=== PATIENT | male | born 1965 | race Two or more races ===

== ENCOUNTER 2017-06-27 09:57 | Inpatient (IN) | payer BC, OTHER ==
[2017-06-27 10:02] VITALS: BMI 34.6
[2017-06-27 11:40] LABS: BASOPHIL 0.6 % (0-2.0); EOSINOPHIL 0.9 % (0-4.5); MCH 32.3 pg (25.7-33.7); MCHC 32.9 g/dl (32.0-35.9); MEAN CELL VOLUME 98.2 fl (80-96); MEAN PLT VOLUME 11.8 fl (7.5-11.1); NEUTROPHILS 58.6 % (42.8-82.8); PLATELET COUNT 61 K/MM3 (134-434); WHITE BLOOD COUNT 4.2 K/mm3 (4.0-10.0)
[2017-06-27 12:03] LABS: INR 1.63 (0.82-1.09); PROTHROMBIN TIME (PATIENT) 18.1 SEC (9.98-11.88)
--- NOTE | 2017-06-27 12:03 | PDOC ---
History of Present Illness - General Chief Complaint: Pain Stated Complaint: ABD PAIN Time Seen by Provider: 06/27/17 11:06 History Source: Patient - History of Present Illness Initial Comments: 06/27/17 11:54 51 M with h/o hepatitis B and C, alcoholic cirrhosis, portal vein thrombosis presenting to ER with abdominal distention. Pt states that it has been worsening over the past 2 weeks. Denies F/C. Denies N/V/D. He states that he has lost his appetite due to the distention and has not been eating. He denies diarrhea or constipation. Reports mild epigastric pain. He states that he was seen at [facility] last week but reports that nothing was done for him. He denies ever getting a paracentesis. Pt also reports that he has not been compliant with his lactulose, which he is supposed to take twice daily, because he has had no appetite. Per discussion w PMD, pt has had this problem previously and has been treated with diuretics. Past History - Past Medical History Allergies/Adverse Reactions: Allergies Allergy/AdvReac Type Severity Reaction Status Date / Time No Known Allergies Allergy Verified 06/27/17 10:02 Home Medications: Ambulatory Orders Furosemide [Lasix -] 20 mg PO DAILY 06/27/17 Gabapentin 300 mg PO BID 06/27/17 Nadolol 40 mg PO DAILY 06/27/17 Omeprazole/Sodium Bicarbonate [Omeprazole-Bicarb 40-1,100 Cap] 1 each PO DAILY 06/27/17 Rifaximin [Xifaxan] 550 mg PO BID 06/27/17 Spironolactone 25 mg PO DAILY 06/27/17 Tamsulosin HCl 0.4 mg PO DAILY 06/27/17 Ursodiol 500 mg PO BID 06/27/17 Other medical history: CIRRHOSIS - Surgical History Appendectomy: Yes - Psycho/Social/Smoking Cessation Hx Suicidal Ideation: No Smoking History: Never smoked Information on smoking cessation initiated: No Review of Systems - Review of Systems Comments:: 06/27/17 12:03 "GENERAL/CONSTITUTIONAL: No fever or chills. No weakness. HEAD, EYES, EARS, NOSE AND THROAT: No change in vision. No ear pain or discharge. No sore throat. CARDIOVASCULAR: No chest pain or shortness of breath. RESPIRATORY: No cough, wheezing, or hemoptysis. GASTROINTESTINAL: + abdominal distention, epigastric pain. No nausea, vomiting, diarrhea or constipation. GENITOURINARY: No dysuria, frequency, or change in urination. MUSCULOSKELETAL: No joint or muscle swelling or pain. No neck or back pain. SKIN: No rash NEUROLOGIC: No headache, vertigo, loss of consciousness, or change in strength/ sensation. ENDOCRINE: No increased thirst. No abnormal weight change. HEMATOLOGIC/LYMPHATIC: No anemia, easy bleeding, or history of blood clots. ALLERGIC/IMMUNOLOGIC: No hives or skin allergy. " *Physical Exam - Vital Signs Last Vital Signs Temp Pulse Resp BP Pulse Ox 68 18 154/79 99 06/27/17 09:59 06/27/17 09:59 06/27/17 09:59 06/27/17 09:59 - Physical Exam Comments: 06/27/17 12:04 "GENERAL: Awake, alert, and fully oriented, in no acute distress HEAD: No signs of trauma EYES: PERRLA, EOMI, sclera anicteric, conjunctiva clear ENT: Auricles normal inspection, hearing grossly normal, nares patent, oropharynx clear without exudates. Moist mucosa NECK: Normal ROM, supple, no lymphadenopathy, JVD, or masses LUNGS: Breath sounds equal, clear to auscultation bilaterally. No wheezes, and no crackles HEART: Regular rate and rhythm, normal S1 and S2, no murmurs, rubs or gallops ABDOMEN: +epigastric TTP, +fluid wave, Soft, normoactive bowel sounds. No guarding, no rebound. No masses EXTREMITIES: Normal range of motion, no edema. No clubbing or cyanosis. No cords, erythema, or tenderness NEUROLOGICAL: Cranial nerves II through XII grossly intact. Normal speech, normal gait SKIN: Warm, Dry, normal turgor, no rashes or lesions noted. " Procedures - Consent Consent obtained: Verbal, From Patient - Additional Procedures Additional Procedures: other Progress: 06/27/17 16:13 Diagnostic paracentesis was performed, withdrawing 50cc of clear yellow ascitic fluid. Fluid sent to lab for study. ED Treatment Course - LABORATORY CBC & Chemistry Diagram: 06/27/17 11:30 06/27/17 11:30 - ADDITIONAL ORDERS Additional order review: 06/27/17 11:30 RBC 3.87 L MCV 98.2 H MCHC 32.9 RDW 18.0 H MPV 11.8 H Neutrophils % 58.6 Lymphocytes % 29.9 Monocytes % 10.0 Eosinophils % 0.9 Basophils % 0.6 - RADIOLOGY Radiology Studies Ordered: Category Date Time Status CHEST PA & LAT [RAD] Stat Radiology 06/27/17 11:14 Taken Medical Decision Making - Medical Decision Making 06/27/17 12:20 51 M with hepatitis, alcoholic cirrhosis, presenting with abdominal distention. No infectious signs/symptoms. No significant abdominal pain or tenderness. Likely worsening cirrhosis, but will r/o SBP. - Labs - Diagnostic paracentesis 06/27/17 16:14 Diagnostic para performed under sterile technique, 50 cc of clear yellow ascitic fluid sent to lab for studies. *DC/Admit/Observation/Transfer Diagnosis at time of Disposition: Hepatic cirrhosis - Discharge Dispostion Admit: Yes
[2017-06-27 12:05] LABS: ANION GAP 5 (8-16); BILIRUBIN,TOTAL 3.9 mg/dL (0.2-1.0); CALCIUM 8.1 mg/dL (8.5-10.1); CO2 31 mmol/L (21-32); CREATININE 0.9 mg/dL (0.7-1.3); GLUCOSE,RANDOM 85 mg/dL (74-106); SGOT/AST 62 U/L (15-37); SGPT/ALT 48 U/L (12-78); TOT PROT 6.8 g/dl (6.4-8.2)
[2017-06-27 12:06] LABS: URINE APPEARANCE CLEAR; URINE BILIRUBIN NEGATIVE (NEGATIVE); URINE BLOOD NEGATIVE (NEGATIVE); URINE COLOR DKYELLOW; URINE GLUCOSE (UA) NEGATIVE (NEGATIVE); URINE KETONE TRACE (NEGATIVE); URINE LEUK ESTERASE NEGATIVE (NEGATIVE); URINE NITRITE NEGATIVE (NEGATIVE); URINE PROTEIN NEGATIVE (NEGATIVE); URINE UROBILINOGEN NEGATIVE mg/dL (0.2-1.0)
[2017-06-27 12:13] LABS: ALK PHOS 158 U/L (45-117); THYROID STIMULATING HORMONE 2.46 uIU/ml (0.358-3.74)
[2017-06-27] MEDS ORDERED: LIDOCAINE HCL 1%, 10 MG/ML (20ML VIAL) ONE (14:54)
[2017-06-27] MEDS ORDERED: CEFTRIAXONE 1 GM in DEXTROSE 5%-WATER - 50 ML IVPB ONE (16:14)
[2017-06-27] MEDS ORDERED: CEFTRIAXONE 50 ML ONE (16:40)
[2017-06-27] MEDS ORDERED: morphine CARPU-JECT 4 MG/1 ML DISP.SYRIN IVPUSH ONE (16:58)
[2017-06-27] MEDS ORDERED: morphine CARPU-JECT 10 MG/1 ML DISP.SYRIN ONE (17:33)
--- NOTE | 2017-06-27 20:25 | HP ---
Admitting History and Physical - Primary Care Physician PCP: Emil Leach - Admission History of Present Illness: 51 M with h/o hepatitis B and C, alcoholic cirrhosis, portal vein thrombosis presenting to ER with abdominal distention. Pt states that it has been worsening over the past 2 weeks. Denies F/C. Denies N/V/D. He states that he has lost his appetite due to the distention and has not been eating, c/o abdominal pain. he was seen at [facility] last week but reports that nothing was done for him. He denies ever getting a paracentesis. Pt also reports that he has not been compliant with his lactulose, which he is supposed to take twice daily, because he has had no appetite. - Past Medical History Hepatobiliary: Yes: Cirrhosis (alcoholic), Hepatitis B, Hepatitis C - Smoking History Smoking history: Never smoked Home Medications - Allergies Allergies/Adverse Reactions: Allergies Allergy/AdvReac Type Severity Reaction Status Date / Time No Known Allergies Allergy Verified 06/27/17 10:02 - Home Medications Home Medications: Ambulatory Orders Furosemide [Lasix -] 20 mg PO DAILY 06/27/17 Gabapentin 300 mg PO BID 06/27/17 Nadolol 40 mg PO DAILY 06/27/17 Omeprazole/Sodium Bicarbonate [Omeprazole-Bicarb 40-1,100 Cap] 1 each PO DAILY 06/27/17 Rifaximin [Xifaxan] 550 mg PO BID 06/27/17 Spironolactone 25 mg PO DAILY 06/27/17 Tamsulosin HCl 0.4 mg PO DAILY 06/27/17 Ursodiol 500 mg PO BID 06/27/17 Physical Examination Vital Signs: Vital Signs Temperature 98.1 F 06/27/17 19:39 Pulse Rate 68 06/27/17 19:39 Respiratory Rate 19 06/27/17 19:39 Blood Pressure 144/83 06/27/17 19:39 O2 Sat by Pulse Oximetry (%) 98 06/27/17 19:39 Constitutional: Yes: Calm HENT: Yes: Atraumatic Neck: Yes: Supple Cardiovascular: Yes: Regular Rate and Rhythm Respiratory: Yes: CTA Bilaterally Gastrointestinal: Yes: Ascites Extremities: Yes: WNL Neurological: Yes: Alert, Oriented Problem List - Problems (1) Cirrhosis Assessment/Plan: pt alert and oriented no need for lactulose will get gi involved Code(s): K74.60 - UNSPECIFIED CIRRHOSIS OF LIVER (2) Ascites Assessment/Plan: diagnostic tap done will get IR involved for paracentesis Code(s): R18.8 - OTHER ASCITES Assessment/Plan Laboratory Tests 06/27/17 06/27/17 06/27/17 11:30 11:30 11:30 WBC 4.2 RBC 3.87 L Hgb 12.5 Hct 38.0 MCV 98.2 H MCH 32.3 MCHC 32.9 RDW 18.0 H Plt Count 61 L MPV 11.8 H Neutrophils % 58.6 Lymphocytes % 29.9 Monocytes % 10.0 Eosinophils % 0.9 Basophils % 0.6 INR PTT (Actin FS) 31.1 Sodium Potassium Chloride Carbon Dioxide Anion Gap BUN Creatinine Creat Clearance w eGFR Random Glucose Lactic Acid Calcium Total Bilirubin AST ALT Alkaline Phosphatase Ammonia 33.11 H Total Protein Albumin Lipase TSH Urine Color Urine Appearance Urine pH Ur Specific [place] Urine Protein Urine Glucose (UA) Urine Ketones Urine Blood Urine Nitrite Urine Bilirubin Urine Urobilinogen Ur Leukocyte Esterase Peritoneal Tot Protein Peritoneal Albumin Peritoneal LDH Peritoneal Glucose Peritoneal Amylase 06/27/17 06/27/17 06/27/17 11:30 11:30 11:30 WBC RBC Hgb Hct MCV MCH MCHC RDW Plt Count MPV Neutrophils % Lymphocytes % Monocytes % Eosinophils % Basophils % INR 1.63 H PTT (Actin FS) Sodium 140 Potassium 4.1 Chloride 104 Carbon Dioxide 31 Anion Gap 5 L BUN 9 Creatinine 0.9 Creat Clearance w eGFR > 60 Random Glucose 85 Lactic Acid 2.3 H* Calcium 8.1 L Total Bilirubin 3.9 H AST 62 H ALT 48 Alkaline Phosphatase 158 H Ammonia Total Protein 6.8 Albumin 2.0 L Lipase 239 TSH 2.46 Urine Color Urine Appearance Urine pH Ur Specific Friendship Urine Protein Urine Glucose (UA) Urine Ketones Urine Blood Urine Nitrite Urine Bilirubin Urine Urobilinogen Ur Leukocyte Esterase Peritoneal Tot Protein Peritoneal Albumin Peritoneal LDH Peritoneal Glucose Peritoneal Amylase 06/27/17 06/27/17 11:40 15:30 WBC RBC Hgb Hct MCV MCH MCHC RDW Plt Count MPV Neutrophils % Lymphocytes % Monocytes % Eosinophils % Basophils % INR PTT (Actin FS) Sodium Potassium Chloride Carbon Dioxide Anion Gap BUN Creatinine Creat Clearance w eGFR Random Glucose Lactic Acid Calcium Total Bilirubin AST ALT Alkaline Phosphatase Ammonia Total Protein Albumin Lipase TSH Urine Color Dkyellow Urine Appearance Clear Urine pH 7.0 Ur Specific Friend[place] 1.015 Urine Protein Negative Urine Glucose (UA) Negative Urine Ketones Trace H Urine Blood Negative Urine Nitrite Negative Urine Bilirubin Negative Urine Urobilinogen Negative Ur Leukocyte Esterase Negative Peritoneal Tot Protein 0 Peritoneal Albumin 0 Peritoneal LDH 33 Peritoneal Glucose 110 Peritoneal Amylase 27 Active Medications Generic Name Dose Route Start Last Admin Trade Name Freq PRN Reason Stop Dose Admin Furosemide 20 mg 06/28/17 10:00 06/28/17 09:21 Lasix - PO 20 mg DAILY SANCHO Administration Hydromorphone HCl 1 mg 06/28/17 10:08 06/28/17 09:45 Dilaudid Injection - IVPB 1 mg Q3H PRN Administration PAIN Nadolol 40 mg 06/28/17 10:00 06/28/17 09:21 Corgard - PO 40 mg DAILY SANCHO Administration Rifaximin 550 mg 06/27/17 22:00 06/28/17 09:21 Xifaxan - PO 550 mg BID SANCHO Administration Spironolactone 25 mg 06/28/17 10:00 06/28/17 09:21 Aldactone - PO 25 mg DAILY SANCHO Administration Tamsulosin HCl 0.4 mg 06/28/17 10:00 06/28/17 09:21 Flomax - PO 0.4 mg DAILY SANCHO Administration
[2017-06-27] MEDS: RIFAXIMIN 550 MG TABLET (UD) PO SCH (22:21)
[2017-06-28] MEDS: NADOLOL 40 MG TABLET (FP) PO SCH (09:21)
[2017-06-28] MEDS: RIFAXIMIN 550 MG TABLET (UD) PO SCH ×2 (09:21→22:02)
[2017-06-28] MEDS: TAMSULOSIN HCL 0.4 MG CAP.ER.24H (FP) PO SCH (09:21)
[2017-06-28] MEDS: FUROSEMIDE 20 MG TABLET (FP) PO SCH (09:21)
[2017-06-28] MEDS: SPIRONOLACTONE 25 MG TABLET (FP) PO SCH (09:21)
[2017-06-28] MEDS ORDERED: HYDROmorphone HCL CARPU-JECT 1 MG/1 ML DISP.SYRIN ONE (09:40)
[2017-06-28 09:46] LABS: BASOPHIL 0.3 % (0-2.0); EOSINOPHIL 0.8 % (0-4.5); MCH 32.8 pg (25.7-33.7); MCHC 33.3 g/dl (32.0-35.9); MEAN CELL VOLUME 98.6 fl (80-96); MEAN PLT VOLUME 10.4 fl (7.5-11.1); NEUTROPHILS 60.9 % (42.8-82.8); PLATELET COUNT 56 K/MM3 (134-434); RDW 17.3 % (11.9-15.9); WHITE BLOOD COUNT 3.4 K/mm3 (4.0-10.0)
--- NOTE | 2017-06-28 09:53 | PN ---
Progress Note, Physician History of Present Illness: Consulting service: Gastroenterology 51yo [place] Islander-speaking M w/ significant past history of Hep B and C, alcoholic cirrhosis, and portal vein thrombosis who initially presented to the ED for worsening abdominal distention and pain for the past 2 weeks. Pt states he has had this previously, however he started to feel unwell and lost his appetite noting increasing abdominal girth. Pt states he has not been taking his lactulose due to his loss of appetite however has been compliant with his Rifaximin 550 PO BID. Currently patient still feels uncomfortable due to the distention, however he is able to tolerate a full diet. His last BM was yesterday morning which was per his usual quality without any blood or mucous noted. - Current Medication List Current Medications: Active Medications Furosemide (Lasix -) 20 mg PO DAILY [facility] Last Admin: 06/28/17 09:21 Dose: 20 mg Ceftriaxone Sodium (Rocephin 1gm Ivpb (Pre-Docked)) 50 mls @ 100 mls/hr IVPB DAILY [facility] Nadolol (Corgard -) 40 mg PO DAILY [facility] Last Admin: 06/28/17 09:21 Dose: 40 mg Rifaximin (Xifaxan -) 550 mg PO BID [facility] Last Admin: 06/28/17 09:21 Dose: 550 mg Spironolactone (Aldactone -) 25 mg PO DAILY [facility] Last Admin: 06/28/17 09:21 Dose: 25 mg Tamsulosin HCl (Flomax -) 0.4 mg PO DAILY [facility] Last Admin: 06/28/17 09:21 Dose: 0.4 mg - Objective Vital Signs: Vital Signs Temperature 97.9 F 06/28/17 06:03 Pulse Rate 66 06/28/17 06:03 Respiratory Rate 20 06/28/17 06:03 Blood Pressure 131/76 06/28/17 06:03 O2 Sat by Pulse Oximetry (%) 97 06/27/17 21:00 Constitutional: Yes: No Distress, Calm Eyes: Yes: Conjunctiva Clear, EOM Intact, PERRL, Sclera Icterus (slight scleral icterus noted) Cardiovascular: Yes: Regular Rate and Rhythm. No: Murmur Respiratory: Yes: Regular, CTA Bilaterally. No: Rales, Rhonchi, SOB, Wheezes Gastrointestinal: Yes: Other (Distant bowel sounds, distended non-tender abdomen with fluid wave noted on auscultation. Old scar noted from previous appendectomy. No rebound or guarding noted.) Edema: No Peripheral Pulses WNL: Yes Neurological: Yes: Alert, Oriented Psychiatric: Yes: Alert, Oriented Labs: CBC, BMP 06/28/17 09:00 INR, PTT INR 1.63 (0.82-1.09) H 06/27/17 11:30 Impression/Plan Impression/Plan: 51yo M with sig history of Hepatitis B, C, portal vein thrombosis, and alcoholic cirrhosis noted to have worsening distention and abdominal discomfort. No N/V/D/C noted. Scleral icterus noted, ammonia lvl increased, T. Bili 3.9, alb 2.0, increased LFTs 1) Ascites --SBP r/o with diagnostic paracentesis; doubt infectious etiology due to results (LDH 33, Gluc 110, Amylase 21, 0 albumin, 0 protein) --Most likely result from worsening alcoholic cirrhosis --Pt able to tolerate diet currently --Possibility of therapeutic paracentesis to alleviate fluid? --Continue with diuretic usage --Pain control as needed 2) Increased Ammonia --Ammonia noted to be 33 on initial labs; will trend --Scleral icterus noted; not altered --Lactulose to be given now that patient is tolerating diet FEN: Fluids: Not indicated; tolerating full diet Electrolyte abnormalities: None Nutrition: fat/sodium/cholesterol controlled diet Dispo: Continue M/S management Visit type - Emergency Visit Emergency Visit: No - Critical Care Critical Care patient: No
[2017-06-28] MEDS ORDERED: CEFTRIAXONE 50 ML IVPB SCH (10:00)
[2017-06-28] MEDS ORDERED: HYDROmorphone HCL CARPU-JECT 1 MG/1 ML DISP.SYRIN IVPB PRN (10:08)
[2017-06-28 11:15] LABS: ALBUMIN 1.7 g/dl (3.4-5.0); ALK PHOS 141 U/L (45-117); ANION GAP 5 (8-16); BILIRUBIN,TOTAL 3.1 mg/dL (0.2-1.0); CALCIUM 7.6 mg/dL (8.5-10.1); CO2 31 mmol/L (21-32); CREATININE 0.8 mg/dL (0.7-1.3); GLUCOSE,RANDOM 184 mg/dL (74-106); SGOT/AST 48 U/L (15-37); SGPT/ALT 41 U/L (12-78)
[2017-06-28 12:33] LABS: PERITONEAL FLUID LYMPHOCYTE 6 %; PERITONEAL FLUID MESOTHELIAL 57 %
[2017-06-28 12:34] LABS: PERITONEAL FLUID MACROPHAGE 37 %
--- NOTE | 2017-06-28 13:31 | CON.GI ---
Consult Consult Specialty:: Gastroenterology Reason for Consultation:: Abdominal distention/ascites - History of Present Illness Chief Complaint: Abdominal discomfort and abdominal distention History of Present Illness: 51yo Arabic-speaking M who initially presented to the ED for worsening abdominal distention and pain for the past 2 weeks. Pt states he has had this previously, however he started to feel unwell and lost his appetite noting increasing abdominal girth. Describes the discomfort as a diffuse pressure which isn't exacerbated or alleviated with positioning. Pt denies any radiation of the discomfort and rates it as mild. He states he sees Dr. Kingston in [place] for routine follow-up of his liver cirrhosis (diagnosed 6-7 years ago) and that he is on a transplant list. Pt reports he has not been taking his lactulose due to his loss of appetite however has been compliant with his Rifaximin 550 PO BID. His previous colonoscopy was done 3 months ago. Currently patient still feels uncomfortable due to the distention, however he is able to tolerate a full diet. His last BM was yesterday morning which was per his usual quality without any blood or mucous noted. Denies n/v/d/c, fever/ chills. Patient originally from the [place], however has not travelled outside of [place] for about 4 years. - History Source History Provided By: Patient Limitations to Obtaining History: Language Barrier - Past Medical History Hepatobiliary: Yes: Cirrhosis (alcoholic), Hepatitis B, Hepatitis C - Past Surgical History Past Surgical History: Yes: Appendectomy (2009 or earlier), Colonoscopy (Most recent: 02/2017) - Alcohol/Substance Use Hx Alcohol Use: No - Smoking History Smoking history: Never smoked - Social History ADL: Independent Occupation: Retired History of Recent Travel: No Home Medications - Allergies Allergies/Adverse Reactions: Allergies Allergy/AdvReac Type Severity Reaction Status Date / Time No Known Allergies Allergy Verified 06/27/17 10:02 - Home Medications Home Medications: Ambulatory Orders Furosemide [Lasix -] 20 mg PO DAILY 06/27/17 Gabapentin 300 mg PO BID 06/27/17 Nadolol 40 mg PO DAILY 06/27/17 Omeprazole/Sodium Bicarbonate [Omeprazole-Bicarb 40-1,100 Cap] 1 each PO DAILY 06/27/17 Rifaximin [Xifaxan] 550 mg PO BID 06/27/17 Spironolactone 25 mg PO DAILY 06/27/17 Tamsulosin HCl 0.4 mg PO DAILY 06/27/17 Ursodiol 500 mg PO BID 06/27/17 Physical Exam-GI Vital Signs: Vital Signs Temperature 98.5 F 06/28/17 09:00 Pulse Rate 62 06/28/17 09:00 Respiratory Rate 20 06/28/17 09:00 Blood Pressure 133/76 06/28/17 09:00 O2 Sat by Pulse Oximetry (%) 95 06/28/17 09:00 Constitutional: Yes: No Distress, Calm Eyes: Yes: Conjunctiva Clear, EOM Intact, PERRL, Sclera Icterus (Mild scleral icterus noted) HENT: Yes: Other (Moist mucosa; slightly icteric under tongue) Cardiovascular: Yes: Bradycardia (regular rhythm). No: JVD, Murmur Respiratory: Yes: Regular, CTA Bilaterally. No: Rales, Rhonchi, Wheezes Gastrointestinal Inspection: Yes: Distention (Mildy distended), Scars (RLQ scar) ...Auscultate: Yes: Normoactive Bowel Sounds ...Palpate: Yes: Soft, Tenderness (discomfort on palpation). No: Hepatomegaly, Splenomegaly ...Percussion: Yes: Fluid Wave Edema: Yes Edema: LLE: 1+, RLE: 1+ Peripheral Pulses WNL: Yes Neurological: Yes: Alert, Oriented. No: Asterixis Psychiatric: Yes: Alert, Oriented Labs: INR, PTT INR 1.63 (0.82-1.09) H 06/27/17 11:30 Problem List - Problems (1) Cirrhosis Assessment/Plan: See Assessment and plan Code(s): K74.60 - UNSPECIFIED CIRRHOSIS OF LIVER Qualifiers: Hepatic cirrhosis type: alcoholic cirrhosis Assessment/Plan 51yo M with pmhx of Hep B, C, alcoholic liver cirrhosis presenting with increasing abdominal distention and diffuse discomfort. Diagnostic paracentesis done in ED; results noted MELD score 17 1) Ascites --Diagnostic paracentesis noted --SAG >1.1; most likely portal hypertension in nature due to previous history --Peritoneal fluid WBC, LDH, Glucose not indicative of SBP --Absolute PMN pending --Culture/Gram stain pending --Discussed patient with Dr. Kingston --Pt has natural portal-systemic shunt (spleno-renal) --Decreased size of portal vein and small esophageal varices --Recommend Triphasic CT --Will help visualize extent of diminished portal vein and shunting --Aid in evaluation of any underlying hepatocellular carcinoma --Discontinue any further lactulose usage --No evidence of encephalopathy currently --Currently being controlled with Rifaximin --Would not recommend therapeutic paracentesis at this point --Can D/C antibiotics at this time --Continual F/U with Dr. Kingston for continued evaluation of liver cirrhosis/ transplant --Colonoscopy up to date --Increase Aldactone to 50mg; increase Lasix to 40mg qDaily in setting of ascites and trace edema peripherally. FEN: Fluids: Not indicated currently; tolerating PO Electrolyte abnormalities: None currently Nutrition: Fat/Cholesterol/Sodium controlled diet PPX DVT - SCDs applied to both legs GI - Not truly indicated currently ATTENDING PHYSICIAN STATEMENT I saw and evaluated the patient. I reviewed the resident's note and discussed the case with the resident. I agree with the resident's findings and plan as documented. SUBJECTIVE: [employer] [id number] utilized [id number] admitted for evaluation of upper abdominal pain He underwent diagnostic paracentesis in ER Currently asymptomatic OBJECTIVE: Afebrile Anicteric Hrt: Bradycardic rate, reg rhythm Lungs: CTA B/L Abd: Mildly protuberant,+ normoactive BS, sft, nt, no HSM Ext: 1+ pitting edema to knees b/l w/ chronic stasis changes Neuro: AAO x 3, no Asterexis MELD: 17 ASSESSMENT Chronic Alcoholic cirrhosis Abdominal pain: Discussed case with Dr. Eliana Francis, Mr. Fletcher's Liver transplant attending. Apparently Mr. Fletcher has a history of chronic unexplained upper abdominal pain and has a history of gastroparesis confirmed by SGES. she explained that she has even attempted botox injections to the pylorus to see if this alleviated his pain complaints. Also, She confirmed that on recent imaging (12/17) he did not have a portal vein thrombus. He has a small caliber portal vein as well as a natural splenorenal shunt likely accounting for the small portal vein diameter and decompressed / small varices noted on his most recent EGD at [facility]. She was not certain why he is on ursodiol and his current liver chemistries seem to correlate with his previous labwork PLAN: Ordered triple phase CT scan of the abdomen and pelvis for HCC screening purposes and to evaluate abdominal pain / extent of ascites With mild peripheral edema and ascites, would titrate diuretics to Aldactone 50mg BID and Lasix 40mg daily Low sodium Low fiber diet Would stop lactulose given abdominal discomfort and continue rifaximin Unclear why Mr. Fletcher is on ursodiol. Clarification with his liver transplant attending upon follow-up D/C PPI Outpatient follow-up with Dr. Eliana Francis
--- NOTE | 2017-06-28 14:16 | PN ---
Progress Note, Physician - Current Medication List Current Medications: Active Medications Furosemide (Lasix -) 20 mg PO DAILY [facility] Last Admin: 06/28/17 09:21 Dose: 20 mg Hydromorphone HCl (Dilaudid Injection -) 1 mg IVPB Q3H PRN PRN Reason: PAIN Last Admin: 06/28/17 09:45 Dose: 1 mg Nadolol (Corgard -) 40 mg PO DAILY [facility] Last Admin: 06/28/17 09:21 Dose: 40 mg Rifaximin (Xifaxan -) 550 mg PO BID [facility] Last Admin: 06/28/17 09:21 Dose: 550 mg Spironolactone (Aldactone -) 25 mg PO DAILY [facility] Last Admin: 06/28/17 09:21 Dose: 25 mg Tamsulosin HCl (Flomax -) 0.4 mg PO DAILY [facility] Last Admin: 06/28/17 09:21 Dose: 0.4 mg - Objective Vital Signs: Vital Signs Temperature 98.5 F 06/28/17 09:00 Pulse Rate 62 06/28/17 09:00 Respiratory Rate 20 06/28/17 09:00 Blood Pressure 133/76 06/28/17 09:00 O2 Sat by Pulse Oximetry (%) 95 06/28/17 09:00 Constitutional: Yes: Calm HENT: Yes: Atraumatic Neck: Yes: Supple Cardiovascular: Yes: Regular Rate and Rhythm Respiratory: Yes: CTA Bilaterally Gastrointestinal: Yes: Normal Bowel Sounds, Ascites Extremities: Yes: WNL Edema: LLE: Trace, RLE: Trace Neurological: Yes: Alert, Oriented Labs: INR, PTT INR 1.63 (0.82-1.09) H 06/27/17 11:30 Problem List - Problems (1) Cirrhosis Assessment/Plan: pt alert and oriented no need for lactulose gi note rerviewed Code(s): K74.60 - UNSPECIFIED CIRRHOSIS OF LIVER (2) Ascites Assessment/Plan: gi not recommending tap at this point Code(s): R18.8 - OTHER ASCITES
--- NOTE | 2017-06-28 15:40 | CONSULT ---
Consult Consult Specialty:: infectious diseases Reason for Consultation:: r/o sbp - History of Present Illness Chief Complaint: abd distension History of Present Illness: 51 M with h/o hepatitis B and C, alcoholic cirrhosis, portal vein thrombosis presenting to ER with abdominal distention. Pt states that it has been worsening over the past 2 weeks. Denies F/C. Denies N/V/D. He states that he has lost his appetite due to the distention and has not been eating, c/o abdominal pain. he was seen at [facility] last week but reports that nothing was done for him. He denies ever getting a paracentesis. Pt also reports that he has not been compliant with his lactulose, which he is supposed to take twice daily, because he has had no appetite. patient now says they are going to do paracentesis on him - History Source History Provided By: Patient, Family Member Limitations to Obtaining History: Language Barrier - Past Medical History Hepatobiliary: Yes: Cirrhosis (alcoholic), Hepatitis B, Hepatitis C - Past Surgical History Past Surgical History: Yes: Appendectomy (2009 or earlier), Colonoscopy (Most recent: 02/2017) - Alcohol/Substance Use Hx Alcohol Use: No - Smoking History Smoking history: Never smoked - Social History ADL: Independent Occupation: Retired History of Recent Travel: No Home Medications - Allergies Allergies/Adverse Reactions: Allergies Allergy/AdvReac Type Severity Reaction Status Date / Time No Known Allergies Allergy Verified 06/27/17 10:02 - Home Medications Home Medications: Ambulatory Orders Furosemide [Lasix -] 20 mg PO DAILY 06/27/17 Gabapentin 300 mg PO BID 06/27/17 Nadolol 40 mg PO DAILY 06/27/17 Omeprazole/Sodium Bicarbonate [Omeprazole-Bicarb 40-1,100 Cap] 1 each PO DAILY 06/27/17 Rifaximin [Xifaxan -] 550 mg PO BID 06/27/17 Spironolactone 25 mg PO DAILY 06/27/17 Tamsulosin HCl 0.4 mg PO DAILY 06/27/17 Ursodiol 500 mg PO BID 06/27/17 Review of Systems - Review of Systems Constitutional: reports: No Symptoms Eyes: reports: No Symptoms HENT: reports: No Symptoms Neck: reports: No Symptoms Cardiovascular: reports: No Symptoms Respiratory: reports: No Symptoms Gastrointestinal: reports: Bloating, Other (distension) Genitourinary: reports: No Symptoms Musculoskeletal: reports: No Symptoms Neurological: reports: No Symptoms Endocrine: reports: No Symptoms Hematology/Lymphatic: reports: No Symptoms Psychiatric: reports: No Symptoms Physical Exam Vital Signs: Vital Signs Temperature 98.5 F 06/28/17 09:00 Pulse Rate 62 06/28/17 09:00 Respiratory Rate 20 06/28/17 09:00 Blood Pressure 133/76 06/28/17 09:00 O2 Sat by Pulse Oximetry (%) 95 06/28/17 09:00 Constitutional: Yes: No Distress, Calm Eyes: Yes: Conjunctiva Clear Neck: Yes: Supple Cardiovascular: Yes: Regular Rate and Rhythm Respiratory: Yes: Regular, Poor Air Entry Gastrointestinal: Yes: Normal Bowel Sounds, Soft, Ascites Musculoskeletal: Yes: WNL Extremities: Yes: WNL Neurological: Yes: Alert, Oriented Psychiatric: Yes: Alert, Oriented Imaging - Results Chest X-ray: Report Reviewed, Image Reviewed Cat Scan: Report Reviewed, Image Reviewed Ultrasound: Report Reviewed, Image Reviewed Assessment/Plan Problem List - Problems (1) Cirrhosis Assessment/Plan: pt alert and oriented no need for lactulose will get gi involved Code(s): K74.60 - UNSPECIFIED CIRRHOSIS OF LIVER (2) Ascites Assessment/Plan: diagnostic tap done will get IR involved for paracentesis Code(s): R18.8 - OTHER ASCITES at this time i do not se any signs of sbp patient was on ceftriaxone will stop it patient for paracentesis will see what shows up
[2017-06-28] MEDS ORDERED: CEFTRIAXONE 1 GM in DEXTROSE 5%-WATER - 50 ML IVPB SCH (15:45)
--- NOTE | 2017-06-28 18:48 | EKG ---
Test Reason : Blood Pressure : / mmHG Vent. Rate : 065 BPM Atrial Rate : 065 BPM P-R Int : 142 ms QRS Dur : 090 ms QT Int : 414 ms P-R-T Axes : 029 -07 019 degrees QTc Int : 430 ms NORMAL SINUS RHYTHM NORMAL ECG NO PREVIOUS ECGS AVAILABLE CLINICAL CORRELATION IS RECOMMENDED Confirmed by JOHN GOMEZ MD ([id number]) on 06/28/2017 6:47:37 PM Referred By: Confirmed By:JOHN GOMEZ MD
[2017-06-29] MEDS: RIFAXIMIN 550 MG TABLET (UD) PO SCH (09:46)
[2017-06-29] MEDS: TAMSULOSIN HCL 0.4 MG CAP.ER.24H (FP) PO SCH (09:47)
[2017-06-29] MEDS: FUROSEMIDE 20 MG TABLET (FP) PO SCH (09:47)
[2017-06-29] MEDS: SPIRONOLACTONE 25 MG TABLET (FP) PO SCH (09:47)
[2017-06-29] MEDS: NADOLOL 40 MG TABLET (FP) PO SCH (09:48)
--- NOTE | 2017-06-29 11:09 | PN ---
Progress Note, Physician History of Present Illness: 51yo M w/ significant history of alcoholic cirrhosis who originally presented with abdominal discomfort and distention related to increase of abdominal ascites. Currently patient feels much better and has complete resolution of his abdominal discomfort. Pt states he continues to tolerate his regular diet and has been moving his bowels per baseline. Pt denies any abdominal pain, nausea, vomiting, dizziness, urinary complaints. - Current Medication List Current Medications: Active Medications Furosemide (Lasix -) 20 mg PO DAILY [facility] Last Admin: 06/29/17 09:47 Dose: 20 mg Hydromorphone HCl (Dilaudid Injection -) 1 mg IVPB Q3H PRN PRN Reason: PAIN Last Admin: 06/28/17 09:45 Dose: 1 mg Nadolol (Corgard -) 40 mg PO DAILY [facility] Last Admin: 06/29/17 09:48 Dose: 40 mg Rifaximin (Xifaxan -) 550 mg PO BID [facility] Last Admin: 06/29/17 09:46 Dose: 550 mg Spironolactone (Aldactone -) 25 mg PO DAILY [facility] Last Admin: 06/29/17 09:47 Dose: 25 mg Tamsulosin HCl (Flomax -) 0.4 mg PO DAILY [facility] Last Admin: 06/29/17 09:47 Dose: 0.4 mg - Objective Vital Signs: Vital Signs Temperature 98.1 F 06/29/17 06:00 Pulse Rate 68 06/29/17 06:00 Respiratory Rate 20 06/29/17 06:00 Blood Pressure 132/70 06/29/17 06:00 O2 Sat by Pulse Oximetry (%) 99 06/28/17 21:00 Constitutional: Yes: Well Nourished, No Distress, Calm, Other (Seen OOB to chair using home cane) Eyes: Yes: Conjunctiva Clear, EOM Intact, PERRL, Sclera Icterus Cardiovascular: Yes: Regular Rate and Rhythm. No: Murmur Respiratory: Yes: Regular, CTA Bilaterally. No: Rales, Rhonchi, SOB, Wheezes Gastrointestinal: Yes: Normal Bowel Sounds, Soft, Ascites (Fluid wave present), Distention (mildly). No: Hepatomegaly, Tenderness Edema: Yes Edema: LLE: 1+, RLE: 1+ Peripheral Pulses WNL: Yes Neurological: Yes: Alert, Oriented Psychiatric: Yes: Alert, Oriented Labs: INR, PTT INR 1.63 (0.82-1.09) H 06/27/17 11:30 - ....Imaging Cat Scan: Image Reviewed Problem List - Problems (1) Cirrhosis Assessment/Plan: --Triple phase CT image reviewed; official report pending --Per my read no note of arterial enhancement followed by venous phase washout that may be indicative of HCC --Fatty infiltration of liver noted with perihepatic ascites prominent --Collection of stool noted in transverse colon w/o distention or bowel wall thickening --Would recommend optimization of diuretics per primary team --Continued follow-up with primary GI and Liver transplant specialist Code(s): K74.60 - UNSPECIFIED CIRRHOSIS OF LIVER Qualifiers: Hepatic cirrhosis type: alcoholic cirrhosis Visit type - Emergency Visit Emergency Visit: No - New Patient This patient is new to me today: No - Critical Care Critical Care patient: No
--- NOTE | 2017-06-29 16:06 | PN ---
Teaching Attending Note Name of Resident: Kun Hannon ATTENDING PHYSICIAN STATEMENT I saw and evaluated the patient. I reviewed the resident's note and discussed the case with the resident. I agree with the resident's findings and plan as documented. SUBJECTIVE: Patient initially found in solarium sitting in chair in no distress Denies abdominal pain OBJECTIVE: Examined in his bed Anicteric Hrt bradycardic rate reg rhythm Lungs CTA b/l Abdomen: protuberant, sfot +BS Ext: 1+ LE edema CT scan: no PVT, no massive ascites, no HCC, mild splenomegaly, thickened GB wall Ascites culture negative ASSESSMENT Resolved upper abdominal pain that appears to be chroinic in nature PLAN: Titrate diuretics to Lasix 40mg daily, Aldactone 50mg daily Low sodium diet Follow-up with Dr. Eliana Francis, brief writer as scheduled Follow-up with PMD to recheck labs as diuretics to be titrated Recall as needed. Will sign off
[2017-06-29 18:25] VITALS: BP 113/52; PULSE 60; TEMP 97.9
--- NOTE | 2017-06-29 18:56 | DS ---
Physical Examination Vital Signs: Vital Signs Temperature 97.9 F 06/29/17 17:00 Pulse Rate 60 06/29/17 17:00 Respiratory Rate 20 06/29/17 17:00 Blood Pressure 113/52 06/29/17 17:00 O2 Sat by Pulse Oximetry (%) 98 06/29/17 09:00 Constitutional: Yes: No Distress HENT: Yes: Atraumatic Neck: Yes: Supple Cardiovascular: Yes: Regular Rate and Rhythm Respiratory: Yes: CTA Bilaterally Gastrointestinal: Yes: Normal Bowel Sounds, Ascites Extremities: Yes: WNL Neurological: Yes: Alert, Oriented Discharge Summary Reason For Visit: CIRRHOSIS Current Active Problems Ascites (Acute) Cirrhosis (Acute) pancytopenia - Instructions Diet, Activity, Other Instructions: low salt diet sse your gi doctor to increase lasix and aldactone Referrals: Marcel Weinberg DO [Staff Physician] - Disposition: HOME - Home Medications Comprehensive Discharge Medication List: Ambulatory Orders Furosemide [Lasix -] 20 mg PO DAILY 06/27/17 Gabapentin 300 mg PO BID 06/27/17 Nadolol 40 mg PO DAILY 06/27/17 Omeprazole/Sodium Bicarbonate [Omeprazole-Bicarb 40-1,100 Cap] 1 each PO DAILY 06/27/17 Rifaximin [Xifaxan -] 550 mg PO BID 06/27/17 Spironolactone 25 mg PO DAILY 06/27/17 Tamsulosin HCl 0.4 mg PO DAILY 06/27/17 Ursodiol 500 mg PO BID 06/27/17 dc home pt need to see his gi doctor
== END 2017-06-29 20:30 | disposition home or self-care (01) | DRG 433 ==
LOC: JER 09:57 → JERBED 16:16 → J4W 21:29 → OBSVTOIN 06-28 10:00 → JICU 06-28 10:28 → J4W 06-28 15:35
PROVIDERS: ADMIT Internal Medicine; ATTEND Internal Medicine
PROC: 0W9G3ZX Drainage of Peritoneal Cavity, Percutaneous Approach, Diagnostic (ICD-10-PCS; principal; 2017-06-27)
DX: K70.31 Alcoholic cirrhosis of liver with ascites (principal); K76.6 Portal hypertension; D61.818 Other pancytopenia; R14.0 Abdominal distension (gaseous); Z86.19 Personal history of other infectious and parasitic diseases
CPT/HCPCS: 36415; 71020-TC; 74178-TC; 76705-TC; 80053; 81003; 82042; 82140; 82150; 82945; 83605; 83615; 83690; 84157; 84443; 85025; 85610; 85730; 87070; 87075; 87205; 89051; 93005; 93010; 99282-25; G0378; Q9967

== ENCOUNTER 2017-08-16 11:53 | Inpatient (IN) | payer BC, OTHER ==
--- NOTE | 2017-08-16 12:19 | PDOC ---
Attending Attestation - Resident Resident Name: Vipin Christian - ED Attending Attestation I have performed the following: I have examined & evaluated the patient, The case was reviewed & discussed with the resident, I agree w/resident's findings & plan, Exceptions are as noted - HPI HPI: 08/16/17 15:45 52M with a PMH of hep B and C, alcoholic cirrhosis, portal vein thrombosis, and HTN who presents to the ED with intermittent symptoms of b/l vision loss. Per EMS, pt was in the bathroom for a long time, when his mother's ASSOCIATE DIRECTOR checked on him, he c/o b/l vision loss. EMS reported these sxs were present when she picked up the patient but resolved en route. Here in the ED the patient c/o b/l vision loss again a/w generalized weakness. Pt's history seems to vary per provider, as he provides differing answers for where he feels week, initially reporting L arm and RLE, now reporting generalized weakness. Also, he reports vision loss began this morning initially in the bathroom, but later on, tells Dr. Christian that it began last night. Denies fevers, chills, cp, sob, abd pain, n/v/d, LE edema. Reports compliance with medications, states that he is not sure if he is on lactulose or not. - Physicial Exam PE: 08/16/17 15:49 GENERAL: Awake, alert, AO x1 (name), no distress HEAD: No signs of trauma EYES: PERRLA, EOMI, sclera anicteric, conjunctiva clear ENT: Auricles normal inspection, hearing grossly normal, nares patent, oropharynx clear without exudates. Moist mucosa NECK: Normal ROM, supple, no lymphadenopathy, JVD, or masses LUNGS: Breath sounds equal, clear to auscultation bilaterally. No wheezes, and no crackles HEART: Regular rate and rhythm, normal S1 and S2, no murmurs, rubs or gallops ABDOMEN: Soft, nontender, normoactive bowel sounds. No guarding, no rebound. No masses EXTREMITIES: Normal range of motion, no edema. No clubbing or cyanosis. No cords, erythema, or tenderness NEUROLOGICAL: +asterixes, b/l tremors. normal speech, cranial nerves intact, negative pronator drift, 4/5 strength in all 4 extremities, normal sensation to light touch in all 4 extremities, normal cerebellar exam, normal reflexes and tone, gait deferred SKIN: Warm, Dry, normal turgor, no rashes or lesions noted. - Medical Decision Making 08/16/17 15:51 52-year-old male with a history of hepatitis B and hepatitis C presents with fluctuating deficits including vision loss and upper and lower extremity weakness. Vitals on presentation are unremarkable. Exam with a confused patient with generalized weakness in all 4 extremities as well as asterixis concerning for likely hepatic encephalopathy. Will obtain a CT scan of his head to evaluate for vision loss and possible neurologic etiology to the symptoms. Will also do an infectious workup as well. Plan: -labs -monitor -cth -neuro c/s -blood cx -admit Heart Score/ECG Review #1 08/16/17 15:59 Twelve-lead EKG was performed and reviewed by me. Normal sinus rhythm, rate of 61, normal axis, normal intervals, no TIFFANI
[2017-08-16] MEDS ORDERED: SODIUM CHLORIDE 0.9% 1000 ML INFUS.BAG IV ONE (12:33)
--- NOTE | 2017-08-16 12:41 | PDOC ---
History of Present Illness - General Chief Complaint: Weakness Stated Complaint: WEAKNESS Time Seen by Provider: 08/16/17 12:08 History Source: Patient, EMS Exam Limitations: No Limitations, Language Barrier ([employer] [id number] used) - History of Present Illness Initial Comments: 08/16/17 12:35 The patient is a 52M with a PMH of hep B and C, alcoholic cirrhosis, portal vein thrombosis, and HTN who presents to the ED for a questionable stroke. EMS provided the history. They state that the patient went to the bathroom at 10: 20am and was in the bathroom for an hour when his mother's aid went to check on him and found him unable to see out of either of his eyes with weakness. He was then brought in by EMS. EMS vital significant for hypertension 142/96 and his vision had returned. Upon arrival to the ED, patient was complaining of b/l vision loss. 08/16/17 15:34 Using a mobile application development lead phone, I was able to get a different history: patient states that yesterday night he went completely blind, could not see any light. He does not remember what he was doing. It affected both of his eyes. This has happened before but he does not remember when and what happened. He does not know why he is shaking. PCP Dr. Acosta at [place]. Past History - Past Medical History Allergies/Adverse Reactions: Allergies Allergy/AdvReac Type Severity Reaction Status Date / Time No Known Allergies Allergy Verified 08/16/17 12:38 Home Medications: Ambulatory Orders Furosemide [Lasix -] 20 mg PO DAILY 06/27/17 Gabapentin 300 mg PO BID 06/27/17 Nadolol 40 mg PO DAILY 06/27/17 Omeprazole/Sodium Bicarbonate [Omeprazole-Bicarb 40-1,100 Cap] 1 each PO DAILY 06/27/17 Rifaximin [Xifaxan -] 550 mg PO BID 06/27/17 Spironolactone 25 mg PO DAILY 06/27/17 Tamsulosin HCl 0.4 mg PO DAILY 06/27/17 Ursodiol 500 mg PO BID 06/27/17 Liver Disease: (Chirosis,Hep C, portal vein Thombosis) - Surgical History Appendectomy: Yes - Suicide/Smoking/Psychosocial Hx Smoking History: Never smoked Hx Alcohol Use: No Review of Systems - Review of Systems Able to Perform ROS?: No (Patient not responding) *Physical Exam - Physical Exam General Appearance: Yes: Nourished, Appropriately Dressed HEENT: positive: Normal Voice, Hearing Grossly Normal Respiratory/Chest: positive: Lungs Clear, Normal Breath Sounds. negative: Chest Tender Cardiovascular: positive: Regular Rhythm, Regular Rate, S1, S2. negative: Diastolic Murmur, Systolic Murmur Gastrointestinal/Abdominal: positive: Flat, Soft. negative: Tender Musculoskeletal: negative: CVA Tenderness, CVA Tenderness (R), CVA Tenderness (L ) Extremity: positive: Normal Inspection, Normal Range of Motion. negative: Coldness, Cyanosis, Calf Tenderness, Erythema Integumentary: positive: Dry, Warm. negative: Clammy, Diaphoresis Neurologic: positive: salvage clerk II-XII NML intact, Alert, Normal Response, Finger to Nose (unable to do 2/2 vision loss), Depressed Affect. negative: Normal Mood/ Affect, Motor Strength 5/5 (R UE weaker than LUE. LLE weaker than RLE.), Abnormal Cranial NS, EOM Palsy, Facial Droop, Numbness, Sensory Deficit ED Treatment Course - LABORATORY CBC & Chemistry Diagram: 08/16/17 12:39 08/16/17 13:30 - RADIOLOGY Radiology Studies Ordered: Category Date Time Status HEAD CT (STROKE) [CT] Stat CT Scan 08/16/17 12:01 Taken CHEST X-RAY PORTABLE* [RAD] Stat Radiology 08/16/17 12:33 Ordered Medical Decision Making - Medical Decision Making 08/16/17 12:45 Patient is a 52M with alcoholic cirrhosis, hep B and C, and HTN who presents to the ED with b/l vision loss. A code higgins was called. B/l vision loss was appreciated on exam. CT head called in by radiologist as negative for hemorrhage. Neurologist states that we should draw PT/PTT/INR. Labs pending. MRI ordered along with septic protocol. 08/16/17 14:00 INR 1.5. Pending call back from neurology. 08/16/17 15:33 Neurology does not recommend TPA secondary to changing timeline and inappropriate sx. Dr. Meyers accepts admission for Dr. Guillermo. *DC/Admit/Observation/Transfer Diagnosis at time of Disposition: Hyperammonemia Cirrhosis Qualifiers: Hepatic cirrhosis type: alcoholic cirrhosis Ascites presence: without ascites Qualified Code(s): K70.30 - Alcoholic cirrhosis of liver without ascites - Discharge Dispostion Condition at time of disposition: Stable Admit: Yes
[2017-08-16 12:52] LABS: BASOPHIL 0.3 % (0-2.0); EOSINOPHIL 1.5 % (0-4.5); MCH 32.7 pg (25.7-33.7); MCHC 32.8 g/dl (32.0-35.9); MEAN CELL VOLUME 99.6 fl (80-96); MEAN PLT VOLUME 11.3 fl (7.5-11.1); NEUTROPHILS 51.7 % (42.8-82.8); PLATELET COUNT 47 K/MM3 (134-434); RDW 15.6 % (11.9-15.9); WHITE BLOOD COUNT 4.3 K/mm3 (4.0-10.0)
[2017-08-16 13:17] LABS: INR 1.49 (0.82-1.09); PROTHROMBIN TIME (PATIENT) 16.8 SEC (9.98-11.88)
[2017-08-16 13:56] LABS: URINE APPEARANCE CLEAR; URINE BILIRUBIN NEGATIVE (NEGATIVE); URINE BLOOD NEGATIVE (NEGATIVE); URINE COLOR YELLOW; URINE GLUCOSE (UA) NEGATIVE (NEGATIVE); URINE KETONE NEGATIVE (NEGATIVE); URINE NITRITE NEGATIVE (NEGATIVE); URINE PROTEIN NEGATIVE (NEGATIVE); URINE UROBILINOGEN NEGATIVE mg/dL (0.2-1.0)
[2017-08-16 14:18] LABS: ALBUMIN 2.1 g/dl (3.4-5.0); ANION GAP 8 (8-16); CALCIUM 7.8 mg/dL (8.5-10.1); CHOLESTEROL 148 mg/dL (50-200); CO2 23 mmol/L (21-32); CREATININE 0.6 mg/dL (0.7-1.3); GLUCOSE,RANDOM 92 mg/dL (74-106); SGPT/ALT 32 U/L (12-78); TOT PROT 7.3 g/dl (6.4-8.2)
[2017-08-16 14:22] LABS: ALK PHOS 237 U/L (45-117); CPK 104 IU/L (39-308); TROPONIN I < 0.02 ng/ml (0.00-0.05)
[2017-08-16 14:37] LABS: VENOUS PH 7.42 (7.32-7.42)
[2017-08-16 15:04] LABS: SGOT/AST 50 U/L (15-37)
[2017-08-16] MEDS ORDERED: LACTULOSE 20 GM/30 ML UDC (FOR ORAL USE ONLY) PO ONE (15:28)
[2017-08-16] MEDS ORDERED: LACTULOSE 20 GM/30 ML UDC (FOR ORAL USE ONLY) ONE (15:31)
--- NOTE | 2017-08-16 15:57 | HP ---
Admitting History and Physical - Admission History of Present Illness: 52M with a PMH of hep B and C, alcoholic cirrhosis, portal vein thrombosis, and HTN who presents to the ED with intermittent symptoms of b/l vision loss. Per EMS, pt was in the bathroom for a long time, when his mother's SPECIAL EVENT ASSISTANT checked on him, he c/o b/l vision loss. EMS reported these sxs were present when she picked up the patient but resolved en route. Here in the ED the patient c/o b/l vision loss again a/w generalized weakness. Pt's history seems to vary per provider, as he provides differing answers for where he feels week, initially reporting L arm and RLE, now reporting generalized weakness. Also, he reports vision loss began this morning initially in the bathroom, but later on, tells Dr. Christian that it began last night. Denies fevers, chills, cp, sob, abd pain, n/v/d, LE edema. Reports compliance with medications, states that he is not sure if he is on lactulose or not. per patient this has happened to him before and he does not remember when and what had happened at that time - Past Medical History Hepatobiliary: Yes: Cirrhosis (alcoholic), Hepatitis B, Hepatitis C - Past Surgical History Past Surgical History: Yes: Appendectomy (2009 or earlier), Colonoscopy (Most recent: 02/2017) - Smoking History Smoking history: Never smoked - Alcohol/Substance Use Hx Alcohol Use: No - Social History ADL: Independent Occupation: Retired History of Recent Travel: No Home Medications - Allergies Allergies/Adverse Reactions: Allergies Allergy/AdvReac Type Severity Reaction Status Date / Time No Known Allergies Allergy Verified 08/16/17 12:38 - Home Medications Home Medications: Ambulatory Orders Furosemide [Lasix -] 20 mg PO DAILY 06/27/17 Gabapentin 300 mg PO BID 06/27/17 Nadolol 40 mg PO DAILY 06/27/17 Omeprazole/Sodium Bicarbonate [Omeprazole-Bicarb 40-1,100 Cap] 1 each PO DAILY 06/27/17 Rifaximin [Xifaxan -] 550 mg PO BID 06/27/17 Spironolactone 25 mg PO DAILY 06/27/17 Tamsulosin HCl 0.4 mg PO DAILY 06/27/17 Ursodiol 500 mg PO BID 06/27/17 Review of Systems - Review of Systems Neurological: reports: Other (vision loss) Physical Examination Vital Signs: Vital Signs Temperature 98.8 F 08/16/17 12:36 Pulse Rate 59 L 08/16/17 14:07 Respiratory Rate 16 08/16/17 14:07 Blood Pressure 134/77 08/16/17 14:07 O2 Sat by Pulse Oximetry (%) 100 08/16/17 14:07 Constitutional: Yes: Calm Cardiovascular: Yes: Regular Rate and Rhythm, S1, S2 Respiratory: Yes: CTA Bilaterally Gastrointestinal: Yes: Normal Bowel Sounds, Soft, Distention Edema: No Neurological: Yes: Alert, Oriented, Other (blind) Labs: CBC, BMP 08/16/17 12:39 08/16/17 13:30 Imaging - Results Cat Scan: Report Reviewed Problem List - Problems (1) Blindness Assessment/Plan: MRI neuro check carotid doppler Code(s): H54.7 - UNSPECIFIED VISUAL LOSS (2) Cirrhosis Assessment/Plan: ultrasound of liver ggtp Code(s): K74.60 - UNSPECIFIED CIRRHOSIS OF LIVER Qualifiers: Hepatic cirrhosis type: alcoholic cirrhosis Ascites presence: without ascites Qualified Code(s): K70.30 - Alcoholic cirrhosis of liver without ascites; K70.30 - Alcoholic cirrhosis of liver without ascites; K70.30 - Alcoholic cirrhosis of liver without ascites (3) Hyperammonemia Assessment/Plan: lactulose fu level Code(s): E72.20 - DISORDER OF UREA CYCLE METABOLISM, UNSPECIFIED
[2017-08-16] MEDS ORDERED: LACTULOSE 20 GM/30 ML UDC (FOR ORAL USE ONLY) PO PRN (16:03)
--- NOTE | 2017-08-16 16:57 | PN ---
Progress Note (short form) - Note Progress Note: cc 52 year old male complain of bilateral vision loss HPI 52 year old male hisotry of alcohol cirrhosis , portal vein thrombosis, hypertension, hep b and Hep C. He initially presented with bilateral vision loss. Initially stroke code ( code higgins) was called. Patient had ct head. Later symptoms resolved. later he complain of right arm and leg weakness and it resolved. Patient is not able to provide information and he is confused. Initially ct scan was normal, he was suspected to be hepatic encephalopathy. \ - Past Medical History Hepatobiliary: Yes: Cirrhosis (alcoholic), Hepatitis B, Hepatitis C - Past Surgical History Past Surgical History: Yes: Appendectomy (2009 or earlier), Colonoscopy (Most recent: 02/2017) - Smoking History Smoking history: Never smoked - Alcohol/Substance Use Hx Alcohol Use: No - Social History ADL: Independent Occupation: Retired History of Recent Travel: No Home Medications - Allergies Allergies/Adverse Reactions: Allergies Allergy/AdvReac Type Severity Reaction Status Date / Time No Known Allergies Allergy Verified 08/16/17 12:38 - Home Medications Home Medications: Ambulatory Orders Furosemide [Lasix -] 20 mg PO DAILY 06/27/17 Gabapentin 300 mg PO BID 06/27/17 Nadolol 40 mg PO DAILY 06/27/17 Omeprazole/Sodium Bicarbonate [Omeprazole-Bicarb 40-1,100 Cap] 1 each PO DAILY 06/27/17 Rifaximin [Xifaxan -] 550 mg PO BID 06/27/17 Spironolactone 25 mg PO DAILY 06/27/17 Tamsulosin HCl 0.4 mg PO DAILY 06/27/17 Ursodiol 500 mg PO BID 06/27/17 Review of Systems - Review of Systems Neurological: reports: Other (vision loss) Physical Examination Vital Signs: Vital Signs Temperature 98.8 F 08/16/17 12:36 Pulse Rate 59 L 08/16/17 14:07 Respiratory Rate 16 08/16/17 14:07 Blood Pressure 134/77 08/16/17 14:07 O2 Sat by Pulse Oximetry (%) 100 08/16/17 14:07 Neurological Examination vital stable Alert is able to follow command, orietned x 0, neck is supple eomi, and face is symmetrical, pupils is reactive vision is difficult to assess as reliability is in question, he blink to visual threat and pupils is reactive moving all extremity there is flapping tremor noticed sensation is normal ct head is unremarkable Assessment-- Agree with ED assessment of hepatic encephalopathy, less likely to be stroke. Given he has risk factor and initial presentation was suggestive of stroke, suggest to do mri of brain, Plan-- supportive treatment - Hepatic encephalopathy treatment as per primary team or GI - mri of brain , if stroke confirmed than further work up - supportive care - feel free to call me if any question Janak Hart MD
[2017-08-16 18:32] LABS: URINE LEUK ESTERASE Negative (NEGATIVE)
[2017-08-16 19:14] VITALS: BMI 33.3
--- NOTE | 2017-08-16 21:57 | EKG ---
Test Reason : Blood Pressure : / mmHG Vent. Rate : 061 BPM Atrial Rate : 061 BPM P-R Int : 140 ms QRS Dur : 076 ms QT Int : 444 ms P-R-T Axes : 025 -22 013 degrees QTc Int : 446 ms NORMAL SINUS RHYTHM BASELINE ARTIFACT V2 CANNOT BE INTERPRETED WHEN COMPARED WITH ECG OF 27-JUN-2017 20:05, SUGGEST REPEAT EKG Confirmed by JOHN GOMEZ MD ([id number]) on 08/16/2017 9:57:07 PM Referred By: Confirmed By:JOHN GOMEZ MD
[2017-08-16] MEDS: URSODIOL 300 MG CAPSULE PO SCH (22:54)
[2017-08-16] MEDS: RIFAXIMIN 550 MG TABLET (UD) PO SCH (22:55)
--- NOTE | 2017-08-17 08:20 | PN ---
Progress Note (short form) - Note Progress Note: 52 year old male complain of bilateral vision loss. He hisotry of alcohol cirrhosis , portal vein thrombosis, hypertension, hep b and Hep C. He initially presented with bilateral vision loss. Initially stroke code ( code higgins) was called. Patient had ct head. Later symptoms resolved. later he complain of right arm and leg weakness and it resolved. Patient is not able to provide information and he is confused. Initially ct scan was normal, he was suspected to be hepatic encephalopathy. Neurological vital stable Alert is able to follow command, orietned x 1, neck is supple eomi, and face is symmetrical, pupils is reactive vision is difficult to assess as reliability is in question, he blink to visual threat and pupils is reactive moving all extremity there is flapping tremor noticed sensation is normal ct head is unremarkable mra is unremarkable carotid ultrasound was unremarkable Assessment-- most likely hepatic encephalopahty, serum nh3 level were high Plan-- supportive treatment - mri of brain to rule out stroke - - supportive care - feel free to call me if any question Janak Hart MD
[2017-08-17 08:35] LABS: BASOPHIL 0.5 % (0-2.0); MCH 32.5 pg (25.7-33.7); MCHC 32.9 g/dl (32.0-35.9); MEAN CELL VOLUME 98.8 fl (80-96); MEAN PLT VOLUME 11.6 fl (7.5-11.1); NEUTROPHILS 45.1 % (42.8-82.8); PLATELET COUNT 46 K/MM3 (134-434); RDW 15.8 % (11.9-15.9); WHITE BLOOD COUNT 3.7 K/mm3 (4.0-10.0)
[2017-08-17 09:16] LABS: ALBUMIN 1.9 g/dl (3.4-5.0); AMYLASE 155 U/L (25-115); ANION GAP 6 (8-16); CALCIUM 8.1 mg/dL (8.5-10.1); CO2 27 mmol/L (21-32); GLUCOSE,RANDOM 81 mg/dL (74-106); MAGNESIUM 1.5 mg/dL (1.8-2.4); SGPT/ALT 27 U/L (12-78)
[2017-08-17 09:21] LABS: ALK PHOS 210 U/L (45-117); CREATININE 0.7 mg/dL (0.7-1.3); PHOSPHOROUS 3.4 mg/dL (2.5-4.9); SGOT/AST 40 U/L (15-37); TOT PROT 6.3 g/dl (6.4-8.2)
[2017-08-17] MEDS: TAMSULOSIN HCL 0.4 MG CAP.ER.24H (FP) PO SCH (09:46)
[2017-08-17] MEDS ORDERED: NADOLOL 20 MG TABLET (FP) ONE (10:45)
[2017-08-17] MEDS: SPIRONOLACTONE 25 MG TABLET (FP) PO SCH (10:59)
[2017-08-17] MEDS: FUROSEMIDE 20 MG TABLET (FP) PO SCH (10:59)
[2017-08-17] MEDS: RIFAXIMIN 550 MG TABLET (UD) PO SCH ×2 (10:59→21:53)
[2017-08-17] MEDS: URSODIOL 300 MG CAPSULE PO SCH ×2 (10:59→21:53)
[2017-08-17] MEDS: NADOLOL 40 MG TABLET (FP) PO SCH (11:00)
--- NOTE | 2017-08-17 13:58 | PN ---
Progress Note, Physician Chief Complaint: hepatic encephalopathy History of Present Illness: NAD, in bed seen by Neurology awaiting GI consult - Current Medication List Current Medications: Active Medications Furosemide (Lasix -) 20 mg PO DAILY [facility] Last Admin: 08/17/17 10:59 Dose: 20 mg Lactulose (Cephulac (Oral Use)) 20 gm PO TID PRN PRN Reason: CONSTIPATION Last Admin: 08/16/17 22:54 Dose: 20 gm Nadolol (Corgard -) 40 mg PO DAILY [facility] Last Admin: 08/17/17 11:00 Dose: 40 mg Rifaximin (Xifaxan -) 550 mg PO BID [facility] Last Admin: 08/17/17 10:59 Dose: 550 mg Spironolactone (Aldactone -) 25 mg PO DAILY [facility] Last Admin: 08/17/17 10:59 Dose: 25 mg Tamsulosin HCl (Flomax -) 0.4 mg PO DAILY@0830 [facility] Last Admin: 08/17/17 09:46 Dose: 0.4 mg Ursodiol (Actigal -) 300 mg PO BID [facility] Last Admin: 08/17/17 10:59 Dose: 300 mg - Objective Vital Signs: Vital Signs Temperature 98.4 F 08/17/17 10:00 Pulse Rate 70 08/17/17 10:00 Respiratory Rate 18 08/17/17 10:00 Blood Pressure 136/85 08/17/17 10:00 O2 Sat by Pulse Oximetry (%) 100 08/16/17 19:57 Constitutional: Yes: Well Nourished, No Distress, Calm Cardiovascular: Yes: Regular Rate and Rhythm Respiratory: Yes: Regular Gastrointestinal: Yes: Normal Bowel Sounds Edema: No Peripheral Pulses WNL: Yes Neurological: Yes: Alert Psychiatric: Yes: Alert Labs: CBC, BMP 08/17/17 08:00 08/17/17 08:00 INR, PTT INR 1.49 (0.82-1.09) H 08/16/17 12:39 Problem List - Problems (1) Ascites Assessment/Plan: -secondary to hepatic cirrhosis -evaluation pending by GI Code(s): R18.8 - OTHER ASCITES (2) Blindness Assessment/Plan: -seen by neurologist Code(s): H54.7 - UNSPECIFIED VISUAL LOSS (3) Cirrhosis Assessment/Plan: -chronic -GI consult pending -U/S liver confirms hepatic cirrhosis -on lactulose Code(s): K74.60 - UNSPECIFIED CIRRHOSIS OF LIVER Qualifiers: Hepatic cirrhosis type: alcoholic cirrhosis Ascites presence: without ascites Qualified Code(s): K70.30 - Alcoholic cirrhosis of liver without ascites; K70.30 - Alcoholic cirrhosis of liver without ascites; K70.30 - Alcoholic cirrhosis of liver without ascites (4) Hepatic encephalopathy Assessment/Plan: -chronic -GI consult pending -U/S liver confirms hepatic cirrhosis -on lactulose -monitor INR -check labs in AM Code(s): K72.90 - HEPATIC FAILURE, UNSPECIFIED WITHOUT COMA Assessment/Plan see problem list
--- NOTE | 2017-08-17 15:46 | CONSULT ---
Consult Consult Specialty:: Hematology Reason for Consultation:: Thrombocytopenia - History of Present Illness History of Present Illness: Pt poor historian: 52 yo with cirrhosis, is here for ?blindness, In the ED the patient c/o b/l vision loss again a/w generalized weakness. Denies fevers, chills, cp, sob, abd pain, n/v/d, LE edema. Reports compliance with medications. - Past Medical History Hepatobiliary: Yes: Cirrhosis (alcoholic), Hepatitis B, Hepatitis C - Past Surgical History Past Surgical History: Yes: Appendectomy (2009 or earlier), Colonoscopy (Most recent: 02/2017) - Alcohol/Substance Use Hx Alcohol Use: No - Smoking History Smoking history: Never smoked - Social History ADL: Independent Occupation: Retired History of Recent Travel: No Home Medications - Allergies Allergies/Adverse Reactions: Allergies Allergy/AdvReac Type Severity Reaction Status Date / Time No Known Allergies Allergy Verified 08/16/17 12:38 - Home Medications Home Medications: Ambulatory Orders Furosemide [Lasix -] 20 mg PO DAILY 06/27/17 Gabapentin 300 mg PO BID 06/27/17 Nadolol 40 mg PO DAILY 06/27/17 Omeprazole/Sodium Bicarbonate [Omeprazole-Bicarb 40-1,100 Cap] 1 each PO DAILY 06/27/17 Rifaximin [Xifaxan -] 550 mg PO BID 06/27/17 Spironolactone 25 mg PO DAILY 06/27/17 Tamsulosin HCl 0.4 mg PO DAILY 06/27/17 Ursodiol 500 mg PO BID 06/27/17 Review of Systems - Review of Systems Constitutional: denies: Chills, Fever, Lethargy, Loss of Appetite, Unintentional Wgt. Loss, Weakness Eyes: denies: Blind Spots HENT: denies: Difficult Swallowing Cardiovascular: denies: Chest Pain, Edema, Palpitations Respiratory: denies: Cough, Exercise Intolerance Gastrointestinal: reports: Bloating. denies: Abdominal Pain Physical Exam Vital Signs: Vital Signs Temperature 98.4 F 08/17/17 10:00 Pulse Rate 70 08/17/17 10:00 Respiratory Rate 18 08/17/17 10:00 Blood Pressure 136/85 08/17/17 10:00 O2 Sat by Pulse Oximetry (%) 100 08/16/17 19:57 Constitutional: Yes: No Distress Eyes: Yes: Conjunctiva Clear HENT: Yes: Atraumatic, Normocephalic Neck: Yes: Supple Cardiovascular: Yes: Regular Rate and Rhythm Respiratory: Yes: Regular, CTA Bilaterally Gastrointestinal: Yes: Abdomen, Obese, Distention Edema: No Neurological: Yes: Alert, Oriented Labs: CBC, BMP 08/17/17 08:00 08/17/17 08:00 Problem List - Problems (1) Cirrhosis Code(s): K74.60 - UNSPECIFIED CIRRHOSIS OF LIVER Qualifiers: Hepatic cirrhosis type: alcoholic cirrhosis Ascites presence: without ascites Qualified Code(s): K70.30 - Alcoholic cirrhosis of liver without ascites; K70.30 - Alcoholic cirrhosis of liver without ascites; K70.30 - Alcoholic cirrhosis of liver without ascites (2) Thrombocytopenia Code(s): D69.6 - THROMBOCYTOPENIA, UNSPECIFIED (3) Hyperammonemia Code(s): E72.20 - DISORDER OF UREA CYCLE METABOLISM, UNSPECIFIED Assessment/Plan Thrombocytopenia elevated INR cirrhosis Thrombocytopenia in the setting of cirrhosis if any procedures planned needs FFP and platelets for AFP,labs US reviewed, no ascites noted. follows at [facility] GI f/u will follow
[2017-08-17] MEDS: MAGNESIUM OXIDE 400 MG TABLET (FP) PO SCH ×2 (17:28→21:53)
--- NOTE | 2017-08-17 19:54 | CON.GI ---
Consult Consult Specialty:: Gastroenterology Referred by:: Dr Ferrell/ Miss Mannie Lew NP Reason for Consultation:: cirrhosis , elevated LFTS - History of Present Illness History of Present Illness: 52 y/o male with PMH of Alochol cirrhosis, Hep B and C was admitted for further evaluation and management of acute blindness and wakness. This has resolved after receiving lactu;los and Rifaximin. He was treated for Hepatitis C 1 year ago at [facility]. He is more coherent this evening. - Past Medical History Hepatobiliary: Yes: Cirrhosis (alcoholic), Hepatitis B, Hepatitis C - Past Surgical History Past Surgical History: Yes: Appendectomy (2009 or earlier), Colonoscopy (Most recent: 02/2017) - Alcohol/Substance Use Hx Alcohol Use: No - Smoking History Smoking history: Never smoked - Social History ADL: Independent Occupation: Retired History of Recent Travel: No Home Medications - Allergies Allergies/Adverse Reactions: Allergies Allergy/AdvReac Type Severity Reaction Status Date / Time No Known Allergies Allergy Verified 08/16/17 12:38 - Home Medications Home Medications: Ambulatory Orders Furosemide [Lasix -] 20 mg PO DAILY 06/27/17 Gabapentin 300 mg PO BID 06/27/17 Nadolol 40 mg PO DAILY 06/27/17 Omeprazole/Sodium Bicarbonate [Omeprazole-Bicarb 40-1,100 Cap] 1 each PO DAILY 06/27/17 Rifaximin [Xifaxan -] 550 mg PO BID 06/27/17 Spironolactone 25 mg PO DAILY 06/27/17 Tamsulosin HCl 0.4 mg PO DAILY 06/27/17 Ursodiol 500 mg PO BID 06/27/17 Review of Systems Unable to obtain ROS, reason: medical condition Physical Exam-GI Vital Signs: Vital Signs Temperature 98.0 F 08/17/17 15:46 Pulse Rate 63 08/17/17 15:46 Respiratory Rate 18 08/17/17 15:46 Blood Pressure 135/78 08/17/17 15:46 O2 Sat by Pulse Oximetry (%) 100 08/16/17 19:57 Constitutional: Yes: No Distress. No: Anxious Eyes: Yes: Conjunctiva Clear HENT: Yes: Atraumatic Neck: Yes: Trachea Midline Cardiovascular: Yes: Regular Rate and Rhythm Respiratory: Yes: CTA Bilaterally Gastrointestinal Inspection: No: Distention ...Palpate: Yes: Soft. No: Firm/Rigid, Guarding, Hepatomegaly, Mass, Pulsatile Mass, Splenomegaly, Tenderness Labs: CBC, BMP 08/17/17 08:00 08/17/17 08:00 INR, PTT INR 1.49 (0.82-1.09) H 08/16/17 12:39 Hepatic Panel Total Bilirubin 3.0 mg/dL (0.2-1.0) H 08/17/17 08:00 AST 40 U/L (15-37) H 08/17/17 08:00 ALT 27 U/L (12-78) 08/17/17 08:00 Alkaline Phosphatase 210 U/L (45-117) H 08/17/17 08:00 Albumin 1.9 g/dl (3.4-5.0) L 08/17/17 08:00 Problem List - Problems (1) Hepatic encephalopathy Assessment/Plan: R> continue Rifaxmin 550mg bid as an outpatient' instructed to see his privated panel builder at [facility] check AFP level Code(s): K72.90 - HEPATIC FAILURE, UNSPECIFIED WITHOUT COMA (2) Thrombocytopenia Assessment/Plan: secondary to portal hypetension Code(s): D69.6 - THROMBOCYTOPENIA, UNSPECIFIED
[2017-08-17] MEDS: LACTULOSE 20 GM/30 ML UDC (FOR ORAL USE ONLY) PO SCH (21:53)
[2017-08-18] MEDS ORDERED: IBUPROFEN 600 MG TABLET (FP) PO ONE (00:29)
[2017-08-18] MEDS: LACTULOSE 20 GM/30 ML UDC (FOR ORAL USE ONLY) PO SCH ×3 (05:51→21:36)
[2017-08-18] MEDS: TAMSULOSIN HCL 0.4 MG CAP.ER.24H (FP) PO SCH (08:46)
--- NOTE | 2017-08-18 08:48 | PN ---
Progress Note (short form) - Note Progress Note: 52 year old male initial complain was visual loss. He hisotry of alcohol cirrhosis , portal vein thrombosis, hypertension, hep b and Hep C. He initially presented with bilateral vision loss. Initially stroke code ( code higgins) was called. Patient had ct head. Later symptoms resolved. later he complain of right arm and leg weakness and it resolved. Patient is not able to provide information and he is confused. Initially ct scan was normal, he was suspected to be hepatic encephalopathy. his mri of brain unremarkable. no evience of stroke Neurological vital stable Alert is able to follow command, orietned x 2 neck is supple eomi, and face is symmetrical, pupils is reactive vision is difficult to assess as reliability is in question, he blink to visual threat and pupils is reactive moving all extremity there is flapping tremor noticed sensation is normal ct head is unremarkable mra is unremarkable carotid ultrasound was unremarkable Assessment-- most likely hepatic encephalopahty, serum nh3 level were high , no evidence acute stroke on mri of brain Plan-- supportive treatment - no evidence of stroke, would sign off now and pelase call us if any question Janak Hart MD
[2017-08-18 09:17] LABS: ANION GAP 6 (8-16); BILIRUBIN,TOTAL 1.6 mg/dL (0.2-1.0); CO2 25 mmol/L (21-32); CREATININE 0.7 mg/dL (0.7-1.3); GLUCOSE,RANDOM 99 mg/dL (74-106); SGPT/ALT 26 U/L (12-78); TOT PROT 6.6 g/dl (6.4-8.2)
[2017-08-18 09:18] LABS: ALK PHOS 264 U/L (45-117)
[2017-08-18 09:20] LABS: SGOT/AST 48 U/L (15-37)
--- NOTE | 2017-08-18 09:32 | PN ---
Progress Note, Physician Chief Complaint: hepatic encephalopathy History of Present Illness: NAD, in bed seen by Neurology awaiting GI consult - Current Medication List Current Medications: Active Medications Furosemide (Lasix -) 20 mg PO DAILY [facility] Last Admin: 08/17/17 10:59 Dose: 20 mg Lactulose (Cephulac (Oral Use)) 20 gm PO TID [facility] Last Admin: 08/18/17 05:51 Dose: 20 gm Magnesium Oxide (Mag-Ox -) 400 mg PO BID [facility] Last Admin: 08/17/17 21:53 Dose: 400 mg Nadolol (Corgard -) 40 mg PO DAILY [facility] Last Admin: 08/17/17 11:00 Dose: 40 mg Rifaximin (Xifaxan -) 550 mg PO BID [facility] Last Admin: 08/17/17 21:53 Dose: 550 mg Spironolactone (Aldactone -) 25 mg PO DAILY [facility] Last Admin: 08/17/17 10:59 Dose: 25 mg Tamsulosin HCl (Flomax -) 0.4 mg PO DAILY@0830 [facility] Last Admin: 08/18/17 08:46 Dose: 0.4 mg Ursodiol (Actigal -) 300 mg PO BID [facility] Last Admin: 08/17/17 21:53 Dose: 300 mg - Objective Vital Signs: Vital Signs Temperature 97.9 F 08/18/17 07:06 Pulse Rate 62 08/18/17 07:06 Respiratory Rate 20 08/18/17 07:06 Blood Pressure 108/62 08/18/17 07:06 O2 Sat by Pulse Oximetry (%) 100 08/17/17 21:00 Constitutional: Yes: Well Nourished, No Distress, Calm Cardiovascular: Yes: Regular Rate and Rhythm Respiratory: Yes: Regular Gastrointestinal: Yes: Normal Bowel Sounds Extremities: Yes: WNL Edema: No Peripheral Pulses WNL: Yes Neurological: Yes: Alert, Oriented Psychiatric: Yes: Alert, Oriented Labs: CBC, BMP 08/17/17 08:00 08/18/17 06:00 INR, PTT INR 1.49 (0.82-1.09) H 08/16/17 12:39 Problem List - Problems (1) Ascites Assessment/Plan: -secondary to hepatic cirrhosis -evaluation by GI- to f/u with GI outpatient Code(s): R18.8 - OTHER ASCITES (2) Blindness Assessment/Plan: -seen by neurologist -MRI brain unremarkable Code(s): H54.7 - UNSPECIFIED VISUAL LOSS (3) Cirrhosis Assessment/Plan: -chronic -seen by GI -U/S liver confirms hepatic cirrhosis -on lactulose Code(s): K74.60 - UNSPECIFIED CIRRHOSIS OF LIVER Qualifiers: Hepatic cirrhosis type: alcoholic cirrhosis Ascites presence: without ascites Qualified Code(s): K70.30 - Alcoholic cirrhosis of liver without ascites; K70.30 - Alcoholic cirrhosis of liver without ascites; K70.30 - Alcoholic cirrhosis of liver without ascites (4) Hepatic encephalopathy Assessment/Plan: -chronic -GI consult pending -U/S liver confirms hepatic cirrhosis -on lactulose -monitor INR -if all labs oka this AM, would d/c him to f/u with GI outpatient Code(s): K72.90 - HEPATIC FAILURE, UNSPECIFIED WITHOUT COMA Assessment/Plan see problem list
[2017-08-18 10:16] LABS: BASOPHIL 0.9 % (0-2.0); EOSINOPHIL 1.9 % (0-4.5); MCH 32.3 pg (25.7-33.7); MCHC 32.8 g/dl (32.0-35.9); MEAN CELL VOLUME 98.8 fl (80-96); MEAN PLT VOLUME 11.7 fl (7.5-11.1); NEUTROPHILS 53.8 % (42.8-82.8); PLATELET COUNT 58 K/MM3 (134-434); RDW 15.4 % (11.9-15.9); WHITE BLOOD COUNT 4.6 K/mm3 (4.0-10.0)
[2017-08-18 10:30] LABS: INR 1.5 (0.82-1.09)
[2017-08-18] MEDS ORDERED: NADOLOL 20 MG TABLET (FP) ONE (10:46)
[2017-08-18] MEDS: MAGNESIUM OXIDE 400 MG TABLET (FP) PO SCH ×2 (10:47→21:35)
[2017-08-18] MEDS: SPIRONOLACTONE 25 MG TABLET (FP) PO SCH (10:47)
[2017-08-18] MEDS: RIFAXIMIN 550 MG TABLET (UD) PO SCH ×2 (10:47→21:35)
[2017-08-18] MEDS: FUROSEMIDE 20 MG TABLET (FP) PO SCH (10:47)
[2017-08-18] MEDS: URSODIOL 300 MG CAPSULE PO SCH ×2 (10:47→21:35)
[2017-08-18] MEDS: NADOLOL 40 MG TABLET (FP) PO SCH (10:48)
[2017-08-18 11:02] LABS: AMYLASE 189 U/L (25-115); LDH 258 U/L (87-241)
--- NOTE | 2017-08-18 18:08 | PN ---
Progress Note (short form) - Note Progress Note: Ophthalmology consult 52 yo male admitted for lethargy. He has a history of alcoholic cirrhosis. He states that his vision was blurry when he was admitted but has since cleared. He denies prior ocular history. Va at near 20/20 OU pupils ERRLA no APD EOM Full OU T 15mmHg OU Anterior exam unremarkable. Optic disc pink and sharp OU A/P: Asymptomatic patient with unremarkable eye exam. Routine follow up with clinical trials systems administrator recommended.
[2017-08-19] MEDS: LACTULOSE 20 GM/30 ML UDC (FOR ORAL USE ONLY) PO SCH (05:27)
[2017-08-19 06:10] LABS: HEP B SURFACE AB Reactive (.)
--- NOTE | 2017-08-19 09:57 | PN ---
Progress Note, Physician Chief Complaint: hepatic encephalopathy History of Present Illness: NAD, in bed seen by Neurology seen by GI and hematology AFP negative ammonia level increased seen by ophthalmology, vision unremarkable, episode was likely secondary to hepatic encephalopathy. - Current Medication List Current Medications: Active Medications Furosemide (Lasix -) 20 mg PO DAILY [facility] Last Admin: 08/18/17 10:47 Dose: 20 mg Influenza Virus Vaccine Quadrival (Flulaval Quad [id number]) 60 mcg IM .ONCE ONE Stop: 08/19/17 12:01 Lactulose (Cephulac (Oral Use)) 20 gm PO TID [facility] Last Admin: 08/19/17 05:27 Dose: 20 gm Magnesium Oxide (Mag-Ox -) 400 mg PO BID [facility] Last Admin: 08/18/17 21:35 Dose: 400 mg Nadolol (Corgard -) 40 mg PO DAILY [facility] Last Admin: 08/18/17 10:48 Dose: 40 mg Rifaximin (Xifaxan -) 550 mg PO BID [facility] Last Admin: 08/18/17 21:35 Dose: 550 mg Spironolactone (Aldactone -) 25 mg PO DAILY [facility] Last Admin: 08/18/17 10:47 Dose: 25 mg Tamsulosin HCl (Flomax -) 0.4 mg PO DAILY@0830 [facility] Last Admin: 08/18/17 08:46 Dose: 0.4 mg Ursodiol (Actigal -) 300 mg PO BID [facility] Last Admin: 08/18/17 21:35 Dose: 300 mg - Objective Vital Signs: Vital Signs Temperature 98.0 F 08/19/17 06:00 Pulse Rate 60 08/19/17 06:00 Respiratory Rate 18 08/19/17 06:00 Blood Pressure 130/70 08/19/17 06:00 O2 Sat by Pulse Oximetry (%) 100 08/18/17 21:00 Constitutional: Yes: Well Nourished, No Distress, Calm Cardiovascular: Yes: Regular Rate and Rhythm Respiratory: Yes: Regular Integumentary: Yes: Jaundice Neurological: Yes: Alert, Oriented Psychiatric: Yes: Alert, Oriented Labs: CBC, BMP 08/18/17 09:55 08/18/17 06:00 INR, PTT INR 1.50 (0.82-1.09) H 08/18/17 09:55 Problem List - Problems (1) Ascites Assessment/Plan: -secondary to hepatic cirrhosis -evaluation by GI- to f/u with GI outpatient -Dr Francis-hepatology at [facility] aware Code(s): R18.8 - OTHER ASCITES (2) Blindness Assessment/Plan: -seen by neurologist -MRI brain unremarkable -seen by Ophthalmology- vision unremarkable at this time. Code(s): H54.7 - UNSPECIFIED VISUAL LOSS (3) Cirrhosis Assessment/Plan: -chronic -seen by GI -U/S liver confirms hepatic cirrhosis -on lactulose Code(s): K74.60 - UNSPECIFIED CIRRHOSIS OF LIVER Qualifiers: Hepatic cirrhosis type: alcoholic cirrhosis Ascites presence: without ascites Qualified Code(s): K70.30 - Alcoholic cirrhosis of liver without ascites; K70.30 - Alcoholic cirrhosis of liver without ascites; K70.30 - Alcoholic cirrhosis of liver without ascites (4) Hepatic encephalopathy Assessment/Plan: -chronic -GI consult pending -U/S liver confirms hepatic cirrhosis -on lactulose -monitor INR -would d/c him to f/u with GI outpatient Code(s): K72.90 - HEPATIC FAILURE, UNSPECIFIED WITHOUT COMA Assessment/Plan see problem list
--- NOTE | 2017-08-19 10:06 | DS ---
Physical Examination Vital Signs: Vital Signs Temperature 98.0 F 08/19/17 06:00 Pulse Rate 60 08/19/17 06:00 Respiratory Rate 18 08/19/17 06:00 Blood Pressure 130/70 08/19/17 06:00 O2 Sat by Pulse Oximetry (%) 100 08/18/17 21:00 Constitutional: Yes: Well Nourished, No Distress, Calm Cardiovascular: Yes: Regular Rate and Rhythm Respiratory: Yes: Regular Gastrointestinal: Yes: Normal Bowel Sounds, Soft, Ascites Edema: Yes Edema: LLE: Trace, RLE: Trace Peripheral Pulses WNL: Yes Neurological: Yes: Alert, Oriented Psychiatric: Yes: Alert, Oriented Labs: CBC, BMP 08/18/17 09:55 08/18/17 06:00 Discharge Summary Reason For Visit: HYPERAMMONEMIA Current Active Problems Ascites (Acute) Blindness (Acute) Cirrhosis (Acute) Hepatic encephalopathy (Acute) Hyperammonemia (Acute) Thrombocytopenia (Acute) Hospital Course: 52M with a PMH of hep B and C, alcoholic cirrhosis, portal vein thrombosis, and HTN who presents to the ED with intermittent symptoms of b/l vision loss. Per EMS, pt was in the bathroom for a long time, when his mother's CARDROOM MANAGER checked on him, he c/o b/l vision loss. EMS reported these sxs were present when she picked up the patient but resolved en route. Here in the ED the patient c/o b/l vision loss again a/w generalized weakness. Pt's history seems to vary per provider, as he provides differing answers for where he feels week, initially reporting L arm and RLE, now reporting generalized weakness. Also, he reports vision loss began this morning initially in the bathroom, but later on, tells Dr. Christian that it began last night. Denies fevers, chills, cp, sob, abd pain, n/v/d, LE edema. Reports compliance with medications, states that he is not sure if he is on lactulose or not. Upon evaluation, he was seen by Neurology, GI and Ophthalmology. MRI brain was negative ophthalmology: vision exam unremarkable GI: to f/u with hepatology at [facility] Condition: Stable - Instructions Diet, Activity, Other Instructions: low sodium diet lactulose 3 x day f/u with Dr Francis within 1 week. Referrals: Eliana Francis [Non Staff, Medical] - Disposition: HOME - Home Medications Comprehensive Discharge Medication List: Ambulatory Orders Furosemide [Lasix -] 20 mg PO DAILY 06/27/17 Gabapentin 300 mg PO BID 06/27/17 Nadolol 40 mg PO DAILY 06/27/17 Omeprazole/Sodium Bicarbonate [Omeprazole-Bicarb 40-1,100 Cap] 1 each PO DAILY 06/27/17 Rifaximin [Xifaxan -] 550 mg PO BID 06/27/17 Spironolactone 25 mg PO DAILY 06/27/17 Tamsulosin HCl 0.4 mg PO DAILY 06/27/17 Ursodiol 500 mg PO BID 06/27/17 Furosemide [Lasix -] 20 mg PO DAILY #30 tablet 08/19/17 Lactulose (Oral Use) [Cephulac -] 20 gm PO TID #2700 ml 08/19/17 Magnesium Oxide [Mag-Ox -] 400 mg PO BID #60 tablet 08/19/17 Nadolol [Corgard -] 40 mg PO DAILY #30 tablet 08/19/17 Rifaximin [Xifaxan -] 550 mg PO BID #60 tablet 08/19/17 Spironolactone [Aldactone -] 25 mg PO DAILY #30 tablet 08/19/17 Tamsulosin HCl [Flomax -] 0.4 mg PO DAILY@0830 #30 cap 08/19/17 Ursodiol [Actigal -] 300 mg PO BID #60 cap 08/19/17
[2017-08-19] MEDS ORDERED: PT OWN MED DRAWER 7, Y5N ONE (10:14)
[2017-08-19] MEDS ORDERED: NADOLOL 20 MG TABLET (FP) ONE (10:14)
[2017-08-19] MEDS: SPIRONOLACTONE 25 MG TABLET (FP) PO SCH (10:17)
[2017-08-19] MEDS: MAGNESIUM OXIDE 400 MG TABLET (FP) PO SCH (10:17)
[2017-08-19] MEDS: FUROSEMIDE 20 MG TABLET (FP) PO SCH (10:17)
[2017-08-19] MEDS: URSODIOL 300 MG CAPSULE PO SCH (10:17)
[2017-08-19] MEDS: TAMSULOSIN HCL 0.4 MG CAP.ER.24H (FP) PO SCH (10:17)
[2017-08-19] MEDS: NADOLOL 40 MG TABLET (FP) PO SCH (10:18)
[2017-08-19] MEDS: RIFAXIMIN 550 MG TABLET (UD) PO SCH (10:18)
--- NOTE | 2017-08-19 10:42 | PN ---
Progress Note (short form) - Note Progress Note: seen and examined feels better ready to be discharged Constitutional: Yes: No Distress Eyes: Yes: Conjunctiva Clear HENT: Yes: Atraumatic, Normocephalic Neck: Yes: Supple Cardiovascular: Yes: Regular Rate and Rhythm Respiratory: Yes: Regular, CTA Bilaterally Gastrointestinal: Yes: Abdomen, Obese, Distention Edema: No Neurological: Yes: Alert, Oriented Temp Pulse Resp BP Pulse Ox 98.0 F 60 18 130/70 100 08/19/17 06:00 08/19/17 06:00 08/19/17 06:00 08/19/17 06:00 08/18/17 21:00 CBC, BMP 08/18/17 09:55 08/18/17 06:00 Current Medications Generic Name Dose Route Start Last Admin Trade Name Freq PRN Reason Stop Dose Admin Furosemide 20 mg 08/17/17 10:00 08/19/17 10:17 Lasix - PO 20 mg DAILY [facility] Administration Influenza Virus Vaccine Quadrival 60 mcg 08/19/17 12:00 Flulaval Quad [id number] IM 08/19/17 12:01 .ONCE ONE Lactulose 20 gm 08/17/17 22:00 08/19/17 05:27 Cephulac (Oral Use) PO 20 gm TID [facility] Administration Magnesium Oxide 400 mg 08/17/17 14:00 08/19/17 10:17 Mag-Ox - PO 400 mg BID [facility] Administration Nadolol 40 mg 08/17/17 10:00 08/19/17 10:18 Corgard - PO 40 mg DAILY [facility] Administration Rifaximin 550 mg 08/16/17 22:00 08/19/17 10:18 Xifaxan - PO 550 mg BID [facility] Administration Spironolactone 25 mg 08/17/17 10:00 08/19/17 10:17 Aldactone - PO 25 mg DAILY [facility] Administration Tamsulosin HCl 0.4 mg 08/17/17 08:30 08/19/17 10:17 Flomax - PO 0.4 mg DAILY@0830 [facility] Administration Ursodiol 300 mg 08/16/17 22:00 08/19/17 10:17 Actigal - PO 300 mg BID [facility] Administration Assessment/Plan: Thrombocytopenia elevated INR cirrhosis Thrombocytopenia in the setting of cirrhosis if any procedures planned needs FFP and platelets for AFP,labs US reviewed, no ascites noted. follows at [facility] f/u with OP Problem List - Problems (1) Cirrhosis Code(s): K74.60 - UNSPECIFIED CIRRHOSIS OF LIVER Qualifiers: Hepatic cirrhosis type: alcoholic cirrhosis Ascites presence: without ascites Qualified Code(s): K70.30 - Alcoholic cirrhosis of liver without ascites; K70.30 - Alcoholic cirrhosis of liver without ascites; K70.30 - Alcoholic cirrhosis of liver without ascites (2) Thrombocytopenia Code(s): D69.6 - THROMBOCYTOPENIA, UNSPECIFIED (3) Hyperammonemia Code(s): E72.20 - DISORDER OF UREA CYCLE METABOLISM, UNSPECIFIED
[2017-08-19 11:11] VITALS: BP 125/75; PULSE 62; TEMP 97.6
[2017-08-19] MEDS ORDERED: FLU VACCINE QUAD 60 MCG/0.5 ML (MDV 17-18) IM ONE (12:00)
== END 2017-08-19 11:45 | disposition home or self-care (01) | DRG 442 ==
LOC: JER 11:53 → JERBED 15:38 → J8W 19:57
PROVIDERS: ADMIT Family Medicine; ATTEND Family Medicine
DX: K72.90 Hepatic failure, unspecified without coma (principal); E72.20 Disorder of urea cycle metabolism, unspecified; D69.6 Thrombocytopenia, unspecified; I10 Essential (primary) hypertension; H54.7 Unspecified visual loss; K70.31 Alcoholic cirrhosis of liver with ascites
CPT/HCPCS: 36415; 70450-TC; 70544-TC; 70551-TC; 71010-TC; 76705-TC; 80053; 80061; 81003; 82105; 82140; 82150; 82550; 82607; 82746; 82803; 82977; 83605; 83615; 83690; 83721; 83735; 84100; 84484; 85025; 85610; 85730; 86704; 86706; 86803; 86850; 86900; 86901; 87040; 87086; 87522; 90688; 93005; 93010; 93880-TC; 97116-GP; 97161-GP; 99285-25; G0008

== ENCOUNTER 2017-09-27 10:07 | Inpatient (IN) | payer BC, OTHER ==
[2017-09-27 10:30] VITALS: BMI 33.3
--- NOTE | 2017-09-27 10:56 | PDOC ---
History of Present Illness - General Chief Complaint: Pain, Acute Stated Complaint: ABD PAIN Time Seen by Provider: 09/27/17 10:55 - History of Present Illness Initial Comments: 52M with a PMH of hep B and C, alcoholic cirrhosis, portal vein thrombosis, and HTN who presents to the ED with complaints of generalized abdominal pain. Per patient and critical care registered nurse at bedside he has had increased abdominal swelling over the past few weeks and has been complaining of worsening abdominal pain as well. Denies fevers, or chills but does complain of nausea and occasional diarrhea which are apparently not new symptoms for him. He is generally a poor historian and has a home health aid 10 hours a day at home who administers his medications. He was recently admitted last month for generalized edema, weakness , and bilateral vision loss without any acute pathology found. Denies fevers, chills, cp, sob, vomiting, LE edema. Reports compliance with medications. 09/27/17 11:32 Past History - Past Medical History Allergies/Adverse Reactions: Allergies Allergy/AdvReac Type Severity Reaction Status Date / Time No Known Allergies Allergy Verified 09/27/17 10:27 Home Medications: Ambulatory Orders Furosemide [Lasix -] 20 mg PO DAILY 06/27/17 Gabapentin 300 mg PO BID 06/27/17 Omeprazole/Sodium Bicarbonate [Omeprazole-Bicarb 40-1,100 Cap] 1 each PO DAILY 06/27/17 Rifaximin [Xifaxan -] 550 mg PO BID 06/27/17 Tamsulosin HCl 0.4 mg PO DAILY 06/27/17 Magnesium Oxide [Mag-Ox -] 400 mg PO BID #60 tablet 08/19/17 Nadolol [Corgard -] 40 mg PO DAILY #30 tablet 08/19/17 Spironolactone [Aldactone -] 25 mg PO DAILY #30 tablet 08/19/17 Erythromycin Base [Erythromycin] 250 mg PO DAILY 09/27/17 Triamcinolone Acetonide [Nasacort] 10.8 ml NS DAILY 09/27/17 COPD: No Liver Disease: (Cirrhosis,Hep C, portal vein Thombosis) Other medical history: HEP C - Surgical History Appendectomy: Yes - Suicide/Smoking/Psychosocial Hx Smoking History: Never smoked Hx Alcohol Use: Yes Drug/Substance Use Hx: No Review of Systems - Review of Systems Constitutional: No: Chills, Fever HEENTM: No: Recent change in vision Respiratory: No: Cough, Shortness of Breath Cardiac (ROS): No: Chest Pain, Edema ABD/GI: Yes: Abdominal Distended, Diarrhea, Nausea. No: Constipated, Rectal Bleeding, Vomiting, Abdominal cramping, Tarry Stools : No: Burning, Dysuria, Incontinence Musculoskeletal: No: Back Pain Integumentary: No: Bruising, Change in Color Neurological: No: Headache, Numbness, Tremors, Weakness *Physical Exam - Vital Signs Last Vital Signs Temp Pulse Resp BP Pulse Ox 99.0 F 73 22 126/62 99 09/27/17 10:28 09/27/17 10:28 09/27/17 10:28 09/27/17 10:28 09/27/17 10:28 - Physical Exam General Appearance: Yes: Nourished, Appropriately Dressed, Obese, Other (Obese but weak appearing and ). No: Apparent Distress HEENT: positive: EOMI, LAURA, Other (Conjunctiva not quite clear but not jaundiced). negative: Normal ENT Inspection Neck: positive: Trachea midline, Normal Thyroid, Supple. negative: Tender, Rigid Respiratory/Chest: positive: Lungs Clear, Normal Breath Sounds. negative: Chest Tender, Respiratory Distress Cardiovascular: positive: Regular Rhythm, Regular Rate. negative: Murmur Gastrointestinal/Abdominal: positive: Flat, Soft, Increased Bowel Sounds. negative: Normal Bowel Sounds, Tender Musculoskeletal: positive: Normal Inspection. negative: Decreased Range of Motion Integumentary: positive: Normal Color, Dry, Warm ED Treatment Course - LABORATORY CBC & Chemistry Diagram: 09/27/17 11:50 09/27/17 11:50 Medical Decision Making - Medical Decision Making 52 year old male with cirrhosis presenting with abdominal pain and distension with fever to 100.5 on rectal temp, slightly hypotensive, and tachypnic. Patient may have an underlying infection as his cirrhosis provides a baseline immunocompromised state with these systemic signs. Urine was clean, CXR clean, and abdominal US significant for previously known gallbladder wall thickening. Patient's abdominal pain is more epigastric than RUQ but close enough for further evaluation. Other lab value abnormalities include hyperbilirubinemia and MARYURI. Dr. Hayden from surgery evaluated the patient and was unimpressed by the abdominal pain, believing that this abdominal pain was not due to a cholecystitis. Patient admitted to [facility], [place] for further workup with GI and ID consult. 1 dose ceftriaxone given but fluids held in the setting of volume overload and pressures uptrending to 110s systolic and overall stable appearance. 09/27/17 19:18 *DC/Admit/Observation/Transfer Diagnosis at time of Disposition: SIRS (systemic inflammatory response syndrome), Hyperbilirubinemia, MARYURI (acute kidney injury) Cirrhosis Qualifiers: Hepatic cirrhosis type: other cirrhosis Qualified Code(s): K74.69 - Other cirrhosis of liver - Referrals - Patient Instructions - Post Discharge Activity
[2017-09-27 12:14] LABS: MCH 32.7 pg (25.7-33.7); MEAN CELL VOLUME 99.2 fl (80-96); MEAN PLT VOLUME 12.5 fl (7.5-11.1); PLATELET COUNT 32 K/MM3 (134-434); WHITE BLOOD COUNT 6.2 K/mm3 (4.0-10.0)
--- NOTE | 2017-09-27 12:15 | EKG ---
Test Reason : Blood Pressure : / mmHG Vent. Rate : 068 BPM Atrial Rate : 068 BPM P-R Int : 158 ms QRS Dur : 080 ms QT Int : 400 ms P-R-T Axes : 048 -12 020 degrees QTc Int : 425 ms SINUS RHYTHM WITH PREMATURE ATRIAL COMPLEXES WITH ABERRANT CONDUCTION OTHERWISE NORMAL ECG WHEN COMPARED WITH ECG OF 16-AUG-2017 12:43, ABERRANT CONDUCTION IS NOW PRESENT Confirmed by DANIEL WILSON, JASON ([id number]) on 09/27/2017 12:14:52 PM Referred By: Confirmed By:JASON SANCHEZ MD
[2017-09-27 12:43] LABS: ALK PHOS 254 U/L (45-117); ANION GAP 3 (8-16); CALCIUM 7.6 mg/dL (8.5-10.1); CO2 29 mmol/L (21-32); CREATININE 1.3 mg/dL (0.7-1.3); GLUCOSE,RANDOM 132 mg/dL (74-106); MAGNESIUM 2.1 mg/dL (1.8-2.4); SGOT/AST 45 U/L (15-37); SGPT/ALT 33 U/L (12-78); TOT PROT 6.5 g/dl (6.4-8.2)
--- NOTE | 2017-09-27 12:56 | PDOC ---
Attending Attestation - Resident Resident Name: Samy Omer - ED Attending Attestation I have performed the following: I have examined & evaluated the patient, The case was reviewed & discussed with the resident, I agree w/resident's findings & plan, Exceptions are as noted - HPI HPI: 09/27/17 12:54 52y M hx of HBV, HCV, etoh cirrhosis, portal vein thrombsis, htn, presents with abdominal pain and abd distended/swelling over the past few days. no associated fever/chills. +nausea, +diarrhea (yellowish no melena/blood), no vomiting. on exam pt in n oacute distress cardiac: rrr no m/r/g pulm: cta abd soft, mildly diffusely tender w/o rebound/guarding vitals noted for fever to 100.5 +SIRS elevated tbili cheyanne on lab work +surgical consult by dr krueger pt wlil be admitted for further evaluation - Physicial Exam PE: 10/01/17 16:19 see above - Medical Decision Making 10/01/17 16:19 see above Heart Score/ECG Review - ECG Impressions Comment:: 09/27/17 13:42 Twelve-lead EKG was performed and reviewed by me. There is normal sinus rhythm with a normal rate. rate of 68 pvcs present There are no ST or T wave abnormalities.
[2017-09-27] MEDS ORDERED: morphine SULFATE 4 MG/ML VIAL ONE (13:22)
[2017-09-27] MEDS ORDERED: morphine CARPU-JECT 2 MG/1 ML DISP.SYRIN IVPUSH ONE (13:24)
[2017-09-27 14:22] LABS: BILIRUBIN,DIRECT 1.6 mg/dL (0.0-0.2)
[2017-09-27 14:30] LABS: PLATELET ESTIMATE DECREASED; TOTAL CELLS COUNTED 100
[2017-09-27] MEDS ORDERED: IBUPROFEN 200 MG TABLET PO ONE (15:33)
[2017-09-27] MEDS ORDERED: CEFTRIAXONE 1 GM in DEXTROSE 5%-WATER - 100 ML IVPB ONE (15:33)
[2017-09-27] MEDS ORDERED: morphine SULFATE 4 MG/ML VIAL IVPUSH PRN (17:35)
[2017-09-27] MEDS ORDERED: IBUPROFEN 400 MG TABLET (FP) PO ONE (18:15)
[2017-09-27 18:20] LABS: INR 1.84 (0.82-1.09); PROTHROMBIN TIME (PATIENT) 20.8 SEC (9.98-11.88)
[2017-09-27 18:59] LABS: PH,URINE 5.5 (5.0-8.0); URINE APPEARANCE CLEAR; URINE BILIRUBIN 2+ (NEGATIVE); URINE BLOOD TRACE-INTA (NEGATIVE); URINE COLOR DK. ORANGE; URINE GLUCOSE (UA) TRACE (NEGATIVE); URINE KETONE NEGATIVE (NEGATIVE); URINE PROTEIN TRACE (NEGATIVE); URINE UROBILINOGEN 0.2 mg/dL (0.2-1.0)
[2017-09-27 19:06] LABS: URINE NITRITE POSITIVE (NEGATIVE)
--- NOTE | 2017-09-27 20:44 | CONSULT ---
- Consultation REQUESTING PROVIDER: Steph WILSON CONSULT REQUEST: We have been asked to surgically evaluate this patient for abdominal pain. PCP:Monisha Guillermo HISTORY OF PRESENT ILLNESS:KELI who is a 52 y/o male w/h/o HBV/HBC/and ESLD for recent onset ? RUQ ? pain w/ nausea and no vomiting; NOC; he is a poor historian; he has been here before w/ a h/o extensive imaging for his various complaints in the past; he cannot articulate any other information. PMHx: ESLD;HBV; HCV PSHx: None Home Medications Medication Instructions Recorded Furosemide [Lasix -] 20 mg PO DAILY 06/27/17 Gabapentin 300 mg PO BID 06/27/17 Omeprazole/Sodium Bicarbonate 1 each PO DAILY 06/27/17 [Omeprazole-Bicarb 40-1,100 Cap] Rifaximin [Xifaxan -] 550 mg PO BID 06/27/17 Tamsulosin HCl 0.4 mg PO DAILY 06/27/17 Magnesium Oxide [Mag-Ox -] 400 mg PO BID #60 tablet 08/19/17 Nadolol [Corgard -] 40 mg PO DAILY #30 tablet 08/19/17 Spironolactone [Aldactone -] 25 mg PO DAILY #30 tablet 08/19/17 Erythromycin Base [Erythromycin] 250 mg PO DAILY 09/27/17 Triamcinolone Acetonide [Nasacort] 10.8 ml NS DAILY 09/27/17 Allergies Allergy/AdvReac Type Severity Reaction Status Date / Time No Known Allergies Allergy Verified 09/27/17 10:27 REVIEW OF SYSTEMS: he could not respond to any questions w/ any degreee of certainty PHYSICAL EXAM: GENERAL: Awake, alert, and not fully oriented, in no acute distress. HEAD: Normal with no signs of trauma. EYES: PERRL, sclera icteric, conjunctiva clear. NECK: Normal ROM, supple without lymphadenopathy, JVD, or masses. ABDOMEN: Soft, minimally diffusely tender, not distended,positive fluid wave normoactive bowel sounds, no guarding, no rebound, no masses. No organomegaly. No hernias MUSCULOSKELETAL: Normal ROM at all joints. No bony deformities or tenderness. No CVA tenderness. UPPER EXTREMITIES: 2+ pulses, warm, well-perfused. No cyanosis. Cap refill <2 seconds. No peripheral edema. LOWER EXTREMITIES: 2+ pulses, warm, well-perfused. No calf tenderness. No peripheral edema. NEUROLOGICAL: Slurred speech, gait not observed. PSYCH: Cooperative. Good eye contact. Appropriate mood and affect. SKIN: Warm, dry, normal turgor, no rashes or lesions noted. Vital Signs Temperature 98.7 F 09/27/17 18:45 Pulse Rate 77 09/27/17 18:45 Respiratory Rate 22 09/27/17 18:45 Blood Pressure 95/52 09/27/17 18:45 O2 Sat by Pulse Oximetry (%) 97 09/27/17 18:45 Lab Results WBC 6.2 K/mm3 (4.0-10.0) D 09/27/17 11:50 RBC 3.59 M/mm3 (4.00-5.60) L 09/27/17 11:50 Hgb 11.7 GM/dL (11.7-16.9) D 09/27/17 11:50 Hct 35.6 % (35.4-49) 09/27/17 11:50 MCV 99.2 fl (80-96) H 09/27/17 11:50 MCHC 33.0 g/dl (32.0-35.9) 09/27/17 11:50 RDW 16.0 % (11.9-15.9) H 09/27/17 11:50 Plt Count 32 K/MM3 (134-434) L* D 09/27/17 11:50 Sodium 140 mmol/L (136-145) 09/27/17 11:50 Potassium 4.6 mmol/L (3.5-5.1) 09/27/17 11:50 Chloride 108 mmol/L (98-107) H 09/27/17 11:50 Carbon Dioxide 29 mmol/L (21-32) 09/27/17 11:50 Anion Gap 3 (8-16) L 09/27/17 11:50 BUN 17 mg/dL (7-18) D 09/27/17 11:50 Creatinine 1.3 mg/dL (0.7-1.3) D 09/27/17 11:50 Random Glucose 132 mg/dL (74-106) H D 09/27/17 11:50 Calcium 7.6 mg/dL (8.5-10.1) L 09/27/17 11:50 Blood Type O POSITIVE 09/27/17 17:20 Antibody Screen Negative 09/27/17 17:20 INR 1.84 (0.82-1.09) H 09/27/17 17:20 CT/US and w/u to date reviewed; lactate 2.7 ammonia elevated IMP: abdominal pain; no evidence of an acute surgical abdomen PLAN: Medical management of underlying ESLD; there is no evidence of gallbladder disease here or any other intraabdominal pathology at this time. Jorge Danielle MD FACS Visit type - Case Type Case Type: ED Admission - Emergency Emergency Visit: Yes ED Registration Date: 09/27/17 Care time: The patient presented to the Emergency Department on the above date and was hospitalized for further evaluation of their emergent condition. - New patient This patient is new to me today: Yes Date on this admission: 09/27/17 - Critical Care Critical Care patient: No
[2017-09-27] MEDS: SODIUM CHLORIDE 1,000 ML IV SCH (20:53)
[2017-09-27 21:21] LABS: URINE LEUK ESTERASE Negative (NEGATIVE)
[2017-09-27 21:45] LABS: CALCIUM OXALATE CRYSTALS RARE /hpf (NONE SEEN); URINE BACTERIA FEW /hpf (NONE SEEN); URINE HYALINE CAST 1 /lpf; URINE MUCUS RARE; URINE RBC 1 /hpf (0-3); URINE WBC 7 /hpf (3-5)
[2017-09-27] MEDS: GABAPENTIN 300 MG CAPSULE (FP) PO SCH (23:00)
[2017-09-27] MEDS: RIFAXIMIN 550 MG TABLET (UD) PO SCH (23:00)
[2017-09-27] MEDS: MAGNESIUM OXIDE 400 MG TABLET (FP) PO SCH (23:00)
[2017-09-28] MEDS: SODIUM CHLORIDE 1,000 ML IV SCH ×2 (06:24→17:59)
[2017-09-28 07:53] LABS: ALBUMIN 1.9 g/dl (3.4-5.0); ANION GAP 4 (8-16); CALCIUM 7.7 mg/dL (8.5-10.1); CO2 28 mmol/L (21-32); GLUCOSE,RANDOM 98 mg/dL (74-106); SGOT/AST 44 U/L (15-37); SGPT/ALT 29 U/L (12-78); TOT PROT 6.1 g/dl (6.4-8.2)
[2017-09-28 07:54] LABS: ALK PHOS 210 U/L (45-117)
[2017-09-28 08:33] LABS: MCH 33.1 pg (25.7-33.7); MCHC 33.5 g/dl (32.0-35.9); MEAN CELL VOLUME 98.7 fl (80-96); MEAN PLT VOLUME 11.6 fl (7.5-11.1); RDW 16.2 % (11.9-15.9); WHITE BLOOD COUNT 5.2 K/mm3 (4.0-10.0)
[2017-09-28 08:46] LABS: PLATELET COUNT 29 K/MM3 (134-434)
[2017-09-28] MEDS ORDERED: NADOLOL 40 MG TABLET (FP) PO SCH (10:00)
[2017-09-28] MEDS ORDERED: FUROSEMIDE 20 MG TABLET (FP) PO SCH (10:00)
[2017-09-28] MEDS ORDERED: SPIRONOLACTONE 25 MG TABLET (FP) PO SCH (10:00)
[2017-09-28] MEDS: OMEPRAZOLE PO SCH (10:05)
[2017-09-28] MEDS: GABAPENTIN 300 MG CAPSULE (FP) PO SCH ×2 (10:05→22:16)
[2017-09-28] MEDS: TAMSULOSIN HCL 0.4 MG CAP.ER.24H (FP) PO SCH (10:05)
[2017-09-28] MEDS: MAGNESIUM OXIDE 400 MG TABLET (FP) PO SCH ×2 (10:05→22:16)
[2017-09-28] MEDS: RIFAXIMIN 550 MG TABLET (UD) PO SCH ×2 (10:05→22:16)
[2017-09-28] MEDS: SODIUM BICARBONATE PO SCH (10:05)
[2017-09-28] MEDS: FLUTICASONE PROP 0.05% 16 GM NASAL SPRAY NS SCH (10:15)
[2017-09-28 12:04] LABS: TOTAL CELLS COUNTED 100
[2017-09-28] MEDS ORDERED: PHYTONADIONE 10 MG/1 ML AMP IVPB ONE (17:06)
--- NOTE | 2017-09-28 17:16 | PN ---
Progress Note (short form) - Note Progress Note: 52 y/o male with PMH of Alochol cirrhosis, Hep B and C was admitted for further evaluation and management of acute blindness and wakness. This has resolved after receiving lactu;los and Rifaximin. He was treated for Hepatitis C 1 year ago at [facility]. Was admitted last month for the same reason. Interviewed with a plant pathology teacher He feels better than yesterday. Abdominal pain improving. O/E: General: NAD HEENT: eomi perrla cardiac: rrr abdomen: mild tenderness. extremeties: NO CCE Neuro: Alert and oriented. Last Vital Signs Temp Pulse Resp BP Pulse Ox 98.0 F 64 18 96/63 97 09/28/17 14:08 09/28/17 14:08 09/28/17 14:08 09/28/17 14:08 09/28/17 09:00 CBC, BMP 09/28/17 08:28 09/28/17 06:30 Current Medications Generic Name Dose Route Start Last Admin Trade Name Freq PRN Reason Stop Dose Admin Erythromycin 250 mg 09/28/17 10:00 Carmelo-Tab - PO DAILY SANCHO Fluticasone Propionate 1 spray 09/28/17 10:00 09/28/17 10:15 Flonase - NS 1 sprays DAILY SANCHO Administration Furosemide 20 mg 09/28/17 10:00 09/28/17 10:05 Lasix - PO 20 mg DAILY SANCHO Administration Gabapentin 300 mg 09/27/17 22:00 09/28/17 10:05 Neurontin - PO 300 mg BID SANCHO Administration Sodium Chloride 1,000 mls @ 100 mls/hr 09/27/17 17:45 09/28/17 06:24 Normal Saline - IV 100 mls/hr ASDIR SANCHO Administration Lactulose 20 gm 09/27/17 17:38 Cephulac (Oral Use) PO TID PRN CONSTIPATION Magnesium Oxide 400 mg 09/27/17 22:00 09/28/17 10:05 Mag-Ox - PO 400 mg BID SANCHO Administration Morphine Sulfate 4 mg 09/27/17 17:35 Morphine Sulfate IVPUSH Q6H PRN PAIN Nadolol 40 mg 09/28/17 10:00 Corgard - PO DAILY SANCHO Omeprazole/Sodium 1 each 09/28/17 10:00 09/28/17 10:05 Bicarbonate (20mg/ PO 1 each 1100mg) DAILY SANCHO Administration Phytonadione 5 mg 09/28/17 17:06 Aqua Mephyton Injection - IVPB 09/28/17 17:07 ONCE ONE Rifaximin 550 mg 09/27/17 22:00 09/28/17 10:05 Xifaxan - PO 550 mg BID SANCHO Administration Spironolactone 25 mg 09/28/17 10:00 09/28/17 10:05 Aldactone - PO 25 mg DAILY SANCHO Administration Tamsulosin HCl 0.4 mg 09/28/17 08:30 09/28/17 10:05 Flomax - PO 0.4 mg DAILY@0830 SANCHO Administration A/P: ESLD causing portal gastropathy/portal HTN/coagulopathy /thrombocytopenia. Vit K repeat labs in the am if paracentesis planned, will need to give platelets if continues to be low ( just prior to the procedure). on Nadalol/Rifaxamin. supportive care.
[2017-09-28] MEDS: ERYTHROMYCIN BASE 250 MG TAB PO SCH (18:01)
--- NOTE | 2017-09-28 19:48 | HP ---
Admitting History and Physical - Primary Care Physician PCP: Monisha Guillermo - Admission Chief Complaint: Abdominal pain History of Present Illness: 52M with a PMH of hep B and C, alcoholic cirrhosis, portal vein thrombosis, and HTN who presents to the ED with complaints of generalized abdominal pain. Per patient and wound care specialist at bedside he has had increased abdominal swelling over the past few weeks and has been complaining of worsening abdominal pain as well. Denies fevers, or chills but does complain of nausea and occasional diarrhea which are apparently not new symptoms for him. He is generally a poor historian and has a home health aid 10 hours a day at home who administers his medications. He was recently admitted last month for generalized edema, weakness , and bilateral vision loss without any acute pathology found. Denies fevers, chills, cp, sob, vomiting, LE edema. Reports compliance with medications. History Source: Medical Record Limitations to Obtaining History: Clinical Condition, Dementia - Past Medical History Hepatobiliary: Yes: Cirrhosis (alcoholic), Hepatitis B, Hepatitis C - Past Surgical History Past Surgical History: Yes: Appendectomy (2009 or earlier), Colonoscopy (Most recent: 02/2017) - Smoking History Smoking history: Never smoked - Alcohol/Substance Use Hx Alcohol Use: Yes - Social History ADL: Independent Occupation: Retired History of Recent Travel: No Home Medications - Allergies Allergies/Adverse Reactions: Allergies Allergy/AdvReac Type Severity Reaction Status Date / Time No Known Allergies Allergy Verified 09/27/17 10:27 - Home Medications Home Medications: Ambulatory Orders Furosemide [Lasix -] 20 mg PO DAILY 06/27/17 Gabapentin 300 mg PO BID 06/27/17 Omeprazole/Sodium Bicarbonate [Omeprazole-Bicarb 40-1,100 Cap] 1 each PO DAILY 06/27/17 Rifaximin [Xifaxan -] 550 mg PO BID 06/27/17 Tamsulosin HCl 0.4 mg PO DAILY 06/27/17 Magnesium Oxide [Mag-Ox -] 400 mg PO BID #60 tablet 08/19/17 Nadolol [Corgard -] 40 mg PO DAILY #30 tablet 08/19/17 Spironolactone [Aldactone -] 25 mg PO DAILY #30 tablet 08/19/17 Erythromycin Base [Erythromycin] 250 mg PO DAILY 09/27/17 Triamcinolone Acetonide [Nasacort] 10.8 ml NS DAILY 09/27/17 Review of Systems - Review of Systems Constitutional: reports: No Symptoms Eyes: reports: No Symptoms HENT: reports: No Symptoms Neck: reports: No Symptoms Cardiovascular: reports: No Symptoms Respiratory: reports: No Symptoms Gastrointestinal: reports: Abdominal Pain Genitourinary: reports: No Symptoms Breasts: reports: No Symptoms Reported Musculoskeletal: reports: No Symptoms Integumentary: reports: No Symptoms Neurological: reports: No Symptoms Endocrine: reports: No Symptoms Hematology/Lymphatic: reports: No Symptoms Psychiatric: reports: No Symptoms Physical Examination Vital Signs: Vital Signs Temperature 97.9 F 09/28/17 18:26 Pulse Rate 61 09/28/17 18:26 Respiratory Rate 18 09/28/17 18:26 Blood Pressure 102/56 09/28/17 18:26 O2 Sat by Pulse Oximetry (%) 97 09/28/17 09:00 Findings/Remarks: He is hungry, wants to eat, did not eat past 3 days. Last BM on Tuesday abdominal pain resolved CT reviewed spoke to family at bedside Constitutional: Yes: Well Nourished, No Distress, Calm Cardiovascular: Yes: Regular Rate and Rhythm Respiratory: Yes: Regular Gastrointestinal: Yes: Normal Bowel Sounds, Ascites Musculoskeletal: Yes: WNL Extremities: Yes: WNL Edema: No Peripheral Pulses WNL: Yes Neurological: Yes: Alert, Pre-Existing Deficit Psychiatric: Yes: Alert Labs: CBC, BMP 09/28/17 08:28 09/28/17 06:30 Problem List - Problems (1) Cirrhosis Assessment/Plan: -Chronic -See Dr. Francis, last saw her in July Code(s): K74.60 - UNSPECIFIED CIRRHOSIS OF LIVER Qualifiers: Hepatic cirrhosis type: other cirrhosis Qualified Code(s): K74.69 - Other cirrhosis of liver (2) Hyperbilirubinemia Code(s): E80.6 - OTHER DISORDERS OF BILIRUBIN METABOLISM (3) Ascites Assessment/Plan: -Moderate -paracentesis? Code(s): R18.8 - OTHER ASCITES (4) Hepatic encephalopathy Assessment/Plan: lactulose 20 gm TID Code(s): K72.90 - HEPATIC FAILURE, UNSPECIFIED WITHOUT COMA (5) Hyperammonemia Code(s): E72.20 - DISORDER OF UREA CYCLE METABOLISM, UNSPECIFIED (6) Thrombocytopenia Assessment/Plan: -hematology consult -repeat labs in AM Code(s): D69.6 - THROMBOCYTOPENIA, UNSPECIFIED (7) Lactic acidosis Assessment/Plan: -on IVF -may not be true value Code(s): E87.2 - ACIDOSIS Assessment/Plan see problem list
--- NOTE | 2017-09-28 20:52 | CON.GI ---
Consult Consult Specialty:: GI Referred by:: Dr Guillermo Reason for Consultation:: ESLD - History of Present Illness Chief Complaint: Patient admitted for abdominal pain and altered sensorium History of Present Illness: 52M with a h/o alcoholic cirrhosis, portal vein thrombosis, and HTN, Hep C treated and currently virus negative who was admitted for abdominal pain and increasing abdominal girth over the past few weeks. He was in [facility] for related problems last month. He had a CT done this admission that shows extensive varces and a cirrhotic liver. 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) Hepatobiliary: Yes: Cirrhosis (alcoholic), Hepatitis B, Hepatitis C - Past Surgical History Past Surgical History: Yes: Appendectomy (2009 or earlier), Colonoscopy (Most recent: 02/2017) - Alcohol/Substance Use Hx Alcohol Use: Yes - Smoking History Smoking history: Never smoked - Social History ADL: Independent Occupation: Retired History of Recent Travel: No Home Medications - Allergies Allergies/Adverse Reactions: Allergies Allergy/AdvReac Type Severity Reaction Status Date / Time No Known Allergies Allergy Verified 09/27/17 10:27 - Home Medications Home Medications: Ambulatory Orders Furosemide [Lasix -] 20 mg PO DAILY 06/27/17 Gabapentin 300 mg PO BID 06/27/17 Omeprazole/Sodium Bicarbonate [Omeprazole-Bicarb 40-1,100 Cap] 1 each PO DAILY 06/27/17 Rifaximin [Xifaxan -] 550 mg PO BID 06/27/17 Tamsulosin HCl 0.4 mg PO DAILY 06/27/17 Magnesium Oxide [Mag-Ox -] 400 mg PO BID #60 tablet 08/19/17 Nadolol [Corgard -] 40 mg PO DAILY #30 tablet 08/19/17 Spironolactone [Aldactone -] 25 mg PO DAILY #30 tablet 08/19/17 Erythromycin Base [Erythromycin] 250 mg PO DAILY 09/27/17 Triamcinolone Acetonide [Nasacort] 10.8 ml NS DAILY 09/27/17 Physical Exam-GI Vital Signs: Vital Signs Temperature 97.9 F 09/28/17 18:26 Pulse Rate 61 09/28/17 18:26 Respiratory Rate 18 09/28/17 18:26 Blood Pressure 102/56 09/28/17 18:26 O2 Sat by Pulse Oximetry (%) 97 09/28/17 09:00 Constitutional: Yes: Mild Distress Eyes: Yes: Sclera Icterus HENT: Yes: Atraumatic Cardiovascular: Yes: Regular Rate and Rhythm Respiratory: Yes: CTA Bilaterally Gastrointestinal Inspection: Yes: Ascites (mild) ...Auscultate: Yes: Normoactive Bowel Sounds ...Palpate: Yes: Soft. No: Tenderness Labs: CBC, BMP 09/28/17 08:28 09/28/17 06:30 INR, PTT INR 1.84 (0.82-1.09) H 09/27/17 17:20 Hepatic Panel Total Bilirubin 4.0 mg/dL (0.2-1.0) H 09/28/17 06:30 Direct Bilirubin 1.6 mg/dL (0.0-0.2) H 09/27/17 11:50 AST 44 U/L (15-37) H 09/28/17 06:30 ALT 29 U/L (12-78) 09/28/17 06:30 Alkaline Phosphatase 210 U/L (45-117) H 09/28/17 06:30 Albumin 1.9 g/dl (3.4-5.0) L 09/28/17 06:30 Imaging - Results Cat Scan: Report Reviewed (cirrhosis and moderate ascites with extensive varices ) Assessment/Plan 52 M with above history admitted for abdominal pain which has resolved He has a soft, non-tender abdomen at this time and does not need paracentesis. He has no respiratory embarrassment. He has severe thrombocytopenia and an INR of 1.8. He would benefit from carvedilol to prevent variceal bleeding- a better drug than nadolol. Will start low dose and d/c nadolol. Continue lactulose and refaximin and lactulose. On very low dose aldactone. Will increase to 50 BID and start lasix 40 daily Needs to be on Na restricted diet D/C narcotic pain meds as soon as is practical Hep C negative-virus undetectable Hep B likely negative with Surface AB (+) and core AB (+) suggesting immunity.
[2017-09-28] MEDS ORDERED: CARVEDILOL 6.25 MG TABLET (FP) PO ONE (21:05)
[2017-09-28] MEDS: SPIRONOLACTONE 25 MG TABLET (FP) PO SCH (22:15)
[2017-09-29 08:53] LABS: BASOPHIL 0.2 % (0-2.0); EOSINOPHIL 2.6 % (0-4.5); MCH 33.1 pg (25.7-33.7); MCHC 33.3 g/dl (32.0-35.9); MEAN CELL VOLUME 99.5 fl (80-96); MEAN PLT VOLUME 11.4 fl (7.5-11.1); NEUTROPHILS 49.3 % (42.8-82.8); WHITE BLOOD COUNT 3.1 K/mm3 (4.0-10.0)
[2017-09-29 09:04] LABS: INR 1.62 (0.82-1.09); PROTHROMBIN TIME (PATIENT) 18.3 SEC (9.98-11.88)
[2017-09-29 09:05] LABS: PLATELET COUNT 28 K/MM3 (134-434)
[2017-09-29 09:07] LABS: ACTIVATED PTT 35.9 SECONDS (26.9-34.4)
[2017-09-29] MEDS: TAMSULOSIN HCL 0.4 MG CAP.ER.24H (FP) PO SCH (09:29)
[2017-09-29] MEDS: SODIUM BICARBONATE PO SCH (10:12)
[2017-09-29] MEDS: OMEPRAZOLE PO SCH (10:12)
[2017-09-29] MEDS: ERYTHROMYCIN BASE 250 MG TAB PO SCH (10:13)
[2017-09-29] MEDS: RIFAXIMIN 550 MG TABLET (UD) PO SCH ×2 (10:14→21:38)
[2017-09-29] MEDS: FLUTICASONE PROP 0.05% 16 GM NASAL SPRAY NS SCH (10:35)
[2017-09-29] MEDS: FUROSEMIDE 40 MG TABLET (FP) PO SCH (10:39)
[2017-09-29] MEDS: GABAPENTIN 300 MG CAPSULE (FP) PO SCH ×2 (10:39→21:38)
[2017-09-29] MEDS: SPIRONOLACTONE 25 MG TABLET (FP) PO SCH ×2 (10:39→21:38)
[2017-09-29] MEDS: MAGNESIUM OXIDE 400 MG TABLET (FP) PO SCH ×2 (10:39→21:38)
[2017-09-29] MEDS: LACTULOSE 20 GM/30 ML UDC (FOR ORAL USE ONLY) PO PRN ×2 (13:00→21:36)
--- NOTE | 2017-09-29 15:52 | PN ---
Progress Note (short form) - Note Progress Note: ID Consult dictated 52 year old cirrhotic male admitted with recurrent abdominal pain. One low grade temp elevation. Abdominal pain resolved. No recurrent fever. Observe off antibiotics
--- NOTE | 2017-09-29 16:53 | PN ---
Progress Note (short form) - Note Progress Note: pt seen chart reviewed and consults noted O/E: General: NAD HEENT: eomi perrla cardiac: rrr abdomen: mild tenderness. extremeties: NO CCE Neuro: Alert and oriented. Last Vital Signs Temp Pulse Resp BP Pulse Ox 98.0 F 64 18 96/63 97 09/28/17 14:08 09/28/17 14:08 09/28/17 14:08 09/28/17 14:08 09/28/17 09:00 CBC, BMP 09/28/17 08:28 09/28/17 06:30 Current Medications Generic Name Dose Route Start Last Admin Trade Name Freq PRN Reason Stop Dose Admin Erythromycin 250 mg 09/28/17 10:00 Carmelo-Tab - PO DAILY SANCHO Fluticasone Propionate 1 spray 09/28/17 10:00 09/28/17 10:15 Flonase - NS 1 sprays DAILY SANCHO Administration Furosemide 20 mg 09/28/17 10:00 09/28/17 10:05 Lasix - PO 20 mg DAILY SANCHO Administration Gabapentin 300 mg 09/27/17 22:00 09/28/17 10:05 Neurontin - PO 300 mg BID SANCHO Administration Sodium Chloride 1,000 mls @ 100 mls/hr 09/27/17 17:45 09/28/17 06:24 Normal Saline - IV 100 mls/hr ASDIR SANCHO Administration Lactulose 20 gm 09/27/17 17:38 Cephulac (Oral Use) PO TID PRN CONSTIPATION Magnesium Oxide 400 mg 09/27/17 22:00 09/28/17 10:05 Mag-Ox - PO 400 mg BID SANCHO Administration Morphine Sulfate 4 mg 09/27/17 17:35 Morphine Sulfate IVPUSH Q6H PRN PAIN Nadolol 40 mg 09/28/17 10:00 Corgard - PO DAILY SANCHO Omeprazole/Sodium 1 each 09/28/17 10:00 09/28/17 10:05 Bicarbonate (20mg/ PO 1 each 1100mg) DAILY SANCHO Administration Phytonadione 5 mg 09/28/17 17:06 Aqua Mephyton Injection - IVPB 09/28/17 17:07 ONCE ONE Rifaximin 550 mg 09/27/17 22:00 09/28/17 10:05 Xifaxan - PO 550 mg BID SANCHO Administration Spironolactone 25 mg 09/28/17 10:00 09/28/17 10:05 Aldactone - PO 25 mg DAILY SANCHO Administration Tamsulosin HCl 0.4 mg 09/28/17 08:30 09/28/17 10:05 Flomax - PO 0.4 mg DAILY@0830 SANCHO Administration INR, PTT INR 1.62 (0.82-1.09) H 09/29/17 08:00 A/P: ESLD causing portal gastropathy/portal HTN/coagulopathy /thrombocytopenia. No signs of bleeding noted/resting comfortable and lying flat. regular transfusion threshold for Hgb and Platelets. s/p Vit K.
[2017-09-29] MEDS ORDERED: traMADol HCL 50 MG TABLET PO PRN (20:38)
[2017-09-29] MEDS ORDERED: SODIUM CHLORIDE 1,000 ML IV SCH (20:41)
--- NOTE | 2017-09-29 20:47 | PN ---
Progress Note, Physician Chief Complaint: abdominal pain History of Present Illness: NAD, resting comfortably, lying flat seen by GI and hematology increased spironolactone, furosemide added nadolol dc'd, started on carvedilol pain management- d/c morphine, replace with tramadol- monitor pain assessment - Current Medication List Current Medications: Active Medications Carvedilol (Coreg -) 6.25 mg PO BID [facility] Erythromycin (Carmelo-Tab -) 250 mg PO DAILY [facility] Last Admin: 09/29/17 10:13 Dose: 250 mg Fluticasone Propionate (Flonase -) 1 spray NS DAILY [facility] Last Admin: 09/29/17 10:35 Dose: 4 sprays Furosemide (Lasix -) 40 mg PO DAILY [facility] Last Admin: 09/29/17 10:39 Dose: 40 mg Gabapentin (Neurontin -) 300 mg PO BID [facility] Last Admin: 09/29/17 10:39 Dose: 300 mg Sodium Chloride (Normal Saline -) 1,000 mls @ 50 mls/hr IV ASDIR [facility] Lactulose (Cephulac (Oral Use)) 20 gm PO TID PRN PRN Reason: CONSTIPATION Last Admin: 09/29/17 13:00 Dose: 20 gm Magnesium Oxide (Mag-Ox -) 400 mg PO BID [facility] Last Admin: 09/29/17 10:39 Dose: 400 mg Omeprazole/Sodium Bicarbonate (20mg/1100mg) 1 each PO DAILY [facility] Last Admin: 09/29/17 10:12 Dose: 1 each Rifaximin (Xifaxan -) 550 mg PO BID [facility] Last Admin: 09/29/17 10:14 Dose: 550 mg Spironolactone (Aldactone -) 50 mg PO BID [facility] Last Admin: 09/29/17 10:39 Dose: 50 mg Tamsulosin HCl (Flomax -) 0.4 mg PO DAILY@0830 [facility] Last Admin: 09/29/17 09:29 Dose: 0.4 mg Tramadol HCl (Ultram -) 50 mg PO Q6H PRN PRN Reason: PAIN - Objective Vital Signs: Vital Signs Temperature 98.3 F 09/29/17 19:00 Pulse Rate 73 09/29/17 19:00 Respiratory Rate 18 09/29/17 19:00 Blood Pressure 121/73 09/29/17 19:00 O2 Sat by Pulse Oximetry (%) 97 09/29/17 09:00 Constitutional: Yes: Well Nourished, No Distress, Calm Cardiovascular: Yes: Regular Rate and Rhythm Respiratory: Yes: Regular Gastrointestinal: Yes: Ascites Musculoskeletal: Yes: WNL Extremities: Yes: WNL Edema: No Peripheral Pulses WNL: Yes Neurological: Yes: Alert, Oriented Psychiatric: Yes: Alert, Oriented Labs: CBC, BMP 09/29/17 08:00 09/28/17 06:30 INR, PTT INR 1.62 (0.82-1.09) H 09/29/17 08:00 Problem List - Problems (1) Cirrhosis Assessment/Plan: -Chronic -See Dr. Francis, last saw her in July -seen by GI Code(s): K74.60 - UNSPECIFIED CIRRHOSIS OF LIVER Qualifiers: Hepatic cirrhosis type: other cirrhosis Qualified Code(s): K74.69 - Other cirrhosis of liver (2) Hyperbilirubinemia Code(s): E80.6 - OTHER DISORDERS OF BILIRUBIN METABOLISM (3) Ascites Assessment/Plan: -Moderate -paracentesis not recommended by GI Code(s): R18.8 - OTHER ASCITES (4) Hepatic encephalopathy Assessment/Plan: lactulose 20 gm TID Code(s): K72.90 - HEPATIC FAILURE, UNSPECIFIED WITHOUT COMA (5) Hyperammonemia Code(s): E72.20 - DISORDER OF UREA CYCLE METABOLISM, UNSPECIFIED (6) Thrombocytopenia Assessment/Plan: -stable -hematology consult -repeat labs in AM Code(s): D69.6 - THROMBOCYTOPENIA, UNSPECIFIED (7) Lactic acidosis Assessment/Plan: -on IVF -repeat in AM Code(s): E87.2 - ACIDOSIS Assessment/Plan see problem list
[2017-09-29] MEDS ORDERED: PT OWN MED DRAWER 7, Y5N ONE (21:07)
[2017-09-29] MEDS: CARVEDILOL 6.25 MG TABLET (FP) PO SCH ×2 (21:37→21:47)
--- NOTE | 2017-09-29 23:50 | CONS ---
DATE OF CONSULTATION: DATE OF DICTATION: 09/29/2017 INFECTIOUS DISEASE CONSULTATION HISTORY OF PRESENT ILLNESS: The patient is a 52-year-old male with a history of cirrhosis, evaluated for low-grade fever. The patient was admitted to the hospital on September 27, 2017, with complaints of generalized abdominal pain and fever. He was noted to have a distended abdomen. According to the notes, he had had increasing abdominal girth over the past several days to weeks. He was noted to be tachycardic and hypotensive. Cultures were obtained. He was empirically given a dose of ceftriaxone. A sonogram of the abdomen showed cirrhosis with ascites and gallbladder thickening. He was seen in consultation by surgery who felt he had no evidence of acute cholecystitis. He was also seen by GI who felt that his abdominal pain was chronic in nature. The patient is unable to give any reliable history. At the present time he denies any abdominal pain. He has had no recurrent low-grade fever, denies any chills. No reports of vomiting. History is limited, as patient is a poor informant. He had a previous admission to [facility] for a similar complaint. At that time, a paracentesis is performed and was not consistent with spontaneous bacterial peritonitis. No documented history of prior spontaneous bacterial peritonitis or GI bleeding. PAST MEDICAL HISTORY: Positive for chronic liver disease with cirrhosis and ascites. History of Hepatitis B and C. Portal vein thrombosis. Hypertension. PAST SURGICAL HISTORY: Status post appendectomy. ALLERGIES: No known allergies. MEDICATION: Lasix. Neurontin. Omeprazole. Xifaxan. Flomax. Corgard. Aldactone. SOCIAL HISTORY: He resides in the community. No documented active alcohol, tobacco or drug use. SYSTEMS REVIEW: Neurologic: Positive for history of hepatic encephalopathy, no loss of consciousness, seizure activity, or focal weakness. Cardiac: Negative chest pain or palpitations. Respiratory: Negative cough or sputum production. Gastrointestinal: As per HPI. Genitourinary: Negative for urinary tract infection. LABORATORY DATA: White count 3.1, hematocrit 31.5, platelet count 28. BUN 23, creatinine 1.0, lactic acid 2.7. Urinalysis 7 white cells. Total bilirubin 4.0, alkaline phosphatase 210, AST 44. Chest x-ray negative for acute infiltrate. PHYSICAL EXAMINATION: General: He is chronically ill appearing, lying in bed. He is in no acute distress. Vital signs: Temperature 97.9, blood pressure 126/59, pulse 63 regular, respirations 18 per minute. HEENT: Sclerae mildly icteric. Oropharynx negative thrush. Neck: Supple. Cardiovascular: Heart sounds S1, S2. Respiratory: Lungs diminished breath sounds at the bases. Abdomen: Distended with ascites. No tenderness elicited. No epigastric or right upper quadrant tenderness elicited. Extremities: Positive for edema. IMPRESSION: A 52-year-old sclerotic male admitted with recurrent abdominal pain syndrome. One documented low grade temperature elevation. Abdominal pain now resolved, no recurrent fever. Low clinical suspicion for spontaneous bacterial peritonitis at the present time. He is pain free and afebrile. off antibiotic therapy. Would defer SBP prophylaxis with either ciprofloxacin or Bactrim to his pack operator. It is unclear whether or not he meets criteria (history of GI bleeding in the setting of cirrhosis, previous history of SBP). The acidic fluid protein on a recent analysis was zero, which would fulfil one criteria for SBP prophylaxis. The decision to institute prophylaxis must be weighed against risk for poor adherence and subsequent possibility of development of resistant pathogens. Outpatient GI followup. Thank you for the kind referral. TAMMY OVALLES M.D. [id number]
[2017-09-30] MEDS: LACTULOSE 20 GM/30 ML UDC (FOR ORAL USE ONLY) PO PRN (06:37)
[2017-09-30 06:58] LABS: BASOPHIL 0.6 % (0-2.0); EOSINOPHIL 3.1 % (0-4.5); MCHC 33.1 g/dl (32.0-35.9); MEAN CELL VOLUME 99.6 fl (80-96); MEAN PLT VOLUME 11.7 fl (7.5-11.1); NEUTROPHILS 41.5 % (42.8-82.8); RDW 16.2 % (11.9-15.9)
[2017-09-30 07:10] LABS: ALBUMIN 1.7 g/dl (3.4-5.0); ANION GAP 5 (8-16); CO2 28 mmol/L (21-32); GLUCOSE,RANDOM 137 mg/dL (74-106); INR 1.58 (0.82-1.09); PROTHROMBIN TIME (PATIENT) 17.9 SEC (9.98-11.88)
[2017-09-30 07:15] LABS: ALK PHOS 238 U/L (45-117); BILIRUBIN,TOTAL 1.7 mg/dL (0.2-1.0); CREATININE 0.7 mg/dL (0.7-1.3); SGOT/AST 40 U/L (15-37); SGPT/ALT 26 U/L (12-78); TOT PROT 5.9 g/dl (6.4-8.2)
[2017-09-30 07:21] LABS: PLATELET COUNT 28 K/MM3 (134-434); WHITE BLOOD COUNT 2.5 K/mm3 (4.0-10.0)
[2017-09-30] MEDS: GABAPENTIN 300 MG CAPSULE (FP) PO SCH (10:01)
[2017-09-30] MEDS: MAGNESIUM OXIDE 400 MG TABLET (FP) PO SCH (10:01)
[2017-09-30] MEDS: TAMSULOSIN HCL 0.4 MG CAP.ER.24H (FP) PO SCH (10:01)
[2017-09-30] MEDS: FUROSEMIDE 40 MG TABLET (FP) PO SCH (10:01)
[2017-09-30] MEDS: CARVEDILOL 6.25 MG TABLET (FP) PO SCH (10:01)
[2017-09-30] MEDS: SPIRONOLACTONE 25 MG TABLET (FP) PO SCH (10:01)
[2017-09-30] MEDS: FLUTICASONE PROP 0.05% 16 GM NASAL SPRAY NS SCH (10:01)
[2017-09-30] MEDS: RIFAXIMIN 550 MG TABLET (UD) PO SCH (10:02)
[2017-09-30] MEDS: OMEPRAZOLE PO SCH (10:02)
[2017-09-30] MEDS: SODIUM BICARBONATE PO SCH (10:02)
[2017-09-30] MEDS: ERYTHROMYCIN BASE 250 MG TAB PO SCH (10:02)
--- NOTE | 2017-09-30 11:06 | PN ---
Progress Note, Physician Chief Complaint: abdominal pain History of Present Illness: NAD, resting comfortably, lying flat seen by GI and hematology increased spironolactone, furosemide added nadolol dc'd, started on carvedilol pain management- d/c morphine, replace with tramadol- monitor pain assessment - Current Medication List Current Medications: Active Medications Carvedilol (Coreg -) 6.25 mg PO BID [facility] Last Admin: 09/30/17 10:01 Dose: 6.25 mg Erythromycin (Carmelo-Tab -) 250 mg PO DAILY [facility] Last Admin: 09/30/17 10:02 Dose: 250 mg Fluticasone Propionate (Flonase -) 1 spray NS DAILY [facility] Last Admin: 09/30/17 10:01 Dose: 1 sprays Furosemide (Lasix -) 40 mg PO DAILY [facility] Last Admin: 09/30/17 10:01 Dose: 40 mg Gabapentin (Neurontin -) 300 mg PO BID [facility] Last Admin: 09/30/17 10:01 Dose: 300 mg Sodium Chloride (Normal Saline -) 1,000 mls @ 50 mls/hr IV ASDIR [facility] Last Admin: 09/29/17 21:20 Dose: 50 mls/hr Lactulose (Cephulac (Oral Use)) 20 gm PO TID PRN PRN Reason: CONSTIPATION Last Admin: 09/30/17 06:37 Dose: 20 gm Magnesium Oxide (Mag-Ox -) 400 mg PO BID [facility] Last Admin: 09/30/17 10:01 Dose: 400 mg Omeprazole/Sodium Bicarbonate (20mg/1100mg) 1 each PO DAILY [facility] Last Admin: 09/30/17 10:02 Dose: 1 each Rifaximin (Xifaxan -) 550 mg PO BID [facility] Last Admin: 09/30/17 10:02 Dose: 550 mg Spironolactone (Aldactone -) 50 mg PO BID [facility] Last Admin: 09/30/17 10:01 Dose: 50 mg Tamsulosin HCl (Flomax -) 0.4 mg PO DAILY@0830 [facility] Last Admin: 09/30/17 10:01 Dose: 0.4 mg Tramadol HCl (Ultram -) 50 mg PO Q6H PRN PRN Reason: PAIN Last Admin: 09/30/17 06:37 Dose: 50 mg - Objective Vital Signs: Vital Signs Temperature 98.1 F 09/30/17 06:00 Pulse Rate 67 09/30/17 06:00 Respiratory Rate 18 09/30/17 06:00 Blood Pressure 122/73 09/30/17 06:00 O2 Sat by Pulse Oximetry (%) 97 09/29/17 21:00 Constitutional: Yes: Well Nourished, No Distress, Calm Cardiovascular: Yes: Regular Rate and Rhythm Respiratory: Yes: Regular Gastrointestinal: Yes: Normal Bowel Sounds, Ascites Edema: No Peripheral Pulses WNL: Yes Neurological: Yes: Alert, Oriented Psychiatric: Yes: Alert, Oriented Labs: CBC, BMP 09/30/17 06:25 09/30/17 06:25 INR, PTT INR 1.58 (0.82-1.09) H 09/30/17 06:25 Problem List - Problems (1) Cirrhosis Assessment/Plan: -Chronic -See Dr. Francis, last saw her in July -seen by GI Code(s): K74.60 - UNSPECIFIED CIRRHOSIS OF LIVER Qualifiers: Hepatic cirrhosis type: other cirrhosis Qualified Code(s): K74.69 - Other cirrhosis of liver (2) Hyperbilirubinemia Code(s): E80.6 - OTHER DISORDERS OF BILIRUBIN METABOLISM (3) Ascites Assessment/Plan: -Moderate -paracentesis not recommended by GI Code(s): R18.8 - OTHER ASCITES (4) Hepatic encephalopathy Assessment/Plan: lactulose 20 gm TID Code(s): K72.90 - HEPATIC FAILURE, UNSPECIFIED WITHOUT COMA (5) Hyperammonemia Code(s): E72.20 - DISORDER OF UREA CYCLE METABOLISM, UNSPECIFIED (6) Thrombocytopenia Assessment/Plan: -stable -hematology consult -repeat labs in AM Code(s): D69.6 - THROMBOCYTOPENIA, UNSPECIFIED (7) Lactic acidosis Assessment/Plan: -on IVF -repeat in AM Code(s): E87.2 - ACIDOSIS Assessment/Plan see problem list
--- NOTE | 2017-09-30 11:36 | PN ---
Progress Note, Physician History of Present Illness: Awake, alert C/O constipation No c/o abdominal pain, N/V No recurrent fever - Current Medication List Current Medications: Active Medications Carvedilol (Coreg -) 6.25 mg PO BID [facility] Last Admin: 09/30/17 10:01 Dose: 6.25 mg Erythromycin (Carmelo-Tab -) 250 mg PO DAILY [facility] Last Admin: 09/30/17 10:02 Dose: 250 mg Fluticasone Propionate (Flonase -) 1 spray NS DAILY [facility] Last Admin: 09/30/17 10:01 Dose: 1 sprays Furosemide (Lasix -) 40 mg PO DAILY [facility] Last Admin: 09/30/17 10:01 Dose: 40 mg Gabapentin (Neurontin -) 300 mg PO BID [facility] Last Admin: 09/30/17 10:01 Dose: 300 mg Sodium Chloride (Normal Saline -) 1,000 mls @ 50 mls/hr IV ASDIR [facility] Last Admin: 09/29/17 21:20 Dose: 50 mls/hr Lactulose (Cephulac (Oral Use)) 20 gm PO TID PRN PRN Reason: CONSTIPATION Last Admin: 09/30/17 06:37 Dose: 20 gm Magnesium Oxide (Mag-Ox -) 400 mg PO BID [facility] Last Admin: 09/30/17 10:01 Dose: 400 mg Omeprazole/Sodium Bicarbonate (20mg/1100mg) 1 each PO DAILY [facility] Last Admin: 09/30/17 10:02 Dose: 1 each Rifaximin (Xifaxan -) 550 mg PO BID [facility] Last Admin: 09/30/17 10:02 Dose: 550 mg Spironolactone (Aldactone -) 50 mg PO BID [facility] Last Admin: 09/30/17 10:01 Dose: 50 mg Tamsulosin HCl (Flomax -) 0.4 mg PO DAILY@0830 [facility] Last Admin: 09/30/17 10:01 Dose: 0.4 mg Tramadol HCl (Ultram -) 50 mg PO Q6H PRN PRN Reason: PAIN Last Admin: 09/30/17 06:37 Dose: 50 mg - Objective Vital Signs: Vital Signs Temperature 98.1 F 09/30/17 06:00 Pulse Rate 67 09/30/17 06:00 Respiratory Rate 18 09/30/17 06:00 Blood Pressure 122/73 09/30/17 06:00 O2 Sat by Pulse Oximetry (%) 97 09/29/17 21:00 Constitutional: Yes: No Distress Eyes: Yes: Conjunctiva Clear Cardiovascular: Yes: Regular Rate and Rhythm, S1, S2 Respiratory: Yes: CTA Bilaterally Gastrointestinal: Yes: Normal Bowel Sounds, Soft, Abdomen, Obese. No: Tenderness Edema: Yes Labs: CBC, BMP 09/30/17 06:25 09/30/17 06:25 INR, PTT INR 1.58 (0.82-1.09) H 09/30/17 06:25 Assessment/Plan Transient low grade temp Abdominal pain syndrome- resolved ESLD with ascites Pancytopenia Observe off antibiotics Outpatient follow up with media specialist
[2017-09-30 14:48] VITALS: BP 112/65; PULSE 71; TEMP 98.5
--- NOTE | 2017-09-30 15:13 | PN ---
Progress Note (short form) - Note Progress Note: pt seen chart reviewed and consults noted feels better O/E: General: NAD HEENT: eomi perrla cardiac: rrr abdomen: mild tenderness. extremeties: NO CCE Neuro: Alert and oriented. Last Vital Signs Temp Pulse Resp BP Pulse Ox 98.5 F 71 18 112/65 97 09/30/17 14:46 09/30/17 14:46 09/30/17 06:00 09/30/17 14:46 09/29/17 21:00 CBC, BMP 09/30/17 06:25 09/30/17 06:25 Current Medications Generic Name Dose Route Start Last Admin Trade Name Freq PRN Reason Stop Dose Admin Carvedilol 6.25 mg 09/29/17 20:45 09/30/17 10:01 Coreg - PO 6.25 mg BID [facility] Administration Erythromycin 250 mg 09/28/17 10:00 09/30/17 10:02 Carmelo-Tab - PO 250 mg DAILY [facility] Administration Fluticasone Propionate 1 spray 09/28/17 10:00 09/30/17 10:01 Flonase - NS 1 sprays DAILY [facility] Administration Furosemide 40 mg 09/29/17 10:00 09/30/17 10:01 Lasix - PO 40 mg DAILY [facility] Administration Gabapentin 300 mg 09/27/17 22:00 09/30/17 10:01 Neurontin - PO 300 mg BID [facility] Administration Sodium Chloride 1,000 mls @ 50 mls/hr 09/29/17 20:41 09/29/17 21:20 Normal Saline - IV 50 mls/hr ASDIR [facility] Administration Lactulose 20 gm 09/27/17 17:38 09/30/17 06:37 Cephulac (Oral Use) PO 20 gm TID PRN Administration CONSTIPATION Magnesium Oxide 400 mg 09/27/17 22:00 09/30/17 10:01 Mag-Ox - PO 400 mg BID [facility] Administration Omeprazole/Sodium 1 each 09/28/17 10:00 09/30/17 10:02 Bicarbonate (20mg/ PO 1 each 1100mg) DAILY [facility] Administration Rifaximin 550 mg 09/27/17 22:00 09/30/17 10:02 Xifaxan - PO 550 mg BID [facility] Administration Spironolactone 50 mg 09/28/17 22:00 09/30/17 10:01 Aldactone - PO 50 mg BID [facility] Administration Tamsulosin HCl 0.4 mg 09/28/17 08:30 09/30/17 10:01 Flomax - PO 0.4 mg DAILY@0830 [facility] Administration Tramadol HCl 50 mg 09/29/17 20:38 09/30/17 06:37 Ultram - PO 50 mg Q6H PRN Administration PAIN INR 1.62 (0.82-1.09) H 09/29/17 08:00 A/P: ESLD causing portal gastropathy/portal HTN/coagulopathy /thrombocytopenia. No signs of bleeding noted/resting comfortable and lying flat. for platelets today prior to d/c s/p Vit K. f/u with his OP case briefer
--- NOTE | 2017-09-30 16:37 | DS ---
Physical Examination Vital Signs: Vital Signs Temperature 98.5 F 09/30/17 14:46 Pulse Rate 71 09/30/17 14:46 Respiratory Rate 18 09/30/17 09:00 Blood Pressure 112/65 09/30/17 14:46 O2 Sat by Pulse Oximetry (%) 97 09/30/17 09:00 Constitutional: Yes: Well Nourished, No Distress, Calm Cardiovascular: Yes: Regular Rate and Rhythm Respiratory: Yes: Regular Gastrointestinal: Yes: Ascites Musculoskeletal: Yes: WNL Extremities: Yes: WNL Edema: No Peripheral Pulses WNL: Yes Neurological: Yes: Alert, Oriented Psychiatric: Yes: Alert, Oriented Labs: CBC, BMP 09/30/17 06:25 09/30/17 06:25 Discharge Summary Reason For Visit: ACUTE RENAL FAILURE; HYPERBILIRUBINEMIA; CIRRHOSIS Current Active Problems MARYURI (acute kidney injury) (Acute) Cirrhosis (Acute) Hyperbilirubinemia (Acute) Lactic acidosis (Acute) SIRS (systemic inflammatory response syndrome) (Acute) Hospital Course: 52M with a PMH of hep B and C, alcoholic cirrhosis, portal vein thrombosis, and HTN who presents to the ED with complaints of generalized abdominal pain. Per patient and childcare aide at bedside he has had increased abdominal swelling over the past few weeks and has been complaining of worsening abdominal pain as well. Denies fevers, or chills but does complain of nausea and occasional diarrhea which are apparently not new symptoms for him. He is generally a poor historian and has a home health aid 10 hours a day at home who administers his medications. He was recently admitted last month for generalized edema, weakness , and bilateral vision loss without any acute pathology found. Denies fevers, chills, cp, sob, vomiting, LE edema. Reports compliance with medications. Condition: Fair - Instructions Diet, Activity, Other Instructions: -Low sodium diet -Follow up with Dr Eliana Francis -Follow up with Dr Gabby Chen by scheduling an appointment by calling -Start Furosemide 40 mg 1 tab daily -Increase spironalactone to 50 mg 1 tab daily -Discontinue Nadolol -Start Carvedilol 6.25 mg 1 tab 2 x day -May take Tramadol 50 mg every 6 hours as needed for pain. -Continue Lactulose 20 gm (30 ml) 3 x day Referrals: Cesar Flynn [Primary Care Provider] - Disposition: VNS/HOME HEALTH CARE - Home Medications Comprehensive Discharge Medication List: Ambulatory Orders Gabapentin 300 mg PO BID 06/27/17 Omeprazole/Sodium Bicarbonate [Omeprazole-Bicarb 40-1,100 Cap] 1 each PO DAILY 06/27/17 Rifaximin [Xifaxan -] 550 mg PO BID 06/27/17 Tamsulosin HCl 0.4 mg PO DAILY 06/27/17 Magnesium Oxide [Mag-Ox -] 400 mg PO BID #60 tablet 08/19/17 Erythromycin Base [Erythromycin] 250 mg PO DAILY 09/27/17 Triamcinolone Acetonide [Nasacort] 10.8 ml NS DAILY 09/27/17 Carvedilol [Coreg -] 6.25 mg PO BID #30 tablet 09/30/17 Furosemide [Lasix -] 40 mg PO DAILY #30 tablet 09/30/17 Lactulose (Oral Use) [Cephulac -] 20 gm PO TID PRN #2700 ml 09/30/17 Spironolactone [Aldactone -] 50 mg PO BID #30 tablet 09/30/17 Tramadol HCl [Ultram -] 50 mg PO Q6H PRN #20 tablet MDD 4 09/30/17
== END 2017-09-30 18:31 | disposition home health service (06) | DRG 442 ==
LOC: JER 10:07 → JERBED 16:14 → J5S 19:15
PROVIDERS: ADMIT Family Medicine; ATTEND Family Medicine
PROC: 30233N1 Transfusion of Nonautologous Red Blood Cells into Peripheral Vein, Percutaneous Approach (ICD-10-PCS; principal; 2017-09-30)
DX: K72.90 Hepatic failure, unspecified without coma (principal); N17.9 Acute kidney failure, unspecified; E87.2 Acidosis; K76.6 Portal hypertension; D68.9 Coagulation defect, unspecified; D61.818 Other pancytopenia; E72.20 Disorder of urea cycle metabolism, unspecified; E80.6 Other disorders of bilirubin metabolism; K31.89 Other diseases of stomach and duodenum; D69.6 Thrombocytopenia, unspecified; R10.9 Unspecified abdominal pain; K70.31 Alcoholic cirrhosis of liver with ascites
CPT/HCPCS: 36415; 36430; 71020-TC; 74176-TC; 76705-TC; 80053; 81003; 81015; 82140; 82172; 82248; 82977; 83010; 83605; 83690; 83735; 83883; 84460; 85025; 85610; 85730; 86850; 86900; 86901; 87040; 87086; 93005; 93010; 99285-25; P9034; P9038

== ENCOUNTER 2017-10-11 22:06 | Inpatient (IN) | payer BC, OTHER ==
--- NOTE | 2017-10-11 23:48 | PDOC ---
History of Present Illness - General History Source: Patient, Family - History of Present Illness Initial Comments: 10/11/17 23:54 The patient is a 52 year old male, with a significant past medical history of hypertension, hepatic encephalopathy, hep B and C, alcoholic cirrhosis, portal vein thrombosis, and recent admission for acute renal failure from 09/29-09/30, who presents to the emergency department with progressive AMS for a few days and generalized weakness today. The patient's family denies head trauma, recent falls. The patients family deny any complaints of pain from the patient. The patients family reports he is confused. The patient is responding, however, very slowly and not appropriately. Allergies: NKDA Past surgical history: appendectomy Social history: former ETOH abuse PCP: Dr. Flynn <Fanny Newton - Last Filed: 10/12/17 02:18> - General History Source: Family <Benigno Morrison - Last Filed: 10/12/17 19:34> - General Chief Complaint: Weakness Stated Complaint: WEAKNESS Time Seen by Provider: 10/11/17 23:08 Past History <Fanny Newton - Last Filed: 10/12/17 02:18> - Past Medical History Anemia: No CVA: No COPD: No Dementia: No Liver Disease: (Cirrhosis,Hep C, portal vein Thombosis) - Surgical History Appendectomy: Yes - Suicide/Smoking/Psychosocial Hx Smoking History: Never smoked Have you smoked in the past 12 months: No Information on smoking cessation initiated: No Hx Alcohol Use: No Drug/Substance Use Hx: No <Benigno Morrison - Last Filed: 10/12/17 19:34> - Past Medical History Allergies/Adverse Reactions: Allergies Allergy/AdvReac Type Severity Reaction Status Date / Time No Known Allergies Allergy Verified 10/12/17 16:46 Home Medications: Ambulatory Orders Gabapentin 300 mg PO BID 06/27/17 Omeprazole/Sodium Bicarbonate [Omeprazole-Bicarb 40-1,100 Cap] 1 each PO DAILY 06/27/17 Tamsulosin HCl 0.4 mg PO DAILY 06/27/17 Furosemide [Lasix -] 40 mg PO DAILY #30 tablet 09/30/17 Spironolactone [Aldactone -] 50 mg PO BID #30 tablet 09/30/17 Nadolol 40 mg PO DAILY 12/12/17 Ursodiol [Actigal] 300 mg PO DAILY 10/11/17 Lactulose [Cephulac -] 10 gm PO TID 10/12/17 Review of Systems - Review of Systems Able to Perform ROS?: No (AMS) <Fanny Newton - Last Filed: 10/12/17 02:18> *Physical Exam - Vital Signs Last Vital Signs Temp Pulse Resp BP Pulse Ox 99.1 F 65 14 131/79 100 10/11/17 22:44 10/11/17 22:44 10/11/17 22:44 10/11/17 22:44 10/11/17 22:44 - Physical Exam Comments: 10/11/17 23:55 GENERAL: (+) Awake and alert x 1. Well developed, well nourished. No apparent distress. HEENT: (+) scleral icterus. Normocephalic, atraumatic. PERRLA, EOMI. No conjunctival pallor. Moist mucous membranes. Oropharynx is clear. NECK: Supple. Full ROM. No JVD. Carotid pulses 2+ and symmetric, without bruits. No thyromegaly. No lymphadenopathy. CARDIOVASCULAR: Regular rate and rhythm. No murmurs, rubs, or gallops. Distal pulses are 2+ and symmetric. PULMONARY: No evidence of respiratory distress. Lungs clear to auscultation bilaterally. No wheezing, rales or rhonchi. ABDOMINAL: Soft. Non-tender. Non-distended. No rebound or guarding. No organomegaly. Normoactive bowel sounds. MUSCULOSKELETAL Normal range of motion at all joints. No bony deformities or tenderness. No CVA tenderness. EXTREMITIES: No cyanosis. No clubbing. No edema. No calf tenderness. SKIN: Warm and dry. Normal capillary refill. No rashes. No jaundice. NEUROLOGICAL: (+) Awake and Alert to person, but not place or time. Slow to respond and without appropriate responses. Cranial nerves 2-12 intact. Normoreflexic in the upper and lower extremities. Normal speech. Toes are down-going bilaterally. PSYCHIATRIC: Cooperative. Good eye contact. Appropriate mood and affect. <Fanny Newton - Last Filed: 10/12/17 02:18> - Vital Signs Last Vital Signs Temp Pulse Resp BP Pulse Ox 99.1 F 65 14 131/79 100 10/11/17 22:44 10/11/17 22:44 10/11/17 22:44 10/11/17 22:44 10/11/17 22:44 <Benigno Morrison - Last Filed: 10/12/17 19:34> Heart Score/ECG Review - ECG Intrepretation Comment:: 10/12/17 01:26 EKG was read by Dr. Colon Impression: Normal sinus rhythm Vent.Rate: 67 bpm NV Interval 146 ms QTc: 460 ms <Fanny Newton - Last Filed: 10/12/17 02:18> ED Treatment Course - LABORATORY CBC & Chemistry Diagram: 10/12/17 00:15 10/12/17 00:15 - RADIOLOGY Radiograph Interpretation: EXAM: CT HEAD WITHOUT CONTRAST No acute brain parenchymal abnormality. No hemorrhage, mass or acute territorial infarct. Clear visualized paranasal sinuses. Visualized mastoid air cells clear. Lin Galvez M.D. 10/12/2017 01:35 EST <Fanny Newton - Last Filed: 10/12/17 02:18> - LABORATORY CBC & Chemistry Diagram: 10/12/17 08:10 10/12/17 08:10 <Benigno Morrison - Last Filed: 10/12/17 19:34> Medical Decision Making - Medical Decision Making 10/12/17 02:18 Dr. Guillermo was paged via phone answering service at this time requesting a call back to discuss patient admission. <Fanny Newton - Last Filed: 10/12/17 02:18> - Medical Decision Making 10/12/17 19:33 Dr. Morrison: The scribe's documentation has been prepared under my direction and personally reviewed by me in its entirery. I confirm that the note above accurately reflects all work, treatment, procedures, and medical decision making performed by me. is FI, <Benigno Morrison - Last Filed: 10/12/17 19:34> *DC/Admit/Observation/Transfer - Attestations Scribe Attestion: 10/11/17 23:58 Documentation prepared by Fanny Newton, acting as medical policy specialist for Benigno Morrison DO <Fanny Newton - Last Filed: 10/12/17 02:18> - Discharge Dispostion Admit: Yes <Benigno Morrison - Last Filed: 10/12/17 19:34> Diagnosis at time of Disposition: Hyperammonemia, Hepatic encephalopathy - Discharge Dispostion Disposition: AGAINST MEDICAL ADVICE Condition at time of disposition: Stable
[2017-10-12 00:49] LABS: BASOPHIL 0.7 % (0-2.0); EOSINOPHIL 2.2 % (0-4.5); MCH 33.1 pg (25.7-33.7); MCHC 34.1 g/dl (32.0-35.9); MEAN CELL VOLUME 97.1 fl (80-96); NEUTROPHILS 56.5 % (42.8-82.8); RDW 15.7 % (11.9-15.9); WHITE BLOOD COUNT 4.4 K/mm3 (4.0-10.0)
[2017-10-12 01:08] LABS: INR 1.63 (0.82-1.09); PROTHROMBIN TIME (PATIENT) 18.4 SEC (9.98-11.88)
[2017-10-12 01:17] LABS: ALBUMIN 2.3 g/dl (3.4-5.0); ANION GAP 6 (8-16); BILIRUBIN,TOTAL 2.8 mg/dL (0.2-1.0); CALCIUM 8.1 mg/dL (8.5-10.1); CO2 28 mmol/L (21-32); CREATININE 0.7 mg/dL (0.7-1.3); GLUCOSE,RANDOM 96 mg/dL (74-106); SGPT/ALT 35 U/L (12-78); TOT PROT 7.8 g/dl (6.4-8.2)
[2017-10-12 01:20] LABS: ALK PHOS 273 U/L (45-117); TROPONIN I < 0.02 ng/ml (0.00-0.05)
[2017-10-12 01:25] LABS: CPK 104 IU/L (39-308); MAGNESIUM 1.5 mg/dL (1.8-2.4); SGOT/AST 61 U/L (15-37)
[2017-10-12 01:59] LABS: PLATELET COMMENTS PRESENT
[2017-10-12 02:02] LABS: MEAN PLT VOLUME 11.7 fl (7.5-11.1); PLATELET COUNT 61 K/MM3 (134-434)
[2017-10-12] MEDS ORDERED: LACTULOSE 20 GM/30 ML UDC (FOR ORAL USE ONLY) PO ONE (02:11)
[2017-10-12] MEDS ORDERED: MAGNESIUM SULF 50% (8.12 MEQ/2 ML-1 GM VIAL) IVPB ONE ×2 (02:12→04:34)
[2017-10-12] MEDS ORDERED: MAGNESIUM SULF 50% (8.12 MEQ/2 ML-1 GM VIAL) ONE (02:14)
[2017-10-12] MEDS ORDERED: LACTULOSE 20 GM/30 ML UDC (FOR ORAL USE ONLY) ONE (02:14)
--- NOTE | 2017-10-12 03:07 | PN ---
Teaching Attending Note Name of Resident: Nikolay Hernandez ATTENDING PHYSICIAN STATEMENT I saw and evaluated the patient. I reviewed the resident's note and discussed the case with the resident. I agree with the resident's findings and plan as documented. SUBJECTIVE: 52 year old male, with pmhx of htn, hepatic encephalopathy, hep B/C, Etoh cirrhosis, portal vein thrombosis, and recent admission for arf who presents with altered mental status. Pt. is a poor historian and is only aware to self. OBJECTIVE: Physical: VS: Vital Signs Period Temp Pulse Resp BP Sys/Mckeon Pulse Ox Last 24 Hr 99.1 F 65 14 131/79 100 GEN: AA0X1 (person), NAD, resting in bed HEENT: NCAT, PERRL, Throat without erythema or exudates CARD: RRR S1, S2 RESP: CTAB ABD: BSx4, NTD to palpation, no significant distension EXT: - C/C/E CBCD WBC 4.4 K/mm3 (4.0-10.0) D 10/12/17 00:15 RBC 3.97 M/mm3 (4.00-5.60) L D 10/12/17 00:15 Hgb 13.2 GM/dL (11.7-16.9) D 10/12/17 00:15 Hct 38.6 % (35.4-49) D 10/12/17 00:15 MCV 97.1 fl (80-96) H 10/12/17 00:15 MCHC 34.1 g/dl (32.0-35.9) 10/12/17 00:15 RDW 15.7 % (11.9-15.9) 10/12/17 00:15 Plt Count 61 K/MM3 (134-434) L D 10/12/17 00:15 MPV 11.7 fl (7.5-11.1) H 10/12/17 00:15 CMP Sodium 141 mmol/L (136-145) 10/12/17 00:15 Potassium 4.6 mmol/L (3.5-5.1) D 10/12/17 00:15 Chloride 107 mmol/L (98-107) 10/12/17 00:15 Carbon Dioxide 28 mmol/L (21-32) 10/12/17 00:15 Anion Gap 6 (8-16) L 10/12/17 00:15 BUN 7 mg/dL (7-18) 10/12/17 00:15 Creatinine 0.7 mg/dL (0.7-1.3) 10/12/17 00:15 Creat Clearance w eGFR > 60 (>60) 10/12/17 00:15 Random Glucose 96 mg/dL (74-106) D 10/12/17 00:15 Calcium 8.1 mg/dL (8.5-10.1) L 10/12/17 00:15 Total Bilirubin 2.8 mg/dL (0.2-1.0) H D 10/12/17 00:15 AST 61 U/L (15-37) H D 10/12/17 00:15 ALT 35 U/L (12-78) D 10/12/17 00:15 Alkaline Phosphatase 273 U/L (45-117) H 10/12/17 00:15 Total Protein 7.8 g/dl (6.4-8.2) D 10/12/17 00:15 Albumin 2.3 g/dl (3.4-5.0) L D 10/12/17 00:15 CARDIAC ENZYMES Creatine Kinase 104 IU/L (39-308) 10/12/17 00:15 Troponin I < 0.02 ng/ml (0.00-0.05) 10/12/17 00:15 Home Medications Medication Instructions Recorded Gabapentin 300 mg PO BID 06/27/17 Omeprazole/Sodium Bicarbonate 1 each PO DAILY 06/27/17 [Omeprazole-Bicarb 40-1,100 Cap] Tamsulosin HCl 0.4 mg PO DAILY 06/27/17 Furosemide [Lasix -] 40 mg PO DAILY #30 tablet 09/30/17 Spironolactone [Aldactone -] 50 mg PO BID #30 tablet 09/30/17 Nadolol 40 mg PO DAILY 10/11/17 Ursodiol [Actigal] 300 mg PO DAILY 10/11/17 CT HEAD WITHOUT CONTRAST No acute brain parenchymal abnormality. No hemorrhage, mass or acute territorial infarct. Clear visualized paranasal sinuses. Visualized mastoid air cells clear. ASSESSMENT AND PLAN: 52 year old male, with pmhx of htn, hepatic encephalopathy, hep B/C, Etoh cirrhosis, portal vein thrombosis, and recent admission for arf who presents with altered mental status, being admitted for hepatic encephalopathy 1.) AMS - Improved, check UDS, UA, Ucx - secondary to Hepatic Encephalopathy - Lactulose- titrate to 3 soft stools - Repeat Ammonia level 2.) Cirrhosis, portal gastropathy - C/W home meds- Rifaxamin, Aldactone, lasix, coreg - Low Na diet - INR 3.) Thrombocytopenia - Due to portal htn - Monitor 4.) Dvt Ppx - SCDS- thrombocytpenic Place in Med-sx
--- NOTE | 2017-10-12 03:08 | HP ---
CHIEF COMPLAINT: Altered mental status PCP: HISTORY OF PRESENT ILLNESS: 51yo [place]udian-speaking M with medical history of alcoholic cirrhosis ( diagnosed 6-7 years ago), hepatitis B and C and HTN who presented to the ED alongside family for altered mental status. Pt responds, albeit slow compared to normal, and is pleasantly confused. Pt reports being "in the bathroom, named Severo, and being 19years old." Pt also states his eyes hurt him a little. Per medical chart: he was recently admitted for acute renal failure from 09/29- 09/30 and was seen previously in July for increasing abdominal distention in lieu of end-stage liver disease. Afterwards he had progressive AMS over the course of a few days and generalized weakness today as reported by pt's family. Family denied any recent falls or head trauma otherwise. He lives at home and has a health aid 10 hours per day who arranges his medications, however compliance is unknown. Pt has not had bowel movement since administration of the lactulose in the ED. NOTE: Pt does not have portal vein thrombosis. Spoke to Dr. Kingston in May on previous admission and she reported on recent imaging (12/17) pt did not have a portal vein thrombus. He has a small caliber portal vein as well as a natural splenorenal shunt likely accounting for the small portal vein diameter and decompressed / small varices noted on his most recent EGD at [facility]. ER course was notable for: (1) Lactulose 40gm PO ONCE (2) Head CT - negative for acute pathology (3) CXR - Increased pulmonary marking and increased heart size; no interval change from previous CXR PAST MEDICAL HISTORY: Alcoholic cirrhosis Portal vein thrombosis Hepatitis B and C HTN PAST SURGICAL HISTORY: Appendectomy (2009 or earlier) Colonoscopy (Most recent: 02/2017) Social History: Per chart: Smoking: Never Alcohol: Previously; cannot ascertain how much Drugs: Never Family History: Unable to obtain Allergies No Known Allergies Allergy (Verified 10/11/17 22:43) HOME MEDICATIONS: Home Medications Medication Instructions Recorded Gabapentin 300 mg PO BID 06/27/17 Omeprazole/Sodium Bicarbonate 1 each PO DAILY 06/27/17 [Omeprazole-Bicarb 40-1,100 Cap] Tamsulosin HCl 0.4 mg PO DAILY 06/27/17 Furosemide [Lasix -] 40 mg PO DAILY #30 tablet 09/30/17 Spironolactone [Aldactone -] 50 mg PO BID #30 tablet 09/30/17 Nadolol 40 mg PO DAILY 10/11/17 Ursodiol [Actigal] 300 mg PO DAILY 10/11/17 REVIEW OF SYSTEMS CONSTITUTIONAL: Present: generalized weakness Absent: fever, chills, diaphoresis, malaise, loss of appetite, weight change HEENT: Absent: rhinorrhea, throat pain, difficulty swallowing, mouth swelling, visual changes CARDIOVASCULAR: Absent: chest pain, syncope, palpitations, irregular heart rate, lightheadedness , peripheral edema RESPIRATORY: Absent: cough, shortness of breath, dyspnea with exertion, orthopnea, wheezing, stridor, hemoptysis GASTROINTESTINAL: Absent: abdominal pain, abdominal distension, nausea, vomiting, diarrhea, constipation, melena, hematochezia GENITOURINARY: Absent: dysuria, frequency, urgency, hesitancy, hematuria, flank pain, genital pain MUSCULOSKELETAL: Absent: myalgia, arthralgia, joint swelling, back pain, neck pain SKIN: Absent: rash, itching, pallor HEMATOLOGIC/IMMUNOLOGIC: Absent: easy bleeding, easy bruising, lymphadenopathy, frequent infections ENDOCRINE: Absent: unexplained weight gain, unexplained weight loss, heat intolerance, cold intolerance NEUROLOGIC: Present: Mental status changes Absent: headache, paresthesias, dizziness, unsteady gait, seizure, bladder or bowel incontinence PSYCHIATRIC: Absent: anxiety, depression, suicidal or homicidal ideation, hallucinations. PHYSICAL EXAMINATION Vital Signs - 24 hr 10/11/17 22:44 Temperature 99.1 F Pulse Rate 65 Respiratory 14 Rate Blood Pressure 131/79 O2 Sat by Pulse 100 Oximetry (%) GENERAL: NAD, awake, alert sitting up in bed HEENT: NC/AT, EOMI, THEODORE, scleral icterus, No JVD LUNGS: CTA bilaterally. No wheezes, rhonchi, rales. No accessory muscle use. HEART: RRR, normal S1 and S2 without murmur ABDOMEN: Soft, non-tender, distended, distant and normoactive bowel sounds, no guarding, no rebound, shifting dullness appreciated. Hepatomegaly appreciated with palpation and percussion 3 finger-widths from costal angle. No splenomegaly. RLQ scar noted. No caput medusa appreciated MUSCULOSKELETAL: No CVA tenderness. Asterixis noted. Baseline tremor also noted. EXTREMITIES: 2+ DP pulses, no peripheral edema. NEUROLOGICAL: Nonfocal. Strength 5/5 throughout all extremities. No dysarthria. Gait not observed. PSYCHIATRIC: Cooperative. Good eye contact. Appropriate mood and affect. SKIN: Warm, dry, jaundiced, abdominal scar RLQ, cap refill <2sec Laboratory Results - last 24 hr 10/12/17 10/12/17 10/12/17 00:15 00:15 00:15 WBC 4.4 D RBC 3.97 L D Hgb 13.2 D Hct 38.6 D MCV 97.1 H MCH 33.1 MCHC 34.1 RDW 15.7 Plt Count 61 L D MPV 11.7 H Neutrophils % 56.5 D Lymphocytes % 30.3 D Monocytes % 10.3 H Eosinophils % 2.2 Basophils % 0.7 Platelet Comment Present PT with INR 18.40 H INR 1.63 H Sodium 141 Potassium 4.6 D Chloride 107 Carbon Dioxide 28 Anion Gap 6 L BUN 7 Creatinine 0.7 Creat Clearance w eGFR > 60 Random Glucose 96 D Calcium 8.1 L Magnesium 1.5 L D Total Bilirubin 2.8 H D AST 61 H D ALT 35 D Alkaline Phosphatase 273 H Ammonia Creatine Kinase 104 Troponin I < 0.02 B-Natriuretic Peptide 33.78 Total Protein 7.8 D Albumin 2.3 L D Lipase 249 Anti-A Titer Blood Type Antibody Screen Spec Expiration Date 10/12/17 10/12/17 10/12/17 00:15 00:25 01:31 WBC RBC Hgb Hct MCV MCH MCHC RDW Plt Count MPV Neutrophils % Lymphocytes % Monocytes % Eosinophils % Basophils % Platelet Comment PT with INR INR Sodium Potassium Chloride Carbon Dioxide Anion Gap BUN Creatinine Creat Clearance w eGFR Random Glucose Calcium Magnesium Total Bilirubin AST ALT Alkaline Phosphatase Ammonia 174.26 H Creatine Kinase Troponin I B-Natriuretic Peptide Total Protein Albumin Lipase Anti-A Titer Cancelled Blood Type Cancelled O POSITIVE Antibody Screen Cancelled Negative Spec Expiration Date Cancelled ASSESSMENT/PLAN: 51yo [place]ian-speaking M with medical history of alcoholic cirrhosis, hepatitis B and C and HTN being seen in the ED for altered mental status found to have hepatic encephalopathy with ammonia 174. 1) Hepatic encephalopathy --MELD score 16 --Lactulose 20gm PO TID --Ideally 3-4 BM per day --Trend Ammonia --Rifaximin 550mg PO BID --GI consulted 2) Cirrhosis complicated with varices --Continue Aldactone 50mg PO TID --Continue Lasix 40mg PO qDaily --Continue Nadolol 40mg PO qDaily --Sodium controlled diet --Trend INR 3) Thrombocytopenia --2/2 cirrhosis --Trend CBC FEN: Fluids: None indicated currently Electrolyte abnormalities: cCa WNL at 9.46, HypoMg (repleted in ED; will likely need more, but trend AM labs) Nutrition: Sodium controlled diet PPX DVT - SCDs applied to both legs Dispo: Admit to M/S Case discussed with Dr. Maggy Hannon, DO - IM PGY-1 Visit type - Emergency Visit Emergency Visit: Yes ED Registration Date: 10/12/17 Care time: The patient presented to the Emergency Department on the above date and was hospitalized for further evaluation of their emergent condition. - New Patient This patient is new to me today: Yes Date on this admission: 10/12/17 - Critical Care Critical Care patient: No
--- NOTE | 2017-10-12 03:38 | MSN ---
Admitting History and Physical - Admission Chief Complaint: Altered Mental Status History of Present Illness: Benigno Fletcher is a 52 year old male with past medical history of HTN, hepatic encephalopathy, Hep B, Hep C, alcoholic cirrhosis, portal vein thrombosis, and recent admission for acute renal failure, who presents with AMS. When patient was asked for his name, he responded "Severo" and states that he is "19 years old". Patient states he is currently in the "bathroom". Unable to obtain further history due to patient's mental status. ED course was notable for: 1. AST 61, ALT 35, ALP 273, Ammonia 174 2. 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 (hepatic encephalopathy) Cardiovascular: Yes: HTN Hepatobiliary: Yes: Cirrhosis (alcoholic), Hepatitis B, Hepatitis C - Past Surgical History Past Surgical History: Yes: Appendectomy (2009 or earlier), Colonoscopy (Most recent: 02/2017) - Smoking History Smoking history: Never smoked Have you smoked in the past 12 months: No - Alcohol/Substance Use Hx Alcohol Use: No - Social History ADL: Independent Occupation: Retired History of Recent Travel: No Home Medications - Allergies Allergies/Adverse Reactions: Allergies Allergy/AdvReac Type Severity Reaction Status Date / Time No Known Allergies Allergy Verified 10/11/17 22:43 - Home Medications Home Medications: Ambulatory Orders Gabapentin 300 mg PO BID 06/27/17 Omeprazole/Sodium Bicarbonate [Omeprazole-Bicarb 40-1,100 Cap] 1 each PO DAILY 06/27/17 Tamsulosin HCl 0.4 mg PO DAILY 06/27/17 Furosemide [Lasix -] 40 mg PO DAILY #30 tablet 09/30/17 Spironolactone [Aldactone -] 50 mg PO BID #30 tablet 09/30/17 Nadolol 40 mg PO DAILY 10/11/17 Ursodiol [Actigal] 300 mg PO DAILY 10/11/17 Review of Systems Unable to obtain ROS, reason: Altered mental status Physical Examination Vital Signs: Vital Signs Temperature 99.1 F 10/11/17 22:44 Pulse Rate 65 10/11/17 22:44 Respiratory Rate 14 10/11/17 22:44 Blood Pressure 131/79 10/11/17 22:44 O2 Sat by Pulse Oximetry (%) 100 10/11/17 22:44 Constitutional: Yes: No Distress, Calm Eyes: Yes: EOM Intact, PERRL, Sclera Icterus HENT: Yes: Atraumatic, Normocephalic Neck: Yes: Supple, Trachea Midline Cardiovascular: Yes: Regular Rate and Rhythm Respiratory: Yes: Regular, CTA Bilaterally Gastrointestinal: Yes: Normal Bowel Sounds, Soft, Ascites (with shifting dullness), Distention, Hepatomegaly (3 finger breadths below the costal margin) , Other (Scar noted in right lower quadrant) Extremities: Yes: WNL Peripheral Pulses WNL: Yes Neurological: Yes: Confusion, Tremors (Tremors present in hands bilaterally) Labs: CBC, BMP 10/12/17 00:15 10/12/17 00:15 Assessment/Plan Benigno Fletcher is a 52 yo M w/ PMHx of HTN, hepatic encephalopathy, Hep B, Hep C, alcoholic cirrhosis, portal vein thrombosis, and recent admission for acute renal failure, who presents with AMS. Patient was admitted for hepatic encephalopathy. 1. Hepatic encephalopathy secondary to end stage liver disease with history of alcoholic cirrhosis - MELD score 16 - Lactulose 20 gm PO TID - Rifaximine - Beta Ania- Nadolol 40 mg PO daily - Continue Spirinolactone 50 mg PO TID - Lasix 40 mg daily 2. HTN - Continue HTN meds 3. DVT Proph - SCDs bilaterally Dispo: Will admit to Med-Surg.
[2017-10-12 05:10] VITALS: BMI 32.5
[2017-10-12] MEDS ORDERED: LACTULOSE 20 GM/30 ML UDC (FOR ORAL USE ONLY) PO SCH (06:00)
[2017-10-12] MEDS ORDERED: TAMSULOSIN HCL 0.4 MG CAP.ER.24H (FP) PO SCH (08:30)
[2017-10-12] MEDS ORDERED: PT OWN MED DRAWER 7, Y5N ONE (08:32)
[2017-10-12 08:39] VITALS: BP 134/89; PULSE 83; TEMP 98.3
[2017-10-12 08:43] LABS: MCH 32.5 pg (25.7-33.7); MCHC 33.5 g/dl (32.0-35.9); MEAN CELL VOLUME 97.1 fl (80-96); MEAN PLT VOLUME 11.9 fl (7.5-11.1); PLATELET COUNT 54 K/MM3 (134-434); RDW 15.7 % (11.9-15.9); WHITE BLOOD COUNT 5.1 K/mm3 (4.0-10.0)
[2017-10-12 08:59] LABS: INR 1.66 (0.82-1.09); PROTHROMBIN TIME (PATIENT) 18.8 SEC (9.98-11.88)
[2017-10-12 09:09] LABS: ALBUMIN 2.4 g/dl (3.4-5.0); ANION GAP 8 (8-16); CALCIUM 8.1 mg/dL (8.5-10.1); CO2 21 mmol/L (21-32); GLUCOSE,RANDOM 109 mg/dL (74-106); MAGNESIUM 1.7 mg/dL (1.8-2.4)
[2017-10-12 09:12] LABS: ALK PHOS 256 U/L (45-117); BILIRUBIN,TOTAL 4.1 mg/dL (0.2-1.0); CREATININE 0.7 mg/dL (0.7-1.3); SGOT/AST 50 U/L (15-37); SGPT/ALT 35 U/L (12-78); TOT PROT 7.7 g/dl (6.4-8.2)
[2017-10-12] MEDS ORDERED: GABAPENTIN 300 MG CAPSULE (FP) PO SCH (10:00)
[2017-10-12] MEDS ORDERED: PATIENT'S OWN MEDICATION (NON-FORMULARY) (Omeprazole/Sodium Bicarbonate [Omeprazole-Bicarb PO SCH (10:00)
[2017-10-12] MEDS ORDERED: URSODIOL 300 MG CAPSULE PO SCH (10:00)
[2017-10-12] MEDS ORDERED: NADOLOL 40 MG TABLET (FP) PO SCH (10:00)
[2017-10-12] MEDS ORDERED: FUROSEMIDE 40 MG TABLET (FP) PO SCH (10:00)
[2017-10-12] MEDS ORDERED: RIFAXIMIN 550 MG TABLET (UD) PO SCH (10:00)
[2017-10-12] MEDS ORDERED: SPIRONOLACTONE 25 MG TABLET (FP) PO SCH (10:00)
[2017-10-12] MEDS ORDERED: PNEUMOC 13-VAL CONJ-DIP CRM/PF 0.5 ML DISP.SYRIN IM ONE (10:00)
--- NOTE | 2017-10-12 11:37 | EKG ---
Test Reason : Blood Pressure : / mmHG Vent. Rate : 067 BPM Atrial Rate : 067 BPM P-R Int : 146 ms QRS Dur : 082 ms QT Int : 436 ms P-R-T Axes : 034 -17 030 degrees QTc Int : 460 ms NORMAL SINUS RHYTHM NORMAL ECG WHEN COMPARED WITH ECG OF 27-SEP-2017 11:42, ABERRANT CONDUCTION IS NO LONGER PRESENT Confirmed by JASON SANCHEZ MD ([id number]) on 10/12/2017 11:37:17 AM Referred By: Confirmed By:JASON SANCHEZ MD
--- NOTE | 2017-10-12 19:54 | HOSP ---
Subjective - Review of Symptoms Events since last encounter: learned form resident that pt left AMA earlier this am , risks of leaving were d /w him by Dr. Saldana Physical Examination Vital Signs: Vital Signs Temperature 98.3 F 10/12/17 08:39 Pulse Rate 83 10/12/17 08:39 Respiratory Rate 20 10/12/17 08:39 Blood Pressure 134/89 10/12/17 08:39 O2 Sat by Pulse Oximetry (%) 100 10/12/17 05:21 Labs: CBC, BMP 10/12/17 08:10 10/12/17 08:10
--- NOTE | 2017-10-12 21:34 | DS ---
Physical Exam: SUBJECTIVE: Patient seen and examined. Pt AAOx3 on exam. Pt reports having an immigration appointment this morning and must leave the hospital so as not to miss this appt. Pt's daughter arrived a half hour later with the same story. Pt reports having had a bowel movement this am, s/p Lactulose. Pt understands that he will have to sign-out AMA, as he is not medically cleared for discharge. I explained to the pt that leaving AMA can lead to worsening of his condition, permanent disability, and even . I used lay terminology. I answered all his questions. It is clear to me that he understands the risks and benefits of continuous hospital stay and leaving AMA. He has the capacity to make his own decision. He agrees to come back to the hospital after his appointment. OBJECTIVE: Vital Signs Period Temp Pulse Resp BP Sys/Mckeon Pulse Ox Last 24 Hr 98 F-99.1 F 65-83 14-20 130-134/76-89 100-100 PHYSICAL EXAM GENERAL: AAOx3, NAD. LUNGS: CTAB. No accessory muscle use. HEART: RRR, normal S1 and S2 without murmur ABDOMEN: Soft, non-tender, distended, no guarding. EXTREMITIES: Warm, well-perfused, no edema. NEUROLOGICAL: Cranial nerves 2-12 grossly intact. No facial droop. Steady gait. PSYCHIATRIC: Cooperative. Good eye contact. Appropriate mood and affect. LABS Laboratory Results - last 24 hr 10/12/17 10/12/17 10/12/17 00:15 00:15 00:15 WBC 4.4 D RBC 3.97 L D Hgb 13.2 D Hct 38.6 D MCV 97.1 H MCH 33.1 MCHC 34.1 RDW 15.7 Plt Count 61 L D MPV 11.7 H Neutrophils % 56.5 D Lymphocytes % 30.3 D Monocytes % 10.3 H Eosinophils % 2.2 Basophils % 0.7 Platelet Comment Present PT with INR 18.40 H INR 1.63 H Sodium 141 Potassium 4.6 D Chloride 107 Carbon Dioxide 28 Anion Gap 6 L BUN 7 Creatinine 0.7 Creat Clearance w eGFR > 60 Random Glucose 96 D Calcium 8.1 L Phosphorus Magnesium 1.5 L D Total Bilirubin 2.8 H D AST 61 H D ALT 35 D Alkaline Phosphatase 273 H Ammonia Creatine Kinase 104 Troponin I < 0.02 B-Natriuretic Peptide 33.78 Total Protein 7.8 D Albumin 2.3 L D Lipase 249 Anti-A Titer Blood Type Antibody Screen Spec Expiration Date 10/12/17 10/12/17 10/12/17 00:15 00:25 01:31 WBC RBC Hgb Hct MCV MCH MCHC RDW Plt Count MPV Neutrophils % Lymphocytes % Monocytes % Eosinophils % Basophils % Platelet Comment PT with INR INR Sodium Potassium Chloride Carbon Dioxide Anion Gap BUN Creatinine Creat Clearance w eGFR Random Glucose Calcium Phosphorus Magnesium Total Bilirubin AST ALT Alkaline Phosphatase Ammonia 174.26 H Creatine Kinase Troponin I B-Natriuretic Peptide Total Protein Albumin Lipase Anti-A Titer Cancelled Blood Type Cancelled O POSITIVE Antibody Screen Cancelled Negative Spec Expiration Date Cancelled 10/12/17 10/12/17 10/12/17 08:10 08:10 08:10 WBC 5.1 RBC 3.97 L Hgb 12.9 Hct 38.6 MCV 97.1 H MCH 32.5 MCHC 33.5 RDW 15.7 Plt Count 54 L MPV 11.9 H Neutrophils % Lymphocytes % Monocytes % Eosinophils % Basophils % Platelet Comment PT with INR 18.80 H INR 1.66 H Sodium 139 Potassium 3.9 Chloride 110 H Carbon Dioxide 21 D Anion Gap 8 BUN 7 Creatinine 0.7 Creat Clearance w eGFR > 60 Random Glucose 109 H Calcium 8.1 L Phosphorus 3.0 Magnesium 1.7 L Total Bilirubin 4.1 H D AST 50 H ALT 35 Alkaline Phosphatase 256 H Ammonia Creatine Kinase Troponin I B-Natriuretic Peptide Total Protein 7.7 Albumin 2.4 L Lipase Anti-A Titer Blood Type Antibody Screen Spec Expiration Date 10/12/17 08:10 WBC RBC Hgb Hct MCV MCH MCHC RDW Plt Count MPV Neutrophils % Lymphocytes % Monocytes % Eosinophils % Basophils % Platelet Comment PT with INR INR Sodium Potassium Chloride Carbon Dioxide Anion Gap BUN Creatinine Creat Clearance w eGFR Random Glucose Calcium Phosphorus Magnesium Total Bilirubin AST ALT Alkaline Phosphatase Ammonia 118.2 H Creatine Kinase Troponin I B-Natriuretic Peptide Total Protein Albumin Lipase Anti-A Titer Blood Type Antibody Screen Spec Expiration Date HOSPITAL COURSE: Date of Admission:10/12/17 Date of Discharge: 10/12/17 52yo M with PMH of etoh cirrhosis (diagnosed 6-7 yrs ago), hep B and C, htn, presented with AMS, found to have hepatic encephalopathy. Lactulose given elevated ammonia. 10/12/17 CXR -> no acute chest pathology 10/12/[address] -> no focal intracranial lesion or hemorrhage. Pt left AMA with daughter. Both signed the AMA form and verbalized understanding the risks of leaving AMA. Minutes to complete discharge: 35 Discharge Summary Reason For Visit: HYPERAMMONEMIA, HEPATIC ENCEPHALOPATHY Condition: Stable - Instructions Referrals: Cesar Flynn [Primary Care Provider] - Disposition: AGAINST MEDICAL ADVICE - Home Medications Comprehensive Discharge Medication List: Ambulatory Orders Gabapentin 300 mg PO BID 06/27/17 Omeprazole/Sodium Bicarbonate [Omeprazole-Bicarb 40-1,100 Cap] 1 each PO DAILY 06/27/17 Tamsulosin HCl 0.4 mg PO DAILY 06/27/17 Furosemide [Lasix -] 40 mg PO DAILY #30 tablet 09/30/17 Spironolactone [Aldactone -] 50 mg PO BID #30 tablet 09/30/17 Nadolol 40 mg PO DAILY 10/11/17 Ursodiol [Actigal] 300 mg PO DAILY 10/11/17 Lactulose [Cephulac -] 10 gm PO TID 10/12/17 This patient is new to me today: Yes Date on this admission: 10/12/17 Emergency Visit: Yes ED Registration Date: 10/12/17 Care time: The patient presented to the Emergency Department on the above date and was hospitalized for further evaluation of their emergent condition. Critical Care patient: No - Discharge Referral Referred to [facility] No
== END 2017-10-12 08:30 | disposition left against medical advice (07) | DRG 432 ==
LOC: JER 22:06 → JERBED 10-12 02:13 → J5S 10-12 04:35
PROVIDERS: ADMIT Internal Medicine; ATTEND Internal Medicine
DX: K70.30 Alcoholic cirrhosis of liver without ascites (principal); I81 Portal vein thrombosis; E72.20 Disorder of urea cycle metabolism, unspecified; I85.00 Esophageal varices without bleeding; K76.6 Portal hypertension; B19.10 Unspecified viral hepatitis B without hepatic coma; K72.90 Hepatic failure, unspecified without coma; K31.89 Other diseases of stomach and duodenum; I10 Essential (primary) hypertension; D69.6 Thrombocytopenia, unspecified; E83.42 Hypomagnesemia; B19.20 Unspecified viral hepatitis C without hepatic coma
CPT/HCPCS: 36415; 70450-TC; 71010-TC; 80053; 82140; 82550; 83690; 83735; 83880; 84100; 84484; 85025; 85027; 85610; 86850; 86900; 86901; 93005; 93010; 99282-25

== ENCOUNTER 2017-10-12 16:39 | Observation (INO) | payer BC, OTHER ==
[2017-10-12 16:48] VITALS: BMI 34.9
--- NOTE | 2017-10-12 16:50 | PDOC ---
History of Present Illness - General Stated Complaint: ABD PAIN Time Seen by Provider: 10/12/17 16:49 - History of Present Illness Initial Comments: 10/12/17 17:04 Mr. Fletcher is a 52 yo male w/ pmh of HTN, sepatic encephalopathy, Hep B, Hep C, alcoholic cirrhosis, portal vein thrombosis, admission 09/29-09/30 for acute renal failure and admission yesterday for Hyperammonemia and Hepatic encephalopathy who represents after leaving AMA this morning to attend a court date. He returns complaining of continued confusion and abdominal pain. He reports the pain is generalized and he has not had a bowel movement in 3-4 days. Ammonia at presentation yesterday was 174 and alk phos was 273. The patient denies chest pain, shortness of breath, headache and dizziness. Denies fever, chills, nausea, vomit, or diarrhea. Denies dysuria, frequency, urgency and hematuria. Past History - Past Medical History Allergies/Adverse Reactions: Allergies Allergy/AdvReac Type Severity Reaction Status Date / Time No Known Allergies Allergy Verified 10/12/17 16:46 Home Medications: Ambulatory Orders Gabapentin 300 mg PO BID 06/27/17 Omeprazole/Sodium Bicarbonate [Omeprazole-Bicarb 40-1,100 Cap] 1 each PO DAILY 06/27/17 Tamsulosin HCl 0.4 mg PO DAILY 06/27/17 Furosemide [Lasix -] 40 mg PO DAILY #30 tablet 09/30/17 Spironolactone [Aldactone -] 50 mg PO BID #30 tablet 09/30/17 Nadolol 40 mg PO DAILY 10/11/17 Ursodiol [Actigal] 300 mg PO DAILY 10/11/17 Lactulose [Cephulac -] 10 gm PO TID 10/12/17 Anemia: No CVA: No COPD: No Dementia: No GI Disorders: Yes (gerd) Disorders: Yes (BPH) Hypercholesterolemia: Yes Liver Disease: (Cirrhosis,Hep C, hep B, portal vein Thombosis) - Surgical History Appendectomy: Yes - Suicide/Smoking/Psychosocial Hx Smoking History: Unknown if ever smoked Have you smoked in the past 12 months: No Information on smoking cessation initiated: No Hx Alcohol Use: No Drug/Substance Use Hx: No Substance Use Type: None Review of Systems - Review of Systems Comments:: 10/12/17 19:05 GENERAL/CONSTITUTIONAL: +Some confusion. No fever or chills. No weakness. HEAD, EYES, EARS, NOSE AND THROAT: No change in vision. No ear pain or discharge. No sore throat. CARDIOVASCULAR: No chest pain or shortness of breath RESPIRATORY: No cough, wheezing, or hemoptysis. GASTROINTESTINAL: +4-5 days of constipation with coinciding diffuse abdominal pain. No nausea, vomiting, or diarrhea. GENITOURINARY: No dysuria, frequency, or change in urination. MUSCULOSKELETAL: No joint or muscle swelling or pain. No neck or back pain. SKIN: No rash NEUROLOGIC: No headache, vertigo, loss of consciousness, or change in strength/ sensation. ENDOCRINE: No increased thirst. No abnormal weight change HEMATOLOGIC/LYMPHATIC: No anemia, easy bleeding, or history of blood clots. ALLERGIC/IMMUNOLOGIC: No hives or skin allergy. *Physical Exam - Vital Signs Last Vital Signs Temp Pulse Resp BP Pulse Ox 98 F 77 16 152/79 100 10/12/17 16:46 10/12/17 16:46 10/12/17 16:46 10/12/17 16:46 10/12/17 16:46 - Physical Exam Comments: 10/12/17 19:15 GENERAL: Awake, alert, and oriented to person and place. HEAD: No signs of trauma, normocephalic, atraumatic EYES: +sclera icteric. PERRLA, EOMI, conjunctiva clear ENT: Auricles normal inspection, hearing grossly normal, nares patent, oropharynx clear without exudates. Moist mucosa NECK: Normal ROM, supple, no lymphadenopathy, JVD, or masses LUNGS: No distress, speaks full sentences, clear to auscultation bilaterally HEART: Regular rate and rhythm, normal S1 and S2, no murmurs, rubs or gallops, peripheral pulses normal and equal bilaterally. ABDOMEN: +Diffusely tender to palpation. Soft, normoactive bowel sounds. No guarding, no rebound. No masses EXTREMITIES: +Upper extremity Asterixis noted bilaterally NEUROLOGICAL: Cranial nerves II through XII grossly intact. Normal speech, normal gait, no focal sensorimotor deficits SKIN: Warm, Dry, normal turgor, no rashes or lesions noted. ED Treatment Course - LABORATORY CBC & Chemistry Diagram: 10/12/17 20:45 10/12/17 18:10 Medical Decision Making - Medical Decision Making 10/12/17 19:07 Patient signed out to Dr. Holliday for further care. *DC/Admit/Observation/Transfer Diagnosis at time of Disposition: Hyperammonemia - Discharge Dispostion Condition at time of disposition: Fair Admit: Yes - Referrals - Patient Instructions - Post Discharge Activity
--- NOTE | 2017-10-12 17:14 | PDOC ---
Attending Attestation - HPI HPI: 10/12/17 17:36 52 y.o male with who was admitted yesterday for hepatic encephalophy but left AMA with daughter because he had a court date. The patient returns today with persistent abdominal pain and feels more constipated, although he had a small bowel movement this morning. The patient is willing to stay today. - Physicial Exam PE: 10/12/17 17:36 Constitutional: Awake, alert, oriented to person, place, but confused about the date. He follows all commands.No acute distress. Head: Normocephalic. Atraumatic Eyes: PERRL. EOMI. Sclera are mildly icteric and minimally injected Conjunctivae are not pale. ENT: Mucous membranes are moist and intact. Posterior pharynx without exudates or erythema. Uvula midline. Neck: Supple. Full ROM. No lymphadenopathy. Cardiovascular: Regular rate. Regular rhythm. S1, S2 regular. Distal pulses are 2+ and symmetric. Pulmonary/Chest: No evidence of respiratory distress. Clear to auscultation bilaterally No wheezing, rales or rhonchi. Abdominal: Mild ascites, but no paratenic signs. Soft There is no tenderness. No rebound, guarding or rigidity. No organomegaly. No palpable masses. Good bowel sounds. Back: No CVA tenderness. Musculoskeletal: Trace edema to the bilateral lower extremities. No cyanosis. No clubbing. Full range of motion in all extremities. Nocalf tenderness. Radial/pedal pulses are intact and 2+ bilaterally Skin: Skin is warm and dry. No petechiae. No purpura. Neurological: Alert and oriented to person, place, and time. Cranial nerves II -XII are grossly intact. Normal speech. Strength is grossly symmetric. No sensory deficits. Psychiatric: Good eye contact. Normal interaction, affect and behavior. <Jenifer Adams - Last Filed: 10/12/17 17:36> - Resident Resident Name: Michi Chamorro - ED Attending Attestation I have performed the following: I have examined & evaluated the patient, The case was reviewed & discussed with the resident, I agree w/resident's findings & plan, Exceptions are as noted - Medical Decision Making 10/12/17 17:14 I, Dr. Jie Saul, DO, attest that this document has been prepared under my direction and personally reviewed by me in its entirety. I further attest, that it accurately reflects all work, treatment, procedures and medical decision -making performed by me. 10/12/17 17:33 a/p: 52yo male with hx of hepatic encephalopathy yesterday who signed out AMA yesterday and is now back for further eval of complaints -cxr -ekg -labs -ammonia -stool for blood -will most likely need admission -will monitor and reassess -MS improved slightly from yesterday, but still confused 10/12/17 20:43 pt with elevated ammonia - concerning for hepatic encephalopathy will admit for lactulose therapy and further eval of ams <Jie Saul - Last Filed: 10/12/17 20:44> Heart Score/ECG Review - History History: Highly suspicious - ECG Intrepretation Comment:: 10/12/17 19:15 sinus at 68, nl axis, nl interval, no acute st/t wave findings <Jie Saul - Last Filed: 10/12/17 20:44>
[2017-10-12 18:47] LABS: INR 1.75 (0.82-1.09); PROTHROMBIN TIME (PATIENT) 19.8 SEC (9.98-11.88)
--- NOTE | 2017-10-12 19:07 | PDOC ---
*Physical Exam - Vital Signs Last Vital Signs Temp Pulse Resp BP Pulse Ox 98 F 77 16 152/79 100 10/12/17 16:46 10/12/17 16:46 10/12/17 16:46 10/12/17 16:46 10/12/17 16:46 - Physical Exam General Appearance: Yes: Nourished, Appropriately Dressed Neck: positive: Supple Respiratory/Chest: positive: Lungs Clear, Normal Breath Sounds. negative: Labored Respiration, Rapid RR, Crackles, Rales, Stridor, Wheezing Cardiovascular: positive: S1, S2. negative: Edema Gastrointestinal/Abdominal: positive: Other (Mild B/L Asterexsis on PE). negative: Guarding, Rebound, Tenderness, Hernia, Mass Extremity: positive: Normal Capillary Refill, Normal Inspection. negative: Coldness Integumentary: positive: Normal Color, Dry, Warm Neurologic: positive: Alert, Other (A&O x1). negative: Fully Oriented ED Treatment Course - LABORATORY CBC & Chemistry Diagram: 10/12/17 20:45 10/12/17 18:10 - ADDITIONAL ORDERS Additional order review: Laboratory Results 10/12/17 10/12/17 18:10 18:10 PT with INR 19.80 H INR 1.75 H PTT (Actin FS) 38.1 H Medical Decision Making - Medical Decision Making 10/12/17 20:32 Patient signed out by Dr. Chamorro (Resident) under the care of Dr. Saul (Attending) Patient is a 52 y.o. female with a PMH of HTN, Hep B and C, as well as previous admissions for hepatic encephalopathy (most recently yesterday 10/11 - patient signed out AMA this morning 10/12 to attend an immigration hearing) who presents with same complaint as yesterday of AMS. Ammonia @ 94 --> Lactulose 20 mg case d/w Dr. Garg, patient to be re-admitted to hospitalist/observation. Will continue to monitor while in ED. 10/12/17 20:58 Lactic Acid 2.5 - expected 2/2 limited hepatic function 2/2 alcohol cirrhosis, patient remains hemodynamically stable, now A&O x3. Overnight Resident Dr. Celeste Aly made aware of patient, patient remains under care of Dr. Saul ( Attending) while in ED. *DC/Admit/Observation/Transfer Diagnosis at time of Disposition: Hyperammonemia - Discharge Dispostion Condition at time of disposition: Fair Admit: Yes - Referrals Referrals: Aura Quigley [Primary Care Provider] - - Patient Instructions - Post Discharge Activity
[2017-10-12] MEDS ORDERED: LACTULOSE 20 GM/30 ML UDC (FOR ORAL USE ONLY) PO ONE (20:20)
[2017-10-12] MEDS ORDERED: LACTULOSE 20 GM/30 ML UDC (FOR ORAL USE ONLY) ONE (20:28)
[2017-10-12 20:32] LABS: ALBUMIN 2.2 g/dl (3.4-5.0); ANION GAP 12 (8-16); CALCIUM 7.6 mg/dL (8.5-10.1); CO2 20 mmol/L (21-32); GLUCOSE,RANDOM 155 mg/dL (74-106); MAGNESIUM 1.6 mg/dL (1.8-2.4)
[2017-10-12 20:38] LABS: ALK PHOS 257 U/L (45-117); BILIRUBIN,TOTAL 3.2 mg/dL (0.2-1.0); CPK 91 IU/L (39-308); CREATININE 0.7 mg/dL (0.7-1.3); SGOT/AST 50 U/L (15-37); SGPT/ALT 34 U/L (12-78); TOT PROT 7.4 g/dl (6.4-8.2); TROPONIN I < 0.02 ng/ml (0.00-0.05)
[2017-10-12 20:40] LABS: URINE APPEARANCE CLEAR; URINE BILIRUBIN NEGATIVE (NEGATIVE); URINE BLOOD NEGATIVE (NEGATIVE); URINE COLOR AMBER; URINE GLUCOSE (UA) 1+ (NEGATIVE); URINE KETONE NEGATIVE (NEGATIVE); URINE LEUK ESTERASE NEGATIVE (NEGATIVE); URINE NITRITE NEGATIVE (NEGATIVE); URINE PROTEIN NEGATIVE (NEGATIVE)
--- NOTE | 2017-10-12 21:10 | HP ---
<Kun Hannon - Last Filed: 10/12/17 21:49> CHIEF COMPLAINT: Weakness HISTORY OF PRESENT ILLNESS: 51yo Somali-speaking M with history of alcoholic cirrhosis (dx'd 6-7 years ago), hepatitis B and C, and HTN who is again presenting to the ER with his daughter for generalized weakness. Pt was admitted last night, however daughter signed him out AMA today for an immigration court hearing. She then returned with him today due to continued care for his hepatic encephalopathy. Pt currently is AOx3, however responds to questionly slightly slowly. His only complaint currently is that he has diffuse abdominal pain that's been going on roughly the past couple days. Pt states he does not remember the events of yesterday. Pt also reports being on a transplant list with [facility] and he continues to stay sober for a total count of 10 years. NOTE: Pt does not have portal vein thrombosis. Spoke to Dr. Kingston in May 2017 on prior admission and she reported on recent imaging (12/17) pt did not have a portal vein thrombus. He has a small caliber portal vein as well as a natural splenorenal shunt likely accounting for the small portal vein diameter and decompressed / small varices noted on his most recent EGD at [facility]. ER course was notable for: (1) Lactulose 20gm PO ONCE PAST MEDICAL HISTORY: Alcoholic cirrhosis Portal vein thrombosis Hepatitis B and C HTN PAST SURGICAL HISTORY: Appendectomy (2009 or earlier) Colonoscopy (Most recent: 02/2017) Social History: Per chart: Smoking: Never Alcohol: Previously; has not had a drink in 10 years Drugs: Never Family History: Allergies No Known Allergies Allergy (Verified 10/12/17 16:46) HOME MEDICATIONS: Home Medications Medication Instructions Recorded Gabapentin 300 mg PO BID 06/27/17 Omeprazole/Sodium Bicarbonate 1 each PO DAILY 06/27/17 [Omeprazole-Bicarb 40-1,100 Cap] Tamsulosin HCl 0.4 mg PO DAILY 06/27/17 Furosemide [Lasix -] 40 mg PO DAILY #30 tablet 09/30/17 Spironolactone [Aldactone -] 50 mg PO BID #30 tablet 09/30/17 Nadolol 40 mg PO DAILY 10/11/17 Ursodiol [Actigal] 300 mg PO DAILY 10/11/17 Lactulose [Cephulac -] 10 gm PO TID 10/12/17 REVIEW OF SYSTEMS CONSTITUTIONAL: Absent: fever, chills, diaphoresis, malaise, loss of appetite, weight change HEENT: Absent: rhinorrhea, nasal congestion, throat pain, throat swelling, difficulty swallowing, mouth swelling, ear pain, eye pain, visual changes CARDIOVASCULAR: Absent: chest pain, syncope, palpitations, irregular heart rate, lightheadedness , peripheral edema RESPIRATORY: Absent: cough, shortness of breath, dyspnea with exertion, orthopnea, wheezing, stridor, hemoptysis GASTROINTESTINAL: Present: Abdominal pain Absent: nausea, vomiting, diarrhea, constipation, melena, hematochezia GENITOURINARY: Absent: dysuria, frequency, urgency, hesitancy, hematuria, flank pain, genital pain MUSCULOSKELETAL: Absent: myalgia, arthralgia, joint swelling, back pain, neck pain SKIN: Absent: rash, itching, pallor HEMATOLOGIC/IMMUNOLOGIC: Absent: easy bleeding, easy bruising, lymphadenopathy, frequent infections ENDOCRINE: Absent: unexplained weight gain, unexplained weight loss, heat intolerance, cold intolerance NEUROLOGIC: Absent: headache, focal weakness or paresthesias, dizziness, unsteady gait, seizure, mental status changes, bladder or bowel incontinence PSYCHIATRIC: Absent: anxiety, depression, suicidal or homicidal ideation, hallucinations. PHYSICAL EXAMINATION Vital Signs - 24 hr 10/12/17 10/12/17 16:46 20:09 Temperature 98 F Pulse Rate 77 Pulse Rate [ 73 Apical] Respiratory 16 16 Rate Blood Pressure 152/79 Blood Pressure 130/68 [Left Arm] O2 Sat by Pulse 100 100 Oximetry (%) GENERAL: NAD, awake, alert, laying in bed HEENT: NC/AT, EOMI, THEODORE, scleral icterus, No JVD LUNGS: CTA bilaterally. No wheezes, rhonchi, rales. No accessory muscle use. HEART: RRR, normal S1 and S2 without murmur ABDOMEN: Soft, mild tenderness to palpation in all 4 quadrants, distended, distant and normoactive bowel sounds, no guarding, no rebound, shifting dullness appreciated. Hepatomegaly appreciated with palpation and percussion 3 finger-widths from costal angle. No splenomegaly. RLQ scar noted. No caput medusa appreciated MUSCULOSKELETAL: No CVA tenderness. Asterixis noted. Baseline tremor also noted. EXTREMITIES: 2+ DP pulses, no peripheral edema. NEUROLOGICAL: Nonfocal. Strength 5/5 throughout all extremities. No dysarthria. Gait not observed. PSYCHIATRIC: Cooperative. Good eye contact. Appropriate mood and affect. SKIN: Warm, dry, jaundiced, abdominal scar RLQ, cap refill <2sec Laboratory Results - last 24 hr 10/12/17 10/12/17 10/12/17 18:10 18:10 18:10 PT with INR 19.80 H INR 1.75 H PTT (Actin FS) 38.1 H Sodium Potassium Chloride Carbon Dioxide Anion Gap BUN Creatinine Creat Clearance w eGFR Random Glucose Lactic Acid Calcium Magnesium Total Bilirubin AST ALT Alkaline Phosphatase Ammonia Creatine Kinase Troponin I Total Protein Albumin Lipase Urine Color Urine Appearance Urine pH Ur Specific [place] Urine Protein Urine Glucose (UA) Urine Ketones Urine Blood Urine Nitrite Urine Bilirubin Urine Urobilinogen Stool Occult Blood Blood Type O POSITIVE Antibody Screen Negative 10/12/17 10/12/17 10/12/17 18:10 18:10 18:10 PT with INR INR PTT (Actin FS) Sodium 137 Potassium 3.8 Chloride 105 Carbon Dioxide 20 L Anion Gap 12 BUN 7 Creatinine 0.7 Creat Clearance w eGFR > 60 Random Glucose 155 H D Lactic Acid 2.5 H* Calcium 7.6 L Magnesium 1.6 L Total Bilirubin 3.2 H D AST 50 H ALT 34 Alkaline Phosphatase 257 H Ammonia 94 H Creatine Kinase 91 Troponin I < 0.02 Total Protein 7.4 Albumin 2.2 L Lipase 242 Urine Color Urine Appearance Urine pH Ur Specific [place] Urine Protein Urine Glucose (UA) Urine Ketones Urine Blood Urine Nitrite Urine Bilirubin Urine Urobilinogen Stool Occult Blood Blood Type Antibody Screen 10/12/17 10/12/17 18:10 20:30 PT with INR INR PTT (Actin FS) Sodium Potassium Chloride Carbon Dioxide Anion Gap BUN Creatinine Creat Clearance w eGFR Random Glucose Lactic Acid Calcium Magnesium Total Bilirubin AST ALT Alkaline Phosphatase Ammonia Creatine Kinase Troponin I Total Protein Albumin Lipase Urine Color Sarina Urine Appearance Clear Urine pH 6.0 Ur Specific [place] 1.019 Urine Protein Negative Urine Glucose (UA) 1+ H Urine Ketones Negative Urine Blood Negative Urine Nitrite Negative Urine Bilirubin Negative Urine Urobilinogen 2.0 Stool Occult Blood Negative Blood Type Antibody Screen ASSESSMENT/PLAN: 51yo Somali-speaking M with medical history of alcoholic cirrhosis, hepatitis B and C and HTN being seen in the ED for altered mental status found to have hepatic encephalopathy with ammonia 174. 1) Hepatic encephalopathy --MELD score 16 --Lactulose 20gm PO TID --Ideally 3-4 BM per day --Ammonia decreased from yesterday (174 down to 94 now) --Rifaximin 550mg PO BID --GI consulted 2) Cirrhosis complicated with varices --Continue Aldactone 50mg PO TID --Continue Lasix 40mg PO qDaily --Continue Nadolol 40mg PO qDaily --Sodium controlled diet --Trend INR 3) Thrombocytopenia --2/2 cirrhosis --Trend CBC FEN: Fluids: None indicated currently Electrolyte abnormalities: cCa WNL at 9.04, HypoMg (replete) Nutrition: Sodium controlled diet PPX DVT - SCDs applied to both legs Dispo: Place in Obs Case discussed with Dr. Forest Hannon, DO - IM PGY-1 Visit type - Emergency Visit Emergency Visit: Yes ED Registration Date: 10/12/17 Care time: The patient presented to the Emergency Department on the above date and was hospitalized for further evaluation of their emergent condition. - New Patient This patient is new to me today: Yes Date on this admission: 10/12/17 - Critical Care Critical Care patient: No <Odalis Garg - Last Filed: 10/12/17 23:47> patient is seen and examined by the bedside discussed and agree with residents plan 52 yearold male that was hospitalized on 10/11 due to acute encephalopathy secondary to chronic liver cirrhosis. He signed out AMA this am due to his scheduled interview in immigration , and his daughter brought him back right after . His hepatic encephalopathy improved since he received lactulose on 09/11 Vital Signs Temperature 98.3 F 10/12/17 23:11 Pulse Rate 67 10/12/17 23:11 Respiratory Rate 20 10/12/17 23:11 Blood Pressure 141/62 10/12/17 23:11 O2 Sat by Pulse Oximetry (%) 99 10/12/17 22:00 ABDOMEN: distended, distant and normoactive bowel sounds, no guarding, no rebound, Sclera is icteric CMP Sodium 137 mmol/L (136-145) 10/12/17 18:10 Potassium 3.8 mmol/L (3.5-5.1) 10/12/17 18:10 Chloride 105 mmol/L (98-107) 10/12/17 18:10 Carbon Dioxide 20 mmol/L (21-32) L 10/12/17 18:10 Anion Gap 12 (8-16) 10/12/17 18:10 BUN 7 mg/dL (7-18) 10/12/17 18:10 Creatinine 0.7 mg/dL (0.7-1.3) 10/12/17 18:10 Creat Clearance w eGFR > 60 (>60) 10/12/17 18:10 Random Glucose 155 mg/dL (74-106) H D 10/12/17 18:10 Lactic Acid 2.5 mmol/L (0.4-2.0) H* 10/12/17 18:10 Calcium 7.6 mg/dL (8.5-10.1) L 10/12/17 18:10 Magnesium 1.6 mg/dL (1.8-2.4) L 10/12/17 18:10 Total Bilirubin 3.2 mg/dL (0.2-1.0) H D 10/12/17 18:10 AST 50 U/L (15-37) H 10/12/17 18:10 ALT 34 U/L (12-78) 10/12/17 18:10 Alkaline Phosphatase 257 U/L (45-117) H 10/12/17 18:10 Ammonia 94 umol/L (11-32) H 10/12/17 18:10 Creatine Kinase 91 IU/L (39-308) 10/12/17 18:10 Troponin I < 0.02 ng/ml (0.00-0.05) 10/12/17 18:10 Total Protein 7.4 g/dl (6.4-8.2) 10/12/17 18:10 Albumin 2.2 g/dl (3.4-5.0) L 10/12/17 18:10 Lipase 242 U/L (73-393) 10/12/17 18:10 CBC, BMP 10/12/17 20:45 10/12/17 18:10 INR, PTT INR 1.75 (0.82-1.09) H 10/12/17 18:10 Problem List Chronic Liver Cirrhosis secondary to Hepatitis and alcoholism . He is now on liver transplant list . He has NO history of portal thrombosis despite what is reported in prior records. He needs compliance with standing dose of lactulose His INR is elevated and his platelets are low but no acute bleeding and therefore need for vit K or transfusion Anticipated discharge for tomorrow after proper follow up is assured and family is able to assist
[2017-10-12 21:24] LABS: BASO % 0.3 % (0-2.0); EOS % 1.8 % (0-4.5); MCH 32.3 pg (25.7-33.7); MCHC 32.8 g/dl (32.0-35.9); MEAN CELL VOLUME 98.6 fl (80-96); MEAN PLT VOLUME 12.1 fl (7.5-11.1); NEUT % 48.5 % (42.8-82.8); PLATELET COUNT 53 K/MM3 (134-434); RDW 15.9 % (11.9-15.9); WHITE BLOOD COUNT 5.2 K/mm3 (4.0-10.0)
[2017-10-12] MEDS ORDERED: MAGNESIUM SULF 50% (8.12 MEQ/2 ML-1 GM VIAL) IVPB ONE (21:45)
[2017-10-12] MEDS ORDERED: MAGNESIUM SULF 50% (8.12 MEQ/2 ML-1 GM VIAL) ONE (21:48)
[2017-10-12 21:56] LABS: URINE LEUK ESTERASE Negative (NEGATIVE)
[2017-10-12] MEDS ORDERED: LACTULOSE 20 GM/30 ML UDC (FOR ORAL USE ONLY) PO PRN (22:00)
[2017-10-12] MEDS: RIFAXIMIN 550 MG TABLET (UD) PO SCH (23:20)
[2017-10-12] MEDS: SPIRONOLACTONE 25 MG TABLET (FP) PO SCH (23:20)
[2017-10-12] MEDS: GABAPENTIN 300 MG CAPSULE (FP) PO SCH (23:20)
[2017-10-13] MEDS ORDERED: TAMSULOSIN HCL 0.4 MG CAP.ER.24H (FP) PO SCH (08:30)
[2017-10-13 08:45] LABS: MCH 32.2 pg (25.7-33.7); MEAN CELL VOLUME 97.5 fl (80-96); MEAN PLT VOLUME 11.8 fl (7.5-11.1); PLATELET COUNT 47 K/MM3 (134-434); RDW 15.5 % (11.9-15.9); WHITE BLOOD COUNT 3.8 K/mm3 (4.0-10.0)
[2017-10-13 09:37] LABS: ANION GAP 10 (8-16); BILIRUBIN,TOTAL 4.1 mg/dL (0.2-1.0); CALCIUM 7.6 mg/dL (8.5-10.1); CO2 23 mmol/L (21-32); CREATININE 0.6 mg/dL (0.7-1.3); GLUCOSE,RANDOM 78 mg/dL (74-106); MAGNESIUM 1.7 mg/dL (1.8-2.4); PHOSPHOROUS 3.7 mg/dL (2.5-4.9); SGOT/AST 48 U/L (15-37); SGPT/ALT 29 U/L (12-78); TOT PROT 6.8 g/dl (6.4-8.2)
[2017-10-13 09:39] LABS: ALK PHOS 208 U/L (45-117)
[2017-10-13] MEDS ORDERED: FUROSEMIDE 40 MG TABLET (FP) PO SCH (10:00)
[2017-10-13] MEDS ORDERED: NADOLOL 40 MG TABLET (FP) PO SCH (10:00)
[2017-10-13] MEDS ORDERED: PATIENT'S OWN MEDICATION (NON-FORMULARY) (Omeprazole/Sodium Bicarbonate [Omeprazole-Bicarb PO SCH (10:00)
[2017-10-13] MEDS ORDERED: NADOLOL 20 MG TABLET (FP) ONE (10:19)
[2017-10-13] MEDS ORDERED: PT OWN MED DRAWER 7, Y5N ONE (10:19)
[2017-10-13] MEDS: SPIRONOLACTONE 25 MG TABLET (FP) PO SCH (10:22)
[2017-10-13] MEDS: GABAPENTIN 300 MG CAPSULE (FP) PO SCH (10:22)
[2017-10-13] MEDS: RIFAXIMIN 550 MG TABLET (UD) PO SCH (10:23)
--- NOTE | 2017-10-13 11:34 | EKG ---
Test Reason : Blood Pressure : / mmHG Vent. Rate : 068 BPM Atrial Rate : 068 BPM P-R Int : 160 ms QRS Dur : 080 ms QT Int : 430 ms P-R-T Axes : 038 -11 033 degrees QTc Int : 457 ms NORMAL SINUS RHYTHM NORMAL ECG WHEN COMPARED WITH ECG OF 12-OCT-2017 01:23, NO SIGNIFICANT CHANGE WAS FOUND Confirmed by IMANI HURTADO MD ([id number]) on 10/13/2017 11:34:07 AM Referred By: Confirmed By:IMANI HURTADO MD
--- NOTE | 2017-10-13 12:50 | PN ---
Physical Exam: SUBJECTIVE: Patient seen and examined OBJECTIVE: Vital Signs Period Temp Pulse Resp BP Sys/Mckeon Pulse Ox Last 24 Hr 98 F-99.2 F 67-77 16-20 121-152/58-79 99-100 GENERAL: The patient is awake, alert, and fully oriented, in no acute distress. HEAD: Normal with no signs of trauma. EYES: PERRL, extraocular movements intact, sclera anicteric, conjunctiva clear. No ptosis. ENT: Ears normal, nares patent, oropharynx clear without exudates, moist mucous membranes. NECK: Trachea midline, full range of motion, supple. LUNGS: Breath sounds equal, clear to auscultation bilaterally, no wheezes, no crackles, no accessory muscle use. HEART: Regular rate and rhythm, S1, S2 without murmur, rub or gallop. ABDOMEN: Soft, nontender, nondistended, normoactive bowel sounds, no guarding, no rebound, no hepatosplenomegaly, no masses. EXTREMITIES: 2+ pulses, warm, well-perfused, no edema. NEUROLOGICAL: Cranial nerves II through XII grossly intact. Normal speech, gait not observed. PSYCH: Normal mood, normal affect. SKIN: Warm, dry, normal turgor, no rashes or lesions noted Laboratory Results - last 24 hr 10/12/17 10/12/17 10/12/17 18:10 18:10 18:10 WBC RBC Hgb Hct MCV MCH MCHC RDW Plt Count MPV Neutrophils % Lymphocytes % Monocytes % Eosinophils % Basophils % PT with INR 19.80 H INR 1.75 H PTT (Actin FS) 38.1 H Sodium Potassium Chloride Carbon Dioxide Anion Gap BUN Creatinine Creat Clearance w eGFR Random Glucose Lactic Acid Calcium Phosphorus Magnesium Total Bilirubin AST ALT Alkaline Phosphatase Ammonia Creatine Kinase Troponin I Total Protein Albumin Lipase Urine Color Urine Appearance Urine pH Ur Specific [place] Urine Protein Urine Glucose (UA) Urine Ketones Urine Blood Urine Nitrite Urine Bilirubin Urine Urobilinogen Ur Leukocyte Esterase Stool Occult Blood Blood Type O POSITIVE Antibody Screen Negative 10/12/17 10/12/17 10/12/17 18:10 18:10 18:10 WBC RBC Hgb Hct MCV MCH MCHC RDW Plt Count MPV Neutrophils % Lymphocytes % Monocytes % Eosinophils % Basophils % PT with INR INR PTT (Actin FS) Sodium 137 Potassium 3.8 Chloride 105 Carbon Dioxide 20 L Anion Gap 12 BUN 7 Creatinine 0.7 Creat Clearance w eGFR > 60 Random Glucose 155 H D Lactic Acid 2.5 H* Calcium 7.6 L Phosphorus Magnesium 1.6 L Total Bilirubin 3.2 H D AST 50 H ALT 34 Alkaline Phosphatase 257 H Ammonia 94 H Creatine Kinase 91 Troponin I < 0.02 Total Protein 7.4 Albumin 2.2 L Lipase 242 Urine Color Urine Appearance Urine pH Ur Specific [place] Urine Protein Urine Glucose (UA) Urine Ketones Urine Blood Urine Nitrite Urine Bilirubin Urine Urobilinogen Ur Leukocyte Esterase Stool Occult Blood Blood Type Antibody Screen 10/12/17 10/12/17 10/12/17 18:10 20:30 20:45 WBC 5.2 RBC 4.01 Hgb 12.9 Hct 39.5 MCV 98.6 H MCH 32.3 MCHC 32.8 RDW 15.9 Plt Count 53 L MPV 12.1 H Neutrophils % 48.5 Lymphocytes % 35.9 Monocytes % 13.5 H Eosinophils % 1.8 Basophils % 0.3 PT with INR INR PTT (Actin FS) Sodium Potassium Chloride Carbon Dioxide Anion Gap BUN Creatinine Creat Clearance w eGFR Random Glucose Lactic Acid Calcium Phosphorus Magnesium Total Bilirubin AST ALT Alkaline Phosphatase Ammonia Creatine Kinase Troponin I Total Protein Albumin Lipase Urine Color Sarina Urine Appearance Clear Urine pH 6.0 Ur Specific [place] 1.019 Urine Protein Negative Urine Glucose (UA) 1+ H Urine Ketones Negative Urine Blood Negative Urine Nitrite Negative Urine Bilirubin Negative Urine Urobilinogen 2.0 Ur Leukocyte Esterase Negative Stool Occult Blood Negative Blood Type Antibody Screen 10/13/17 10/13/17 10/13/17 06:00 06:00 06:00 WBC 3.8 L RBC 3.61 L Hgb 11.6 L D Hct 35.2 L MCV 97.5 H MCH 32.2 MCHC 33.0 RDW 15.5 Plt Count 47 L MPV 11.8 H Neutrophils % Lymphocytes % Monocytes % Eosinophils % Basophils % PT with INR INR PTT (Actin FS) Sodium 137 Potassium 3.2 L Chloride 104 Carbon Dioxide 23 Anion Gap 10 BUN 6 L Creatinine 0.6 L Creat Clearance w eGFR > 60 Random Glucose 78 D Lactic Acid Calcium 7.6 L Phosphorus 3.7 D Magnesium 1.7 L Total Bilirubin 4.1 H D AST 48 H ALT 29 Alkaline Phosphatase 208 H Ammonia 105.35 H Creatine Kinase Troponin I Total Protein 6.8 Albumin 2.0 L Lipase Urine Color Urine Appearance Urine pH Ur Specific [place] Urine Protein Urine Glucose (UA) Urine Ketones Urine Blood Urine Nitrite Urine Bilirubin Urine Urobilinogen Ur Leukocyte Esterase Stool Occult Blood Blood Type Antibody Screen Active Medications Generic Name Dose Route Start Last Admin Trade Name Kendall PRN Reason Stop Dose Admin Furosemide 40 mg 10/13/17 10:00 10/13/17 10:22 Lasix - PO 40 mg DAILY SANCHO Administration Gabapentin 300 mg 10/12/17 22:00 10/13/17 10:22 Neurontin - PO 300 mg BID SANCHO Administration Lactulose 20 gm 10/12/17 22:00 Cephulac (Oral Use) PO TID PRN CONSTIPATION Nadolol 40 mg 10/13/17 10:00 10/13/17 10:22 Corgard - PO 40 mg DAILY SANCHO Administration Non-Formulary Medication 1 each 10/13/17 10:00 Omeprazole/Sodium Bicarbonate [Omeprazole-Bicarb 40-1,100 Cap] PO DAILY SANCHO Rifaximin 550 mg 10/12/17 22:00 10/13/17 10:23 Xifaxan - PO 550 mg BID SANCHO Administration Spironolactone 50 mg 10/12/17 22:00 10/13/17 10:22 Aldactone - PO 50 mg BID SANCHO Administration Tamsulosin HCl 0.4 mg 10/13/17 08:30 10/13/17 08:50 Flomax - PO 0.4 mg DAILY@0830 SANCHO Administration Assessment: 51 year old Turkish-speaking male with history of alcoholic cirrhosis (dx'd 6-7 years ago), hepatitis B and C, and HTN presenting again with his daughter for generalized weakness and abdominal pain. Plan: 1.
--- NOTE | 2017-10-13 14:40 | DS ---
Physical Exam: SUBJECTIVE: Patient seen and examined. He denies any further abdominal pain, he is tolerating regular diet, no nausea, vomiting. OBJECTIVE: Vital Signs Period Temp Pulse Resp BP Sys/Mckeon Pulse Ox Last 24 Hr 98 F-99.2 F 67-77 16-20 121-152/58-79 99-100 PE Neuro: alert, awake, cn 2-12intact, oriented to person, liver doctor, medical issues, is slow to respond but answers appropriately HEENT: icteric sclera Pulm: CTAB CV: s1 s2 rrr nom mrg Abd: s nt mild distention + bs Ext: warm, no le edema Laboratory Results - last 24 hr 10/13/17 10/13/17 10/13/17 06:00 06:00 06:00 WBC 3.8 L RBC 3.61 L Hgb 11.6 L D Hct 35.2 L MCV 97.5 H MCH 32.2 MCHC 33.0 RDW 15.5 Plt Count 47 L MPV 11.8 H Neutrophils % Lymphocytes % Monocytes % Eosinophils % Basophils % PT with INR INR PTT (Actin FS) Sodium 137 Potassium 3.2 L Chloride 104 Carbon Dioxide 23 Anion Gap 10 BUN 6 L Creatinine 0.6 L Creat Clearance w eGFR > 60 Random Glucose 78 D Lactic Acid Calcium 7.6 L Phosphorus 3.7 D Magnesium 1.7 L Total Bilirubin 4.1 H D AST 48 H ALT 29 Alkaline Phosphatase 208 H Ammonia 105.35 H Creatine Kinase Troponin I Total Protein 6.8 Albumin 2.0 L Lipase Urine Color Urine Appearance Urine pH Ur Specific [place] Urine Protein Urine Glucose (UA) Urine Ketones Urine Blood Urine Nitrite Urine Bilirubin Urine Urobilinogen Ur Leukocyte Esterase Stool Occult Blood Blood Type Antibody Screen HOSPITAL COURSE: Date of Admission:10/12/17 Date of Discharge: 10/13/17 Minutes to complete discharge: 38 Discharge Summary Reason For Visit: HYPERAMMONEMIA Current Active Problems Hyperammonemia (Acute) Hospital Course: Initial Hospital Course: Briefly, this 51 year old Austrian-speaking Male with history of alcoholic cirrhosis (dx'd 6-7 years ago), hepatitis B and C, and HTN who presented again w / daughter for generalized weakness. Previously daughter signed him out immigration court hearing and returned due to worsening hepatic encephalopathy. He complained of abdominal pain and has not taken his lactulose. Pt is reported to be on a transplant list with [facility] has been sober for 10 years. Of Note: Pt does not have portal vein thrombosis. Per Dr. Kingston in May 2017 on prior admission and she reported on recent imaging (12/2016) pt did not have a portal vein thrombus. He has a small caliber portal vein as well as a natural splenorenal shunt likely accounting for the small portal vein diameter and decompressed / small varices noted on his most recent EGD at [facility]. Subsequent Hospital Course/Progress Note/DC Summary by plan: Plan: 1. Hepatic encephalopathy - Mental status improved on discharge - Increase lactulose to 20mg PO TID, titrate for 4 BM's/day - MELD score 16 - Ammonia level elevated, however mentating appropriately at this time - Will need to follow up with Liver doctor Dr. Kingston in 1 week 2. Liver cirrhosis, with esophageal varices - Continue Aldactone 50mg PO TID - Continue Lasix 40mg PO daily - Continue Nadolol 40mg PO daily 3. Thrombocytopenia/elevated INR - 2/2 cirrhosis - No signs of bleeding, no vit k at this time 4. Hypomagnesemia - Replete 1gm mg x1 5. Hypokalemia - Replete 40meq x1 6. Abdominal pain - Resolved, + bowel movement Dispo: - Home with above meds and Liver followup with Dr. Kingston in 1 week - Increased dose of lactulose 20mg TID - Home service to be reinstated, d/w CM Condition: Stable - Instructions Diet, Activity, Other Instructions: Please return to the ED for any new, persistent, or worsening symptoms. Follow up with your PCP in 1 week Take medications as directed on home medication list You must continue taking lactulose three times per day. You need to have 4 bowel movements/day Follow up with your Liver doctor Dr. Davenport in 1 week. Referrals: Aura Quigley [Primary Care Provider] - Disposition: HOME - Home Medications Comprehensive Discharge Medication List: Ambulatory Orders Gabapentin 300 mg PO BID 06/27/17 Omeprazole/Sodium Bicarbonate [Omeprazole-Bicarb 40-1,100 Cap] 1 each PO DAILY 06/27/17 Tamsulosin HCl 0.4 mg PO DAILY 06/27/17 Furosemide [Lasix -] 40 mg PO DAILY #30 tablet 09/30/17 Spironolactone [Aldactone -] 50 mg PO BID #30 tablet 09/30/17 Nadolol 40 mg PO DAILY 10/11/17 Ursodiol [Actigal -] 300 mg PO DAILY 10/11/17 Lactulose (Oral Use) [Cephulac -] 20 gm PO TID #1 bottle 10/13/17 This patient is new to me today: Yes Date on this admission: 10/13/17 Emergency Visit: Yes ED Registration Date: 10/12/17 Care time: The patient presented to the Emergency Department on the above date and was hospitalized for further evaluation of their emergent condition. Critical Care patient: No - Discharge Referral Referred to [facility].: No
[2017-10-13] MEDS ORDERED: MAGNESIUM SULF 50% (8.12 MEQ/2 ML-1 GM VIAL) IVPB ONE (15:00)
[2017-10-13] MEDS ORDERED: POTASSIUM CHLORIDE ORAL LIQUID 20 MEQ/15 ML PO ONE (15:00)
[2017-10-13 15:17] VITALS: BP 112/56; PULSE 70; TEMP 98.2
== END 2017-10-13 16:56 | disposition home or self-care (01) ==
LOC: JER 16:39 → JERBED 20:29 → J8W 22:22
PROVIDERS: ADMIT Internal Medicine; ATTEND Nurse Practitioner Acute Care
PROC: 3E033GC Introduction of Other Therapeutic Substance into Peripheral Vein, Percutaneous Approach (ICD-10-PCS; principal; 2017-10-12)
DX: E72.20 Disorder of urea cycle metabolism, unspecified (principal); K72.90 Hepatic failure, unspecified without coma; K70.30 Alcoholic cirrhosis of liver without ascites; D69.6 Thrombocytopenia, unspecified; I10 Essential (primary) hypertension; B19.10 Unspecified viral hepatitis B without hepatic coma; B19.20 Unspecified viral hepatitis C without hepatic coma; E87.6 Hypokalemia; R10.9 Unspecified abdominal pain
CPT/HCPCS: 36415; 71010-TC; 80053; 81003; 82140; 82272; 82550; 83605; 83690; 83735; 84100; 84484; 85025; 85027; 85610; 85730; 86850; 86900; 86901; 93005; 93010; 96374; 96375; 99284-25; G0378

== ENCOUNTER 2018-01-24 11:10 | Inpatient (IN) | payer OTHER ==
[2018-01-25 00:12] VITALS: BMI 35.0
[2018-01-28 09:02] VITALS: TEMP 98
[2018-01-28 21:20] VITALS: BP 120/62; PULSE 80
== END 2018-01-29 14:08 | disposition home health service (06) | DRG 432 ==
LOC: JER 11:10 → JERBED 19:10 → J5S 21:35 → J6S 01-27 17:59
PROVIDERS: ADMIT Internal Medicine; ATTEND Hospitalist
PROC: 0W9G3ZX Drainage of Peritoneal Cavity, Percutaneous Approach, Diagnostic (ICD-10-PCS; principal; 2018-01-26)
DX: K70.31 Alcoholic cirrhosis of liver with ascites (principal); I81 Portal vein thrombosis; D68.9 Coagulation defect, unspecified; D61.818 Other pancytopenia; K76.6 Portal hypertension; I10 Essential (primary) hypertension; D69.6 Thrombocytopenia, unspecified; D70.9 Neutropenia, unspecified; N40.0 Benign prostatic hyperplasia without lower urinary tract symptoms; G62.9 Polyneuropathy, unspecified; K31.89 Other diseases of stomach and duodenum; I86.4 Gastric varices; K70.40 Alcoholic hepatic failure without coma
CPT/HCPCS: 36415; 36430; 36511; 70450-TC; 71045-TC-FY; 74176-TC; 76942-TC; 80053; 81003; 81015; 82042; 82105; 82140; 82150; 82550; 82945; 82962; 83615; 83690; 83735; 84100; 84157; 84478; 84484; 85025; 85027; 85044; 85362; 85379; 85384; 85610; 85730; 86850; 86900; 86901; 87040; 87070; 87075; 87086; 87102; 87116; 87186; 87205; 87206; 87210; 88108; 88305-TC; 89051; 93005; 93010; 99283-25; J7030; P9034; P9038

== ENCOUNTER 2018-12-11 10:57 | Inpatient (IN) | payer BC, OTHER ==
[2018-12-11] MEDS ORDERED: LACTULOSE 20 GM/30 ML UDC (FOR ORAL USE ONLY) PO ONE (12:13)
--- NOTE | 2018-12-11 12:21 | PDOC ---
History of Present Illness - General Chief Complaint: Respiratory Stated Complaint: Respiratory Time Seen by Provider: 12/11/18 11:47 History Source: Patient, Family - History of Present Illness Timing/Duration: other Past History - Past Medical History Allergies/Adverse Reactions: Allergies Allergy/AdvReac Type Severity Reaction Status Date / Time No Known Allergies Allergy Verified 12/11/18 12:27 Home Medications: Ambulatory Orders Tamsulosin HCl 0.4 mg PO DAILY 06/27/17 Nadolol 40 mg PO DAILY 10/11/17 Ursodiol [Actigal -] 300 mg PO DAILY 10/11/17 Rifaximin [Xifaxan -] 550 mg PO BID 01/24/18 Sertraline HCl [Zoloft] 25 mg PO DAILY 01/25/18 Lactulose (Oral Use) [Cephulac -] 20 gm PO QID 30 Days #1 udc 01/29/18 Spironolactone [Aldactone -] 75 mg PO BID #60 tablet 01/29/18 Furosemide [Lasix -] 40 mg PO DAILY 12/11/18 Anemia: No CVA: No COPD: No Dementia: No GI Disorders: Yes (gerd) Disorders: Yes (BPH) Hypercholesterolemia: Yes Liver Disease: (Cirrhosis,Hep C, hep B, portal vein Thombosis) - Surgical History Appendectomy: Yes - Suicide/Smoking/Psychosocial Hx Smoking History: Never smoked Have you smoked in the past 12 months: No Hx Alcohol Use: No Drug/Substance Use Hx: No Substance Use Type: None Review of Systems - Review of Systems Constitutional: No: Fever Respiratory: No: Cough, Shortness of Breath Cardiac (ROS): No: Chest Pain ABD/GI: No: Diarrhea, Nausea, Vomiting, Abdominal cramping Neurological: No: Headache *Physical Exam - Physical Exam Comments: 12/11/18 12:21 Appears lethargic General Appearance: Yes: Appropriately Dressed HEENT: positive: Normal Voice Neck: positive: Supple Respiratory/Chest: positive: Lungs Clear, Normal Breath Sounds. negative: Respiratory Distress Cardiovascular: positive: Regular Rate, S1, S2 Gastrointestinal/Abdominal: positive: Soft. negative: Tender, Distended Extremity: positive: Pedal Edema Integumentary: positive: Dry, Warm Neurologic: positive: Alert, Normal Mood/Affect ED Treatment Course - LABORATORY CBC & Chemistry Diagram: 12/11/18 12:35 12/11/18 12:35 - RADIOLOGY Radiology Studies Ordered: Category Date Time Status CHEST X-RAY PORTABLE* [RAD] Stat Radiology 12/11/18 12:12 Ordered Medical Decision Making - Medical Decision Making 12/11/18 12:16 53-year-old male, history of HTN, Heb B ad C (via transfusion), ETOH cirrhosis ( +varices, +ascites, neg SPB), encephalopathy on lactulose, currently on [facility] transplant list, known pancytopenia, BIB sister for increased confusion and lethargy x several days despite giving patient his lactulose as directed. States patient also appears "swollen" diffusely. Patient denying abdominal pain , nausea, vomiting, fever, acute change in bowel movements, BRBPR or dysuria. See exam Suspect encephalopathy -dose of lactulose -ekg/cxr/labs r/o other acute source -likely admit (pmd/liver MD at [facility]) 12/11/18 12:23 12/11/18 12:24 12/11/18 14:20 Labs reveals ammonia lvl of >200 w/ remonstration of pancytopenia. On chart review, pt was seen by hem/onc for same 01/15 who deemed pancytopenia to be m/l 2 /2 ESLD/splenic sequestration. Platelet transfusion discussed with ED attending , who states to hold off at this time as no active bleed or pending procedures. Case discussed with Dr. Leach and patient admitted. Pt mostly sleeping in ED *DC/Admit/Observation/Transfer Diagnosis at time of Disposition: Pancytopenia, Hepatic encephalopathy Altered mental status Qualifiers: Altered mental status type: unspecified Qualified Code(s): R41.82 - Altered mental status, unspecified - Discharge Dispostion Condition at time of disposition: Fair Decision to Admit order: Yes - Referrals - Patient Instructions - Post Discharge Activity
[2018-12-11] MEDS ORDERED: LACTULOSE 20 GM/30 ML UDC (FOR ORAL USE ONLY) ONE (12:44)
[2018-12-11 13:01] LABS: BASO % 0.3 % (0-2.0); EOS % 3.1 % (0-4.5); HEMOGLOBIN 11.5 GM/dL (11.7-16.9); LYMPH % 34.1 % (8-40); MCH 35.1 pg (25.7-33.7); MCHC 34.8 g/dl (32.0-35.9); MEAN PLT VOLUME 10.8 fl (7.5-11.1); MONO % 11.9 % (3.8-10.2); NEUT % 50.6 % (42.8-82.8); PLATELET COUNT 26 K/MM3 (134-434); RBC 3.27 M/mm3 (4.00-5.60); RDW 15.1 % (11.9-15.9)
[2018-12-11 13:28] LABS: INR 1.64 (0.83-1.09); PROTHROMBIN TIME (PATIENT) 19.5 SEC (9.7-13.0)
[2018-12-11 13:33] LABS: WHITE BLOOD COUNT 1.9 K/mm3 (4.0-10.0)
[2018-12-11 13:37] LABS: ALK PHOS 251 U/L (45-117); ANION GAP 2 MMOL/L (8-16); BILIRUBIN,TOTAL 2.2 mg/dL (0.2-1); BLOOD UREA NITROGEN 12 mg/dL (7-18); CALCIUM 7.8 mg/dL (8.5-10.1); CHLORIDE 110 mmol/L (98-107); CO2 29 mmol/L (21-32); CREATININE 1.1 mg/dL (0.55-1.3); GLUCOSE,RANDOM 153 mg/dL (74-106); LIPASE 238 U/L (73-393); N-TERMINAL BNP 213.4 pg/ml (5-125); POTASSIUM 4.4 mmol/L (3.5-5.1); SGOT/AST 41 U/L (15-37); SGPT/ALT 28 U/L (13-61); SODIUM 141 mmol/L (136-145); TOT PROT 6.4 g/dl (6.4-8.2)
--- NOTE | 2018-12-11 14:35 | EKG ---
Test Reason : Blood Pressure : / mmHG Vent. Rate : 055 BPM Atrial Rate : 055 BPM P-R Int : 172 ms QRS Dur : 080 ms QT Int : 458 ms P-R-T Axes : 031 -12 026 degrees QTc Int : 438 ms SINUS BRADYCARDIA WITH SINUS ARRHYTHMIA OTHERWISE NORMAL ECG WHEN COMPARED WITH ECG OF 24-JAN-2018 14:06, LIKELY NO SIGINFICANT CHANGES Confirmed by JESSE AC MD [id number]) on 12/11/2018 2:35:33 PM Referred By: Confirmed By:JESSE AC MD
[2018-12-11] MEDS ORDERED: AZITHROMYCIN IVPB 500 MG/250 ML BAG IVPB ONE (14:59)
[2018-12-11 15:28] LABS: ANISOCYTOSIS 1+; MACROCYTOSIS 1+; PLATELET ESTIMATE DECREASED; TARGET CELLS 1+
--- NOTE | 2018-12-11 16:51 | HP ---
Admitting History and Physical - Primary Care Physician PCP: Emil Leach - Admission History of Present Illness: 53-year-old male, history of HTN, Heb B ad C (via transfusion), ETOH cirrhosis ( +varices, +ascites, neg SPB), encephalopathy on lactulose, currently on [facility] transplant list, known pancytopenia, BIB sister for increased confusion and lethargy x several days despite giving patient his lactulose as directed. States patient also appears "swollen" diffusely. Patient denying abdominal pain , nausea, vomiting, fever, acute change in bowel movements, BRBPR or dysuria. 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) Cardiovascular: Yes: HTN Hepatobiliary: Yes: Cirrhosis (alcoholic), Hepatitis B, Hepatitis C (treated, virus negative) - Past Surgical History Past Surgical History: Yes: Appendectomy (2009 or earlier), Colonoscopy (Most recent: 02/2017) - Smoking History Smoking history: Never smoked Have you smoked in the past 12 months: No - Alcohol/Substance Use Hx Alcohol Use: No - Social History ADL: Independent Occupation: Retired History of Recent Travel: No Home Medications - Allergies Allergies/Adverse Reactions: Allergies Allergy/AdvReac Type Severity Reaction Status Date / Time No Known Allergies Allergy Verified 12/11/18 12:27 - Home Medications Home Medications: Ambulatory Orders Tamsulosin HCl 0.4 mg PO DAILY 06/27/17 Nadolol 40 mg PO DAILY 10/11/17 Ursodiol [Actigal -] 300 mg PO DAILY 10/11/17 Rifaximin [Xifaxan -] 550 mg PO BID 01/24/18 Sertraline HCl [Zoloft] 25 mg PO DAILY 01/25/18 Lactulose (Oral Use) [Cephulac -] 20 gm PO QID 30 Days #1 udc 01/29/18 Spironolactone [Aldactone -] 75 mg PO BID #60 tablet 01/29/18 Furosemide [Lasix -] 40 mg PO DAILY 12/11/18 Physical Examination Vital Signs: Vital Signs Temperature 97.8 F 12/11/18 10:57 Pulse Rate 56 L 12/11/18 10:57 Respiratory Rate 18 12/11/18 10:57 Blood Pressure 114/63 12/11/18 10:57 O2 Sat by Pulse Oximetry (%) 100 12/11/18 10:57 Constitutional: Yes: No Distress HENT: Yes: Atraumatic Neck: Yes: Supple Cardiovascular: Yes: Regular Rate and Rhythm Respiratory: Yes: CTA Bilaterally Gastrointestinal: Yes: Normal Bowel Sounds Extremities: Yes: WNL Edema: No Peripheral Pulses WNL: Yes Labs: CBC, BMP 12/11/18 12:35 12/11/18 12:35 Imaging - Results Chest X-ray: Report Reviewed Problem List - Problems (1) Altered mental status Code(s): R41.82 - ALTERED MENTAL STATUS, UNSPECIFIED Qualifiers: Altered mental status type: unspecified Qualified Code(s): R41.82 - Altered mental status, unspecified (2) Hepatic encephalopathy Code(s): K72.90 - HEPATIC FAILURE, UNSPECIFIED WITHOUT COMA (3) Pancytopenia Code(s): D61.818 - OTHER PANCYTOPENIA (4) Cirrhosis Code(s): K74.60 - UNSPECIFIED CIRRHOSIS OF LIVER Assessment/Plan Laboratory Tests 12/11/18 12/11/18 12/11/18 12:35 12:35 12:35 WBC 1.9 L* RBC 3.27 L Hgb 11.5 L Hct 33.0 L D MCV 101.0 H MCH 35.1 H MCHC 34.8 RDW 15.1 Plt Count 26 L* D MPV 10.8 Absolute Neuts (auto) 0.9 L Neutrophils % 50.6 D Neutrophils % (Manual) 56.7 Band Neutrophils % 0.0 Lymphocytes % 34.1 D Lymphocytes % (Manual) 27.9 D Monocytes % 11.9 H Monocytes % (Manual) 10 Eosinophils % 3.1 D Eosinophils % (Manual) 2.9 D Basophils % 0.3 Basophils % (Manual) 1.0 Myelocytes % (Man) 0 Promyelocytes % (Man) 0 Blast Cells % (Manual) 0 Nucleated RBC % 0 Metamyelocytes 2 D Platelet Estimate Decreased Polychromasia 1+ Poikilocytosis 1+ Anisocytosis 1+ Macrocytosis 1+ Target Cells 1+ PT with INR INR Sodium 141 Potassium 4.4 Chloride 110 H Carbon Dioxide 29 Anion Gap 2 L BUN 12 Creatinine 1.1 Creat Clearance w eGFR > 60 Random Glucose 153 H Calcium 7.8 L Total Bilirubin 2.2 H AST 41 H ALT 28 Alkaline Phosphatase 251 H Ammonia 204.70 H Creatine Kinase 111 Troponin I < 0.02 B-Natriuretic Peptide 213.4 H Total Protein 6.4 Albumin 2.0 L Lipase 238 Blood Type Antibody Screen 12/11/18 12/11/18 12:35 12:35 WBC RBC Hgb Hct MCV MCH MCHC RDW Plt Count MPV Absolute Neuts (auto) Neutrophils % Neutrophils % (Manual) Band Neutrophils % Lymphocytes % Lymphocytes % (Manual) Monocytes % Monocytes % (Manual) Eosinophils % Eosinophils % (Manual) Basophils % Basophils % (Manual) Myelocytes % (Man) Promyelocytes % (Man) Blast Cells % (Manual) Nucleated RBC % Metamyelocytes Platelet Estimate Polychromasia Poikilocytosis Anisocytosis Macrocytosis Target Cells PT with INR 19.50 H INR 1.64 H Sodium Potassium Chloride Carbon Dioxide Anion Gap BUN Creatinine Creat Clearance w eGFR Random Glucose Calcium Total Bilirubin AST ALT Alkaline Phosphatase Ammonia Creatine Kinase Troponin I B-Natriuretic Peptide Total Protein Albumin Lipase Blood Type O POSITIVE Antibody Screen Positive
[2018-12-11] MEDS ORDERED: LACTULOSE 20 GM/30 ML UDC (FOR ORAL USE ONLY) PO PRN (16:56)
--- NOTE | 2018-12-11 20:05 | CONSULT ---
Consult - text type - Consultation Consultation Note: 53-year-old male, history of HTN, Heb B ad C , ETOH cirrhosis (+varices, + ascites,), encephalopathy on lactulose, currently on [facility] transplant list, known pancytopenia, BIB sister for increased confusion and lethargy x several days despite giving patient his lactulose as directed. Also with anasarca. 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) Cardiovascular: Yes: HTN Hepatobiliary: Yes: Cirrhosis (alcoholic), Hepatitis B, Hepatitis C (treated, virus negative) - Past Surgical History Past Surgical History: Yes: Appendectomy (2009 or earlier), Colonoscopy (Most recent: 02/2017) - Smoking History Smoking history: Never smoked - Social History ADL: Independent Occupation: Retired - Allergies Allergies/Adverse Reactions: Allergies Allergy/AdvReac Type Severity Reaction Status Date / Time No Known Allergies Allergy Verified 12/11/18 12:27 - Home Medications Home Medications: Ambulatory Orders Tamsulosin HCl 0.4 mg PO DAILY 06/27/17 Nadolol 40 mg PO DAILY 10/11/17 Ursodiol [Actigal -] 300 mg PO DAILY 10/11/17 Rifaximin [Xifaxan -] 550 mg PO BID 01/24/18 Sertraline HCl [Zoloft] 25 mg PO DAILY 01/25/18 Lactulose (Oral Use) [Cephulac -] 20 gm PO QID 30 Days #1 udc 01/29/18 Spironolactone [Aldactone -] 75 mg PO BID #60 tablet 01/29/18 Furosemide [Lasix -] 40 mg PO DAILY 12/11/18 Physical Examination Vital Signs: Last Vital Signs Temp Pulse Resp BP Pulse Ox 98.2 F 58 L 16 124/77 99 12/11/18 18:45 12/11/18 18:45 12/11/18 18:45 12/11/18 18:45 12/11/18 17:48 Cor: RSR, No murmurs, No gallops Lungs: Clear to P&A Abd: Soft, Normal bowel sounds ext. --edematous Labs/Meds reviewed Imaging - Results Chest X-ray: Report Reviewed Assessment/Plan Laboratory Tests 12/11/18 12/11/18 12/11/18 12:35 12:35 12:35 WBC 1.9 L* RBC 3.27 L Hgb 11.5 L Hct 33.0 L D MCV 101.0 H MCH 35.1 H MCHC 34.8 RDW 15.1 Plt Count 26 L* D MPV 10.8 Absolute Neuts (auto) 0.9 L Neutrophils % 50.6 D Neutrophils % (Manual) 56.7 Band Neutrophils % 0.0 Lymphocytes % 34.1 D Lymphocytes % (Manual) 27.9 D Monocytes % 11.9 H Monocytes % (Manual) 10 Eosinophils % 3.1 D Eosinophils % (Manual) 2.9 D Basophils % 0.3 Basophils % (Manual) 1.0 Myelocytes % (Man) 0 Promyelocytes % (Man) 0 Blast Cells % (Manual) 0 Nucleated RBC % 0 Metamyelocytes 2 D Platelet Estimate Decreased Polychromasia 1+ Poikilocytosis 1+ Anisocytosis 1+ Macrocytosis 1+ Target Cells 1+ PT with INR INR Sodium 141 Potassium 4.4 Chloride 110 H Carbon Dioxide 29 Anion Gap 2 L BUN 12 Creatinine 1.1 Creat Clearance w eGFR > 60 Random Glucose 153 H Calcium 7.8 L Total Bilirubin 2.2 H AST 41 H ALT 28 Alkaline Phosphatase 251 H Ammonia 204.70 H Creatine Kinase 111 Troponin I < 0.02 B-Natriuretic Peptide 213.4 H Total Protein 6.4 Albumin 2.0 L Lipase 238 Blood Type Antibody Screen 12/11/18 12/11/18 12:35 12:35 WBC RBC Hgb Hct MCV MCH MCHC RDW Plt Count MPV Absolute Neuts (auto) Neutrophils % Neutrophils % (Manual) Band Neutrophils % Lymphocytes % Lymphocytes % (Manual) Monocytes % Monocytes % (Manual) Eosinophils % Eosinophils % (Manual) Basophils % Basophils % (Manual) Myelocytes % (Man) Promyelocytes % (Man) Blast Cells % (Manual) Nucleated RBC % Metamyelocytes Platelet Estimate Polychromasia Poikilocytosis Anisocytosis Macrocytosis Target Cells PT with INR 19.50 H INR 1.64 H Sodium Potassium Chloride Carbon Dioxide Anion Gap BUN Creatinine Creat Clearance w eGFR Random Glucose Calcium Total Bilirubin AST ALT Alkaline Phosphatase Ammonia Creatine Kinase Troponin I B-Natriuretic Peptide Total Protein Albumin Lipase Blood Type O POSITIVE Antibody Screen Positive A/P 53 y/o patient with h/o Hep. B/C, alcoholic cirrhosis, comes in with encephalopathy, anasarca Pancytopenia/cagulopathy due to cirrhosis r/o occult infection --check cultures transfuse platelets/FFP if bleeding or prior to procedures GI consult
[2018-12-11] MEDS: SPIRONOLACTONE 25 MG TABLET (FP) PO SCH (22:28)
[2018-12-11] MEDS: RIFAXIMIN 550 MG TABLET (UD) PO SCH (22:29)
[2018-12-11] MEDS: HEPARIN NA (PORCINE) 5,000 UNITS/ML 1ML VIAL SQ SCH (22:29)
[2018-12-12 03:13] LABS: URINE APPEARANCE CLEAR; URINE BILIRUBIN NEGATIVE (<2.0 mg/dL); URINE COLOR YELLOW; URINE GLUCOSE (UA) NEGATIVE (NEGATIVE); URINE KETONE NEGATIVE (NEGATIVE); URINE LEUK ESTERASE NEGATIVE (NEGATIVE); URINE NITRITE NEGATIVE (NEGATIVE); URINE PROTEIN NEGATIVE (NEGATIVE)
[2018-12-12 04:24] VITALS: BMI 33.7
[2018-12-12] MEDS ORDERED: PT OWN MED DRAWER 7, Y5N ONE (05:00)
[2018-12-12] MEDS ORDERED: NADOLOL 20 MG TABLET (FP) ONE (08:44)
[2018-12-12] MEDS: RIFAXIMIN 550 MG TABLET (UD) PO SCH ×2 (09:05→23:21)
[2018-12-12] MEDS: LACTULOSE 20 GM/30 ML UDC (FOR ORAL USE ONLY) PO SCH ×4 (09:06→23:21)
[2018-12-12] MEDS: TAMSULOSIN HCL 0.4 MG CAP PO SCH (09:06)
[2018-12-12] MEDS: URSODIOL 300 MG CAPSULE PO SCH (09:06)
[2018-12-12] MEDS: SERTRALINE HCL 25 MG TABLET (FP) PO SCH (09:06)
[2018-12-12] MEDS: FUROSEMIDE 40 MG TABLET (FP) PO SCH (09:06)
[2018-12-12] MEDS: NADOLOL 40 MG TABLET (FP) PO SCH (09:07)
[2018-12-12] MEDS: SPIRONOLACTONE 25 MG TABLET (FP) PO SCH ×2 (09:21→23:21)
[2018-12-12] MEDS: HEPARIN NA (PORCINE) 5,000 UNITS/ML 1ML VIAL SQ SCH ×2 (09:21→23:21)
[2018-12-12 11:04] LABS: HEMATOCRIT 31.2 % (35.4-49); HEMOGLOBIN 10.8 GM/dL (11.7-16.9); MCH 35.1 pg (25.7-33.7); MCHC 34.6 g/dl (32.0-35.9); MEAN CELL VOLUME 101.5 fl (80-96); MEAN PLT VOLUME 12.6 fl (7.5-11.1); RBC 3.07 M/mm3 (4.00-5.60); RDW 15.3 % (11.9-15.9); WHITE BLOOD COUNT 2.4 K/mm3 (4.0-10.0)
[2018-12-12 11:22] LABS: PLATELET COUNT 31 K/MM3 (134-434)
[2018-12-12 11:29] LABS: ALBUMIN 1.9 g/dl (3.4-5.0); ALK PHOS 207 U/L (45-117); ANION GAP 6 MMOL/L (8-16); BILIRUBIN,TOTAL 2.2 mg/dL (0.2-1); BLOOD UREA NITROGEN 12 mg/dL (7-18); CALCIUM 7.8 mg/dL (8.5-10.1); CHLORIDE 108 mmol/L (98-107); CO2 28 mmol/L (21-32); GLUCOSE,RANDOM 154 mg/dL (74-106); POTASSIUM 3.7 mmol/L (3.5-5.1); SGOT/AST 32 U/L (15-37); SGPT/ALT 23 U/L (13-61); SODIUM 142 mmol/L (136-145); TOT PROT 5.7 g/dl (6.4-8.2)
--- NOTE | 2018-12-12 12:54 | PN ---
Progress Note, Physician - Current Medication List Current Medications: Active Medications Furosemide (Lasix -) 40 mg PO DAILY [facility] Last Admin: 12/12/18 09:06 Dose: 40 mg Heparin Sodium (Porcine) (Heparin -) 5,000 unit SQ BID [facility] Last Admin: 12/12/18 09:21 Dose: 5,000 unit Lactulose (Cephulac (Oral Use)) 20 gm PO QID [facility] Last Admin: 12/12/18 09:06 Dose: 20 gm Nadolol (Corgard -) 40 mg PO DAILY [facility] Last Admin: 12/12/18 09:07 Dose: 40 mg Rifaximin (Xifaxan -) 550 mg PO BID [facility] Last Admin: 12/12/18 09:05 Dose: 550 mg Sertraline HCl (Zoloft -) 25 mg PO DAILY [facility] Last Admin: 12/12/18 09:06 Dose: 25 mg Spironolactone (Aldactone -) 75 mg PO BID [facility] Last Admin: 12/12/18 09:21 Dose: 75 mg Tamsulosin HCl (Flomax -) 0.4 mg PO DAILY [facility] Last Admin: 12/12/18 09:06 Dose: 0.4 mg Ursodiol (Actigal -) 300 mg PO DAILY [facility] Last Admin: 12/12/18 09:06 Dose: 300 mg - Objective Vital Signs: Vital Signs Temperature 98.5 F 12/12/18 10:00 Pulse Rate 64 12/12/18 10:00 Respiratory Rate 18 12/12/18 10:00 Blood Pressure 107/48 L 12/12/18 10:00 O2 Sat by Pulse Oximetry (%) 98 12/12/18 09:00 Labs: CBC, BMP 12/12/18 10:27 12/12/18 10:27 INR, PTT INR 1.64 (0.83-1.09) H 12/11/18 12:35 Problem List - Problems (1) Altered mental status Code(s): R41.82 - ALTERED MENTAL STATUS, UNSPECIFIED Qualifiers: Altered mental status type: unspecified Qualified Code(s): R41.82 - Altered mental status, unspecified (2) Hepatic encephalopathy Code(s): K72.90 - HEPATIC FAILURE, UNSPECIFIED WITHOUT COMA (3) Pancytopenia Code(s): D61.818 - OTHER PANCYTOPENIA (4) Cirrhosis Code(s): K74.60 - UNSPECIFIED CIRRHOSIS OF LIVER
--- NOTE | 2018-12-12 13:50 | CON.GI ---
Consult Consult Specialty:: GI Referred by:: Hospitalist Reason for Consultation:: Hepatic Encephalopathy - History of Present Illness Chief Complaint: Confusion History of Present Illness: 51y/o M admitted through the ED for worsening confusion and LE swelling. He has been admitted to [facility] previously for chronic abdominal pain. He is followed by Dr. Eliana Francis at [facility]. 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 No fevers or diarrhea has been reported. He denies abdominal pain. He has had recent EGD / colonoscopy at [facility] in the last 2-3 years. he denies abdominal pain. There has been no rectal bleeding or melena reported. He has a history of pancytopenia that appears to be worse on this admission. 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) Cardio/Vascular: Yes: HTN Hepatobiliary: Yes: Cirrhosis (alcoholic), Hepatitis B, Hepatitis C (treated, virus negative) - Past Surgical History Past Surgical History: Yes: Appendectomy (2009 or earlier), Colonoscopy (Most recent: 02/2017) - Alcohol/Substance Use Hx Alcohol Use: No - Smoking History Smoking history: Never smoked Have you smoked in the past 12 months: No - Social History Usual Living Arrangement: Other (with family) ADL: Independent Occupation: Retired Place of : Other ([employer]) History of Recent Travel: No Home Medications - Allergies Allergies/Adverse Reactions: Allergies Allergy/AdvReac Type Severity Reaction Status Date / Time No Known Allergies Allergy Verified 12/11/18 12:27 - Home Medications Home Medications: Ambulatory Orders Tamsulosin HCl 0.4 mg PO DAILY 06/27/17 Nadolol 40 mg PO DAILY 10/11/17 Ursodiol [Actigal -] 300 mg PO DAILY 10/11/17 Rifaximin [Xifaxan -] 550 mg PO BID 01/24/18 Sertraline HCl [Zoloft] 25 mg PO DAILY 01/25/18 Lactulose (Oral Use) [Cephulac -] 20 gm PO QID 30 Days #1 udc 01/29/18 Spironolactone [Aldactone -] 75 mg PO BID #60 tablet 01/29/18 Furosemide [Lasix -] 40 mg PO DAILY 12/11/18 Review of Systems - Review of Systems Constitutional: denies: Chills Gastrointestinal: denies: Abdominal Pain, Bloating, Constipation, Diarrhea, Melena, Nausea, Rectal Bleeding, Vomiting Physical Exam-GI Vital Signs: Vital Signs Temperature 98.5 F 12/12/18 10:00 Pulse Rate 64 12/12/18 10:00 Respiratory Rate 18 12/12/18 10:00 Blood Pressure 107/48 L 12/12/18 10:00 O2 Sat by Pulse Oximetry (%) 98 12/12/18 09:00 Constitutional: Yes: Calm Eyes: No: Sclera Icterus Cardiovascular: Yes: Regular Rate and Rhythm. No: Murmur Respiratory: Yes: CTA Bilaterally Gastrointestinal Inspection: Yes: Scars (deep RLQ scar). No: Distention ...Auscultate: Yes: Normoactive Bowel Sounds ...Palpate: No: Tenderness ...Percussion: No: Tympanitic Edema: Yes Edema: LLE: 1+ (stasis changes), RLE: 1+ (stasis changes) Neurological: Yes: Alert (x person, place and partially to time), Asterixis Labs: CBC, BMP 12/12/18 10:27 12/12/18 10:27 INR, PTT INR 1.64 (0.83-1.09) H 12/11/18 12:35 Problem List - Problems (1) Hepatic encephalopathy Assessment/Plan: Rifaximin 550mg PO BID Gentle IV hydration Changed the lactulose order from 20g q 4 hours prn to standing. goal for 4-5 loose BM's per day and monitor lytes Will need close follow-up with his rubber stamp assembler at [facility] Evaluation of worsened pancytopenia per heme Fall precautions Code(s): K72.90 - HEPATIC FAILURE, UNSPECIFIED WITHOUT COMA
[2018-12-13] MEDS ORDERED: NADOLOL 20 MG TABLET (FP) ONE (09:22)
[2018-12-13] MEDS ORDERED: PT OWN MED DRAWER 7, Y5N ONE (09:22)
[2018-12-13] MEDS: FUROSEMIDE 40 MG TABLET (FP) PO SCH (09:31)
[2018-12-13] MEDS: TAMSULOSIN HCL 0.4 MG CAP PO SCH (09:31)
[2018-12-13] MEDS: SERTRALINE HCL 25 MG TABLET (FP) PO SCH (09:31)
[2018-12-13] MEDS: LACTULOSE 20 GM/30 ML UDC (FOR ORAL USE ONLY) PO SCH ×4 (09:31→22:01)
[2018-12-13] MEDS: URSODIOL 300 MG CAPSULE PO SCH (09:32)
[2018-12-13] MEDS: NADOLOL 40 MG TABLET (FP) PO SCH (09:32)
[2018-12-13] MEDS: SPIRONOLACTONE 25 MG TABLET (FP) PO SCH ×2 (09:32→22:01)
[2018-12-13] MEDS: HEPARIN NA (PORCINE) 5,000 UNITS/ML 1ML VIAL SQ SCH (09:32)
[2018-12-13] MEDS: RIFAXIMIN 550 MG TABLET (UD) PO SCH ×2 (09:33→22:01)
[2018-12-13 10:29] LABS: HEMATOCRIT 32.1 % (35.4-49); MCH 34.6 pg (25.7-33.7); MCHC 34.3 g/dl (32.0-35.9); MEAN CELL VOLUME 101.1 fl (80-96); MEAN PLT VOLUME 13.5 fl (7.5-11.1); RBC 3.18 M/mm3 (4.00-5.60); RDW 15.1 % (11.9-15.9); WHITE BLOOD COUNT 2.6 K/mm3 (4.0-10.0)
[2018-12-13 10:35] LABS: PLATELET COUNT 31 K/MM3 (134-434)
[2018-12-13 10:45] LABS: ALK PHOS 239 U/L (45-117); ANION GAP 5 MMOL/L (8-16); BILIRUBIN,TOTAL 1.4 mg/dL (0.2-1); BLOOD UREA NITROGEN 9 mg/dL (7-18); CALCIUM 7.9 mg/dL (8.5-10.1); CHLORIDE 108 mmol/L (98-107); CO2 29 mmol/L (21-32); CREATININE 0.9 mg/dL (0.55-1.3); GLUCOSE,RANDOM 93 mg/dL (74-106); POTASSIUM 3.8 mmol/L (3.5-5.1); SGOT/AST 31 U/L (15-37); SGPT/ALT 21 U/L (13-61); SODIUM 142 mmol/L (136-145); TOT PROT 5.8 g/dl (6.4-8.2)
--- NOTE | 2018-12-13 11:58 | PN ---
Progress Note, Physician History of Present Illness: Pt seen/examined at bedside, feeling better today, moving bowels, loose, no blood. Tolerating diet, denies abdominal pain, n/v, fever/chills. - Current Medication List Current Medications: Active Medications Furosemide (Lasix -) 40 mg PO DAILY [facility] Last Admin: 12/13/18 09:31 Dose: 40 mg Heparin Sodium (Porcine) (Heparin -) 5,000 unit SQ BID [facility] Last Admin: 12/13/18 09:32 Dose: Not Given Lactulose (Cephulac (Oral Use)) 20 gm PO QID [facility] Last Admin: 12/13/18 09:31 Dose: 20 gm Nadolol (Corgard -) 40 mg PO DAILY [facility] Last Admin: 12/13/18 09:32 Dose: 40 mg Rifaximin (Xifaxan -) 550 mg PO BID [facility] Last Admin: 12/13/18 09:33 Dose: 550 mg Sertraline HCl (Zoloft -) 25 mg PO DAILY [facility] Last Admin: 12/13/18 09:31 Dose: 25 mg Spironolactone (Aldactone -) 75 mg PO BID [facility] Last Admin: 12/13/18 09:32 Dose: 75 mg Tamsulosin HCl (Flomax -) 0.4 mg PO DAILY [facility] Last Admin: 12/13/18 09:31 Dose: 0.4 mg Ursodiol (Actigal -) 300 mg PO DAILY [facility] Last Admin: 12/13/18 09:32 Dose: 300 mg - Objective Vital Signs: Vital Signs Temperature 98.3 F 12/13/18 10:00 Pulse Rate 72 12/13/18 10:00 Respiratory Rate 20 12/13/18 10:00 Blood Pressure 126/69 12/13/18 10:00 O2 Sat by Pulse Oximetry (%) 98 12/12/18 21:00 Constitutional: Yes: Well Nourished, No Distress, Calm, Other (Awake, alert, oriented x 3) Cardiovascular: Yes: WNL, Regular Rate and Rhythm Respiratory: Yes: WNL, Regular, CTA Bilaterally Gastrointestinal: Yes: WNL, Normal Bowel Sounds, Soft, Other (Abd soft, nt, nd) Edema: Yes (+edema, venous stasis ) Neurological: Yes: Other (Minimal asterixis) Labs: CBC, BMP 12/13/18 05:58 12/13/18 05:58 INR, PTT INR 1.64 (0.83-1.09) H 12/11/18 12:35 Problem List - Problems (1) Hepatic encephalopathy Assessment/Plan: 53yo male h/o HCV/ETOH cirrhosis following with Hepatology in [place] (on transplant list) presents with worsening confusion and LE swelling. Pt now clinically improved, moving bowels frequently, no blood. MELD 13. Pancytopenia likely secondary to etoh/cirrhosis. -Continue lactulose 20ml tid-qid titrate to 2-3 loose bms -Continue rifaxmin 500mg bid -Follow up cultures r/o underlying infectious precipitant -2gNA diet as tolerated -Monitor electrolytes -Pt will resume follow up with Hepatology at [facility] Code(s): K72.90 - HEPATIC FAILURE, UNSPECIFIED WITHOUT COMA
--- NOTE | 2018-12-13 16:51 | PN ---
Progress Note, Physician - Current Medication List Current Medications: Active Medications Furosemide (Lasix -) 40 mg PO DAILY [facility] Last Admin: 12/13/18 09:31 Dose: 40 mg Lactulose (Cephulac (Oral Use)) 20 gm PO QID [facility] Last Admin: 12/13/18 14:45 Dose: 20 gm Nadolol (Corgard -) 40 mg PO DAILY [facility] Last Admin: 12/13/18 09:32 Dose: 40 mg Rifaximin (Xifaxan -) 550 mg PO BID [facility] Last Admin: 12/13/18 09:33 Dose: 550 mg Sertraline HCl (Zoloft -) 25 mg PO DAILY [facility] Last Admin: 12/13/18 09:31 Dose: 25 mg Spironolactone (Aldactone -) 75 mg PO BID [facility] Last Admin: 12/13/18 09:32 Dose: 75 mg Tamsulosin HCl (Flomax -) 0.4 mg PO DAILY [facility] Last Admin: 12/13/18 09:31 Dose: 0.4 mg Ursodiol (Actigal -) 300 mg PO DAILY [facility] Last Admin: 12/13/18 09:32 Dose: 300 mg - Objective Vital Signs: Vital Signs Temperature 98.5 F 12/13/18 15:05 Pulse Rate 64 12/13/18 15:05 Respiratory Rate 20 12/13/18 15:05 Blood Pressure 113/64 12/13/18 15:05 O2 Sat by Pulse Oximetry (%) 99 12/13/18 09:00 Constitutional: Yes: No Distress HENT: Yes: Atraumatic Neck: Yes: Supple Cardiovascular: Yes: Regular Rate and Rhythm Respiratory: Yes: CTA Bilaterally Extremities: Yes: WNL Edema: No Peripheral Pulses WNL: Yes Neurological: Yes: Alert, Oriented Labs: CBC, BMP 12/13/18 05:58 12/13/18 05:58 INR, PTT INR 1.64 (0.83-1.09) H 12/11/18 12:35 Problem List - Problems (1) Altered mental status Code(s): R41.82 - ALTERED MENTAL STATUS, UNSPECIFIED Qualifiers: Altered mental status type: unspecified Qualified Code(s): R41.82 - Altered mental status, unspecified (2) Hepatic encephalopathy Code(s): K72.90 - HEPATIC FAILURE, UNSPECIFIED WITHOUT COMA (3) Pancytopenia Code(s): D61.818 - OTHER PANCYTOPENIA (4) Cirrhosis Code(s): K74.60 - UNSPECIFIED CIRRHOSIS OF LIVER
[2018-12-14] MEDS ORDERED: NADOLOL 20 MG TABLET (FP) ONE (09:11)
[2018-12-14] MEDS ORDERED: PT OWN MED DRAWER 7, Y5N ONE (09:13)
[2018-12-14] MEDS: SPIRONOLACTONE 25 MG TABLET (FP) PO SCH (09:26)
[2018-12-14] MEDS: SERTRALINE HCL 25 MG TABLET (FP) PO SCH (09:27)
[2018-12-14] MEDS: URSODIOL 300 MG CAPSULE PO SCH (09:27)
[2018-12-14] MEDS: TAMSULOSIN HCL 0.4 MG CAP PO SCH (09:28)
[2018-12-14] MEDS: NADOLOL 40 MG TABLET (FP) PO SCH (09:28)
[2018-12-14] MEDS: FUROSEMIDE 40 MG TABLET (FP) PO SCH (09:28)
[2018-12-14] MEDS: LACTULOSE 20 GM/30 ML UDC (FOR ORAL USE ONLY) PO SCH ×3 (09:29→17:14)
[2018-12-14] MEDS: RIFAXIMIN 550 MG TABLET (UD) PO SCH (09:29)
[2018-12-14 12:27] LABS: BASO % 0.2 % (0-2.0); EOS % 3.4 % (0-4.5); HEMATOCRIT 31.9 % (35.4-49); LYMPH % 35.3 % (8-40); MCH 34.4 pg (25.7-33.7); MCHC 34.6 g/dl (32.0-35.9); MEAN CELL VOLUME 99.5 fl (80-96); MEAN PLT VOLUME 11.3 fl (7.5-11.1); NEUT % 48.1 % (42.8-82.8); RBC 3.21 M/mm3 (4.00-5.60); RDW 15.1 % (11.9-15.9)
[2018-12-14 12:45] LABS: PLATELET COUNT 30 K/MM3 (134-434)
[2018-12-14 12:49] LABS: ANION GAP 6 MMOL/L (8-16); BLOOD UREA NITROGEN 6 mg/dL (7-18); CALCIUM 7.5 mg/dL (8.5-10.1); CHLORIDE 106 mmol/L (98-107); CO2 27 mmol/L (21-32); CREATININE 0.7 mg/dL (0.55-1.3); GLUCOSE,RANDOM 104 mg/dL (74-106); POTASSIUM 3.6 mmol/L (3.5-5.1); SODIUM 139 mmol/L (136-145)
[2018-12-14 14:49] LABS: PLATELET ESTIMATE DECREASED
--- NOTE | 2018-12-14 17:27 | DS ---
Physical Examination Vital Signs: Vital Signs Temperature 98.3 F 12/14/18 13:46 Pulse Rate 63 12/14/18 13:46 Respiratory Rate 18 12/14/18 13:46 Blood Pressure 118/69 12/14/18 13:46 O2 Sat by Pulse Oximetry (%) 100 12/14/18 12:45 Labs: CBC, BMP 12/14/18 11:35 12/14/18 11:35 Discharge Summary Reason For Visit: PANCYTOPENIA,HEPATIC ENCEPHALOPATHY Current Active Problems Altered mental status (Acute) Hepatic encephalopathy (Acute) Pancytopenia (Acute) Condition: Fair - Instructions Diet, Activity, Other Instructions: see your pmd, genomics scientist next week - Home Medications Comprehensive Discharge Medication List: Ambulatory Orders Tamsulosin HCl 0.4 mg PO DAILY 06/27/17 Nadolol 40 mg PO DAILY 10/11/17 Ursodiol [Actigal -] 300 mg PO DAILY 10/11/17 Rifaximin [Xifaxan -] 550 mg PO BID 01/24/18 Sertraline HCl [Zoloft] 25 mg PO DAILY 01/25/18 Lactulose (Oral Use) [Cephulac -] 20 gm PO QID 30 Days #1 udc 01/29/18 Spironolactone [Aldactone -] 75 mg PO BID #60 tablet 01/29/18 Furosemide [Lasix -] 40 mg PO DAILY 12/11/18 [facility]
[2018-12-14 17:30] VITALS: BP 121/75; PULSE 60; TEMP 98.8
== END 2018-12-14 18:42 | disposition home or self-care (01) | DRG 442 ==
LOC: JER 10:57 → JERBED 14:19 → J7W 12-12 03:19
PROVIDERS: ADMIT Internal Medicine; ATTEND Internal Medicine
DX: K72.90 Hepatic failure, unspecified without coma (principal); D61.818 Other pancytopenia; I85.00 Esophageal varices without bleeding; K70.31 Alcoholic cirrhosis of liver with ascites; I10 Essential (primary) hypertension; R60.1 Generalized edema; R41.82 Altered mental status, unspecified
CPT/HCPCS: 36415; 71045-TC-FY; 80048; 80053; 81003; 82140; 82550; 83690; 83880; 84484; 85025; 85027; 85610; 86850; 86870; 86900; 86901; 86902; 87040; 87086; 93005; 93010; 99283-25; J1644

== ENCOUNTER 2019-03-19 18:14 | Inpatient (IN) | payer BC, OTHER | END 2019-03-23 12:25 | disposition home or self-care (01) | LOC: J6S 03-20 03:02 → JER 18:14 → JERBED 23:20 ==

== ENCOUNTER 2019-07-23 17:16 | Inpatient (IN) | payer MEDICARE, OTHER ==
[2019-07-23] MEDS ORDERED: SODIUM CHLORIDE 1,000 ML IV STA (18:45)
[2019-07-23] MEDS ORDERED: morphine CARPU-JECT 4 MG/1 ML DISP.SYRIN IVPUSH ONE (18:58)
[2019-07-23] MEDS ORDERED: MORPHINE SULFATE 2 MG/ML VIAL ONE (19:53)
[2019-07-23 20:06] LABS: INR 1.73 (0.83-1.09)
--- NOTE | 2019-07-23 20:12 | PDOC ---
Attending Attestation - Resident Resident Name: GeorgiaAlda - ED Attending Attestation I have performed the following: I have examined & evaluated the patient, The case was reviewed & discussed with the resident, I agree w/resident's findings & plan - HPI HPI: 07/24/19 03:53 see resident hpi - Physicial Exam PE: 07/24/19 03:53 agree with resident exam - Medical Decision Making 07/24/19 03:54 54 yo male with hep c history, abd pain and bloating RUQ US and CT scan abd /pelvis confirmed ascites, possible diarrheal illness due to persistent pain and significant elevation of bilirubin plan for admit
[2019-07-23 20:29] LABS: LIPASE 241 U/L (73-393)
[2019-07-23 20:30] LABS: ALBUMIN 2.1 g/dl (3.4-5.0); BILIRUBIN,TOTAL 7.1 mg/dL (0.2-1); BLOOD UREA NITROGEN 9.1 mg/dL (7-18); CALCIUM 8.2 mg/dL (8.5-10.1); CREATININE 0.7 mg/dL (0.55-1.3); TOT PROT 6.9 g/dl (6.4-8.2)
[2019-07-23 20:32] LABS: POTASSIUM 4.2 mmol/L (3.5-5.1)
--- NOTE | 2019-07-23 20:41 | PDOC ---
History of Present Illness - General Chief Complaint: Pain Stated Complaint: ABDOMINAL PAIN Time Seen by Provider: 07/23/19 18:35 History Source: Patient Exam Limitations: Language Barrier - History of Present Illness Travel History: No Initial Comments: 07/23/19 20:29 54yo M with PMH of Hep C, Cirrhosis presenting to ED with complaints of epigastric/RUQ abdominal pain that started last night. Patient states he was sitting when the pain started. He describes the pain as squeezing, constant, 9/ 10, non radiating. Denies nausea, vomiting, diarrhea. He had 2 BMs today which where normal (non bloody, non melenous). Denies fevers, chills, back pain, chest pain, sob, travel. He had an appendectomy 30y ago. He has not taken any medications for the pain. His last saw his GI doctor this year and said everything was ok. PMD: March GI: Tito? Trupti PMH: see hpi PSH: see hpi Meds: see med rec allergies: nkda Social: denies Past History - Past Medical History Allergies/Adverse Reactions: Allergies Allergy/AdvReac Type Severity Reaction Status Date / Time No Known Allergies Allergy Verified 07/23/19 17:41 Home Medications: Ambulatory Orders Nadolol 40 mg PO DAILY 10/11/17 Ursodiol [Actigal -] 300 mg PO BID 10/11/17 Rifaximin [Xifaxan -] 550 mg PO BID 01/24/18 Sertraline HCl [Zoloft] 25 mg PO DAILY 01/25/18 Lactulose (Oral Use) [Cephulac -] 20 gm PO QID 30 Days #1 udc 01/29/18 Spironolactone [Aldactone -] 75 mg PO BID #60 tablet 01/29/18 Furosemide [Lasix -] 40 mg PO DAILY 12/11/18 Omeprazole/Sodium Bicarbonate [Omeprazole-Bicarb 20-1,100 Cap] 1 each PO BID Amox-Tr/K Cl [Augmentin 875-125mg Tablet -] 1 tab PO BID@0800,1730 5 Days tablet 03/23/19 Thiamine HCl [Vitamin B1 -] 100 mg PO BID #60 tablet 03/23/19 Furosemide [Lasix -] 40 mg PO DAILY 05/28/19 Gabapentin [Neurontin -] 300 mg PO BID 05/28/19 Nadolol [Corgard -] 40 mg PO DAILY 05/28/19 Omeprazole/Sodium Bicarbonate [Omeprazole-Bicarb 20-1,100 Cap] 1 each PO BID Rifaximin [Xifaxan] 550 mg PO BID 05/28/19 Sertraline HCl [Zoloft -] 25 mg PO DAILY 05/28/19 Spironolactone [Aldactone] 75 mg PO DAILY 05/28/19 Tamsulosin HCl [Flomax] 0.4 mg PO DAILY 05/28/19 Thiamine HCl [Vitamin B1] 100 mg PO BID 05/28/19 Ursodiol [Actigall] 300 mg PO BID 05/28/19 Lactulose (Oral Use) [Cephulac -] 20 gm PO QID #100 udc 05/30/19 Anemia: Yes Asthma: No Cancer: No Cardiac Disorders: No CVA: No COPD: No CHF: No Dementia: No Diabetes: No GI Disorders: Yes Disorders: No HTN: No Hypercholesterolemia: No Liver Disease: Yes (LIVER Cirrohsis) Seizures: No Thyroid Disease: No - Surgical History Abdominal Surgery: No Appendectomy: Yes Cardiac Surgery: No Cholecystectomy: No Lung Surgery: No Neurologic Surgery: No Orthopedic Surgery: No - Immunization History Td Vaccination: (UTD) Immunization Up to Date: Yes () - Suicide/Smoking/Psychosocial Hx Smoking Status: No Smoking History: Unknown if ever smoked Have you smoked in the past 12 months: No Number of Cigarettes Smoked Daily: 0 Information on smoking cessation initiated: No Hx Alcohol Use: Yes Drug/Substance Use Hx: No Substance Use Type: None, Alcohol Hx Substance Use Treatment: No Review of Systems - Review of Systems Constitutional: Yes: Chills. No: Fever HEENTM: No: Symptoms Reported Respiratory: No: Symptoms reported Cardiac (ROS): No: Symptoms Reported ABD/GI: Yes: See HPI, Abdominal Distended, Abdominal cramping. No: Constipated , Diarrhea, Nausea, Vomiting : No: Symptoms Reported Musculoskeletal: No: Symptoms Reported Integumentary: No: Symptoms Reported Neurological: No: Symptoms reported *Physical Exam - Vital Signs Last Vital Signs Temp Pulse Resp BP Pulse Ox 98.1 F 69 16 121/71 98 07/23/19 17:32 07/23/19 19:38 07/23/19 17:32 07/23/19 19:38 07/23/19 19:38 - Physical Exam General Appearance: Yes: Nourished, Appropriately Dressed. No: Apparent Distress HEENT: positive: EOMI, LAURA, Scleral Icterus (R), Scleral Icterus (L) Neck: positive: Trachea midline, Supple. negative: Lymphadenopathy (R), Lymphadenopathy (L) Respiratory/Chest: positive: Lungs Clear, Normal Breath Sounds. negative: Crackles, Rales, Stridor, Wheezing Cardiovascular: positive: Regular Rhythm, Regular Rate, S1, S2. negative: Edema , JVD, Murmur Vascular Pulses: Dorsalis-Pedis (R): 2+, Doralis-Pedis (L): 2+ Gastrointestinal/Abdominal: positive: Normal Bowel Sounds, Soft, Tenderness ( epigastric >RUQ), Other (no fluid wave). negative: Guarding, Rebound Rectal Exam: positive: other (no gross blood, no stool in vault) Musculoskeletal: negative: Decreased Range of Motion Extremity: positive: Normal Capillary Refill. negative: Pedal Edema, Swelling Integumentary: positive: Dry, Warm, Jaundice (slight jaundice). negative: Pale , Cold, Clammy, Diaphoresis Neurologic: positive: mental hygienist II-XII NML intact, Fully Oriented, Alert, Normal Mood/ Affect, Normal Response, Motor Strength 5/5 ED Treatment Course - LABORATORY CBC & Chemistry Diagram: 07/23/19 22:18 07/23/19 19:28 - ADDITIONAL ORDERS Additional order review: Laboratory Results 07/23/19 07/23/19 19:28 19:28 PT with INR 20.50 H INR 1.73 H Troponin I < 0.02 Lipase 241 07/23/19 19:28 RBC Cancelled MCV Cancelled MCHC Cancelled RDW Cancelled MPV Cancelled Neutrophils % Cancelled Lymphocytes % Cancelled Monocytes % Cancelled Eosinophils % Cancelled Basophils % Cancelled - RADIOLOGY Radiology Studies Ordered: Category Date Time Status ABDOMEN US -LIMITED [US] Stat Ultrasound 07/23/19 18:58 Ordered - Medications Given in the ED: ED Medications Discontinued Medications Generic Name Dose Route Start Last Admin Trade Name Freq PRN Reason Stop Dose Admin Sodium Chloride 1,000 mls @ 1,000 mls/hr 07/23/19 18:45 07/23/19 20:08 Normal Saline - IV 07/23/19 19:44 1,000 mls/hr ASDIR STA Administration Morphine Sulfate 2 mg 07/23/19 18:58 07/23/19 20:08 Morphine Injection - IVPUSH 07/23/19 18:59 2 mg ONCE ONE Administration Medical Decision Making - Medical Decision Making 07/23/19 21:27 54yo M with PMH of cirrhosis, Hep C presenting with abdominal pain x1d. No inciting factors. Was here in April for similar complaints. Vitals wnl pt does not appear to have distended abdomen, no fluid wave, no rebound or guarding. Jaundiced. ddx includes but not limited to SBP, liver failure, ascites, cholecystitis, cholangitis, pancreatitis, AAA, gastritis, colitis will order labs, fluids, morphine for pain, ekg cxr, trop. cbc hemolyzed, will need redraw. labs significant for elevated AST, elevated T.Bili, AlkP at baseline. Plt 28, Hgb 9.6 (down from 11 in May 2019). US shows cirrhotic liver with ascites, not previously present on US April 2019. T bili elevated, AST elevated, INR at baseline. CBC hemolyzed, will redraw. Will cover for sbp based on cbc. will admit patient for cirrhosis and ascites. will defer tap today given low platelets. EKG: read as afib with rate of 82. qtc 493. no history of afib. will repeat ekg rpt ekg: sinus with pvc. at 74bpm, pr 154, qtc 472. no jose or deressions ordering CTAP with IV contrast to r/o bleed v. ascites. accepted by hospitalist team. will inform of CT results. repeat coags ordered (original hemolyzed) *DC/Admit/Observation/Transfer Diagnosis at time of Disposition: Cirrhosis Qualifiers: Hepatic cirrhosis type: unspecified hepatic cirrhosis Ascites presence: with ascites Qualified Code(s): K74.60 - Unspecified cirrhosis of liver Abdominal pain Qualifiers: Abdominal location: epigastric Qualified Code(s): R10.13 - Epigastric pain - Discharge Dispostion Condition at time of disposition: Good Decision to Admit order: Yes - Referrals - Patient Instructions - Post Discharge Activity
[2019-07-23 22:39] LABS: BASO % 0.5 % (0-2.0); EOS % 1.8 % (0-4.5); HEMATOCRIT 27.2 % (35.4-49); HEMOGLOBIN 9.4 GM/dL (11.7-16.9); LYMPH % 22.9 % (8-40); MCH 34.2 pg (25.7-33.7); MCHC 34.4 g/dl (32.0-35.9); MEAN CELL VOLUME 99.4 fl (80-96); MEAN PLT VOLUME 11.2 fl (7.5-11.1); MONO % 11.7 % (3.8-10.2); NEUT % 63.1 % (42.8-82.8); RBC 2.74 M/mm3 (4.00-5.60); RDW 17.4 % (11.9-15.9); WHITE BLOOD COUNT 3.8 K/mm3 (4.0-10.0)
[2019-07-23] MEDS ORDERED: oxyCODONE HCL 5 MG TABLET PO ONE (22:47)
[2019-07-23 22:49] LABS: PLATELET COUNT 28 K/MM3 (134-434)
[2019-07-23] MEDS ORDERED: oxyCODONE HCL 5 MG TABLET ONE (23:13)
[2019-07-23] MEDS ORDERED: CEFTRIAXONE 1 GM in DEXTROSE 5%-WATER - 50 ML IVPB SCH (23:45)
[2019-07-24 00:04] LABS: EPI CELLS 0.5 /HPF (0-5/HPF); HYALINE CASTS 1 /lpf (0-8); URINE APPEARANCE CLOUDY; URINE BACTERIA 1.2 /hpf (NEGATIVE); URINE BILIRUBIN 2+ (NEGATIVE); URINE COLOR ORANGE; URINE GLUCOSE (UA) NEGATIVE (NEGATIVE); URINE KETONE NEGATIVE (NEGATIVE); URINE LEUK ESTERASE TRACE (NEGATIVE); URINE NITRITE POSITIVE (NEGATIVE); URINE PROTEIN NEGATIVE (NEGATIVE); URINE RBC 8 /hpf (0-4); URINE WBC 0 /hpf (0-5)
[2019-07-24 00:24] LABS: INR 1.93 (0.83-1.09); PROTHROMBIN TIME (PATIENT) 22.9 SEC (9.7-13.0)
[2019-07-24 00:27] LABS: ACTIVATED PTT 38.2 SECONDS (25.2-36.5)
[2019-07-24 00:29] LABS: BILIRUBIN,DIRECT 2.4 mg/dL (0.0-0.2)
[2019-07-24] MEDS ORDERED: SODIUM CHLORIDE 1,000 ML IV SCH (00:30)
[2019-07-24] MEDS ORDERED: CEFTRIAXONE 1 GM/50 ML BAG ONE (00:38)
--- NOTE | 2019-07-24 00:44 | HP ---
CHIEF COMPLAINT: PCP: Dr. Kline HISTORY OF PRESENT ILLNESS: 54 y/o/m with history of HEP B, HEP C, and cirrhosis here for abdominal pain that started at 7pm. He states that the pain is located near his epigastrium, is a 8/10 and radiating to his chest, it feels similar to abdominal pain that he has had in the past but the pain is worse this time. He states he had a BM at 2pm and did not see any blood in the stool. He also complains of some SOB due to the pain and chills. He reports some difficulty urinating today but denies dysuria. Patient is followed at [facility] and states he is waiting for a liver transplant. He denies any nausea, vomiting, fever, cough , dizziness, back pain or other symptoms. ER course was notable for: (1) U/S showed cirrhosis with small irregular heterogeneous liver and ascites that was not present on U/S in April 2019 (2) elevated T. Bili, elevated AST, thrombocytopenia and anemia Recent Travel: denies PAST MEDICAL HISTORY: HEP B, HEP C, cirrhosis PAST SURGICAL HISTORY: Appendectomy 30 years ago Social History: Smoking: denies Alcohol: states he stopped drinking 10 years ago Drugs: denies Allergies No Known Allergies Allergy (Verified 07/23/19 17:41) HOME MEDICATIONS: Home Medications Medication Instructions Recorded Nadolol 40 mg PO DAILY 10/11/17 Ursodiol [Actigal -] 300 mg PO BID 10/11/17 Rifaximin [Xifaxan -] 550 mg PO BID 01/24/18 Sertraline HCl [Zoloft] 25 mg PO DAILY 01/25/18 Lactulose (Oral Use) [Cephulac -] 20 gm PO QID 30 Days #1 udc 01/29/18 Spironolactone [Aldactone -] 75 mg PO BID #60 tablet 01/29/18 Furosemide [Lasix -] 40 mg PO DAILY 12/11/18 Omeprazole/Sodium Bicarbonate 1 each PO BID 03/19/19 [Omeprazole-Bicarb 20-1,100 Cap] Amox-Tr/K Cl [Augmentin 875-125mg 1 tab PO BID@0800,1730 5 Days 03/23/19 Tablet -] tablet Thiamine HCl [Vitamin B1 -] 100 mg PO BID #60 tablet 03/23/19 Furosemide [Lasix -] 40 mg PO DAILY 05/28/19 Gabapentin [Neurontin -] 300 mg PO BID 05/28/19 Nadolol [Corgard -] 40 mg PO DAILY 05/28/19 Omeprazole/Sodium Bicarbonate 1 each PO BID 05/28/19 [Omeprazole-Bicarb 20-1,100 Cap] Rifaximin [Xifaxan] 550 mg PO BID 05/28/19 Sertraline HCl [Zoloft -] 25 mg PO DAILY 05/28/19 Spironolactone [Aldactone] 75 mg PO DAILY 05/28/19 Tamsulosin HCl [Flomax] 0.4 mg PO DAILY 05/28/19 Thiamine HCl [Vitamin B1] 100 mg PO BID 05/28/19 Ursodiol [Actigall] 300 mg PO BID 05/28/19 Lactulose (Oral Use) [Cephulac -] 20 gm PO QID #100 udc 05/30/19 REVIEW OF SYSTEMS CONSTITUTIONAL: chills Absent: fever, diaphoresis, generalized weakness HEENT: Absent: rhinorrhea, nasal congestion, throat pain, throat swelling, difficulty swallowing, mouth swelling, ear pain, eye pain, visual changes CARDIOVASCULAR: chest pain Absent: syncope, palpitations, irregular heart rate, lightheadedness RESPIRATORY: shortness of breath Absent: cough, dyspnea with exertion, orthopnea, wheezing, stridor, hemoptysis GASTROINTESTINAL: abdominal pain Absent: abdominal distension, nausea, vomiting, diarrhea, constipation, melena, hematochezia GENITOURINARY: hesitancy Absent: dysuria, frequency, urgency, hematuria, flank pain, genital pain MUSCULOSKELETAL: Absent: myalgia, arthralgia, joint swelling, back pain, neck pain SKIN: Absent: rash, itching, pallor HEMATOLOGIC/IMMUNOLOGIC: Absent: easy bleeding, easy bruising, lymphadenopathy, frequent infections ENDOCRINE: Absent: unexplained weight gain, unexplained weight loss, heat intolerance, cold intolerance NEUROLOGIC: Absent: headache, focal weakness or paresthesias, dizziness, unsteady gait, seizure, mental status changes, bladder or bowel incontinence PHYSICAL EXAMINATION Vital Signs - 24 hr 07/23/19 07/23/19 17:32 19:38 Temperature 98.1 F Pulse Rate 76 Pulse Rate [ 69 Right Radial] Respiratory 16 Rate Blood Pressure 118/76 Blood Pressure 121/71 [Right Arm] O2 Sat by Pulse 100 98 Oximetry (%) GENERAL: Awake, alert, and fully oriented, in no acute distress, Jaundiced. HEAD: Normal with no signs of trauma. EYES: Pupils equal, round and reactive to light, extraocular movements intact, No lid lag. EARS, NOSE, THROAT: Ears normal, nares patent, oropharynx clear without exudates. dry mucous membranes. NECK: Normal range of motion, no JVD, or masses. LUNGS: Breath sounds equal, clear to auscultation bilaterally. No wheezes, and no crackles. No accessory muscle use. HEART: Regular rate and rhythm, normal S1 and S2 without murmur, rub or gallop. ABDOMEN: epigastric tenderness to palpation, not distended, normoactive bowel sounds, no guarding, no rebound, no masses. No hepatomegaly or splenomegaly. RECTAL: no jocelyn blood noted, no hemorrhoids, no fissures, soft stool felt in rectum UPPER EXTREMITIES: 2+ pulses, warm, well-perfused. No cyanosis. No clubbing. No peripheral edema. LOWER EXTREMITIES: 2+ pulses, warm, well-perfused. No calf tenderness. 2+ non pitting edema of both lower extremities NEUROLOGICAL: Cranial nerves II-XII intact. Normal speech. Normal gait. PSYCHIATRIC: Cooperative. Good eye contact. Appropriate mood and affect. SKIN: Warm, dry, normal turgor, petechiae noted on torso and arms, no ecchymosis , normal capillary refill. Laboratory Results - last 24 hr 07/23/19 07/23/19 07/23/19 19:28 19:28 19:28 WBC Cancelled Corrected WBC (auto) Cancelled RBC Cancelled Hgb Cancelled Hct Cancelled MCV Cancelled MCH Cancelled MCHC Cancelled RDW Cancelled Plt Count Cancelled MPV Cancelled Absolute Neuts (auto) Cancelled Neutrophils % Cancelled Lymphocytes % Cancelled Monocytes % Cancelled Eosinophils % Cancelled Basophils % Cancelled Nucleated RBC % Cancelled Platelet Estimate Cancelled Platelet Comment Cancelled PT with INR INR PTT (Actin FS) Sodium 133 L Potassium 4.2 Chloride 102 Carbon Dioxide 23 Anion Gap 7 L BUN 9.1 Creatinine 0.7 Est GFR (CKD-EPI)AfAm 123.13 Est GFR (CKD-EPI)NonAf 106.24 Random Glucose 104 Calcium 8.2 L Total Bilirubin 7.1 H Direct Bilirubin 2.4 H AST 76 H ALT 34 Alkaline Phosphatase 190 H Troponin I < 0.02 Total Protein 6.9 Albumin 2.1 L Lipase 241 Urine Color Urine Appearance Urine pH Ur Specific [place] Urine Protein Urine Glucose (UA) Urine Ketones Urine Blood Urine Nitrite Urine Bilirubin Urine Urobilinogen Ur Leukocyte Esterase Urine WBC (Auto) Urine RBC (Auto) Urine Casts (Auto) U Epithel Cells (Auto) Urine Bacteria (Auto) Stool Occult Blood 07/23/19 07/23/19 07/23/19 19:28 22:18 23:30 WBC 3.8 L Corrected WBC (auto) RBC 2.74 L Hgb 9.4 L Hct 27.2 L D MCV 99.4 H MCH 34.2 H MCHC 34.4 RDW 17.4 H Plt Count 28 L* MPV 11.2 H Absolute Neuts (auto) 2.4 Neutrophils % 63.1 D Lymphocytes % 22.9 D Monocytes % 11.7 H Eosinophils % 1.8 Basophils % 0.5 Nucleated RBC % 0 Platelet Estimate Platelet Comment PT with INR 20.50 H INR 1.73 H PTT (Actin FS) No Result Required. Sodium Potassium Chloride Carbon Dioxide Anion Gap BUN Creatinine Est GFR (CKD-EPI)AfAm Est GFR (CKD-EPI)NonAf Random Glucose Calcium Total Bilirubin Direct Bilirubin AST ALT Alkaline Phosphatase Troponin I Total Protein Albumin Lipase Urine Color [place] Urine Appearance Cloudy Urine pH 6.0 Ur Specific [place] 1.019 Urine Protein Negative Urine Glucose (UA) Negative Urine Ketones Negative Urine Blood Trace Urine Nitrite Positive H Urine Bilirubin 2+ H Urine Urobilinogen 1.0 Ur Leukocyte Esterase Trace Urine WBC (Auto) 0 Urine RBC (Auto) 8 Urine Casts (Auto) 1 U Epithel Cells (Auto) 0.5 Urine Bacteria (Auto) 1.2 Stool Occult Blood 07/23/19 07/24/19 23:30 00:10 WBC Corrected WBC (auto) RBC Hgb Hct MCV MCH MCHC RDW Plt Count MPV Absolute Neuts (auto) Neutrophils % Lymphocytes % Monocytes % Eosinophils % Basophils % Nucleated RBC % Platelet Estimate Platelet Comment PT with INR 22.90 H INR 1.93 H PTT (Actin FS) 38.2 H Sodium Potassium Chloride Carbon Dioxide Anion Gap BUN Creatinine Est GFR (CKD-EPI)AfAm Est GFR (CKD-EPI)NonAf Random Glucose Calcium Total Bilirubin Direct Bilirubin AST ALT Alkaline Phosphatase Troponin I Total Protein Albumin Lipase Urine Color Urine Appearance Urine pH Ur Specific [place] Urine Protein Urine Glucose (UA) Urine Ketones Urine Blood Urine Nitrite Urine Bilirubin Urine Urobilinogen Ur Leukocyte Esterase Urine WBC (Auto) Urine RBC (Auto) Urine Casts (Auto) U Epithel Cells (Auto) Urine Bacteria (Auto) Stool Occult Blood Negative ASSESSMENT/PLAN: 54 y/o/m with history of HEP B, HEP C, and cirrhosis here for epigastric/RUQ abd pain that started at 7pm. 1) Epigastric/RUQ Abd pain - acute on chronic pain, possibly secondary to ascites or SBP -NPO -Supportive care -CT Abd&pelvis w/ contrast to rule out bleeding vs. ascites -No foci of acute bleeding identified on CT Abd&Pelvis -No portal vein thrombosis. -Will start Rocephin 2grams for SBP prophylaxis -GI and ID consulted. -Stool occult blood negative 2) Cirrhosis - U/S shows cirrhosis with small, irregular heterogeneous liver and ascites that was not present on U/S in April 2019 -Continue hepatic home meds -Patient MELDNa score - 24 points - 14-15% estimated 90 day mortality - patient should be evaluated for transplant if no reversible causes of cirrhosis can be identified. 3) Ascites - new onset, not seen on U/S in April 2019 -CT abd&pelvis with contrast to rule out ascites vs. bleeding -Consult IR for possible drainage 4) Hyponatremia - likely secondary to hypervolemia due to ascites -Follow repeat CMP 5) Anemia - Hgb of 9.4, drop from 11 during previous admission -Follow CBC -Follow iron studies, Retic count 6) Thrombocytopenia - patient has a history of thrombocytopenia in the 30s during last admission, now down to 28 -Follow repeat CBC 7)Hypocalcemia - patient is hypoalbunemic -Corrected calcium is 9.7 8)Prophylaxis -Will hold anticoagulants as patient is thrombocytopenic -SCDs 9)FEN -NS 1000mls at 75mls/hr -Monitor CMP 10) Disposition -Admitted to med surg Visit type - Emergency Visit Emergency Visit: Yes ED Registration Date: 07/23/19 Care time: The patient presented to the Emergency Department on the above date and was hospitalized for further evaluation of their emergent condition. - New Patient This patient is new to me today: Yes Date on this admission: 07/24/19 - Critical Care Critical Care patient: No ATTENDING PHYSICIAN STATEMENT I saw and evaluated the patient. I reviewed the resident's note and discussed the case with the resident. I agree with the resident's findings and plan as documented. SUBJECTIVE: OBJECTIVE: ASSESSMENT AND PLAN:
[2019-07-24 00:46] LABS: URINE CRYSTALS FEW /hpf
--- NOTE | 2019-07-24 01:09 | PN ---
Teaching Attending Note Name of Resident: Christopher San ATTENDING PHYSICIAN STATEMENT I saw and evaluated the patient. I reviewed the resident's note and discussed the case with the resident. I agree with the resident's findings and plan as documented. SUBJECTIVE: 53 year old man with cirrhosis secondary to hep c (treated 2 years ago), etoh, chronic abdominal pain, thrombocytopenia, follows with Dr. Francis in [facility], on transplant list, c/o worsening abdominal pain which started around 6pm, woke him up from sleep. Pain is localized to epigastric region, no radiation, sharp. Denied any trauma, nausea or vomiting. OBJECTIVE: Last Vital Signs Temp Pulse Resp BP Pulse Ox 98.1 F 69 16 121/71 98 07/23/19 17:32 07/23/19 19:38 07/23/19 17:32 07/23/19 19:38 07/23/19 19:38 gen -jaundiced, nontoxic appearing heent -atrauamatic, normocephalic neck supple cv-s1+s2+rrr chest clear abd- distended, mild tenderness to palpatio, no rebound tenderness ext -no pedal edema skin -jaundiced, some ecchymosis on chest Abnormal Lab Results 07/23/19 07/23/19 07/23/19 19:28 19:28 22:18 WBC 3.8 L RBC 2.74 L Hgb 9.4 L Hct 27.2 L D MCV 99.4 H MCH 34.2 H RDW 17.4 H Plt Count 28 L* MPV 11.2 H Monocytes % 11.7 H PT with INR 20.50 H INR 1.73 H PTT (Actin FS) Sodium 133 L Anion Gap 7 L Calcium 8.2 L Total Bilirubin 7.1 H Direct Bilirubin 2.4 H AST 76 H Alkaline Phosphatase 190 H Albumin 2.1 L Urine Nitrite Urine Bilirubin 07/23/19 07/23/19 23:30 23:30 WBC RBC Hgb Hct MCV MCH RDW Plt Count MPV Monocytes % PT with INR 22.90 H INR 1.93 H PTT (Actin FS) 38.2 H Sodium Anion Gap Calcium Total Bilirubin Direct Bilirubin AST Alkaline Phosphatase Albumin Urine Nitrite Positive H Urine Bilirubin 2+ H imaging reviewed ASSESSMENT AND PLAN: #decompensated liver cirrhosis with worsening bilirubinemia, pancytopenia - severe thrombocytopenia, ascities, hepatic encephalopathy (controlled), leukopenia, anemia, coaguloapthy. Patient has acute on chronic abdominal pain. Liver u/s reported ascities, SBP should be ruled out given his worsening abdominal pain. Differential diagnosis also includes gastritis, portal vein thrombosis. -med/surg -IR to drain ascities -send cell count, culture -avoid tylenol and nsaids, heparin -send lactic acid -ceftriaxone 1g IV daily empirically -monitor closely for signs of bleed -f/u CT abd/pelvis report to r/o intrabdominal bleed -if bleed will keep FFP and platelet transfusion -c/w rifaximin, lactulose for history of hepatic encephalopathy - aim for 3-4 stools/day -close GI follow up -protonix -scds for dvt ppx
[2019-07-24] MEDS: TAMSULOSIN HCL 0.4 MG CAP PO SCH (08:29)
[2019-07-24] MEDS: CEFTRIAXONE 2 GM in DEXTROSE 5%-WATER 100 ML IVPB SCH (10:31)
[2019-07-24] MEDS: GABAPENTIN 300 MG CAPSULE (FP) PO SCH ×2 (10:31→21:17)
[2019-07-24] MEDS: PANTOPRAZOLE SODIUM 40 MG VIAL IVPUSH SCH (10:31)
[2019-07-24] MEDS: SERTRALINE HCL 25 MG TABLET (FP) PO SCH (10:31)
[2019-07-24] MEDS: LACTULOSE 20 GM/30 ML UDC (FOR ORAL USE ONLY) PO SCH ×4 (10:31→21:17)
[2019-07-24] MEDS: URSODIOL 300 MG CAPSULE PO SCH (10:31)
[2019-07-24] MEDS: THIAMINE HCL 100 MG TABLET (FP) PO SCH ×2 (10:32→21:17)
[2019-07-24] MEDS: RIFAXIMIN 550 MG TABLET (UD) PO SCH ×2 (10:32→21:17)
--- NOTE | 2019-07-24 10:58 | EKG ---
Test Reason : Blood Pressure : / mmHG Vent. Rate : 074 BPM Atrial Rate : 074 BPM P-R Int : 154 ms QRS Dur : 080 ms QT Int : 426 ms P-R-T Axes : 048 -14 038 degrees QTc Int : 472 ms SINUS RHYTHM WITH OCCASIONAL PREMATURE VENTRICULAR COMPLEXES OTHERWISE NORMAL ECG WHEN COMPARED WITH ECG OF 23-JUL-2019 20:25, SINUS RHYTHM HAS REPLACED ATRIAL FIBRILLATION Confirmed by Anish Haque ([id number]) on 07/24/2019 10:57:53 AM Referred By: Confirmed By:Anish Haque
--- NOTE | 2019-07-24 10:59 | EKG ---
Test Reason : Blood Pressure : / mmHG Vent. Rate : 082 BPM Atrial Rate : 416 BPM P-R Int : 000 ms QRS Dur : 078 ms QT Int : 422 ms P-R-T Axes : 000 -23 041 degrees QTc Int : 493 ms BASELINE ARTIFACT NORMAL SINUS RHYTHM WITH OCCASIONAL ventricular-paced complexes NONSPECIFIC T WAVE ABNORMALITY PROLONGED QT ABNORMAL ECG WHEN COMPARED WITH ECG OF 19-MAR-2019 21:17, ATRIAL FIBRILLATION HAS REPLACED SINUS RHYTHM NONSPECIFIC T WAVE ABNORMALITY NOW EVIDENT IN ANTERIOR LEADS Confirmed by Anish Haque ([id number]) on 07/24/2019 10:59:32 AM Referred By: Confirmed By:Anish Haque
--- NOTE | 2019-07-24 12:52 | PN ---
Teaching Attending Note Name of Resident: Victoria Mcgowan ATTENDING PHYSICIAN STATEMENT I saw and evaluated the patient. I reviewed the resident's note and discussed the case with the resident. I agree with the resident's findings and plan as documented. SUBJECTIVE: poor historian . 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 Denies pain in abd now, reported RUQ pain o director internal communications and diffuse Abd pain to resident. has no fever or chills, reported chills to resident before. No PATEL , no change in vision . reprots taking lactulose three time a day and having 3-4 BM a day( 4 yesterday and 3 the day before). he remembers having EGD 6 months ago, and was told it was not changed from before ( does not know if he has esophageal varices). he denies any h/o GI bleed ( upper or lower). He reports paracentesis 9 months ago. denies alcohol use. reports compliance with his diuretics. reports no abd pain before it started yesterday although he told the night team that pain was chronic but increased in intensity. OBJECTIVE: NAd, awake , but has periods of lethargy and needs to be stimulated. knows his location , and age, but not the year or president. HEENT: L lower facial droop. EOMI, round equal pupils, MMM, no JVD . CV: RRR, 3/6 diastolic murmur heard at LLSB. Lungs: CTAB Abd: slightly distended, NT, NL BS, + shifting dullness, no hepatomegaly , no splenomegaly. bruises on abd in RUQ Ext: scattered bruises. slight edema on LE , no fungal infection . no erythema . deformed R index finger. Neuro : EOMI, round equal and reactive pupils, tongue at mid line, LL facial droop. strength 5/5 in upper and lower extremities proximally and distally. sensation to light touch nl. nose to finger NL. ASSESSMENT AND PLAN: 54 y/o man with h/o Hep C, ? Hep B , cirrhosis, pancytopenia, splenomegaly, portal hypertension , who presented with abd pain. he was found to be confused . 1- AMS: possible hepatic encephalopathy, but patient has L lower facial droop-- > need to r/o stroke - order ammonia level - order CT of head, then will order MRI - cont lactulose and Rifaximin 2- ABd pain: No tenderness on my exam. DDx of his abd pain could be portal vein thrombosis, gastritis , SBP. - CT of abd images and report reviewed. US report reviewed. No pancreatitis, no evidence of gall bladder stones or cholecystitis. - will order US with doppler - will continue ceftriaxone for now , pending GI eval . If diagnostic Paracentesis is deemed to be necessary due to concern for SBP, will arrange for IR drainage , after giving plt , and FFPs. - Cont PPI 3- H/o Cirrhosis: no EGD in system, but being on nadolol suggest esophageal varices. - we will confirm his diuretic regimen, and will continue. - cont lactulose and Rifaximine. - will obtain records form [facility] regarding previous tests. - On transplant list 4- Chronic macrocytic anemia: recent B12 in 06/18 was 800 and folate was NL. wonder if he has a BM disorder ( MDS), or BM pathology form cirrhosis , or if he is actually drinking alcohol. will need to r/o hypothyroidism. - order TSH - repeat B12 - pancytopenia is likely due to liver disease. - iron studies - EGD report to be obtained. rest per GI here - further eval as out pt and heme f/u 5- Will confirm if he is on SSRI ans continue to avoid withdrawal. Dispo : OC If MRI shows a stroke, then will transfer to tele
[2019-07-24] MEDS: FUROSEMIDE 40 MG TABLET (FP) PO SCH (13:10)
[2019-07-24] MEDS: NADOLOL 40 MG TABLET (FP) PO SCH (13:10)
[2019-07-24] MEDS: SPIRONOLACTONE 25 MG TABLET (FP) PO SCH (13:10)
--- NOTE | 2019-07-24 15:46 | PN ---
Physical Exam: SUBJECTIVE: Patient seen and examined. Pt lethargic. had to redirect multiple times. endorsed some belly pain OBJECTIVE: Vital Signs Period Temp Pulse Resp BP Sys/Mckeon Pulse Ox Last 24 Hr 98.0 F-98.3 F 69-90 15-20 98-130/59-76 98-100 GENERAL: The patient is lethargic, in mild distress. HEAD: Normal with no signs of trauma. EYES: PERRL, extraocular movements intact, sclera icteric, ENT: Ears normal, nares patent, oropharynx clear without exudates, moist mucous membranes. NECK: Trachea midline, full range of motion, supple. LUNGS: Breath sounds equal, clear to auscultation bilaterally, no wheezes, no crackles, no accessory muscle use. HEART: Regular rate and rhythm, S1, S2 without murmur, rub or gallop. ABDOMEN: Soft, nontender, nondistended, normoactive bowel sounds, no guarding, no rebound, no hepatosplenomegaly, no masses. EXTREMITIES: 2+ pulses, warm, well-perfused, no edema. NEUROLOGICAL: Cranial nerves II through XII grossly intact. Normal speech, gait not observed. SKIN: jaundiced with evidenced of bruising Laboratory Results - last 24 hr 07/23/19 07/23/19 07/23/19 19:28 19:28 19:28 WBC Cancelled Corrected WBC (auto) Cancelled RBC Cancelled Hgb Cancelled Hct Cancelled MCV Cancelled MCH Cancelled MCHC Cancelled RDW Cancelled Plt Count Cancelled MPV Cancelled Absolute Neuts (auto) Cancelled Neutrophils % Cancelled Lymphocytes % Cancelled Monocytes % Cancelled Eosinophils % Cancelled Basophils % Cancelled Nucleated RBC % Cancelled Platelet Estimate Cancelled Platelet Comment Cancelled PT with INR INR PTT (Actin FS) Sodium 133 L Potassium 4.2 Chloride 102 Carbon Dioxide 23 Anion Gap 7 L BUN 9.1 Creatinine 0.7 Est GFR (CKD-EPI)AfAm 123.13 Est GFR (CKD-EPI)NonAf 106.24 Random Glucose 104 Calcium 8.2 L Total Bilirubin 7.1 H Direct Bilirubin 2.4 H AST 76 H ALT 34 Alkaline Phosphatase 190 H Troponin I < 0.02 Total Protein 6.9 Albumin 2.1 L Lipase 241 Urine Color Urine Appearance Urine pH Ur Specific [place] Urine Protein Urine Glucose (UA) Urine Ketones Urine Blood Urine Nitrite Urine Bilirubin Urine Urobilinogen Ur Leukocyte Esterase Urine WBC (Auto) Urine RBC (Auto) Urine Casts (Auto) U Epithel Cells (Auto) Urine Crystals (Auto) Urine Bacteria (Auto) Stool Occult Blood 07/23/19 07/23/19 07/23/19 19:28 22:18 23:30 WBC 3.8 L Corrected WBC (auto) RBC 2.74 L Hgb 9.4 L Hct 27.2 L D MCV 99.4 H MCH 34.2 H MCHC 34.4 RDW 17.4 H Plt Count 28 L* MPV 11.2 H Absolute Neuts (auto) 2.4 Neutrophils % 63.1 D Lymphocytes % 22.9 D Monocytes % 11.7 H Eosinophils % 1.8 Basophils % 0.5 Nucleated RBC % 0 Platelet Estimate Platelet Comment PT with INR 20.50 H INR 1.73 H PTT (Actin FS) No Result Required. Sodium Potassium Chloride Carbon Dioxide Anion Gap BUN Creatinine Est GFR (CKD-EPI)AfAm Est GFR (CKD-EPI)NonAf Random Glucose Calcium Total Bilirubin Direct Bilirubin AST ALT Alkaline Phosphatase Troponin I Total Protein Albumin Lipase Urine Color [place] Urine Appearance Cloudy Urine pH 6.0 Ur Specific [place] 1.019 Urine Protein Negative Urine Glucose (UA) Negative Urine Ketones Negative Urine Blood Trace Urine Nitrite Positive H Urine Bilirubin 2+ H Urine Urobilinogen 1.0 Ur Leukocyte Esterase Trace Urine WBC (Auto) 0 Urine RBC (Auto) 8 Urine Casts (Auto) 1 U Epithel Cells (Auto) 0.5 Urine Crystals (Auto) Few Urine Bacteria (Auto) 1.2 Stool Occult Blood 07/23/19 07/24/19 23:30 00:10 WBC Corrected WBC (auto) RBC Hgb Hct MCV MCH MCHC RDW Plt Count MPV Absolute Neuts (auto) Neutrophils % Lymphocytes % Monocytes % Eosinophils % Basophils % Nucleated RBC % Platelet Estimate Platelet Comment PT with INR 22.90 H INR 1.93 H PTT (Actin FS) 38.2 H Sodium Potassium Chloride Carbon Dioxide Anion Gap BUN Creatinine Est GFR (CKD-EPI)AfAm Est GFR (CKD-EPI)NonAf Random Glucose Calcium Total Bilirubin Direct Bilirubin AST ALT Alkaline Phosphatase Troponin I Total Protein Albumin Lipase Urine Color Urine Appearance Urine pH Ur Specific [place] Urine Protein Urine Glucose (UA) Urine Ketones Urine Blood Urine Nitrite Urine Bilirubin Urine Urobilinogen Ur Leukocyte Esterase Urine WBC (Auto) Urine RBC (Auto) Urine Casts (Auto) U Epithel Cells (Auto) Urine Crystals (Auto) Urine Bacteria (Auto) Stool Occult Blood Negative Active Medications Generic Name Dose Route Start Last Admin Trade Name Kendall PRN Reason Stop Dose Admin Furosemide 40 mg 07/24/19 10:00 07/24/19 13:10 Lasix - PO Not Given DAILY SANCHO Gabapentin 300 mg 07/24/19 10:00 07/24/19 10:31 Neurontin - PO 300 mg BID SANCHO Administration Ceftriaxone Sodium 2 gm/ 100 mls @ 100 mls/hr 07/24/19 10:00 07/24/19 10:31 Dextrose IVPB 100 mls/hr DAILY SANCHO Administration Protocol Lactulose 20 gm 07/24/19 10:00 07/24/19 13:11 Cephulac (Oral Use) PO 20 gm QID SANCHO Administration Nadolol 40 mg 07/24/19 10:00 07/24/19 13:10 Corgard - PO Not Given DAILY SANCHO Pantoprazole Sodium 40 mg 07/24/19 10:00 07/24/19 10:31 Protonix Iv IVPUSH 40 mg DAILY SANCHO Administration Rifaximin 550 mg 07/24/19 10:00 07/24/19 10:32 Xifaxan - PO 550 mg BID SANCHO Administration Sertraline HCl 25 mg 07/24/19 10:00 07/24/19 10:31 Zoloft - PO 25 mg DAILY SANCHO Administration Spironolactone 75 mg 07/24/19 10:00 07/24/19 13:10 Aldactone - PO Not Given DAILY [facility] Tamsulosin HCl 0.4 mg 07/24/19 08:30 07/24/19 08:29 Flomax - PO 0.4 mg DAILY@0830 SANCHO Administration Thiamine HCl 100 mg 07/24/19 10:00 07/24/19 10:32 Vitamin B1 - PO 100 mg BID SANCHO Administration Ursodiol 300 mg 07/24/19 10:00 07/24/19 10:31 Actigal - PO 300 mg BID SANCHO Administration ASSESSMENT/PLAN: 54 y/o man with h/o Hep C, ? Hep B , cirrhosis, pancytopenia, splenomegaly, portal hypertension , who presented with abd pain. he was found to be confused AMS: possible hepatic encephalopathy? need to r/o stroke 2/2 facial droop that is new per patient pt neurologically intact except for facial droop order ammonia level CT of head no acute pathology, MRI ordered cont lactulose and Rifaximin ABd pain 2/2 portal vein thrombosis or gastritis or SBP. CT of abd images and report reviewed. US report reviewed. No pancreatitis, no evidence of gall bladder stones or cholecystitis. NO portal vein thrombosis on US will continue ceftriaxone for now. Cont PPI Ascites moderate on CT abdomen. Per GI, diagnostic Paracentesis via IR drainage. per IR , 2 units of plts will be determined tomorrw morning when to give , and FFPs as well. Per IR, vit K will but considering patient cirrhosis-> unsure of efficacy Cirrhosis records form [facility]. Pt had EGD most recent sep 2018 no acute bleed with positive varices. cont lactulose and Rifaximine. On transplant list pending medication confirmation Chronic macrocytic anemia/ pancytopenia likely due to liver disease recent B12 in 06/18 was 800 and folate was NL. wonder if he has a BM disorder ( MDS), or BM pathology form cirrhosis , or if he is actually drinking alcohol. will need to r/o hypothyroidism. TSH, repeat B12 pancytopenia is . iron studies Fe134, TIBC 238,Fe sat 56, Unsat IBC 104, Ferritin 576.5 EGD report available. rest per GI here further eval as out pt and heme f/u Visit type - Emergency Visit Emergency Visit: Yes ED Registration Date: 07/23/19 Care time: The patient presented to the Emergency Department on the above date and was hospitalized for further evaluation of their emergent condition. - New Patient This patient is new to me today: Yes Date on this admission: 07/24/19 - Critical Care Critical Care patient: No - Discharge Referral Referred to [facility] No ATTENDING PHYSICIAN STATEMENT I saw and evaluated the patient. I reviewed the resident's note and discussed the case with the resident. I agree with the resident's findings and plan as documented. SUBJECTIVE: OBJECTIVE: ASSESSMENT AND PLAN:
[2019-07-24 15:48] LABS: RETICULOCYTES 2.42 % (0.5-1.5)
[2019-07-24 16:02] LABS: HEMATOCRIT 27.6 % (35.4-49); HEMOGLOBIN 9.4 GM/dL (11.7-16.9); MCH 33.9 pg (25.7-33.7); MCHC 33.9 g/dl (32.0-35.9); MEAN CELL VOLUME 99.8 fl (80-96); MEAN PLT VOLUME 11.9 fl (7.5-11.1); RBC 2.77 M/mm3 (4.00-5.60); RDW 16.6 % (11.9-15.9); WHITE BLOOD COUNT 2.7 K/mm3 (4.0-10.0)
[2019-07-24 16:05] LABS: INR 1.98 (0.83-1.09); PROTHROMBIN TIME (PATIENT) 23.5 SEC (9.7-13.0)
[2019-07-24 16:08] LABS: ACTIVATED PTT 38.3 SECONDS (25.2-36.5)
[2019-07-24 16:20] LABS: ALBUMIN 1.9 g/dl (3.4-5.0); BILIRUBIN,TOTAL 5.1 mg/dL (0.2-1); BLOOD UREA NITROGEN 9.7 mg/dL (7-18); CALCIUM 7.6 mg/dL (8.5-10.1); CREATININE 0.7 mg/dL (0.55-1.3); MAGNESIUM 1.4 mg/dL (1.8-2.4); PHOSPHOROUS 2.4 mg/dL (2.5-4.9); POTASSIUM 3.4 mmol/L (3.5-5.1); TOT PROT 6.2 g/dl (6.4-8.2)
[2019-07-24 16:50] LABS: PLATELET COUNT 31 K/MM3 (134-434)
[2019-07-24] MEDS ORDERED: PHYTONADIONE 5 MG TABLET PO ONE (17:45)
--- NOTE | 2019-07-24 19:47 | CONS ---
DATE OF CONSULTATION: DATE OF DICTATION: 07/24/2019 GASTROINTESTINAL CONSULTATION HISTORY OF PRESENT ILLNESS: The patient is a 54-year-old male with a past medical history significant for hepatitis B/ C, cirrhosis, appendectomy who presents to the hospital with complaints of abdominal pain that began the day prior to his admission. He states the pain is in the epigastrium and radiates upward into his chest. He denies any associated reflux, nausea, vomiting, diarrhea, constipation, fever, blood in the stool, or melena. He states his last upper endoscopy and colonoscopy were done 6 months ago in [place]. He states that were within normal limits. He does not recall the name of the physician who performed the procedures. The significant other is at the bedside but offers no additional history. PAST MEDICAL AND SURGICAL HISTORY: As listed in the HPI. ALLERGIES: No known drug allergies. SOCIAL HISTORY: Does not smoke. Stopped drinking alcohol 10 years ago. Denies any drug abuse. HOME MEDICATIONS: Reviewed. Include nadolol, ursodiol, rifaximin, sertraline, lactulose, spironolactone, furosemide. REVIEW OF SYSTEMS: As per the HPI. PHYSICAL EXAMINATION: Vital Signs: Temperature 98, pulse 90, respiratory rate 12, blood pressure 120/ 70, pulse oximetry 100% on room air. General: In no acute distress. HEENT: Anicteric sclerae. Cardiovascular: S1, S2, regular rate and rhythm. Lungs: Bilaterally clear to auscultation. Abdomen: Tender in the epigastrium to deep palpation without rebound or guarding. There is also shifting dullness. Extremities: edema. LABORATORY: White blood cell count 2.7, hemoglobin and hematocrit 9.4/27, MCV 99, platelet count 31, INR 1.98. Sodium 131, potassium 3.4, BUN/creatinine 9.7/0.7, glucose 127, iron 134, ferritin 576, total bilirubin 5.1, AST 58, ALT 29, alkaline phosphatase 160, ammonia 62, lipase 241. Urine, nitrate, and bilirubin positive and stool for occult blood was negative. Cultures are not done at this time. Patient also had an abdomen and pelvis CT scan which revealed liver cirrhosis, splenomegaly, multiple varicosities in the left splenic hilum compatible with portal venous hypertension, moderate amount of ascites, gallbladder wall thickening and edema due to surrounding ascites without gross evidence of gallstones. Ultrasound was recommended. IMPRESSION: Decompensated hepatitis B cirrhosis with ascites, also with epigastric abdominal pain, most likely secondary to his ascites; however, other etiology will need to be excluded such as primary gastric etiology / peptic ulcer disease/ gastropathy. In addition, the gallbladder wall is thickened with associated edema, which is most likely secondary to ascites. However, considering he does have pain in the epigastrium, would recommend abdominal sonogram to further evaluate the biliary tree. Diagnostic and therapeutic paracentesis should be performed r/o sbp. Panculture. A 2-g sodium diet. Continue and nadolol. Strict I's and O's and daily weights. Continue PPI therapy, rifaximin 550 p.o. b.i.d. Avoid NSAIDs. Diuretics should be started back based on volume status after paracentesis. Previous endoscopy report from [place] should be obtained if he could obtain the name of the physician he saw at that time. If the symptoms do not improve, he may benefit from a diagnostic upper endoscopy. This patient will be followed by the GI service. DO LAWRENCE LEAHY/[id number] MTDD
[2019-07-25] MEDS ORDERED: PT OWN MED DRAWER 7, Y5N ONE (00:01)
[2019-07-25] MEDS ORDERED: NAPH,MB-DB/K PH,MBDB POWDER PACKET PO ONE ×2 (07:34→10:30)
[2019-07-25] MEDS ORDERED: MAGNESIUM SULF 50% (8.12 MEQ/2 ML-1 GM VIAL) IVPB ONE ×2 (07:34→10:30)
[2019-07-25 07:40] LABS: PROTHROMBIN TIME (PATIENT) 23.8 SEC (9.7-13.0)
[2019-07-25 07:45] LABS: BASO % 0.4 % (0-2.0); EOS % 4.3 % (0-4.5); LYMPH % 26.7 % (8-40); MCH 34.6 pg (25.7-33.7); MCHC 34.5 g/dl (32.0-35.9); MEAN CELL VOLUME 100.2 fl (80-96); MONO % 10.9 % (3.8-10.2); NEUT % 57.7 % (42.8-82.8); PLATELET COUNT 44 K/MM3 (134-434); RDW 17.4 % (11.9-15.9)
[2019-07-25 08:00] LABS: ALBUMIN 1.6 g/dl (3.4-5.0); BILIRUBIN,TOTAL 2.6 mg/dL (0.2-1); BLOOD UREA NITROGEN 6.8 mg/dL (7-18); CALCIUM 7.6 mg/dL (8.5-10.1); CREATININE 0.7 mg/dL (0.55-1.3); POTASSIUM 3.4 mmol/L (3.5-5.1); TOT PROT 5.4 g/dl (6.4-8.2)
[2019-07-25 08:36] LABS: WHITE BLOOD COUNT 1.9 K/mm3 (4.0-10.0)
--- NOTE | 2019-07-25 08:46 | PN ---
Teaching Attending Note Name of Resident: Victoria Mcgowan ATTENDING PHYSICIAN STATEMENT I saw and evaluated the patient. I reviewed the resident's note and discussed the case with the resident. I agree with the resident's findings and plan as documented. SUBJECTIVE: Patient is lying in bed with NAD. OBJECTIVE: Vital Signs Temperature 98.4 F 07/25/19 02:00 Pulse Rate 76 07/25/19 02:00 Respiratory Rate 18 07/25/19 02:00 Blood Pressure 114/66 07/25/19 02:00 O2 Sat by Pulse Oximetry (%) 99 07/24/19 22:00 GENERAL: The patient is awake, alert, and fully oriented, in no acute distress. HEAD: Normal with no signs of trauma. EYES: PERRL, extraocular movements intact, sclera anicteric, conjunctiva clear. No ptosis. ENT: Ears normal, nares patent, oropharynx clear without exudates, moist mucous membranes. NECK: Trachea midline, full range of motion, supple. LUNGS: decreased Breath sounds bl , clear to auscultation bilaterally, no wheezes, no crackles, no accessory muscle use. HEART: Regular rate and rhythm, S1, S2 without murmur, rub or gallop. ABDOMEN: Soft, distended,NT, normoactive bowel sounds, no guarding, no rebound , no hepatomegaly no masses appreciated. EXTREMITIES: 2+ pulses, warm, well-perfused, no edema. NEUROLOGICAL: Cranial nerves II through XII grossly intact. Normal speech, gait not observed. PSYCH: Normal mood, normal affect. SKIN: Warm, dry, normal turgor, no rashes or lesions noted CBCD WBC 1.9 K/mm3 (4.0-10.0) L* 07/25/19 06:20 RBC 2.60 M/mm3 (4.00-5.60) L 07/25/19 06:20 Hgb 9.0 GM/dL (11.7-16.9) L 07/25/19 06:20 Hct 26.0 % (35.4-49) L 07/25/19 06:20 MCV 100.2 fl (80-96) H 07/25/19 06:20 MCHC 34.5 g/dl (32.0-35.9) 07/25/19 06:20 RDW 17.4 % (11.9-15.9) H 07/25/19 06:20 Plt Count 44 K/MM3 (134-434) L D 07/25/19 06:20 MPV 11.0 fl (7.5-11.1) 07/25/19 06:20 CMP Sodium 134 mmol/L (136-145) L 07/25/19 06:20 Potassium 3.4 mmol/L (3.5-5.1) L 07/25/19 06:20 Chloride 102 mmol/L (98-107) 07/25/19 06:20 Carbon Dioxide 26 mmol/L (21-32) 07/25/19 06:20 Anion Gap 6 MMOL/L (8-16) L 07/25/19 06:20 BUN 6.8 mg/dL (7-18) L 07/25/19 06:20 Creatinine 0.7 mg/dL (0.55-1.3) 07/25/19 06:20 Random Glucose 76 mg/dL (74-106) 07/25/19 06:20 Calcium 7.6 mg/dL (8.5-10.1) L 07/25/19 06:20 Total Bilirubin 2.6 mg/dL (0.2-1) H D 07/25/19 06:20 AST 49 U/L (15-37) H 07/25/19 06:20 ALT 25 U/L (13-61) 07/25/19 06:20 Alkaline Phosphatase 147 U/L (45-117) H 07/25/19 06:20 Total Protein 5.4 g/dl (6.4-8.2) L 07/25/19 06:20 Albumin 1.6 g/dl (3.4-5.0) L 07/25/19 06:20 CARDIAC ENZYMES Troponin I < 0.02 ng/ml (0.00-0.05) 07/23/19 19:28 Current Medications Generic Name Dose Route Start Last Admin Trade Name Kendall PRN Reason Stop Dose Admin Furosemide 40 mg 07/24/19 10:00 07/24/19 13:10 Lasix - PO Not Given DAILY SANCHO Gabapentin 300 mg 07/24/19 10:00 07/24/19 21:17 Neurontin - PO 300 mg BID SANCHO Administration Ceftriaxone Sodium 2 gm/ 100 mls @ 100 mls/hr 07/24/19 10:00 07/24/19 10:31 Dextrose IVPB 100 mls/hr DAILY SANCHO Administration Protocol Lactulose 20 gm 07/24/19 10:00 07/24/19 21:17 Cephulac (Oral Use) PO 20 gm QID SANCHO Administration Nadolol 40 mg 07/24/19 10:00 07/24/19 13:10 Corgard - PO Not Given DAILY SANCHO Pantoprazole Sodium 40 mg 07/24/19 10:00 07/24/19 10:31 Protonix Iv IVPUSH 40 mg DAILY SANCHO Administration Rifaximin 550 mg 07/24/19 10:00 07/24/19 21:17 Xifaxan - PO 550 mg BID SANCHO Administration Sertraline HCl 25 mg 07/24/19 10:00 07/24/19 10:31 Zoloft - PO 25 mg DAILY SANCHO Administration Spironolactone 75 mg 07/24/19 10:00 07/24/19 13:10 Aldactone - PO Not Given DAILY SANCHO Tamsulosin HCl 0.4 mg 07/24/19 08:30 07/24/19 08:29 Flomax - PO 0.4 mg DAILY@0830 SANCHO Administration Thiamine HCl 100 mg 07/24/19 10:00 07/24/19 21:17 Vitamin B1 - PO 100 mg BID SANCHO Administration Ursodiol 300 mg 07/24/19 10:00 07/25/19 00:00 Actigal - PO 300 mg BID SANCHO Administration Home Medications Medication Instructions Recorded Nadolol 40 mg PO DAILY 10/11/17 Ursodiol [Actigal -] 300 mg PO BID 10/11/17 Rifaximin [Xifaxan -] 550 mg PO BID 01/24/18 Sertraline HCl [Zoloft] 25 mg PO DAILY 01/25/18 Lactulose (Oral Use) [Cephulac -] 20 gm PO QID 30 Days #1 udc 01/29/18 Spironolactone [Aldactone -] 75 mg PO BID #60 tablet 01/29/18 Furosemide [Lasix -] 40 mg PO DAILY 12/11/18 Omeprazole/Sodium Bicarbonate 1 each PO BID 03/19/19 [Omeprazole-Bicarb 20-1,100 Cap] Thiamine HCl [Vitamin B1 -] 100 mg PO BID #60 tablet 03/23/19 Gabapentin [Neurontin -] 300 mg PO BID 05/28/19 Nadolol [Corgard -] 40 mg PO DAILY 05/28/19 Omeprazole/Sodium Bicarbonate 1 each PO BID 05/28/19 [Omeprazole-Bicarb 20-1,100 Cap] Rifaximin [Xifaxan] 550 mg PO BID 05/28/19 Sertraline HCl [Zoloft -] 25 mg PO DAILY 05/28/19 Spironolactone [Aldactone] 25 mg PO TID 05/28/19 Tamsulosin HCl [Flomax] 0.4 mg PO DAILY 05/28/19 Thiamine HCl [Vitamin B1] 100 mg PO BID 05/28/19 Ursodiol [Actigall] 300 mg PO BID 05/28/19 Lactulose (Oral Use) [Cephulac -] 20 gm PO QID #100 udc 05/30/19 Ammonium Lactate Cream [Lac-Hydrin] 1 applic TP BID 07/24/19 Chlorhexidine Gluconate [Hibiclens 10 ml PO DAILY 07/24/19 For Decolonization -] Linaclotide [Linzess] 72 mcg PO DAILY 07/24/19 Omeprazole/Sodium Bicarbonate 1 each PO BID 07/24/19 [Omeprazole-Bicarb 40-1,100 Cap] Thiamine HCl [Vitamin B1] 100 mg PO BID 07/24/19 Laboratory Tests 07/23/19 07/24/19 07/25/19 22:18 15:00 06:20 Hgb Hct MCV Plt Count 28 L* 31 L* 44 L D PT with INR INR 07/25/19 07/25/19 06:20 17:45 Hgb 9.4 L Hct 28.3 L MCV 100.4 H Plt Count 80 L D PT with INR 23.80 H INR 2.00 H ASSESSMENT AND PLAN: Patient is a 54 y/o man with h/o Hep C, liver cirrhosis, pancytopenia, splenomegaly, portal hypertension , who presented with abd pain with change of mental status. # AMS: most likely due to hepatic encephalopathy improving; with ammonia level 62.9 yesterday continue lactulose and Rifaximin # ABdominal pain: improved , no tenderness on my exam. patient is going for tap in am , not done today due to having thrombocytopenia but imporving , INR is 2.0 , given vit k 7.5mg today will follow in am . - CT of abd images and report reviewed. US report reviewed. No pancreatitis, no evidence of gall bladder stones or cholecystitis. - will continue ceftriaxone, rifaximin, Gi on the case . if needed will give one unit of FFp before the procedure, Cont PPI # H/o liver Cirrhosis: possible EGD if needed continue nadolol suggest esophageal varices. cont lactulose and Rifaximine. will obtain records form [facility] regarding previous tests. on transplant list # Chronic macrocytic anemia: recent B12 in 06/18 was 800 and folate was NL. # Alcoholic liver cirrhosis: pancytopenia ,needs tap . repeat labs. PT/INR and platelets If MRI shows a stroke, then will transfer to tele
[2019-07-25] MEDS ORDERED: NADOLOL 20 MG TABLET (FP) ONE (09:58)
[2019-07-25] MEDS ORDERED: DEXTROSE 5%-WATER 100 ML IVPB ONE (10:00)
[2019-07-25] MEDS: CEFTRIAXONE 2 GM in DEXTROSE 5%-WATER 100 ML IVPB SCH (10:11)
[2019-07-25] MEDS: PANTOPRAZOLE SODIUM 40 MG VIAL IVPUSH SCH (10:11)
[2019-07-25] MEDS ORDERED: PHYTONADIONE 5 MG TABLET PO ONE (11:12)
[2019-07-25] MEDS: NADOLOL 40 MG TABLET (FP) PO SCH (11:18)
[2019-07-25] MEDS: THIAMINE HCL 100 MG TABLET (FP) PO SCH ×2 (11:18→21:38)
[2019-07-25] MEDS: SERTRALINE HCL 25 MG TABLET (FP) PO SCH (11:18)
[2019-07-25] MEDS: GABAPENTIN 300 MG CAPSULE (FP) PO SCH ×2 (11:18→21:38)
[2019-07-25] MEDS: FUROSEMIDE 40 MG TABLET (FP) PO SCH (11:18)
[2019-07-25] MEDS: LACTULOSE 20 GM/30 ML UDC (FOR ORAL USE ONLY) PO SCH ×4 (11:18→21:38)
[2019-07-25] MEDS: RIFAXIMIN 550 MG TABLET (UD) PO SCH ×2 (11:18→21:38)
[2019-07-25] MEDS: URSODIOL 300 MG CAPSULE PO SCH ×3 (11:18→21:39)
[2019-07-25] MEDS: TAMSULOSIN HCL 0.4 MG CAP PO SCH (11:18)
[2019-07-25] MEDS: SPIRONOLACTONE 25 MG TABLET (FP) PO SCH (11:19)
[2019-07-25 14:14] LABS: ANISOCYTOSIS 1+; MACROCYTOSIS 1+; OVALOCYTE 1+
--- NOTE | 2019-07-25 16:37 | PN ---
Physical Exam: SUBJECTIVE: Patient seen and examined. Pt much more awake and alert. Pt was able to communicate better today. OBJECTIVE: Vital Signs Period Temp Pulse Resp BP Sys/Mckeon Pulse Ox Last 24 Hr 97.7 F-98.4 F 66-97 18-20 101-123/53-70 99 GENERAL: The patient is awake and alert. HEAD: Normal with no signs of trauma. EYES: PERRL, extraocular movements intact, sclera icteric, ENT: Ears normal, nares patent, oropharynx clear without exudates, moist mucous membranes. LUNGS: Breath sounds equal, clear to auscultation bilaterally, no wheezes, no crackles, no accessory muscle use. HEART: Regular rate and rhythm, S1, S2 without murmur, rub or gallop. ABDOMEN: Soft, nontender, nondistended, normoactive bowel sounds, no guarding, no rebound, no hepatosplenomegaly, no masses. EXTREMITIES: 2+ pulses, warm, well-perfused, no edema. NEUROLOGICAL: Cranial nerves II through XII grossly intact. Normal speech, gait not observed. SKIN: jaundiced with evidence of bruising Laboratory Results - last 24 hr 07/24/19 07/24/19 07/24/19 15:00 15:00 15:00 WBC RBC Hgb Hct MCV MCH MCHC RDW Plt Count MPV Absolute Neuts (auto) Total Counted Neutrophils % Neutrophils % (Manual) Lymphocytes % Lymphocytes % (Manual) Monocytes % Monocytes % (Manual) Eosinophils % Eosinophils % (Manual) Basophils % Basophils % (Manual) Nucleated RBC % Anisocytosis Macrocytosis Ovalocytes PT with INR 23.50 H INR 1.98 H PTT (Actin FS) 38.3 H Sodium 131 L Potassium 3.4 L Chloride 98 Carbon Dioxide 25 Anion Gap 7 L BUN 9.7 Creatinine 0.7 Est GFR (CKD-EPI)AfAm 123.13 Est GFR (CKD-EPI)NonAf 106.24 Random Glucose 127 H Calcium 7.6 L Phosphorus 2.4 L Magnesium 1.4 L Total Bilirubin 5.1 H D AST 58 H ALT 29 Alkaline Phosphatase 160 H Total Protein 6.2 L Albumin 1.9 L Antibody Identification Anti-e Antigen Identification No Result Required. 07/24/19 07/25/19 07/25/19 15:00 06:20 06:20 WBC 2.7 L 1.9 L* RBC 2.77 L 2.60 L Hgb 9.4 L 9.0 L Hct 27.6 L 26.0 L MCV 99.8 H 100.2 H MCH 33.9 H 34.6 H MCHC 33.9 34.5 RDW 16.6 H 17.4 H Plt Count 31 L* 44 L D MPV 11.9 H 11.0 Absolute Neuts (auto) 1.1 L Total Counted 100 Neutrophils % 57.7 Neutrophils % (Manual) 61.0 Lymphocytes % 26.7 Lymphocytes % (Manual) 21.0 D Monocytes % 10.9 H Monocytes % (Manual) 12 H Eosinophils % 4.3 D Eosinophils % (Manual) 5.0 H Basophils % 0.4 Basophils % (Manual) 1.0 Nucleated RBC % 1 H Anisocytosis 1+ Macrocytosis 1+ Ovalocytes 1+ PT with INR INR PTT (Actin FS) Sodium 134 L Potassium 3.4 L Chloride 102 Carbon Dioxide 26 Anion Gap 6 L BUN 6.8 L Creatinine 0.7 Est GFR (CKD-EPI)AfAm 123.13 Est GFR (CKD-EPI)NonAf 106.24 Random Glucose 76 Calcium 7.6 L Phosphorus Magnesium Total Bilirubin 2.6 H D AST 49 H ALT 25 Alkaline Phosphatase 147 H Total Protein 5.4 L Albumin 1.6 L Antibody Identification Antigen Identification 07/25/19 06:20 WBC RBC Hgb Hct MCV MCH MCHC RDW Plt Count MPV Absolute Neuts (auto) Total Counted Neutrophils % Neutrophils % (Manual) Lymphocytes % Lymphocytes % (Manual) Monocytes % Monocytes % (Manual) Eosinophils % Eosinophils % (Manual) Basophils % Basophils % (Manual) Nucleated RBC % Anisocytosis Macrocytosis Ovalocytes PT with INR 23.80 H INR 2.00 H PTT (Actin FS) Sodium Potassium Chloride Carbon Dioxide Anion Gap BUN Creatinine Est GFR (CKD-EPI)AfAm Est GFR (CKD-EPI)NonAf Random Glucose Calcium Phosphorus Magnesium Total Bilirubin AST ALT Alkaline Phosphatase Total Protein Albumin Antibody Identification Antigen Identification Active Medications Generic Name Dose Route Start Last Admin Trade Name Freq PRN Reason Stop Dose Admin Furosemide 40 mg 07/24/19 10:00 07/25/19 11:18 Lasix - PO 40 mg DAILY [facility]CHO Administration Gabapentin 300 mg 07/24/19 10:00 07/25/19 11:18 Neurontin - PO 300 mg BID SANCHO Administration Ceftriaxone Sodium 2 gm/ 100 mls @ 100 mls/hr 07/24/19 10:00 07/25/19 10:11 Dextrose IVPB 100 mls/hr DAILY [facility] Administration Protocol Lactulose 20 gm 07/24/19 10:00 07/25/19 14:35 Cephulac (Oral Use) PO 20 gm QID SANCHO Administration Nadolol 40 mg 07/24/19 10:00 07/25/19 11:18 Corgard - PO 40 mg DAILY [facility] Administration Pantoprazole Sodium 40 mg 07/24/19 10:00 07/25/19 10:11 Protonix Iv IVPUSH 40 mg DAILY [facility] Administration Rifaximin 550 mg 07/24/19 10:00 07/25/19 11:18 Xifaxan - PO 550 mg BID SANCHO Administration Sertraline HCl 25 mg 07/24/19 10:00 07/25/19 11:18 Zoloft - PO 25 mg DAILY SAN[facility] Administration Spironolactone 75 mg 07/24/19 10:00 07/25/19 11:19 Aldactone - PO 75 mg DAILY [facility] Administration Tamsulosin HCl 0.4 mg 07/24/19 08:30 07/25/19 11:18 Flomax - PO 0.4 mg DAILY@0830 SANCHO Administration Thiamine HCl 100 mg 07/24/19 10:00 07/25/19 11:18 Vitamin B1 - PO 100 mg BID SANCHO Administration Ursodiol 300 mg 07/24/19 10:00 07/25/19 11:18 Actigal - PO 300 mg BID SANCHO Administration ASSESSMENT/PLAN: 54 y/o man with h/o Hep C, ? Hep B , cirrhosis, pancytopenia, splenomegaly, portal hypertension , who presented with abd pain. he was found to be confused AMS: possible hepatic encephalopathy? need to r/o stroke 2/2 facial droop that is new per patient pt neurologically intact except for facial droop order ammonia level CT of head no acute pathology, MRI ordered cont lactulose and Rifaximin ABd pain 2/2 portal vein thrombosis or gastritis or SBP. will continue ceftriaxone for now. Cont PPI Ascites moderate on CT abdomen. Per GI, diagnostic Paracentesis via IR drainage. per IR , Platelet needs to be optimized to 50k and INR of 1.50. 2 units given (platelet at 44 repeat pending for 6 pm today) pending one unit of platelet and FFP on the way to paracentesis. 7.5 of oral vitamin K supplements Cirrhosis records form [facility]. Pt had EGD most recent sep 2018 no acute bleed with positive varices. cont lactulose and Rifaximine. On transplant list resuming cirrhosis regimen Chronic macrocytic anemia/ pancytopenia likely due to liver disease recent B12 in 06/18 was 800 and folate was NL. wonder if he has a BM disorder ( MDS), or BM pathology form cirrhosis , or if he is actually drinking alcohol. will need to r/o hypothyroidism. follow TSH, repeat B12 pancytopenia is chronic . iron studies Fe134, TIBC 238,Fe sat 56, Unsat IBC 104, Ferritin 576.5 EGD report available. rest per GI here further eval as out pt and heme f/u Visit type - Emergency Visit Emergency Visit: Yes ED Registration Date: 07/23/19 Care time: The patient presented to the Emergency Department on the above date and was hospitalized for further evaluation of their emergent condition. - New Patient This patient is new to me today: No - Critical Care Critical Care patient: No - Discharge Referral Referred to [facility] No ATTENDING PHYSICIAN STATEMENT I saw and evaluated the patient. I reviewed the resident's note and discussed the case with the resident. I agree with the resident's findings and plan as documented. SUBJECTIVE: OBJECTIVE: ASSESSMENT AND PLAN:
--- NOTE | 2019-07-25 18:22 | PN.GI ---
GI Progress Note Subjective: Pt seen/examined at bedside, feeling better, states abdominal pain has resolved. Tolerating diet, denies nausea/vomiting. Moving bowels, had brown bm. Reports EGD within 6-8 months in [place]. - Objective Vital Signs: Vital Signs Temperature 98.2 F 07/25/19 14:19 Pulse Rate 66 07/25/19 14:19 Respiratory Rate 18 07/25/19 14:19 Blood Pressure 101/53 L 07/25/19 14:19 O2 Sat by Pulse Oximetry (%) 99 07/24/19 22:00 Constitutional: Well Nourished, No Distress, Calm Cardiovascular: Yes: WNL, Regular Rate and Rhythm Respiratory: Yes: WNL, Regular, CTA Bilaterally ...Palpate: Yes: Other (Abd soft, nontender, nondistended, no rebound, guarding or rigidity) Labs: CBC, BMP 07/25/19 06:20 07/25/19 06:20 INR, PTT INR 2.00 (0.83-1.09) H 07/25/19 06:20 Problem List - Problems (1) Abdominal pain Assessment/Plan: 53yo male h/o HCV/cirrhosis presenting with abdominal pain, now appears to have resolved. Hb and LFTs appear to be near baseline. CT revealing cirrhotic liver and ascites. MELD 20. Pancytopenia noted (no evidence of iron deficiency). -Continue supportive measures -2gNa diet as tolerated -Obtain prior EGD report from [place] to confirm findings. Pending results would consider EGD to further evaluate otherwise may defer at this time as abdominal pain has resolved and no overt bleeding. -Diagnostic paracentesis r/o SBP due to ?altered mentation and abd pain on admission -Continue nadolol 40mg daily titrate to HR 55-60 -Continue rifaximin and lactulose titrate to 2-3 loose bms -Pt should resume GI/liver and hematology follow up at [place] Code(s): R10.9 - UNSPECIFIED ABDOMINAL PAIN Qualifiers: Abdominal location: epigastric Qualified Code(s): R10.13 - Epigastric pain
[2019-07-25 18:47] LABS: HEMATOCRIT 28.3 % (35.4-49); HEMOGLOBIN 9.4 GM/dL (11.7-16.9); MCH 33.5 pg (25.7-33.7); MCHC 33.3 g/dl (32.0-35.9); MEAN CELL VOLUME 100.4 fl (80-96); MEAN PLT VOLUME 10.7 fl (7.5-11.1); PLATELET COUNT 80 K/MM3 (134-434); RBC 2.82 M/mm3 (4.00-5.60); RDW 17.2 % (11.9-15.9); WHITE BLOOD COUNT 2.6 K/mm3 (4.0-10.0)
--- NOTE | 2019-07-25 22:40 | PN ---
Progress Note (short form) - Note Progress Note: 54 y.o. M PMH Hep C & B, cirrhosispancytopenia, splenomegaly, portal hypertension , who presented with abd pain. Patient found to be altered today, brain MRI done. Received page regarding MRI results: Brain MRI: Tiny focus of hyperintensity involving L villanueva radiata & possible punctate focus involving the left precentral gyrus. Concerning for subtle punctate acute infarctions. Phys exam: VS: 116/72 98.4F 82 100% General: AOx3. In no acute distress. Cardio: S1S2 heard no murmurs Pulm: CTABL Neuro: L lower facial droop present; otherwise CN2-12 intact. Good handgrip strength. Motor strength WNL. Sensory intact b/l UE & LE. Nonfocal exam. #AMS -Brain MRI results as above -Nonfocal neuro exam -Dr. Thomas neurologist combat control contacted, aware of brain MRI results -Neuro to assess patient in AM Transfer to tele Marylou Dawkins M.D. Medicine night team
[2019-07-26 07:17] LABS: BASO % 1.3 % (0-2.0); EOS % 3.9 % (0-4.5); HEMATOCRIT 27.2 % (35.4-49); HEMOGLOBIN 9.1 GM/dL (11.7-16.9); LYMPH % 38.8 % (8-40); MCHC 33.5 g/dl (32.0-35.9); MEAN CELL VOLUME 101.3 fl (80-96); MEAN PLT VOLUME 9.9 fl (7.5-11.1); MONO % 15.7 % (3.8-10.2); NEUT % 40.3 % (42.8-82.8); PLATELET COUNT 59 K/MM3 (134-434); RBC 2.69 M/mm3 (4.00-5.60); RDW 17.3 % (11.9-15.9)
[2019-07-26 07:27] LABS: WHITE BLOOD COUNT 1.7 K/mm3 (4.0-10.0)
[2019-07-26 08:14] LABS: ALBUMIN 1.7 g/dl (3.4-5.0); BILIRUBIN,TOTAL 1.9 mg/dL (0.2-1); BLOOD UREA NITROGEN 4.8 mg/dL (7-18); CALCIUM 7.3 mg/dL (8.5-10.1); CREATININE 0.7 mg/dL (0.55-1.3); POTASSIUM 3.8 mmol/L (3.5-5.1); TOT PROT 5.6 g/dl (6.4-8.2)
[2019-07-26] MEDS ORDERED: DEXTROSE 5%-WATER 100 ML IVPB ONE (09:27)
[2019-07-26 09:31] LABS: INR 1.61 (0.83-1.09); PROTHROMBIN TIME (PATIENT) 19.1 SEC (9.7-13.0)
[2019-07-26] MEDS: PANTOPRAZOLE SODIUM 40 MG VIAL IVPUSH SCH (09:52)
[2019-07-26] MEDS: CEFTRIAXONE 2 GM in DEXTROSE 5%-WATER 100 ML IVPB SCH (09:53)
[2019-07-26 10:18] LABS: ANISOCYTOSIS 1+; MACROCYTOSIS 1+; PLATELET ESTIMATE DECREASED
[2019-07-26 13:53] VITALS: BMI 33.9
[2019-07-26] MEDS ORDERED: DEXTROSE 5%-NORMAL SALINE 1,000 ML IV SCH (14:00)
[2019-07-26] MEDS: SPIRONOLACTONE 25 MG TABLET (FP) PO SCH (16:11)
[2019-07-26] MEDS: URSODIOL 300 MG CAPSULE PO SCH ×2 (16:11→21:55)
[2019-07-26] MEDS: TAMSULOSIN HCL 0.4 MG CAP PO SCH (16:11)
[2019-07-26] MEDS: THIAMINE HCL 100 MG TABLET (FP) PO SCH ×2 (16:12→21:57)
[2019-07-26] MEDS: RIFAXIMIN 550 MG TABLET (UD) PO SCH ×2 (16:12→21:57)
[2019-07-26] MEDS: LACTULOSE 20 GM/30 ML UDC (FOR ORAL USE ONLY) PO SCH ×3 (16:12→21:55)
[2019-07-26] MEDS: NADOLOL 40 MG TABLET (FP) PO SCH (16:12)
[2019-07-26] MEDS: FUROSEMIDE 40 MG TABLET (FP) PO SCH (16:12)
[2019-07-26] MEDS: GABAPENTIN 300 MG CAPSULE (FP) PO SCH ×2 (16:12→21:56)
[2019-07-26] MEDS: SERTRALINE HCL 25 MG TABLET (FP) PO SCH (16:13)
--- NOTE | 2019-07-26 16:35 | ECHO ---
Name: BRYNN GANDHI Exam:Adult Echocardiogram Study Date: 07/26/2019 03:40 PM Age: 54 yrs Reason For Study: R/O Valve Disease Height: 65 in Weight: 204 lb BSA: 2.0 m2 BP: 96/83 mmHg MMode/2D Measurements & Calculations IVSd: 0.81 cm Ao root diam: 2.6 cm LVIDd: 5.4 cm LA dimension: 4.1 cm LVIDs: 3.7 cm LVPWd: 0.72 cm EDV(Teich): 141.2 ml LVOT diam: 2.1 cm ESV(Teich): 59.0 ml LAV (MOD-bp): 108.0 ml Doppler Measurements & Calculations MV E max miguel: 80.9 cm/sec Ao V2 max: 159.0 cm/sec MV A max miguel: 57.3 cm/sec Ao max P.1 mmHg MV E/A: 1.4 Ao V2 mean: 118.3 cm/sec MV dec time: 0.19 sec Ao mean P.1 mmHg Ao V2 VTI: 39.6 cm DENISHA(I,D): 1.7 cm2 DENISHA(V,D): 2.2 cm2 LV V1 max P.3 mmHg MR max miguel: 298.6 cm/sec LV V1 mean P.0 mmHg MR max P.7 mmHg LV V1 max: 103.2 cm/sec LV V1 mean: 66.7 cm/sec LV V1 VTI: 19.7 cm SV(LVOT): 66.2 ml TR max miguel: 196.2 cm/sec TR max P.5 mmHg Med Peak E' Miguel: 14.8 cm/sec Med E/e': 5.5 Lat Peak E' Miguel: 13.6 cm/sec Lat E/e': 6.0 Procedure A complete two-dimensional transthoracic echocardiogram was performed (2D, M-mode, Doppler and color flow Doppler). Left Ventricle The left ventricular size, thickness and function are normal. The left ventricular ejection fraction is normal. Ejection Fraction = 55-60%. The left ventricular wall motion is normal. Right Ventricle The right ventricle is normal in size and function. Atria The left atrium is mildly dilated. Right atrial size is normal. Mitral Valve There is no mitral regurgitation noted. Tricuspid Valve There is mild tricuspid regurgitation. Right ventricular systolic pressure is normal. Aortic Valve No hemodynamically significant valvular aortic stenosis. No aortic regurgitation is present. Pulmonic Valve There is no pulmonic valvular regurgitation. Great Vessels The aortic root is normal size. Pericardium/Pleura There is no pericardial effusion. Interpretation Summary The left ventricular size, thickness and function are normal The right ventricle is normal in size and function. The left atrium is mildly dilated. There is mild tricuspid regurgitation. MD Spike Pimentel 07/26/2019 04:34 PM
[2019-07-26 16:54] LABS: HEMATOCRIT 27.4 % (35.4-49); HEMOGLOBIN 9.1 GM/dL (11.7-16.9); MCH 33.6 pg (25.7-33.7); MCHC 33.1 g/dl (32.0-35.9); MEAN CELL VOLUME 101.5 fl (80-96); MEAN PLT VOLUME 10.2 fl (7.5-11.1); PLATELET COUNT 56 K/MM3 (134-434); RDW 17.3 % (11.9-15.9)
[2019-07-26 16:56] LABS: WHITE BLOOD COUNT 1.6 K/mm3 (4.0-10.0)
--- NOTE | 2019-07-26 17:01 | PN.GI ---
GI Progress Note Subjective: ? infarct on brain MRI Patient states feeling well No abdominal pain - Objective Vital Signs: Vital Signs Temperature 98.1 F 07/26/19 14:00 Pulse Rate 64 07/26/19 14:00 Respiratory Rate 14 07/26/19 14:00 Blood Pressure 119/68 07/26/19 14:00 O2 Sat by Pulse Oximetry (%) 99 07/25/19 21:00 Constitutional: Calm Eyes: No: Sclera Icterus Cardiovascular: Yes: Regular Rate and Rhythm Respiratory: Yes: CTA Bilaterally Gastrointestinal Inspection: No: Distention ...Auscultate: Yes: Normoactive Bowel Sounds ...Palpate: Yes: Soft. No: Tenderness ...Percussion: No: Tympanitic Neurological: No: Asterixis Labs: CBC, BMP 07/26/19 16:00 07/26/19 07:03 INR, PTT INR 1.61 (0.83-1.09) H 07/26/19 08:40 Problem List - Problems (1) Abdominal pain Assessment/Plan: Resolved Low suspicion for SBP. Patient is neutropneic. Cancelling paracentesis at this time until leukopenia addressed. Will need outpatient f/u With Dr. 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
--- NOTE | 2019-07-26 17:16 | PN ---
Physical Exam: SUBJECTIVE: Patient seen and examined. Pt had no complaints in the morning OBJECTIVE: Vital Signs Period Temp Pulse Resp BP Sys/Mckeon Pulse Ox Last 24 Hr 98.0 F-98.3 F 64-79 14-20 96-122/53-93 99 GENERAL: The patient is awake and alert. HEAD: Normal with no signs of trauma. EYES: PERRL, extraocular movements intact, sclera icteric, ENT: Ears normal, nares patent, oropharynx clear without exudates, moist mucous membranes. LUNGS: Breath sounds equal, clear to auscultation bilaterally, no wheezes, no crackles, no accessory muscle use. HEART: IRRegular rate and rhythm, S1, S2 without murmur, rub or gallop. ABDOMEN: Soft, nontender, nondistended, normoactive bowel sounds, no guarding, no rebound, no hepatosplenomegaly, no masses. EXTREMITIES: 2+ pulses, warm, well-perfused, no edema. NEUROLOGICAL: Cranial nerves II through XII grossly intact. Normal speech, gait not observed. SKIN: jaundiced with evidence of bruising Laboratory Results - last 24 hr 07/24/19 07/25/19 07/26/19 15:00 17:45 07:03 WBC 2.6 L 1.7 L* RBC 2.82 L 2.69 L Hgb 9.4 L 9.1 L Hct 28.3 L 27.2 L MCV 100.4 H 101.3 H MCH 33.5 34.0 H MCHC 33.3 33.5 RDW 17.2 H 17.3 H Plt Count 80 L D 59 L D MPV 10.7 9.9 Absolute Neuts (auto) 0.7 L Neutrophils % 40.3 L D Neutrophils % (Manual) 46.9 D Band Neutrophils % 0.0 Lymphocytes % 38.8 D Lymphocytes % (Manual) 30.6 D Monocytes % 15.7 H Monocytes % (Manual) 14 H Eosinophils % 3.9 Eosinophils % (Manual) 7.2 H Basophils % 1.3 D Basophils % (Manual) 0.0 Myelocytes % (Man) 0 Promyelocytes % (Man) 0 Blast Cells % (Manual) 0 Nucleated RBC % 0 Metamyelocytes 0 D Hypochromia 0 Platelet Estimate Decreased Polychromasia 0 Poikilocytosis 0 Anisocytosis 1+ Microcytosis 0 Macrocytosis 1+ Haptoglobin < 10 L PT with INR INR Sodium Potassium Chloride Carbon Dioxide Anion Gap BUN Creatinine Est GFR (CKD-EPI)AfAm Est GFR (CKD-EPI)NonAf Random Glucose Calcium Total Bilirubin AST ALT Alkaline Phosphatase Total Protein Albumin Vitamin B12 TSH 07/26/19 07/26/19 07/26/19 07:03 08:40 16:00 WBC 1.6 L* RBC 2.70 L Hgb 9.1 L Hct 27.4 L MCV 101.5 H MCH 33.6 MCHC 33.1 RDW 17.3 H Plt Count 56 L MPV 10.2 Absolute Neuts (auto) Neutrophils % Neutrophils % (Manual) Band Neutrophils % Lymphocytes % Lymphocytes % (Manual) Monocytes % Monocytes % (Manual) Eosinophils % Eosinophils % (Manual) Basophils % Basophils % (Manual) Myelocytes % (Man) Promyelocytes % (Man) Blast Cells % (Manual) Nucleated RBC % Metamyelocytes Hypochromia Platelet Estimate Polychromasia Poikilocytosis Anisocytosis Microcytosis Macrocytosis Haptoglobin PT with INR 19.10 H INR 1.61 H Sodium 138 Potassium 3.8 Chloride 107 Carbon Dioxide 28 Anion Gap 4 L BUN 4.8 L Creatinine 0.7 Est GFR (CKD-EPI)AfAm 123.13 Est GFR (CKD-EPI)NonAf 106.24 Random Glucose 82 Calcium 7.3 L Total Bilirubin 1.9 H AST 46 H ALT 25 Alkaline Phosphatase 163 H Total Protein 5.6 L Albumin 1.7 L Vitamin B12 1093 H TSH 4.61 H D Active Medications Generic Name Dose Route Start Last Admin Trade Name Freq PRN Reason Stop Dose Admin Furosemide 40 mg 07/26/19 10:00 07/26/19 16:12 Lasix - PO Not Given DAILY SANCHO Gabapentin 300 mg 07/26/19 10:00 07/26/19 16:12 Neurontin - PO Not Given BID SANCHO Ceftriaxone Sodium 2 gm/ 100 mls @ 100 mls/hr 07/26/19 10:00 07/26/19 09:53 Dextrose IVPB 100 mls/hr DAILY SANCHO Administration Protocol Dextrose/Sodium Chloride 1,000 mls @ 42 mls/hr 07/26/19 14:00 07/26/19 14:30 D5-Ns - IV 07/27/19 13:49 42 mls/hr ASDIR SANCHO Administration Lactulose 20 gm 07/26/19 10:00 07/26/19 16:12 Cephulac (Oral Use) PO Not Given QID [facility] Nadolol 40 mg 07/26/19 10:00 07/26/19 16:12 Corgard - PO Not Given DAILY SANCHO Pantoprazole Sodium 40 mg 07/26/19 10:00 07/26/19 09:52 Protonix Iv IVPUSH 40 mg DAILY [facility] Administration Rifaximin 550 mg 07/26/19 10:00 07/26/19 16:12 Xifaxan - PO Not Given BID SANCHO Sertraline HCl 25 mg 07/26/19 10:00 07/26/19 16:13 Zoloft - PO Not Given DAILY [facility] Spironolactone 75 mg 07/26/19 10:00 07/26/19 16:11 Aldactone - PO Not Given DAILY SANCHO Tamsulosin HCl 0.4 mg 07/26/19 08:30 07/26/19 16:11 Flomax - PO Not Given DAILY@0830 [facility] Thiamine HCl 100 mg 07/26/19 10:00 07/26/19 16:12 Vitamin B1 - PO Not Given BID SANCHO Ursodiol 300 mg 07/26/19 10:00 07/26/19 16:11 Actigal - PO Not Given BID [facility] ASSESSMENT/PLAN: 54 y/o man with h/o Hep C, ? Hep B , cirrhosis, pancytopenia, splenomegaly, portal hypertension , who presented with abd pain. he was found to be confused AMS: possible hepatic encephalopathy or stroke 2/2 facial droop pt neurologically intact facial droop improved CT of head no acute pathology, MRI showed punctate hyperdense region in L precentral gyri cont lactulose and Rifaximin ABd pain 2/2 portal vein thrombosis or gastritis or SBP. will continue ceftriaxone for now. Cont PPI Ascites moderate on CT abdomen. Per GI, diagnostic Paracentesis via IR drainage. per IR , Platelet needs to be optimized to 50k and INR of 1.50. pt platelet today was 80 then 59 and INR was 1.6 . pt to receive one more unit of platelet tomorrow .FFP as going down for procedure Cirrhosis records form [facility]. Pt had EGD most recent sep 2018 no acute bleed with positive varices. cont lactulose and Rifaximine. On transplant list resuming cirrhosis regimen Chronic macrocytic anemia/ pancytopenia likely due to liver disease recent B12 in 06/18 was 800 and folate was NL. wonder if he has a BM disorder ( MDS), or BM pathology form cirrhosis , or if he is actually drinking alcohol. will need to r/o hypothyroidism. follow TSH 4.61 FT4 pending, B12 high pancytopenia is chronic . iron studies Fe134, TIBC 238,Fe sat 56, Unsat IBC 104, Ferritin 576.5 EGD report available. rest per GI here further eval as out pt and heme f/u Visit type - Emergency Visit Emergency Visit: Yes ED Registration Date: 07/23/19 Care time: The patient presented to the Emergency Department on the above date and was hospitalized for further evaluation of their emergent condition. - New Patient This patient is new to me today: No - Critical Care Critical Care patient: Yes Total Critical Care Time (in minutes): 35 Critical Care Statement: The care of this patient involved high complexity decision making to prevent further life threatening deterioration of the patient 's condition and/or to evaluate & treat vital organ system(s) failure or risk of failure. - Discharge Referral Referred to [facility] No ATTENDING PHYSICIAN STATEMENT I saw and evaluated the patient. I reviewed the resident's note and discussed the case with the resident. I agree with the resident's findings and plan as documented. SUBJECTIVE: OBJECTIVE: ASSESSMENT AND PLAN:
--- NOTE | 2019-07-26 20:54 | PN ---
Teaching Attending Note Name of Resident: Victoria Mcgowan ATTENDING PHYSICIAN STATEMENT I saw and evaluated the patient. I reviewed the resident's note and discussed the case with the resident. I agree with the resident's findings and plan as documented. SUBJECTIVE: Patient is feeling better. Events noted , patient is in ICU OBJECTIVE: Vital Signs Temperature 98.1 F 07/26/19 14:00 Pulse Rate 73 07/26/19 18:00 Respiratory Rate 14 07/26/19 19:39 Blood Pressure 97/76 07/26/19 18:00 O2 Sat by Pulse Oximetry (%) 99 07/26/19 19:39 GENERAL: The patient is awake, alert, and fully oriented, in no acute distress. HEAD: Normal with no signs of trauma. EYES: PERRL, extraocular movements intact, sclera anicteric, conjunctiva clear. No ptosis. ENT: Ears normal, nares patent, oropharynx clear without exudates, moist mucous membranes. NECK: Trachea midline, full range of motion, supple. LUNGS: decreased Breath sounds bl , clear to auscultation bilaterally, no wheezes, no crackles, no accessory muscle use. HEART: Regular rate and rhythm, S1, S2 without murmur, rub or gallop. ABDOMEN: Soft, distended,NT, normoactive bowel sounds, no guarding, no rebound , no hepatomegaly no masses appreciated. EXTREMITIES: 2+ pulses, warm, well-perfused, no edema. NEUROLOGICAL: Cranial nerves II through XII grossly intact. Normal speech, gait not observed. PSYCH: Normal mood, normal affect. SKIN: Warm, dry, normal turgor, no rashes or lesions noted CBCD WBC 1.6 K/mm3 (4.0-10.0) L* 07/26/19 16:00 RBC 2.70 M/mm3 (4.00-5.60) L 07/26/19 16:00 Hgb 9.1 GM/dL (11.7-16.9) L 07/26/19 16:00 Hct 27.4 % (35.4-49) L 07/26/19 16:00 MCV 101.5 fl (80-96) H 07/26/19 16:00 MCHC 33.1 g/dl (32.0-35.9) 07/26/19 16:00 RDW 17.3 % (11.9-15.9) H 07/26/19 16:00 Plt Count 56 K/MM3 (134-434) L 07/26/19 16:00 MPV 10.2 fl (7.5-11.1) 07/26/19 16:00 CMP Sodium 138 mmol/L (136-145) 07/26/19 07:03 Potassium 3.8 mmol/L (3.5-5.1) 07/26/19 07:03 Chloride 107 mmol/L (98-107) 07/26/19 07:03 Carbon Dioxide 28 mmol/L (21-32) 07/26/19 07:03 Anion Gap 4 MMOL/L (8-16) L 07/26/19 07:03 BUN 4.8 mg/dL (7-18) L 07/26/19 07:03 Creatinine 0.7 mg/dL (0.55-1.3) 07/26/19 07:03 Random Glucose 82 mg/dL (74-106) 07/26/19 07:03 Calcium 7.3 mg/dL (8.5-10.1) L 07/26/19 07:03 Total Bilirubin 1.9 mg/dL (0.2-1) H 07/26/19 07:03 AST 46 U/L (15-37) H 07/26/19 07:03 ALT 25 U/L (13-61) 07/26/19 07:03 Alkaline Phosphatase 163 U/L (45-117) H 07/26/19 07:03 Total Protein 5.6 g/dl (6.4-8.2) L 07/26/19 07:03 Albumin 1.7 g/dl (3.4-5.0) L 07/26/19 07:03 CARDIAC ENZYMES Troponin I < 0.02 ng/ml (0.00-0.05) 07/23/19 19:28 Current Medications Generic Name Dose Route Start Last Admin Trade Name Freq PRN Reason Stop Dose Admin Furosemide 40 mg 07/26/19 10:00 07/26/19 16:12 Lasix - PO Not Given DAILY [facility] Gabapentin 300 mg 07/26/19 10:00 07/26/19 16:12 Neurontin - PO Not Given BID [facility] Ceftriaxone Sodium 2 gm/ 100 mls @ 100 mls/hr 07/26/19 10:00 07/26/19 09:53 Dextrose IVPB 100 mls/hr DAILY [facility] Administration Protocol Dextrose/Sodium Chloride 1,000 mls @ 42 mls/hr 07/26/19 14:00 07/26/19 14:30 D5-Ns - IV 07/27/19 13:49 42 mls/hr ASDIR [facility] Administration Lactulose 20 gm 07/26/19 10:00 07/26/19 17:31 Cephulac (Oral Use) PO 20 gm QID [facility] Administration Nadolol 40 mg 07/26/19 10:00 07/26/19 16:12 Corgard - PO Not Given DAILY [facility] Pantoprazole Sodium 40 mg 07/26/19 10:00 07/26/19 09:52 Protonix Iv IVPUSH 40 mg DAILY [facility] Administration Rifaximin 550 mg 07/26/19 10:00 07/26/19 16:12 Xifaxan - PO Not Given BID [facility] Sertraline HCl 25 mg 07/26/19 10:00 07/26/19 16:13 Zoloft - PO Not Given DAILY [facility] Spironolactone 75 mg 07/26/19 10:00 07/26/19 16:11 Aldactone - PO Not Given DAILY [facility] Tamsulosin HCl 0.4 mg 07/26/19 08:30 07/26/19 16:11 Flomax - PO Not Given DAILY@0830 [facility] Thiamine HCl 100 mg 07/26/19 10:00 07/26/19 16:12 Vitamin B1 - PO Not Given BID [facility] Ursodiol 300 mg 07/26/19 10:00 07/26/19 16:11 Actigal - PO Not Given BID [facility] Home Medications Medication Instructions Recorded Ursodiol [Actigal -] 300 mg PO BID 10/11/17 Sertraline HCl [Zoloft] 25 mg PO DAILY 01/25/18 Furosemide [Lasix -] 40 mg PO DAILY 12/11/18 Gabapentin [Neurontin -] 300 mg PO BID 05/28/19 Rifaximin [Xifaxan] 550 mg PO BID 05/28/19 Spironolactone [Aldactone] 25 mg PO TID 05/28/19 Tamsulosin HCl [Flomax] 0.4 mg PO DAILY 05/28/19 Ammonium Lactate Cream [Lac-Hydrin] 1 applic TP BID 07/24/19 Chlorhexidine Gluconate [Hibiclens 10 ml PO DAILY 07/24/19 For Decolonization -] Linaclotide [Linzess] 72 mcg PO DAILY 07/24/19 Omeprazole/Sodium Bicarbonate 1 each PO BID 07/24/19 [Omeprazole-Bicarb 40-1,100 Cap] Thiamine HCl [Vitamin B1] 100 mg PO BID 07/24/19 MRI of the brain: Acute cortical infarct measuring 5.7x2.5mm in the left precentral gyrus. ASSESSMENT AND PLAN: Patient is a 54 y/o man with h/o Hep C, liver cirrhosis, pancytopenia, splenomegaly, portal hypertension , who presented with abd pain with change of mental status. 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 likely embolic, echo result: left atrium mildly dilated, mild TR. carotids US ordered. # s/p AMS: most likely due to hepatic encephalopathy improved with ammonia level 62.9 yesterday continue lactulose and Rifaximin # Pancytopenia: Absolute neutrophil is 693. neutropenic isolation. consult hem/ onc and id # Abdominal pain: improved , no tenderness on my exam. patient is going for tap in am , not done today due to having thrombocytopenia but improving , INR is 2.0 , given vit k 7.5mg , will follow in am . called and discussed with IR for paracenthesis. - CT of abd images and report reviewed. US report reviewed. No pancreatitis, no evidence of gall bladder stones or cholecystitis. - will continue ceftriaxone, rifaximin, Gi on the case . if needed will give one unit of FFp before the procedure, Cont PPI outpatient f/u With Dr. Francis upon discharge. # H/o liver Cirrhosis: possible EGD if needed continue nadolol suggest esophageal varices. cont lactulose and Rifaximine. will obtain records form [facility] regarding previous tests. on transplant list # Chronic macrocytic anemia: recent B12 in 06/18 was 800 and folate was NL. # Alcoholic liver cirrhosis: PT/INR and platelets check, paracenthesis in am DVT Px; SCds, cheo't AC due to low platelets
[2019-07-26] MEDS ORDERED: PT OWN MED DRAWER 7, Y5N ONE (21:35)
--- NOTE | 2019-07-26 22:12 | CON.NEURO ---
Consult Consult Specialty:: NEUROLOGY-CATALINA WILSON - History of Present Illness History of Present Illness: 54 y/o/m with history of HEP B, HEP C, and cirrhosis here for abdominal pain that started at 7pm. He states that the pain is located near his epigastrium, is a 8/10 and radiating to his chest, it feels similar to abdominal pain that he has had in the past but the pain is worse this time. He states he had a BM at 2pm and did not see any blood in the stool. He also complains of some SOB due to the pain and chills. He reports some difficulty urinating today but denies dysuria. Patient is followed at [facility] and states he is waiting for a liver transplant. He denies any nausea, vomiting, fever, cough , dizziness, back pain or other symptoms. ER course was notable for: (1) U/S showed cirrhosis with small irregular heterogeneous liver and ascites that was not present on U/S in April 2019 (2) elevated T. Bili, elevated AST, thrombocytopenia and anemia MRI brain 07/24/19 reported with left cortical infarct in precentral gyrus. Pt. denies motor weakness and all otrher neurologic symptoms . 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: Yes: Other (hepatic encephalopathy) Cardio/Vascular: Yes: HTN Hepatobiliary: Yes: Cirrhosis (alcoholic), Hepatitis B, Hepatitis C (treated, virus negative) - Past Surgical History Past Surgical History: Yes: Appendectomy (2009 or earlier), Colonoscopy (Most recent: 02/2017) - Alcohol/Substance Use Hx Alcohol Use: Yes - Smoking History Smoking history: Unknown if ever smoked Have you smoked in the past 12 months: No Aproximately how many cigarettes per day: 0 Home Medications - Allergies Allergies/Adverse Reactions: Allergies Allergy/AdvReac Type Severity Reaction Status Date / Time No Known Allergies Allergy Verified 07/23/19 17:41 - Home Medications Home Medications: Ambulatory Orders Ursodiol [Actigal -] 300 mg PO BID 10/11/17 Sertraline HCl [Zoloft] 25 mg PO DAILY 01/25/18 Furosemide [Lasix -] 40 mg PO DAILY 12/11/18 Gabapentin [Neurontin -] 300 mg PO BID 05/28/19 Rifaximin [Xifaxan] 550 mg PO BID 05/28/19 Spironolactone [Aldactone] 25 mg PO TID 05/28/19 Tamsulosin HCl [Flomax] 0.4 mg PO DAILY 05/28/19 Ammonium Lactate Cream [Lac-Hydrin] 1 applic TP BID 07/24/19 Chlorhexidine Gluconate [Hibiclens For Decolonization -] 10 ml PO DAILY Linaclotide [Linzess] 72 mcg PO DAILY 07/24/19 Omeprazole/Sodium Bicarbonate [Omeprazole-Bicarb 40-1,100 Cap] 1 each PO BID Thiamine HCl [Vitamin B1] 100 mg PO BID 07/24/19 Physical Exam-Neuro Vital Signs: Vital Signs Temperature 98.1 F 07/26/19 14:00 Pulse Rate 73 07/26/19 18:00 Respiratory Rate 14 07/26/19 19:39 Blood Pressure 97/76 07/26/19 18:00 O2 Sat by Pulse Oximetry (%) 99 07/26/19 19:39 Labs: CBC, BMP 07/26/19 16:00 07/26/19 07:03 INR, PTT INR 1.61 (0.83-1.09) H 07/26/19 08:40 - Neuro Exam Level Of Consciousness: Yes: Alert, Oriented to Person, Oriented to Place, Oriented to Time (Follows all commands) DTR's: 0 Left Achilles, 0 Right Achilles (Left kne jerk-1+, reight 2+), 1+ Left Bicep, 1+ Right Bicep, 1+ Left Tricep, 1+ Right Tricep, 1+ Left Brachioradialis , 1+ Right Brachioradialis Babinski: Present (right) Response to light touch: Normal Response to pain prick: Normal Motor Strength: 5/5: Left Arm, Right Arm, Left Leg, Right Leg (+ RUE drift) Gait: Normal Assessment/Plan Patient is a 54 y/o man with h/o Hep C, liver cirrhosis, pancytopenia, splenomegaly, portal hypertension , who presented with abd pain with change of mental status. Mental status has improved, found to have a left cortical precentral gyrus infarct, likely emboloic. Suggest: Would hold antiplat. agent given he has low platelets, coagulopathy. Echocardiogram/carotid ultrasound Thank you, Keisha Traore MD
[2019-07-27 07:40] LABS: BASO % 0.6 % (0-2.0); EOS % 5.4 % (0-4.5); HEMATOCRIT 28.8 % (35.4-49); HEMOGLOBIN 9.8 GM/dL (11.7-16.9); LYMPH % 42.8 % (8-40); MCH 34.5 pg (25.7-33.7); MCHC 33.9 g/dl (32.0-35.9); MEAN CELL VOLUME 101.6 fl (80-96); MEAN PLT VOLUME 10.4 fl (7.5-11.1); MONO % 12.4 % (3.8-10.2); NEUT % 38.8 % (42.8-82.8); PLATELET COUNT 64 K/MM3 (134-434); RBC 2.84 M/mm3 (4.00-5.60); RDW 17.6 % (11.9-15.9)
[2019-07-27 07:42] LABS: INR 1.63 (0.83-1.09); PROTHROMBIN TIME (PATIENT) 19.3 SEC (9.7-13.0)
[2019-07-27 07:43] LABS: ALBUMIN 1.8 g/dl (3.4-5.0); BLOOD UREA NITROGEN 4.9 mg/dL (7-18); CALCIUM 7.3 mg/dL (8.5-10.1); CREATININE 0.7 mg/dL (0.55-1.3); MAGNESIUM 1.7 mg/dL (1.8-2.4); PHOSPHOROUS 2.7 mg/dL (2.5-4.9); POTASSIUM 3.9 mmol/L (3.5-5.1); TOT PROT 6.1 g/dl (6.4-8.2)
[2019-07-27 08:17] LABS: WHITE BLOOD COUNT 1.9 K/mm3 (4.0-10.0)
[2019-07-27] MEDS ORDERED: MAGNESIUM SULF 50% (8.12 MEQ/2 ML-1 GM VIAL) IVPB ONE (08:29)
[2019-07-27] MEDS ORDERED: PT OWN MED DRAWER 7, Y5N ONE ×2 (09:35→22:20)
[2019-07-27] MEDS ORDERED: DEXTROSE 5%-WATER 100 ML IVPB ONE (09:36)
[2019-07-27] MEDS: CEFTRIAXONE 2 GM in DEXTROSE 5%-WATER 100 ML IVPB SCH (09:49)
[2019-07-27] MEDS: LACTULOSE 20 GM/30 ML UDC (FOR ORAL USE ONLY) PO SCH ×4 (09:50→22:09)
[2019-07-27] MEDS: PANTOPRAZOLE SODIUM 40 MG VIAL IVPUSH SCH (09:50)
[2019-07-27] MEDS: NADOLOL 40 MG TABLET (FP) PO SCH (09:50)
[2019-07-27] MEDS: URSODIOL 300 MG CAPSULE PO SCH ×2 (09:50→22:10)
[2019-07-27] MEDS: GABAPENTIN 300 MG CAPSULE (FP) PO SCH ×2 (09:51→22:09)
[2019-07-27] MEDS: TAMSULOSIN HCL 0.4 MG CAP PO SCH (09:51)
[2019-07-27] MEDS: SPIRONOLACTONE 25 MG TABLET (FP) PO SCH (09:52)
[2019-07-27] MEDS: FUROSEMIDE 40 MG TABLET (FP) PO SCH (09:53)
[2019-07-27] MEDS: SERTRALINE HCL 25 MG TABLET (FP) PO SCH (09:53)
[2019-07-27] MEDS: RIFAXIMIN 550 MG TABLET (UD) PO SCH ×2 (09:53→22:10)
[2019-07-27] MEDS: THIAMINE HCL 100 MG TABLET (FP) PO SCH ×2 (09:54→22:09)
--- NOTE | 2019-07-27 09:54 | PN.GI ---
GI Progress Note Subjective: No acute events No abdominal pain States feeling well - Objective Vital Signs: Vital Signs Temperature 98.0 F 07/26/19 22:00 Pulse Rate 67 07/27/19 06:00 Respiratory Rate 20 07/27/19 09:00 Blood Pressure 105/76 07/27/19 06:00 O2 Sat by Pulse Oximetry (%) 97 07/27/19 09:00 Constitutional: Calm Eyes: No: Sclera Icterus Cardiovascular: Yes: Regular Rate and Rhythm Respiratory: Yes: CTA Bilaterally Gastrointestinal Inspection: No: Distention ...Auscultate: Yes: Normoactive Bowel Sounds ...Palpate: Yes: Soft. No: Tenderness Neurological: Yes: Alert Labs: CBC, BMP 07/27/19 06:10 07/27/19 06:10 INR, PTT INR 1.63 (0.83-1.09) H 07/27/19 06:10 Problem List - Problems (1) Abdominal pain Assessment/Plan: No abdominal pain Held off on paracentesis at this time given neutropenia. WBC improving The focal upper abdominal pain complaint similar to episodes in the past. Not c/ w SBP Heme evaluation Stopped protonix Continue rifaximin Neuro evaluation in progress States that he has appointment mid july with Dr. Francis, transplant service center assistant at [facility] Code(s): R10.9 - UNSPECIFIED ABDOMINAL PAIN Qualifiers: Abdominal location: epigastric Qualified Code(s): R10.13 - Epigastric pain
[2019-07-27 11:44] LABS: ANISOCYTOSIS 1+; MACROCYTOSIS 1+; PLATELET ESTIMATE DECREASED
--- NOTE | 2019-07-27 14:35 | PN ---
Teaching Attending Note Name of Resident: Victoria Mcgowan ATTENDING PHYSICIAN STATEMENT I saw and evaluated the patient. I reviewed the resident's note and discussed the case with the resident. I agree with the resident's findings and plan as documented. SUBJECTIVE: No new complains. OBJECTIVE: Vital Signs Temperature 98.2 F 07/27/19 10:00 Pulse Rate 67 07/27/19 10:00 Respiratory Rate 22 H 07/27/19 10:00 Blood Pressure 111/69 07/27/19 10:00 O2 Sat by Pulse Oximetry (%) 97 07/27/19 09:00 GENERAL: The patient is awake, alert, and fully oriented, in no acute distress. HEAD: Normal with no signs of trauma. EYES: PERRL, extraocular movements intact, sclera anicteric, conjunctiva clear. ENT: Ears normal, oropharynx clear without exudates, moist mucous membranes. NECK: Trachea midline, full range of motion, supple. LUNGS: decreased Breath sounds bl , clear to auscultation bilaterally, no wheezes, no crackles, no accessory muscle use. HEART: Regular rate and rhythm, S1, S2 without murmur, rub or gallop. ABDOMEN: Soft, distended,NT, normoactive bowel sounds, no guarding, no rebound , + hepatomegaly EXTREMITIES: 2+ pulses, warm, well-perfused, no edema. NEUROLOGICAL: Cranial nerves II through XII grossly intact. Normal speech, gait not observed. PSYCH: Normal mood, normal affect. SKIN: Warm, dry, normal turgor, no rashes or lesions noted CBCD WBC 1.9 K/mm3 (4.0-10.0) L* 07/27/19 06:10 RBC 2.84 M/mm3 (4.00-5.60) L 07/27/19 06:10 Hgb 9.8 GM/dL (11.7-16.9) L 07/27/19 06:10 Hct 28.8 % (35.4-49) L 07/27/19 06:10 MCV 101.6 fl (80-96) H 07/27/19 06:10 MCHC 33.9 g/dl (32.0-35.9) 07/27/19 06:10 RDW 17.6 % (11.9-15.9) H 07/27/19 06:10 Plt Count 64 K/MM3 (134-434) L 07/27/19 06:10 MPV 10.4 fl (7.5-11.1) 07/27/19 06:10 CMP Sodium 138 mmol/L (136-145) 07/27/19 06:10 Potassium 3.9 mmol/L (3.5-5.1) 07/27/19 06:10 Chloride 107 mmol/L (98-107) 07/27/19 06:10 Carbon Dioxide 27 mmol/L (21-32) 07/27/19 06:10 Anion Gap 5 MMOL/L (8-16) L 07/27/19 06:10 BUN 4.9 mg/dL (7-18) L 07/27/19 06:10 Creatinine 0.7 mg/dL (0.55-1.3) 07/27/19 06:10 Random Glucose 83 mg/dL (74-106) 07/27/19 06:10 Calcium 7.3 mg/dL (8.5-10.1) L 07/27/19 06:10 Total Bilirubin 2.0 mg/dL (0.2-1) H 07/27/19 06:10 AST 50 U/L (15-37) H 07/27/19 06:10 ALT 28 U/L (13-61) 07/27/19 06:10 Alkaline Phosphatase 163 U/L (45-117) H 07/27/19 06:10 Total Protein 6.1 g/dl (6.4-8.2) L 07/27/19 06:10 Albumin 1.8 g/dl (3.4-5.0) L 07/27/19 06:10 CARDIAC ENZYMES Troponin I < 0.02 ng/ml (0.00-0.05) 07/23/19 19:28 Current Medications Generic Name Dose Route Start Last Admin Trade Name Freq PRN Reason Stop Dose Admin Furosemide 40 mg 07/26/19 10:00 07/27/19 09:53 Lasix - PO 40 mg DAILY [facility] Administration Gabapentin 300 mg 07/26/19 10:00 07/27/19 09:51 Neurontin - PO 300 mg BID [facility] Administration Ceftriaxone Sodium 2 gm/ 100 mls @ 100 mls/hr 07/26/19 10:00 07/27/19 09:49 Dextrose IVPB 100 mls/hr DAILY [facility] Administration Protocol Lactulose 20 gm 07/26/19 10:00 07/27/19 14:07 Cephulac (Oral Use) PO 20 gm QID [facility] Administration Nadolol 40 mg 07/26/19 10:00 07/27/19 09:50 Corgard - PO 40 mg DAILY [facility] Administration Rifaximin 550 mg 07/26/19 10:00 07/27/19 09:53 Xifaxan - PO 550 mg BID [facility] Administration Sertraline HCl 25 mg 07/26/19 10:00 07/27/19 09:53 Zoloft - PO 25 mg DAILY [facility] Administration Spironolactone 75 mg 07/26/19 10:00 07/27/19 09:52 Aldactone - PO 75 mg DAILY [facility] Administration Tamsulosin HCl 0.4 mg 07/26/19 08:30 07/27/19 09:51 Flomax - PO 0.4 mg DAILY@0830 [facility] Administration Thiamine HCl 100 mg 07/26/19 10:00 07/27/19 09:54 Vitamin B1 - PO 100 mg BID [facility] Administration Ursodiol 300 mg 07/26/19 10:00 07/27/19 09:50 Actigal - PO 300 mg BID [facility] Administration Home Medications Medication Instructions Recorded Ursodiol [Actigal -] 300 mg PO BID 10/11/17 Sertraline HCl [Zoloft] 25 mg PO DAILY 01/25/18 Furosemide [Lasix -] 40 mg PO DAILY 12/11/18 Gabapentin [Neurontin -] 300 mg PO BID 05/28/19 Rifaximin [Xifaxan] 550 mg PO BID 05/28/19 Spironolactone [Aldactone] 25 mg PO TID 05/28/19 Tamsulosin HCl [Flomax] 0.4 mg PO DAILY 05/28/19 Ammonium Lactate Cream [Lac-Hydrin] 1 applic TP BID 07/24/19 Chlorhexidine Gluconate [Hibiclens 10 ml PO DAILY 07/24/19 For Decolonization -] Linaclotide [Linzess] 72 mcg PO DAILY 07/24/19 Omeprazole/Sodium Bicarbonate 1 each PO BID 07/24/19 [Omeprazole-Bicarb 40-1,100 Cap] Thiamine HCl [Vitamin B1] 100 mg PO BID 07/24/19 CT of abd images and report reviewed. US report reviewed. No pancreatitis, no evidence of gall bladder stones or cholecystitis MRI of the brain: Acute cortical infarct measuring 5.7x2.5mm in the left precentral gyrus. ASSESSMENT AND PLAN: Patient is a 54 y/o man with h/o Hep C, liver cirrhosis, pancytopenia, splenomegaly, portal hypertension , who presented with abd pain with change of mental status. 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 likely embolic, echo result: left atrium mildly dilated, mild TR. carotids US of carotid within normal limit. Neuro on the case. # s/p AMS: most likely due to hepatic encephalopathy improved with ammonia level 62.9 yesterday ,lactulose, continue Rifaximin # Pancytopenia: Absolute neutrophil is 693. neutropenic isolation. consult hem/ onc and id # Abdominal pain: improved ,no tenderness on my exam. Will continue ceftriaxone , rifaximin, Gi on the case . f/u With Dr. Francis upon discharge. # Thrombocytopenia, INR is 2.0 , s/p vit k 7.5mg , not for IR paracenthesis today . # H/o liver Cirrhosis: possible EGD if needed continue nadolol suggest esophageal varices. cont lactulose and Rifaximine , lasix will obtain records form [facility] regarding previous tests. on transplant list # Chronic macrocytic anemia: recent B12 in 06/18 was 800 and folate was NL. # Alcoholic liver cirrhosis: PT/INR and platelets check, paracenthesis when stable DVT Px; SCds, cheo't AC due to low platelets
--- NOTE | 2019-07-27 15:11 | PN ---
Physical Exam: SUBJECTIVE: Patient seen and examined. Pt offered no complaints of fevers, weakness or sensory loss or abdominal pain. OBJECTIVE: Vital Signs Period Temp Pulse Resp BP Sys/Mckeon Pulse Ox Last 24 Hr 98.0 F-98.2 F 67-73 14-22 97-111/57-95 97-99 GENERAL: The patient is awake and alert AAOx3 HEAD: Normal with no signs of trauma. EYES: PERRL, extraocular movements intact, sclera anicteric, ENT: Ears normal, nares patent, oropharynx clear without exudates, moist mucous membranes. LUNGS: Breath sounds equal, clear to auscultation bilaterally, no wheezes, no crackles, no accessory muscle use. HEART: Regular rate and rhythm, S1, S2 without murmur, rub or gallop. ABDOMEN: Soft, nontender, nondistended, normoactive bowel sounds, no guarding, no rebound, no hepatosplenomegaly, no masses. EXTREMITIES: 2+ pulses, warm, well-perfused, no edema. NEUROLOGICAL: Cranial nerves II through XII grossly intact. Normal speech, gait not observed. SKIN: minimwl jaundiced with evidence of bruising and gynecomastia Laboratory Results - last 24 hr 07/26/19 07/27/19 07/27/19 16:00 06:10 06:10 WBC 1.6 L* 1.9 L* RBC 2.70 L 2.84 L Hgb 9.1 L 9.8 L Hct 27.4 L 28.8 L MCV 101.5 H 101.6 H MCH 33.6 34.5 H MCHC 33.1 33.9 RDW 17.3 H 17.6 H Plt Count 56 L 64 L MPV 10.2 10.4 Absolute Neuts (auto) 0.7 L Neutrophils % 38.8 L Neutrophils % (Manual) 53.6 Band Neutrophils % 1.0 Lymphocytes % 42.8 H Lymphocytes % (Manual) 30.9 Monocytes % 12.4 H Monocytes % (Manual) 8 Eosinophils % 5.4 H Eosinophils % (Manual) 2.1 Basophils % 0.6 Basophils % (Manual) 0.0 Myelocytes % (Man) 0 Promyelocytes % (Man) 0 Blast Cells % (Manual) 0 Nucleated RBC % 0 Metamyelocytes 0 Hypochromia 0 Platelet Estimate Decreased Polychromasia 0 Poikilocytosis 0 Anisocytosis 1+ Microcytosis 0 Macrocytosis 1+ PT with INR 19.30 H INR 1.63 H Sodium Potassium Chloride Carbon Dioxide Anion Gap BUN Creatinine Est GFR (CKD-EPI)AfAm Est GFR (CKD-EPI)NonAf Random Glucose Calcium Phosphorus Magnesium Total Bilirubin AST ALT Alkaline Phosphatase Total Protein Albumin 07/27/19 06:10 WBC RBC Hgb Hct MCV MCH MCHC RDW Plt Count MPV Absolute Neuts (auto) Neutrophils % Neutrophils % (Manual) Band Neutrophils % Lymphocytes % Lymphocytes % (Manual) Monocytes % Monocytes % (Manual) Eosinophils % Eosinophils % (Manual) Basophils % Basophils % (Manual) Myelocytes % (Man) Promyelocytes % (Man) Blast Cells % (Manual) Nucleated RBC % Metamyelocytes Hypochromia Platelet Estimate Polychromasia Poikilocytosis Anisocytosis Microcytosis Macrocytosis PT with INR INR Sodium 138 Potassium 3.9 Chloride 107 Carbon Dioxide 27 Anion Gap 5 L BUN 4.9 L Creatinine 0.7 Est GFR (CKD-EPI)AfAm 123.13 Est GFR (CKD-EPI)NonAf 106.24 Random Glucose 83 Calcium 7.3 L Phosphorus 2.7 Magnesium 1.7 L Total Bilirubin 2.0 H AST 50 H ALT 28 Alkaline Phosphatase 163 H Total Protein 6.1 L Albumin 1.8 L Active Medications Generic Name Dose Route Start Last Admin Trade Name Kendall PRN Reason Stop Dose Admin Furosemide 40 mg 07/26/19 10:00 07/27/19 09:53 Lasix - PO 40 mg DAILY [facility] Administration Gabapentin 300 mg 07/26/19 10:00 07/27/19 09:51 Neurontin - PO 300 mg BID [facility] Administration Ceftriaxone Sodium 2 gm/ 100 mls @ 100 mls/hr 07/26/19 10:00 07/27/19 09:49 Dextrose IVPB 100 mls/hr DAILY [facility] Administration Protocol Lactulose 20 gm 07/26/19 10:00 07/27/19 14:07 Cephulac (Oral Use) PO 20 gm QID [facility] Administration Nadolol 40 mg 07/26/19 10:00 07/27/19 09:50 Corgard - PO 40 mg DAILY [facility] Administration Rifaximin 550 mg 07/26/19 10:00 07/27/19 09:53 Xifaxan - PO 550 mg BID [facility] Administration Sertraline HCl 25 mg 07/26/19 10:00 07/27/19 09:53 Zoloft - PO 25 mg DAILY [facility] Administration Spironolactone 75 mg 07/26/19 10:00 07/27/19 09:52 Aldactone - PO 75 mg DAILY [facility] Administration Tamsulosin HCl 0.4 mg 07/26/19 08:30 07/27/19 09:51 Flomax - PO 0.4 mg DAILY@0830 [facility] Administration Thiamine HCl 100 mg 07/26/19 10:00 07/27/19 09:54 Vitamin B1 - PO 100 mg BID [facility] Administration Ursodiol 300 mg 07/26/19 10:00 07/27/19 09:50 Actigal - PO 300 mg BID [facility] Administration ASSESSMENT/PLAN: 54 y/o man with h/o Hep C, ? Hep B , cirrhosis, pancytopenia, splenomegaly, portal hypertension , who presented with abd pain. he was found to be confused AMS: possible hepatic encephalopathy or stroke 2/2 facial droop pt neurologically intact facial droop improved. mentation back to baseline pt AAOx3 CT of head no acute pathology, MRI showed punctate hyperdense region in L precentral gyri cont lactulose and Rifaximin Neuro evaluation: Would hold antiplat. agent given he has low platelets, coagulopathy. Echocardiogram/carotid ultrasound ABd pain 2/2 portal vein thrombosis or gastritis or SBP. Per GI Held off on paracentesis at this time given neutropenia. WBC today 1.9 The focal upper abdominal pain complaint similar to episodes in the past. Not c/w SBP. Stopped protonix Cirrhosis records form [facility]. Pt had EGD most recent sep 2018 no acute bleed with positive varices. cont lactulose and Rifaximine. On transplant list resuming cirrhosis regimen pancytopenia likely due to liver disease recent B12 in 06/18 was 800 and folate was NL. today WBC 1.9, RBC 9.8, Plts 64 all improving TSH 4.61 FT4 pending, B12 high pancytopenia is chronic . Heme consulted As per ID monitor off antibiotics EGD report available. rest per GI here Visit type - Emergency Visit Emergency Visit: Yes ED Registration Date: 07/23/19 Care time: The patient presented to the Emergency Department on the above date and was hospitalized for further evaluation of their emergent condition. - New Patient This patient is new to me today: No - Critical Care Critical Care patient: Yes Total Critical Care Time (in minutes): 35 Critical Care Statement: The care of this patient involved high complexity decision making to prevent further life threatening deterioration of the patient 's condition and/or to evaluate & treat vital organ system(s) failure or risk of failure. - Discharge Referral Referred to [facility] No ATTENDING PHYSICIAN STATEMENT I saw and evaluated the patient. I reviewed the resident's note and discussed the case with the resident. I agree with the resident's findings and plan as documented. SUBJECTIVE: OBJECTIVE: ASSESSMENT AND PLAN:
--- NOTE | 2019-07-27 15:22 | PN ---
Progress Note (short form) - Note Progress Note: ID CONSULT DICTATED CHRONIC PANCYTOPENIA/ NEUTROPENIA DOUBT INFECTIOUS PROCESS OBSERVE OFF ANTIBIOTICS
--- NOTE | 2019-07-27 16:37 | CONSULT ---
Consultation: REQUESTING PROVIDER: Dr. Jennings CONSULT REQUEST: Hematology and oncology initial evaluation We have been asked to medically evaluate this patient for Pancytopenia. HISTORY OF PRESENT ILLNESS: Patient is marshallese speaking. 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 CT showed evidence of portal hypertension with ascites. The patient was admitted for altered mental status to rule out stroke versus hepatic encephalopathy. The patient was treated with protonix and rifaximin. Neurology and gastroenterology were consulted. The patient improved clinically, but his pancytopenia persisted. 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 The patient has received 2 units of platelets this admission. On interview, the patient is well appearing and has no complaints. Patient denies bleeding or fevers. He states that he has always had low platelets and low white blood cells ever since he was diagnosed with liver disease. Upon chart review, the patient has been pancytopenic during many of his admissions here. His WBC has gone as low as 1.5 in 2018 and his platelets have gone as low as 28 in 2018. Patient denies any family history of blood abnormalities or cancers in general. Patient denies recent travel. REVIEW OF SYSTEMS: CONSTITUTIONAL: Absent: fever, chills, diaphoresis, generalized weakness, malaise, loss of appetite, weight change HEENT: Absent: rhinorrhea, nasal congestion, throat pain, throat swelling, difficulty swallowing, mouth swelling, ear pain, eye pain, visual changes CARDIOVASCULAR: Absent: chest pain, syncope, palpitations, irregular heart rate, lightheadedness , peripheral edema RESPIRATORY: Absent: cough, shortness of breath, dyspnea with exertion, orthopnea, wheezing, stridor, hemoptysis GASTROINTESTINAL: Absent: abdominal distension, nausea, vomiting, diarrhea, constipation, melena, hematochezia GENITOURINARY: Absent: dysuria, frequency, urgency, hesitancy, hematuria, flank pain, genital pain MUSCULOSKELETAL: Absent: myalgia, arthralgia, joint swelling, back pain, neck pain SKIN: Absent: rash, itching, pallor HEMATOLOGIC/IMMUNOLOGIC: Absent: easy bleeding, easy bruising, lymphadenopathy, frequent infections ENDOCRINE: Absent: unexplained weight gain, unexplained weight loss, heat intolerance, cold intolerance NEUROLOGIC: Absent: headache, focal weakness or paresthesias, dizziness, unsteady gait, seizure, mental status changes, bladder or bowel incontinence PSYCHIATRIC: Absent: anxiety, depression, suicidal or homicidal ideation, hallucinations. PHYSICAL EXAMINATION Vital Signs - 24 hr 07/26/19 07/26/19 07/26/19 18:00 19:39 22:00 Temperature 98.0 F Pulse Rate 73 70 Respiratory 14 14 18 Rate Blood Pressure 97/76 107/95 O2 Sat by Pulse 99 Oximetry (%) 07/27/19 07/27/19 07/27/19 00:00 06:00 09:00 Temperature Pulse Rate 67 Respiratory 20 20 20 Rate Blood Pressure 102/76 105/76 O2 Sat by Pulse 97 Oximetry (%) 07/27/19 10:00 Temperature 98.2 F Pulse Rate 67 Respiratory 22 H Rate Blood Pressure 111/69 O2 Sat by Pulse Oximetry (%) GENERAL: Awake, alert, and fully oriented, in no acute distress. HEAD: Normal with no signs of trauma. NECK: Normal range of motion, supple without lymphadenopathy, JVD, or masses. LUNGS: Breath sounds equal, clear to auscultation bilaterally. No wheezes, and no crackles. No accessory muscle use. HEART: Regular rate and rhythm, normal S1 and S2 without murmur, rub or gallop. Breast: No masses, no lymphadenopathy palpated ABDOMEN: Soft, nontender, not distended, normoactive bowel sounds. Genitals: No masses felt on scrotum. Both testicles normal in size and smooth. No penile lesions. No inguinal lymphadenopathy. LOWER EXTREMITIES: 2+ pulses, warm, well-perfused. No calf tenderness. No peripheral edema. NEUROLOGICAL: Cranial nerves II-X intact. Normal speech. Laboratory Results - last 24 hr 07/26/19 07/27/19 07/27/19 16:00 06:10 06:10 WBC 1.6 L* 1.9 L* RBC 2.70 L 2.84 L Hgb 9.1 L 9.8 L Hct 27.4 L 28.8 L MCV 101.5 H 101.6 H MCH 33.6 34.5 H MCHC 33.1 33.9 RDW 17.3 H 17.6 H Plt Count 56 L 64 L MPV 10.2 10.4 Absolute Neuts (auto) 0.7 L Neutrophils % 38.8 L Neutrophils % (Manual) 53.6 Band Neutrophils % 1.0 Lymphocytes % 42.8 H Lymphocytes % (Manual) 30.9 Monocytes % 12.4 H Monocytes % (Manual) 8 Eosinophils % 5.4 H Eosinophils % (Manual) 2.1 Basophils % 0.6 Basophils % (Manual) 0.0 Myelocytes % (Man) 0 Promyelocytes % (Man) 0 Blast Cells % (Manual) 0 Nucleated RBC % 0 Metamyelocytes 0 Hypochromia 0 Platelet Estimate Decreased Polychromasia 0 Poikilocytosis 0 Anisocytosis 1+ Microcytosis 0 Macrocytosis 1+ PT with INR 19.30 H INR 1.63 H Sodium Potassium Chloride Carbon Dioxide Anion Gap BUN Creatinine Est GFR (CKD-EPI)AfAm Est GFR (CKD-EPI)NonAf Random Glucose Calcium Phosphorus Magnesium Total Bilirubin AST ALT Alkaline Phosphatase Total Protein Albumin 07/27/19 06:10 WBC RBC Hgb Hct MCV MCH MCHC RDW Plt Count MPV Absolute Neuts (auto) Neutrophils % Neutrophils % (Manual) Band Neutrophils % Lymphocytes % Lymphocytes % (Manual) Monocytes % Monocytes % (Manual) Eosinophils % Eosinophils % (Manual) Basophils % Basophils % (Manual) Myelocytes % (Man) Promyelocytes % (Man) Blast Cells % (Manual) Nucleated RBC % Metamyelocytes Hypochromia Platelet Estimate Polychromasia Poikilocytosis Anisocytosis Microcytosis Macrocytosis PT with INR INR Sodium 138 Potassium 3.9 Chloride 107 Carbon Dioxide 27 Anion Gap 5 L BUN 4.9 L Creatinine 0.7 Est GFR (CKD-EPI)AfAm 123.13 Est GFR (CKD-EPI)NonAf 106.24 Random Glucose 83 Calcium 7.3 L Phosphorus 2.7 Magnesium 1.7 L Total Bilirubin 2.0 H AST 50 H ALT 28 Alkaline Phosphatase 163 H Total Protein 6.1 L Albumin 1.8 L Active Medications Generic Name Dose Route Start Last Admin Trade Name Freq PRN Reason Stop Dose Admin Furosemide 40 mg 07/26/19 10:00 07/27/19 09:53 Lasix - PO 40 mg DAILY SANCHO Administration Gabapentin 300 mg 07/26/19 10:00 07/27/19 09:51 Neurontin - PO 300 mg BID SANCHO Administration Lactulose 20 gm 07/26/19 10:00 07/27/19 14:07 Cephulac (Oral Use) PO 20 gm QID SANCHO Administration Nadolol 40 mg 07/26/19 10:00 07/27/19 09:50 Corgard - PO 40 mg DAILY SANCHO Administration Rifaximin 550 mg 07/26/19 10:00 07/27/19 09:53 Xifaxan - PO 550 mg BID SANCHO Administration Sertraline HCl 25 mg 07/26/19 10:00 07/27/19 09:53 Zoloft - PO 25 mg DAILY SANCHO Administration Spironolactone 75 mg 07/26/19 10:00 07/27/19 09:52 Aldactone - PO 75 mg DAILY SANCHO Administration Tamsulosin HCl 0.4 mg 07/26/19 08:30 07/27/19 09:51 Flomax - PO 0.4 mg DAILY@0830 SANCHO Administration Thiamine HCl 100 mg 07/26/19 10:00 07/27/19 09:54 Vitamin B1 - PO 100 mg BID SANCHO Administration Ursodiol 300 mg 07/26/19 10:00 07/27/19 09:50 Actigal - PO 300 mg BID SANCHO Administration ASSESSMENT/PLAN: The patient is a 54 yo m w/ PMH hepatitis c with resulting liver cirrhosis ( medical care at [facility]; patient is on transplant list there) and pancytopenia who presented to the ED c/o abdominal pain and altered mental status.We panda been asked to evaluate the patient for pancytopenia #Pancytopenia -Per patient and EMR, this appears to be chronic in nature -His blood abnormalities are likely 2/2 to his existing liver disease. -The patient s/p 2 units platelets this admission -The patient is not having any overt bleeding episodes at this time -Would recommend monitoring CBC and observing at this time. -Maintain normal transfusion thresholds. -Patient to follow up as scheduled at [facility] Visit type - Emergency Visit Emergency Visit: Yes ED Registration Date: 07/23/19 Care time: The patient presented to the Emergency Department on the above date and was hospitalized for further evaluation of their emergent condition. - New Patient This patient is new to me today: Yes Date on this admission: 07/27/19 - Critical Care Critical Care patient: Yes Total Critical Care Time (in minutes): 35 Critical Care Statement: The care of this patient involved high complexity decision making to prevent further life threatening deterioration of the patient 's condition and/or to evaluate & treat vital organ system(s) failure or risk of failure. ATTENDING PHYSICIAN STATEMENT I saw and evaluated the patient. I reviewed the resident's note and discussed the case with the resident. I agree with the resident's findings and plan as documented. SUBJECTIVE: OBJECTIVE: ASSESSMENT AND PLAN:
--- NOTE | 2019-07-27 17:03 | PN ---
Teaching Attending Note Name of Resident: Geoff Woods ATTENDING PHYSICIAN STATEMENT I saw and evaluated the patient. I reviewed the resident's note and discussed the case with the resident. I agree with the resident's findings and plan as documented. SUBJECTIVE: Patient seen and examined Presented with change in mental status . Found to have cortical infarct Noted to be pancytopenic. Review of past records reveal cytopenias dating back 1+ years. Had abdominal CT scan revealing cirrhosis, varicosities, splenomegaly, ascites, gall stones Past history of hepatitis C. Last Vital Signs Temp Pulse Resp BP Pulse Ox 98.2 F 67 22 H 111/69 97 07/27/19 10:00 07/27/19 10:00 07/27/19 10:07/27/19 10:07/27/19 09:00 HEENT: [place], EOM Intact Oropharynx: No thrush, No mucositis Neck: Supple Nodes: Without adenopathy Cor: RSR, No murmurs, No gallops Lungs: Clear to P&A Abd: Soft, Normal bowel sounds, No organomegaly, ascites testes descended uncircumcised Ext:No significant edema Skin: No rashes, Integument intact, LE stasis CBC, BMP 07/27/19 06:10 07/27/19 06:10 Current Medications Generic Name Dose Route Start Last Admin Trade Name Kendall PRN Reason Stop Dose Admin Furosemide 40 mg 07/26/19 10:00 07/27/19 09:53 Lasix - PO 40 mg DAILY SANCHO Administration Gabapentin 300 mg 07/26/19 10:00 07/27/19 09:51 Neurontin - PO 300 mg BID SANCHO Administration Lactulose 20 gm 07/26/19 10:00 07/27/19 14:07 Cephulac (Oral Use) PO 20 gm QID SANCHO Administration Nadolol 40 mg 07/26/19 10:00 07/27/19 09:50 Corgard - PO 40 mg DAILY SANCHO Administration Rifaximin 550 mg 07/26/19 10:00 07/27/19 09:53 Xifaxan - PO 550 mg BID SANCHO Administration Sertraline HCl 25 mg 07/26/19 10:00 07/27/19 09:53 Zoloft - PO 25 mg DAILY SANCHO Administration Spironolactone 75 mg 07/26/19 10:00 07/27/19 09:52 Aldactone - PO 75 mg DAILY SANCHO Administration Tamsulosin HCl 0.4 mg 07/26/19 08:30 07/27/19 09:51 Flomax - PO 0.4 mg DAILY@0830 SANCHO Administration Thiamine HCl 100 mg 07/26/19 10:00 07/27/19 09:54 Vitamin B1 - PO 100 mg BID SANCHO Administration Ursodiol 300 mg 07/26/19 10:00 07/27/19 09:50 Actigal - PO 300 mg BID SANCHO Administration OBJECTIVE: Impression: History of liver disease with cirrhosis, splenic varices, splenomegaly consistent with pancytopenia secondary to portal hypertension and hypersplenism. Apparently has been seen at [facility] - liver service. Pancytopenia dates back 1+ years. Has normal B-12, folate, TSH levels. Suggest follow up at [facility]. ASSESSMENT AND PLAN:
[2019-07-28 07:15] LABS: BASO % 0.4 % (0-2.0); EOS % 4.7 % (0-4.5); HEMATOCRIT 28.1 % (35.4-49); HEMOGLOBIN 9.6 GM/dL (11.7-16.9); LYMPH % 39.5 % (8-40); MCH 34.5 pg (25.7-33.7); MCHC 34.1 g/dl (32.0-35.9); MEAN CELL VOLUME 101.4 fl (80-96); MEAN PLT VOLUME 10.6 fl (7.5-11.1); MONO % 12.3 % (3.8-10.2); NEUT % 43.1 % (42.8-82.8); PLATELET COUNT 56 K/MM3 (134-434); RBC 2.77 M/mm3 (4.00-5.60); RDW 17.5 % (11.9-15.9); WHITE BLOOD COUNT 2.2 K/mm3 (4.0-10.0)
[2019-07-28 07:48] LABS: ALBUMIN 1.8 g/dl (3.4-5.0); BILIRUBIN,TOTAL 1.9 mg/dL (0.2-1); BLOOD UREA NITROGEN 3.4 mg/dL (7-18); CALCIUM 7.6 mg/dL (8.5-10.1); CREATININE 0.6 mg/dL (0.55-1.3)
--- NOTE | 2019-07-28 08:15 | PN.GI ---
GI Progress Note Subjective: no complaints this morning - denies abd pain / n/v/ melena/ brbr - Objective Vital Signs: Vital Signs Temperature 98.2 F 07/28/19 01:37 Pulse Rate 78 07/28/19 01:37 Respiratory Rate 20 07/28/19 01:37 Blood Pressure 104/66 07/28/19 01:37 O2 Sat by Pulse Oximetry (%) 100 07/27/19 21:00 Constitutional: Well Nourished, No Distress, Calm Eyes: Yes: Sclera Icterus HENT: Yes: WNL Neck: Yes: WNL Cardiovascular: Yes: WNL Respiratory: Yes: WNL, Regular, CTA Bilaterally Gastrointestinal Inspection: Yes: Ascites ...Auscultate: Yes: Normoactive Bowel Sounds, Other (not tender ; nml bs ; + ascites) Extremities: Yes: WNL Edema: Yes Labs: CBC, BMP 07/28/19 06:35 07/28/19 06:35 INR, PTT INR 1.63 (0.83-1.09) H 07/27/19 06:10 Problem List - Problems (1) Abdominal pain Assessment/Plan: paracentesis not done secondary to neutropenia c/w rifaximin. two gram sodium diet c/w lasix / aldactone - monitor daily weights ; am cmet / cbc avoid nsaid Code(s): R10.9 - UNSPECIFIED ABDOMINAL PAIN Qualifiers: Abdominal location: epigastric Qualified Code(s): R10.13 - Epigastric pain (2) Cirrhosis Code(s): K74.60 - UNSPECIFIED CIRRHOSIS OF LIVER Qualifiers: Hepatic cirrhosis type: unspecified hepatic cirrhosis Ascites presence: with ascites Qualified Code(s): K74.60 - Unspecified cirrhosis of liver; R18.8 - Other ascites (3) Ascites Code(s): R18.8 - OTHER ASCITES
[2019-07-28] MEDS ORDERED: PT OWN MED DRAWER 7, Y5N ONE ×2 (09:38→21:32)
[2019-07-28] MEDS: LACTULOSE 20 GM/30 ML UDC (FOR ORAL USE ONLY) PO SCH ×4 (09:40→21:47)
[2019-07-28] MEDS: SPIRONOLACTONE 25 MG TABLET (FP) PO SCH (09:40)
[2019-07-28] MEDS: SERTRALINE HCL 25 MG TABLET (FP) PO SCH (09:41)
[2019-07-28] MEDS: RIFAXIMIN 550 MG TABLET (UD) PO SCH ×2 (09:41→21:48)
[2019-07-28] MEDS: URSODIOL 300 MG CAPSULE PO SCH ×2 (09:41→21:47)
[2019-07-28] MEDS: THIAMINE HCL 100 MG TABLET (FP) PO SCH ×2 (09:41→21:47)
[2019-07-28] MEDS: NADOLOL 40 MG TABLET (FP) PO SCH (09:41)
[2019-07-28] MEDS: TAMSULOSIN HCL 0.4 MG CAP PO SCH (09:41)
[2019-07-28] MEDS: FUROSEMIDE 40 MG TABLET (FP) PO SCH (09:41)
[2019-07-28] MEDS: GABAPENTIN 300 MG CAPSULE (FP) PO SCH ×2 (09:42→21:48)
--- NOTE | 2019-07-28 14:55 | PN ---
Progress Note (short form) - Note Progress Note: Patient is lying in bed with no acute distress. Vital Signs Temperature 98.1 F 07/28/19 13:59 Pulse Rate 74 07/28/19 13:59 Respiratory Rate 18 07/28/19 08:48 Blood Pressure 102/61 07/28/19 13:59 O2 Sat by Pulse Oximetry (%) 100 07/27/19 21:00 GENERAL: The patient is awake, alert, and fully oriented, in no acute distress. HEAD: Normal with no signs of trauma. EYES: PERRL, extraocular movements intact, sclera anicteric, conjunctiva clear. ENT: Ears normal, oropharynx clear without exudates, moist mucous membranes. NECK: Trachea midline, full range of motion, supple. LUNGS: decreased Breath sounds bl , clear to auscultation bilaterally, no wheezes, no crackles, no accessory muscle use. HEART: Regular rate and rhythm, S1, S2 without murmur, rub or gallop. ABDOMEN: Soft, distended,NT, normoactive bowel sounds, no guarding, no rebound , + hepatomegaly EXTREMITIES: 2+ pulses, warm, well-perfused, no edema. NEUROLOGICAL: Cranial nerves II through XII grossly intact. Normal speech, gait is stable. PSYCH: Normal mood, normal affect. SKIN: Warm, dry, normal turgor, no rashes or lesions noted CBCD WBC 2.2 K/mm3 (4.0-10.0) L 07/28/19 06:35 RBC 2.77 M/mm3 (4.00-5.60) L 07/28/19 06:35 Hgb 9.6 GM/dL (11.7-16.9) L 07/28/19 06:35 Hct 28.1 % (35.4-49) L 07/28/19 06:35 MCV 101.4 fl (80-96) H 07/28/19 06:35 MCHC 34.1 g/dl (32.0-35.9) 07/28/19 06:35 RDW 17.5 % (11.9-15.9) H 07/28/19 06:35 Plt Count 56 K/MM3 (134-434) L 07/28/19 06:35 MPV 10.6 fl (7.5-11.1) 07/28/19 06:35 CMP Sodium 139 mmol/L (136-145) 07/28/19 06:35 Potassium 4.0 mmol/L (3.5-5.1) 07/28/19 06:35 Chloride 108 mmol/L (98-107) H 07/28/19 06:35 Carbon Dioxide 27 mmol/L (21-32) 07/28/19 06:35 Anion Gap 4 MMOL/L (8-16) L 07/28/19 06:35 BUN 3.4 mg/dL (7-18) L 07/28/19 06:35 Creatinine 0.6 mg/dL (0.55-1.3) 07/28/19 06:35 Random Glucose 76 mg/dL (74-106) 07/28/19 06:35 Calcium 7.6 mg/dL (8.5-10.1) L 07/28/19 06:35 Total Bilirubin 1.9 mg/dL (0.2-1) H 07/28/19 06:35 AST 49 U/L (15-37) H 07/28/19 06:35 ALT 26 U/L (13-61) 07/28/19 06:35 Alkaline Phosphatase 179 U/L (45-117) H 07/28/19 06:35 Total Protein 6.0 g/dl (6.4-8.2) L 07/28/19 06:35 Albumin 1.8 g/dl (3.4-5.0) L 07/28/19 06:35 CARDIAC ENZYMES Troponin I < 0.02 ng/ml (0.00-0.05) 07/23/19 19:28 Current Medications Generic Name Dose Route Start Last Admin Trade Name Freq PRN Reason Stop Dose Admin Furosemide 40 mg 07/26/19 10:00 07/28/19 09:41 Lasix - PO 40 mg DAILY SANCHO Administration Gabapentin 300 mg 07/26/19 10:00 07/28/19 09:42 Neurontin - PO 300 mg BID SANCHO Administration Lactulose 20 gm 07/26/19 10:00 07/28/19 14:07 Cephulac (Oral Use) PO 20 gm QID SANCHO Administration Nadolol 40 mg 07/26/19 10:00 07/28/19 09:41 Corgard - PO 40 mg DAILY SANCHO Administration Rifaximin 550 mg 07/26/19 10:00 07/28/19 09:41 Xifaxan - PO 550 mg BID SANCHO Administration Sertraline HCl 25 mg 07/26/19 10:00 07/28/19 09:41 Zoloft - PO 25 mg DAILY SANCHO Administration Spironolactone 75 mg 07/26/19 10:00 07/28/19 09:40 Aldactone - PO 75 mg DAILY SANCHO Administration Tamsulosin HCl 0.4 mg 07/26/19 08:30 07/28/19 09:41 Flomax - PO 0.4 mg DAILY@0830 SANCHO Administration Thiamine HCl 100 mg 07/26/19 10:00 07/28/19 09:41 Vitamin B1 - PO 100 mg BID SANCHO Administration Ursodiol 300 mg 07/26/19 10:00 07/28/19 09:41 Actigal - PO 300 mg BID SANCHO Administration CT of abd images and report reviewed. US report reviewed. No pancreatitis, no evidence of gall bladder stones or cholecystitis MRI of the brain: Acute cortical infarct measuring 5.7x2.5mm in the left precentral gyrus. ASSESSMENT AND PLAN: Patient is a 54 y/o man with h/o Hep C, liver cirrhosis, pancytopenia, splenomegaly, portal hypertension , who presented with abd pain with change of mental status. 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 likely embolic, echo result: left atrium mildly dilated, mild TR. carotids US of carotid within normal limit. Neuro on the case. will statins # s/p AMS: most likely due to hepatic encephalopathy improved with ammonia level 62.9 will repeat the level since patient is slightly confused ,continue lactulose, Rifaximin # Pancytopenia: Absolute neutrophil is 693. neutropenic isolation. consult hem/ onc and id # Abdominal pain: improved ,no tenderness. continue rifaximin, lactulose, spironolactone, Gi on the case . f/u With Dr. Francis upon discharge. # Thrombocytopenia, INR is 2.0 , s/p vit k 7.5mg , not for IR paracenthesis today , 56K today. # H/o liver Cirrhosis: possible EGD if needed continue nadolol suggest esophageal varices. cont lactulose and Rifaximin , lasix and spironolactone patient is on transplant list. # Chronic macrocytic anemia: recent B12 in 8/19 was 800 and folate was NL. # Alcoholic liver cirrhosis: PT/INR and platelets is 56k today. DVT Px; SCds, cheo't AC due to low platelets Visit type - Emergency Visit Emergency Visit: Yes ED Registration Date: 07/23/19 Care time: The patient presented to the Emergency Department on the above date and was hospitalized for further evaluation of their emergent condition. - New Patient This patient is new to me today: No - Critical Care Critical Care patient: No - Discharge Referral Referred to [facility] No
[2019-07-29 07:22] LABS: BASO % 0.4 % (0-2.0); EOS % 3.6 % (0-4.5); HEMATOCRIT 28.1 % (35.4-49); HEMOGLOBIN 9.5 GM/dL (11.7-16.9); LYMPH % 38.8 % (8-40); MCH 34.5 pg (25.7-33.7); MCHC 33.9 g/dl (32.0-35.9); MEAN CELL VOLUME 101.8 fl (80-96); MEAN PLT VOLUME 10.1 fl (7.5-11.1); MONO % 11.1 % (3.8-10.2); NEUT % 46.1 % (42.8-82.8); PLATELET COUNT 45 K/MM3 (134-434); RBC 2.76 M/mm3 (4.00-5.60); RDW 17.9 % (11.9-15.9); WHITE BLOOD COUNT 2.3 K/mm3 (4.0-10.0)
--- NOTE | 2019-07-29 07:44 | PN.GI ---
GI Progress Note Subjective: no complaints - Objective Vital Signs: Vital Signs Temperature 98.4 F 07/29/19 01:00 Pulse Rate 81 07/29/19 01:00 Respiratory Rate 18 07/29/19 01:00 Blood Pressure 105/69 07/29/19 01:00 O2 Sat by Pulse Oximetry (%) 100 07/28/19 21:00 Constitutional: Well Nourished, No Distress Eyes: Yes: WNL HENT: Yes: WNL Neck: Yes: WNL Cardiovascular: Yes: WNL, Regular Rate and Rhythm Respiratory: Yes: WNL, Regular, CTA Bilaterally Gastrointestinal Inspection: Yes: WNL, Ascites ...Auscultate: Yes: Normoactive Bowel Sounds Extremities: Yes: WNL Edema: No Labs: CBC, BMP 07/29/19 06:45 INR, PTT INR 1.63 (0.83-1.09) H 07/27/19 06:10 Problem List - Problems (1) Abdominal pain Assessment/Plan: paracentesis not done secondary to neutropenia c/w rifaximin. two gram sodium diet c/w lasix / aldactone - monitor daily weights ; am cmet / cbc avoid nsaid egd from [facility] - varices neurology f/u Code(s): R10.9 - UNSPECIFIED ABDOMINAL PAIN Qualifiers: Abdominal location: epigastric Qualified Code(s): R10.13 - Epigastric pain (2) Cirrhosis Code(s): K74.60 - UNSPECIFIED CIRRHOSIS OF LIVER Qualifiers: Hepatic cirrhosis type: unspecified hepatic cirrhosis Ascites presence: with ascites Qualified Code(s): K74.60 - Unspecified cirrhosis of liver; R18.8 - Other ascites (3) Ascites Code(s): R18.8 - OTHER ASCITES
[2019-07-29] MEDS ORDERED: PT OWN MED DRAWER 7, Y5N ONE (07:50)
[2019-07-29 08:10] LABS: ALBUMIN 1.7 g/dl (3.4-5.0); BILIRUBIN,TOTAL 1.7 mg/dL (0.2-1); BLOOD UREA NITROGEN 5.1 mg/dL (7-18); CALCIUM 7.7 mg/dL (8.5-10.1); CREATININE 0.6 mg/dL (0.55-1.3); MAGNESIUM 1.6 mg/dL (1.8-2.4); PHOSPHOROUS 2.7 mg/dL (2.5-4.9); POTASSIUM 3.6 mmol/L (3.5-5.1)
[2019-07-29] MEDS ORDERED: MAGNESIUM SULF 50% (8.12 MEQ/2 ML-1 GM VIAL) IVPB ONE ×2 (09:00→09:54)
[2019-07-29] MEDS: SERTRALINE HCL 25 MG TABLET (FP) PO SCH (09:18)
[2019-07-29] MEDS: TAMSULOSIN HCL 0.4 MG CAP PO SCH (09:18)
[2019-07-29] MEDS: SPIRONOLACTONE 25 MG TABLET (FP) PO SCH (09:18)
[2019-07-29] MEDS: FUROSEMIDE 40 MG TABLET (FP) PO SCH (09:18)
[2019-07-29] MEDS: GABAPENTIN 300 MG CAPSULE (FP) PO SCH ×2 (09:18→21:38)
[2019-07-29] MEDS: THIAMINE HCL 100 MG TABLET (FP) PO SCH ×2 (09:19→21:38)
[2019-07-29] MEDS: LACTULOSE 20 GM/30 ML UDC (FOR ORAL USE ONLY) PO SCH ×4 (09:19→21:37)
[2019-07-29] MEDS: RIFAXIMIN 550 MG TABLET (UD) PO SCH ×2 (09:19→22:15)
[2019-07-29] MEDS: URSODIOL 300 MG CAPSULE PO SCH ×2 (09:20→22:15)
[2019-07-29] MEDS: NADOLOL 40 MG TABLET (FP) PO SCH (09:20)
--- NOTE | 2019-07-29 12:13 | PN ---
Physical Exam: SUBJECTIVE: Patient seen and examined.Pt offered no complaints of fevers, weakness or sensory loss or abdominal pain. OBJECTIVE: Vital Signs Period Temp Pulse Resp BP Sys/Mckeon Pulse Ox Last 24 Hr 98.1 F-98.6 F 64-82 18-18 93-130/49-69 100-100 GENERAL: The patient is awake and alert AAOx3 HEAD: Normal with no signs of trauma. EYES: PERRL, extraocular movements intact, sclera anicteric, ENT: oropharynx clear without exudates, moist mucous membranes. LUNGS: Breath sounds equal, clear to auscultation bilaterally, no wheezes, no crackles, no accessory muscle use. HEART: Regular rate and rhythm, S1, S2 without murmur, rub or gallop. ABDOMEN: Soft, nontender, nondistended, normoactive bowel sounds, no guarding, no rebound, no hepatosplenomegaly, no masses. EXTREMITIES: 2+ pulses, warm, well-perfused, no edema. NEUROLOGICAL: Cranial nerves II through XII grossly intact. Normal speech, gait not observed. mild effacement of nasolabial fold still present SKIN: evidence of bruising and gynecomastia Laboratory Results - last 24 hr 07/27/19 07/29/19 07/29/19 06:10 06:45 06:45 WBC 2.3 L RBC 2.76 L Hgb 9.5 L Hct 28.1 L MCV 101.8 H MCH 34.5 H MCHC 33.9 RDW 17.9 H Plt Count 45 L MPV 10.1 Absolute Neuts (auto) 1.0 L Neutrophils % 46.1 Lymphocytes % 38.8 Monocytes % 11.1 H Eosinophils % 3.6 Basophils % 0.4 Nucleated RBC % 0 Sodium 139 Potassium 3.6 Chloride 105 Carbon Dioxide 29 Anion Gap 6 L BUN 5.1 L Creatinine 0.6 Est GFR (CKD-EPI)AfAm 131.19 Est GFR (CKD-EPI)NonAf 113.19 Random Glucose 117 H Calcium 7.7 L Phosphorus 2.7 Magnesium 1.6 L Total Bilirubin 1.7 H AST 42 H ALT 25 Alkaline Phosphatase 197 H Ammonia Total Protein 6.0 L Albumin 1.7 L Free T4 Waterman 1.17 07/29/19 08:43 WBC RBC Hgb Hct MCV MCH MCHC RDW Plt Count MPV Absolute Neuts (auto) Neutrophils % Lymphocytes % Monocytes % Eosinophils % Basophils % Nucleated RBC % Sodium Potassium Chloride Carbon Dioxide Anion Gap BUN Creatinine Est GFR (CKD-EPI)AfAm Est GFR (CKD-EPI)NonAf Random Glucose Calcium Phosphorus Magnesium Total Bilirubin AST ALT Alkaline Phosphatase Ammonia 88.30 H Total Protein Albumin Free T4 Waterman Active Medications Generic Name Dose Route Start Last Admin Trade Name Freq PRN Reason Stop Dose Admin Atorvastatin Calcium 20 mg 07/29/19 22:00 Lipitor - PO HS SANCHO Furosemide 40 mg 07/26/19 10:00 07/29/19 09:18 Lasix - PO 40 mg DAILY SANCHO Administration Gabapentin 300 mg 07/26/19 10:00 07/29/19 09:18 Neurontin - PO 300 mg BID SANCHO Administration Lactulose 30 gm 07/29/19 10:00 07/29/19 09:19 Cephulac (Oral Use) PO 30 gm QID SANCHO Administration Nadolol 40 mg 07/26/19 10:00 07/29/19 09:20 Corgard - PO 40 mg DAILY SANCHO Administration Rifaximin 550 mg 07/26/19 10:00 07/29/19 09:19 Xifaxan - PO 550 mg BID SANCHO Administration Sertraline HCl 25 mg 07/26/19 10:00 07/29/19 09:18 Zoloft - PO 25 mg DAILY SANCHO Administration Spironolactone 75 mg 07/26/19 10:00 07/29/19 09:18 Aldactone - PO 75 mg DAILY SANCHO Administration Tamsulosin HCl 0.4 mg 07/26/19 08:30 07/29/19 09:18 Flomax - PO 0.4 mg DAILY@0830 SANCHO Administration Thiamine HCl 100 mg 07/26/19 10:00 07/29/19 09:19 Vitamin B1 - PO 100 mg BID SANCHO Administration Ursodiol 300 mg 07/26/19 10:00 07/29/19 09:20 Actigal - PO 300 mg BID SANCHO Administration ASSESSMENT/PLAN: 54 y/o man with h/o Hep C, ? Hep B , cirrhosis, pancytopenia, splenomegaly, portal hypertension , who presented with abd pain. he was found to be confused AMS: possible hepatic encephalopathy or stroke 2/2 facial droop pt neurologically intact facial droop improved. mentation back to baseline pt AAOx3 CT of head no acute pathology, MRI showed punctate hyperdense region in L precentral gyri lactulose increased to 30mg QID ammonia level 88.3. repeat tomorrow Cont Rifaximin Neuro evaluation: Would hold antiplat. agent given he has low platelets, coagulopathy. started lipitor 20 mg HS Echocardiogram mild LA enlargement and mild TR &carotid ultrasound unremarkable. PT ordered ABd pain 2/2 portal vein thrombosis or gastritis or SBP. abdominal pain resolved. Per GI Held off on paracentesis at this time given neutropenia. WBC today 2.3 Cirrhosis records form [facility]. Pt had EGD most recent sep 2018 no acute bleed with positive varices. cont lactulose 30 QID and Rifaximine. On transplant list on cirrhosis regimen pancytopenia likely due to liver disease recent B12 in 06/18 was 800 and folate was NL. today WBC 1.9, RBC 9.5, Plts 45 all improving pancytopenia is chronic . Heme consulted As per ID monitor off antibiotics EGD report available. rest per GI here NO AC 2/2 thrombocytopenia and INR level( pt high risk for bleed Visit type - Emergency Visit Emergency Visit: Yes ED Registration Date: 07/23/19 Care time: The patient presented to the Emergency Department on the above date and was hospitalized for further evaluation of their emergent condition. - New Patient This patient is new to me today: No - Critical Care Critical Care patient: No - Discharge Referral Referred to [facility] Med P.C.: No ATTENDING PHYSICIAN STATEMENT I saw and evaluated the patient. I reviewed the resident's note and discussed the case with the resident. I agree with the resident's findings and plan as documented. SUBJECTIVE: OBJECTIVE: ASSESSMENT AND PLAN:
--- NOTE | 2019-07-29 13:57 | PN ---
Teaching Attending Note Name of Resident: Victoria Mcgowan ATTENDING PHYSICIAN STATEMENT I saw and evaluated the patient. I reviewed the resident's note and discussed the case with the resident. I agree with the resident's findings and plan as documented. SUBJECTIVE: Patient is comfortable with no acute distress. OBJECTIVE: Vital Signs Temperature 98.6 F 07/29/19 10:00 Pulse Rate 82 07/29/19 10:00 Respiratory Rate 18 07/29/19 10:00 Blood Pressure 130/68 07/29/19 10:00 O2 Sat by Pulse Oximetry (%) 100 07/29/19 10:00 GENERAL: The patient is awake, alert, and fully oriented, in no acute distress. HEAD: Normal with no signs of trauma. EYES: PERRL, extraocular movements intact, sclera anicteric, conjunctiva clear. ENT: Ears normal, oropharynx clear without exudates, moist mucous membranes. NECK: Trachea midline, full range of motion, supple. LUNGS: decreased Breath sounds bl , clear to auscultation bilaterally, no wheezes, no crackles, no accessory muscle use. HEART: Regular rate and rhythm, S1, S2 without murmur, rub or gallop. ABDOMEN: Soft, distended,NT, normoactive bowel sounds, no guarding, no rebound , + hepatomegaly EXTREMITIES: 2+ pulses, warm, well-perfused, no edema. NEUROLOGICAL: Cranial nerves II through XII grossly intact. Normal speech, gait is stable. PSYCH: Normal mood, normal affect. SKIN: Warm, dry, normal turgor, no rashes or lesions noted CBCD WBC 2.3 K/mm3 (4.0-10.0) L 07/29/19 06:45 RBC 2.76 M/mm3 (4.00-5.60) L 07/29/19 06:45 Hgb 9.5 GM/dL (11.7-16.9) L 07/29/19 06:45 Hct 28.1 % (35.4-49) L 07/29/19 06:45 MCV 101.8 fl (80-96) H 07/29/19 06:45 MCHC 33.9 g/dl (32.0-35.9) 07/29/19 06:45 RDW 17.9 % (11.9-15.9) H 07/29/19 06:45 Plt Count 45 K/MM3 (134-434) L 07/29/19 06:45 MPV 10.1 fl (7.5-11.1) 07/29/19 06:45 CMP Sodium 139 mmol/L (136-145) 07/29/19 06:45 Potassium 3.6 mmol/L (3.5-5.1) 07/29/19 06:45 Chloride 105 mmol/L (98-107) 07/29/19 06:45 Carbon Dioxide 29 mmol/L (21-32) 07/29/19 06:45 Anion Gap 6 MMOL/L (8-16) L 07/29/19 06:45 BUN 5.1 mg/dL (7-18) L 07/29/19 06:45 Creatinine 0.6 mg/dL (0.55-1.3) 07/29/19 06:45 Random Glucose 117 mg/dL (74-106) H 07/29/19 06:45 Calcium 7.7 mg/dL (8.5-10.1) L 07/29/19 06:45 Total Bilirubin 1.7 mg/dL (0.2-1) H 07/29/19 06:45 AST 42 U/L (15-37) H 07/29/19 06:45 ALT 25 U/L (13-61) 07/29/19 06:45 Alkaline Phosphatase 197 U/L (45-117) H 07/29/19 06:45 Total Protein 6.0 g/dl (6.4-8.2) L 07/29/19 06:45 Albumin 1.7 g/dl (3.4-5.0) L 07/29/19 06:45 CARDIAC ENZYMES Troponin I < 0.02 ng/ml (0.00-0.05) 07/23/19 19:28 Current Medications Generic Name Dose Route Start Last Admin Trade Name Freq PRN Reason Stop Dose Admin Atorvastatin Calcium 20 mg 07/29/19 22:00 Lipitor - PO HS SANCHO Furosemide 40 mg 07/26/19 10:00 07/29/19 09:18 Lasix - PO 40 mg DAILY SANCHO Administration Gabapentin 300 mg 07/26/19 10:00 07/29/19 09:18 Neurontin - PO 300 mg BID SANCHO Administration Lactulose 30 gm 07/29/19 10:00 07/29/19 13:01 Cephulac (Oral Use) PO 30 gm QID SANCHO Administration Nadolol 40 mg 07/26/19 10:00 07/29/19 09:20 Corgard - PO 40 mg DAILY SANCHO Administration Rifaximin 550 mg 07/26/19 10:00 07/29/19 09:19 Xifaxan - PO 550 mg BID SANCHO Administration Sertraline HCl 25 mg 07/26/19 10:00 07/29/19 09:18 Zoloft - PO 25 mg DAILY SANCHO Administration Spironolactone 75 mg 07/26/19 10:00 07/29/19 09:18 Aldactone - PO 75 mg DAILY SANCHO Administration Tamsulosin HCl 0.4 mg 07/26/19 08:30 07/29/19 09:18 Flomax - PO 0.4 mg DAILY@0830 SANCHO Administration Thiamine HCl 100 mg 07/26/19 10:00 07/29/19 09:19 Vitamin B1 - PO 100 mg BID SANCHO Administration Ursodiol 300 mg 07/26/19 10:00 07/29/19 09:20 Actigal - PO 300 mg BID SANCHO Administration Home Medications Medication Instructions Recorded Ursodiol [Actigal -] 300 mg PO BID 10/11/17 Sertraline HCl [Zoloft] 25 mg PO DAILY 01/25/18 Furosemide [Lasix -] 40 mg PO DAILY 12/11/18 Gabapentin [Neurontin -] 300 mg PO BID 05/28/19 Rifaximin [Xifaxan] 550 mg PO BID 05/28/19 Spironolactone [Aldactone] 25 mg PO TID 05/28/19 Tamsulosin HCl [Flomax] 0.4 mg PO DAILY 05/28/19 Ammonium Lactate Cream [Lac-Hydrin] 1 applic TP BID 07/24/19 Chlorhexidine Gluconate [Hibiclens 10 ml PO DAILY 07/24/19 For Decolonization -] Linaclotide [Linzess] 72 mcg PO DAILY 07/24/19 Omeprazole/Sodium Bicarbonate 1 each PO BID 07/24/19 [Omeprazole-Bicarb 40-1,100 Cap] Thiamine HCl [Vitamin B1] 100 mg PO BID 07/24/19 CT of abd images and report reviewed. US report reviewed. No pancreatitis, no evidence of gall bladder stones or cholecystitis MRI of the brain: Acute cortical infarct measuring 5.7x2.5mm in the left precentral gyrus. ASSESSMENT AND PLAN: Patient is a 54 y/o man with h/o Hep C, liver cirrhosis, pancytopenia, splenomegaly, portal hypertension , who presented with abd pain with change of mental status. 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 likely embolic, echo result: left atrium mildly dilated, mild TR. carotids US of carotid within normal limit. Neuro on the case. will statins # AMS: with elevated ammonia level of 89 today . will increase the dose of lactulose to 30gm qid , Rifaximin and spironolactone # Pancytopenia: Absolute neutrophil is 693. neutropenic isolation. consult hem/ onc and id , improving # Abdominal pain: improved ,no tenderness. continue rifaximin, lactulose, spironolactone, Gi on the case . f/u With Dr. Francis upon discharge. # Thrombocytopenia, INR is 2.0 , s/p vit k 7.5mg , not for IR paracenthesis today , 56K today. # H/o liver Cirrhosis: possible EGD if needed continue nadolol suggest esophageal varices. cont lactulose and Rifaximin , lasix and spironolactone patient is on transplant list. # Chronic macrocytic anemia: recent B12 in 06/18 was 800 and folate was NL. # Alcoholic liver cirrhosis: PT/INR and platelets is 56k-->45K today. DVT Px; SCds, cheo't AC due to low platelets
[2019-07-29] MEDS ORDERED: ATORVASTATIN CA 20 MG TABLET (FP) PO SCH (22:00)
[2019-07-30 07:21] LABS: BASO % 0.5 % (0-2.0); EOS % 3.4 % (0-4.5); HEMATOCRIT 30.1 % (35.4-49); HEMOGLOBIN 10.2 GM/dL (11.7-16.9); LYMPH % 37.5 % (8-40); MCH 34.4 pg (25.7-33.7); MCHC 33.8 g/dl (32.0-35.9); MEAN CELL VOLUME 101.8 fl (80-96); MEAN PLT VOLUME 10.4 fl (7.5-11.1); MONO % 10.3 % (3.8-10.2); NEUT % 48.3 % (42.8-82.8); PLATELET COUNT 48 K/MM3 (134-434); RBC 2.96 M/mm3 (4.00-5.60); RDW 18.1 % (11.9-15.9); WHITE BLOOD COUNT 2.6 K/mm3 (4.0-10.0)
[2019-07-30 08:00] LABS: ALBUMIN 1.8 g/dl (3.4-5.0); BILIRUBIN,TOTAL 1.9 mg/dL (0.2-1); CALCIUM 7.7 mg/dL (8.5-10.1); CREATININE 0.8 mg/dL (0.55-1.3); POTASSIUM 4.2 mmol/L (3.5-5.1); TOT PROT 6.5 g/dl (6.4-8.2)
[2019-07-30] MEDS ORDERED: PT OWN MED DRAWER 7, Y5N ONE (10:18)
[2019-07-30] MEDS: TAMSULOSIN HCL 0.4 MG CAP PO SCH (10:23)
[2019-07-30] MEDS: NADOLOL 40 MG TABLET (FP) PO SCH (10:23)
[2019-07-30] MEDS: FUROSEMIDE 40 MG TABLET (FP) PO SCH (10:23)
[2019-07-30] MEDS: URSODIOL 300 MG CAPSULE PO SCH (10:23)
[2019-07-30] MEDS: THIAMINE HCL 100 MG TABLET (FP) PO SCH (10:23)
[2019-07-30] MEDS: GABAPENTIN 300 MG CAPSULE (FP) PO SCH (10:23)
[2019-07-30] MEDS: RIFAXIMIN 550 MG TABLET (UD) PO SCH (10:24)
[2019-07-30] MEDS: LACTULOSE 20 GM/30 ML UDC (FOR ORAL USE ONLY) PO SCH ×2 (10:24→15:00)
[2019-07-30] MEDS: SPIRONOLACTONE 25 MG TABLET (FP) PO SCH (10:24)
[2019-07-30] MEDS: SERTRALINE HCL 25 MG TABLET (FP) PO SCH (10:25)
--- NOTE | 2019-07-30 13:05 | DS ---
Physical Exam: SUBJECTIVE: Patient seen and examined. pt offered no complaints. OBJECTIVE: Vital Signs Period Temp Pulse Resp BP Sys/Mckeon Pulse Ox Last 24 Hr 97.6 F-98.1 F 66-74 18-18 104-113/59-66 92 PHYSICAL EXAM ENERAL: The patient is awake and alert AAOx3 HEAD: Normal with no signs of trauma. EYES: PERRL, extraocular movements intact, sclera anicteric, ENT: oropharynx clear without exudates, moist mucous membranes. LUNGS: Breath sounds equal, clear to auscultation bilaterally, no wheezes, no crackles, no accessory muscle use. HEART: Regular rate and rhythm, S1, S2 without murmur, rub or gallop. ABDOMEN: Soft, nontender, nondistended, normoactive bowel sounds, no guarding, no rebound, no hepatosplenomegaly, no masses. EXTREMITIES: 2+ pulses, warm, well-perfused, no edema. NEUROLOGICAL: Cranial nerves II through XII grossly intact. Normal speech, gait not observed. SKIN: evidence of bruising and gynecomastia LABS Laboratory Results - last 24 hr 07/30/19 07/30/19 07/30/19 06:55 06:55 06:55 WBC 2.6 L RBC 2.96 L Hgb 10.2 L Hct 30.1 L MCV 101.8 H MCH 34.4 H MCHC 33.8 RDW 18.1 H Plt Count 48 L MPV 10.4 Absolute Neuts (auto) 1.2 L Neutrophils % 48.3 Lymphocytes % 37.5 Monocytes % 10.3 H Eosinophils % 3.4 Basophils % 0.5 Nucleated RBC % 0 Sodium 139 Potassium 4.2 Chloride 105 Carbon Dioxide 29 Anion Gap 5 L BUN 6.0 L Creatinine 0.8 Est GFR (CKD-EPI)AfAm 116.56 Est GFR (CKD-EPI)NonAf 100.57 Random Glucose 113 H Calcium 7.7 L Total Bilirubin 1.9 H AST 44 H ALT 27 Alkaline Phosphatase 204 H Ammonia 81.70 H Total Protein 6.5 Albumin 1.8 L U/S Findings consistent with cirrhosis, including a small, irregular and heterogeneous liver and ascites. There is no definite evidence of acute pathology. CXR No evidence of active pulmonary disease. CT abdomen Findings consistent with liver cirrhosis and splenomegaly. Multiple varicosities in the left splenic hilum compatible with portal venous hypertension. Moderate amount of ascites mainly in the right upper abdomen. Gallbladder wall thickening/edema likely due to surrounding ascites without gross evidence of gallstones. Correlation with gallbladder ultrasound would be helpful. Head CT Mild volume loss without CT evidence of acute intracranial pathology. Minimum sphenoid chronic sinusitis MRI brain Acute cortical infarct measuring 5.7 mm x 2.5 mm is noted in the left precentral gyrus. carotid U/S Normal carotid sonogram with no evidence of hemodynamically significant stenoses. HOSPITAL COURSE: Date of Admission:07/23/19 54 y/o male with past medical history of cirrhosis on transplant list, Hep C and chronic Hep B who presented to ED for abdominal pain and lethargy. Limited abdominal ultrasound showed new onset ascites which was confirmed with abdominal /pelvic CT.Ammonia levels were elevated.Lactulose increased to 30mg QID and mentation improved as well as abdominal pain. GI and IR were consulted. Platelet level on admission was 28 K/MM3. PT, INR and PTT were elevated on admission at 20.50, 1.73 and 38.2 which continued to trend up on day two of admission to 23.80, 2.00 and 38.3.In hope to optimize coagulation to reduce paracenthesis complications, was Patient given two doses of vitamin K (5mg and 7.5mg) and transfused 2 units of platelet. However, GI deferred paracenthesis as SBP was unlikely a differential for abdominal pain and lethargy due to leukopenia. Over the hospital course, patients platelet level improved to 48 K/ MM3 and INR to 1.63. Heme/Onc consulted and at this time and due to chronicity of pancytopenia recommended outpatient follow up. , Dr. Eliana Francis, at [facility]. Patient had head CT to r/o CVA because of questionable new onset of left facial droop. Head CT showed no acute pathology but brain MRI showed an acute cortical infarct measuring 5.7 mm x 2.5 mm in the left precentral gyrus.echo and carotid U/S were unremarkable. Pt remained neurologically intact except for mild left nasolabial fold effacement.Patient at the moment is stable for discharge and advised to follow up with neuro, hepatology, and his PCP. Date of Discharge: 07/30/19 Minutes to complete discharge: 35 Discharge Summary Problems reviewed: Yes Reason For Visit: ACITES, HEPATIC CIRRHOSIS, ABDOMINAL PAIN Current Active Problems Abdominal pain (Acute) Cirrhosis (Acute) Condition: Stable - Instructions Diet, Activity, Other Instructions: You came into the ED because of altered mental status with new onset facial droop and abdominal pain.we took some pictures of your abdomen that was positive for fluid in your abdomen; please follow up with your GI doctor and transplant Dr Francis from [facility]. We took some pictures of your brain and it showed a small stroke.Because of your low platelets and clotting/bleeding risk, we avoided blood thinners. However, we started you on lipitor 20mg by mouth daily. Please follow up with neurology. Because of your chronic low blood cell count, we tranfused you with 2 units of platelets; please follow up with Dr Francsi. Your symptoms have improved, so we are discharging you home. Medications: Please resume your home medications. We have made some changes: Please begin to take lipitor 20mg by mouth daily by mouth. Please begin to take lactulose 30gm by mouth four times a day. Please begin to take aldactone 75mg by mouth daily. Follow up: Please follow up with your PCP Dr Kline within one week. Please follow up with your Dust Control Engineer/transplant Dr Francis within a week. Please follow up with neurology Dr Traore within one week. If you begin to experience worsening abdominal pain, altered mental status, weakness or sensory abnormalities, chest pain, shortness of breath, bleeding; please return to the Emergency Room immediately. Referrals: Eliana Francis [Non Staff, Medical] - 1 Week Leisa Traore MD [Staff Physician] - 1 Week ON STAFF,NOT [Primary Care Provider] - 1 Week Disposition: VNS/HOME HEALTH CARE - Home Medications Comprehensive Discharge Medication List: Ambulatory Orders Ursodiol [Actigal -] 300 mg PO BID 10/11/17 Sertraline HCl [Zoloft] 25 mg PO DAILY 01/25/18 Furosemide [Lasix -] 40 mg PO DAILY 12/11/18 Gabapentin [Neurontin -] 300 mg PO BID 05/28/19 Rifaximin [Xifaxan] 550 mg PO BID 05/28/19 Tamsulosin HCl [Flomax -] 0.4 mg PO DAILY 05/28/19 Ammonium Lactate Cream [Lac-Hydrin 12% Cream -] 1 applic TP BID 07/24/19 Chlorhexidine Gluconate [Hibiclens For Decolonization -] 10 ml PO DAILY Omeprazole/Sodium Bicarbonate [Omeprazole-Bicarb 40-1,100 Cap] 1 each PO BID Thiamine HCl [Vitamin B1 -] 100 mg PO BID 07/24/19 Atorvastatin Ca [Lipitor] 20 mg PO HS #30 tablet 07/30/19 Lactulose (Oral Use) [Cephulac -] 30 gm PO QID #3 bottle 07/30/19 Spironolactone [Aldactone -] 75 mg PO DAILY #30 tablet 07/30/19 Problem List - Problems (1) Abdominal pain Problems reviewed: Yes Code(s): R10.9 - UNSPECIFIED ABDOMINAL PAIN (2) Altered mental status Code(s): R41.82 - ALTERED MENTAL STATUS, UNSPECIFIED (3) Ascites Code(s): R18.8 - OTHER ASCITES (4) Cirrhosis Code(s): K74.60 - UNSPECIFIED CIRRHOSIS OF LIVER (5) Hepatic encephalopathy Code(s): K72.90 - HEPATIC FAILURE, UNSPECIFIED WITHOUT COMA (6) Hyperammonemia Code(s): E72.20 - DISORDER OF UREA CYCLE METABOLISM, UNSPECIFIED (7) Pancytopenia Code(s): D61.818 - OTHER PANCYTOPENIA This patient is new to me today: No Emergency Visit: Yes ED Registration Date: 07/23/19 Care time: The patient presented to the Emergency Department on the above date and was hospitalized for further evaluation of their emergent condition. Critical Care patient: No - Discharge Referral Referred to [facility] Med P.C.: No ATTENDING PHYSICIAN STATEMENT I saw and evaluated the patient. I reviewed the resident's note and discussed the case with the resident. I agree with the resident's findings and plan as documented. SUBJECTIVE: OBJECTIVE: ASSESSMENT AND PLAN:
--- NOTE | 2019-07-30 14:26 | PN ---
Teaching Attending Note Name of Resident: Victoria Mcgowan ATTENDING PHYSICIAN STATEMENT I saw and evaluated the patient. I reviewed the resident's note and discussed the case with the resident. I agree with the resident's findings and plan as documented. SUBJECTIVE: Patient is comfortable with no acute distress OBJECTIVE: Vital Signs Temperature 98.1 F 07/29/19 20:00 Pulse Rate 66 07/29/19 20:00 Respiratory Rate 18 07/29/19 21:00 Blood Pressure 113/66 07/29/19 20:00 O2 Sat by Pulse Oximetry (%) 92 L 07/29/19 21:00 GENERAL: The patient is awake, alert, and fully oriented, in no acute distress. HEAD: Normal with no signs of trauma. EYES: PERRL, extraocular movements intact, sclera anicteric, conjunctiva clear. ENT: Ears normal, oropharynx clear without exudates, moist mucous membranes. NECK: Trachea midline, full range of motion, supple. LUNGS: decreased Breath sounds bl , clear to auscultation bilaterally, no wheezes, no crackles, no accessory muscle use. HEART: Regular rate and rhythm, S1, S2 without murmur, rub or gallop. ABDOMEN: Soft, distended,NT, normoactive bowel sounds, no guarding, no rebound , + hepatomegaly EXTREMITIES: 2+ pulses, warm, well-perfused, no edema. NEUROLOGICAL: Cranial nerves II through XII grossly intact. Normal speech, gait is stable. PSYCH: Normal mood, normal affect. SKIN: Warm, dry, normal turgor, no rashes or lesions noted CBCD WBC 2.6 K/mm3 (4.0-10.0) L 07/30/19 06:55 RBC 2.96 M/mm3 (4.00-5.60) L 07/30/19 06:55 Hgb 10.2 GM/dL (11.7-16.9) L 07/30/19 06:55 Hct 30.1 % (35.4-49) L 07/30/19 06:55 MCV 101.8 fl (80-96) H 07/30/19 06:55 MCHC 33.8 g/dl (32.0-35.9) 07/30/19 06:55 RDW 18.1 % (11.9-15.9) H 07/30/19 06:55 Plt Count 48 K/MM3 (134-434) L 07/30/19 06:55 MPV 10.4 fl (7.5-11.1) 07/30/19 06:55 CMP Sodium 139 mmol/L (136-145) 07/30/19 06:55 Potassium 4.2 mmol/L (3.5-5.1) 07/30/19 06:55 Chloride 105 mmol/L (98-107) 07/30/19 06:55 Carbon Dioxide 29 mmol/L (21-32) 07/30/19 06:55 Anion Gap 5 MMOL/L (8-16) L 07/30/19 06:55 BUN 6.0 mg/dL (7-18) L 07/30/19 06:55 Creatinine 0.8 mg/dL (0.55-1.3) 07/30/19 06:55 Random Glucose 113 mg/dL (74-106) H 07/30/19 06:55 Calcium 7.7 mg/dL (8.5-10.1) L 07/30/19 06:55 Total Bilirubin 1.9 mg/dL (0.2-1) H 07/30/19 06:55 AST 44 U/L (15-37) H 07/30/19 06:55 ALT 27 U/L (13-61) 07/30/19 06:55 Alkaline Phosphatase 204 U/L (45-117) H 07/30/19 06:55 Total Protein 6.5 g/dl (6.4-8.2) 07/30/19 06:55 Albumin 1.8 g/dl (3.4-5.0) L 07/30/19 06:55 CARDIAC ENZYMES Troponin I < 0.02 ng/ml (0.00-0.05) 07/23/19 19:28 Current Medications Generic Name Dose Route Start Last Admin Trade Name Freq PRN Reason Stop Dose Admin Atorvastatin Calcium 20 mg 07/29/19 22:00 07/29/19 21:38 Lipitor - PO 20 mg HS SANCHO Administration Furosemide 40 mg 07/26/19 10:00 07/30/19 10:23 Lasix - PO 40 mg DAILY SANCHO Administration Gabapentin 300 mg 07/26/19 10:00 07/30/19 10:23 Neurontin - PO 300 mg BID SANCHO Administration Lactulose 30 gm 07/29/19 10:00 07/30/19 10:24 Cephulac (Oral Use) PO 30 gm QID SANCHO Administration Nadolol 40 mg 07/26/19 10:00 07/30/19 10:23 Corgard - PO 40 mg DAILY SANCHO Administration Rifaximin 550 mg 07/26/19 10:00 07/30/19 10:24 Xifaxan - PO 550 mg BID SANCHO Administration Sertraline HCl 25 mg 07/26/19 10:00 07/30/19 10:25 Zoloft - PO 25 mg DAILY SANCHO Administration Spironolactone 75 mg 07/26/19 10:00 07/30/19 10:24 Aldactone - PO 75 mg DAILY SANCHO Administration Tamsulosin HCl 0.4 mg 07/26/19 08:30 07/30/19 10:23 Flomax - PO 0.4 mg DAILY@0830 [facility] Administration Thiamine HCl 100 mg 07/26/19 10:00 07/30/19 10:23 Vitamin B1 - PO 100 mg BID SANCHO Administration Ursodiol 300 mg 07/26/19 10:00 07/30/19 10:23 Actigal - PO 300 mg BID SANCHO Administration Home Medications Medication Instructions Recorded Ursodiol [Actigal -] 300 mg PO BID 10/11/17 Sertraline HCl [Zoloft] 25 mg PO DAILY 01/25/18 Furosemide [Lasix -] 40 mg PO DAILY 12/11/18 Gabapentin [Neurontin -] 300 mg PO BID 05/28/19 Rifaximin [Xifaxan] 550 mg PO BID 05/28/19 Tamsulosin HCl [Flomax -] 0.4 mg PO DAILY 05/28/19 Ammonium Lactate Cream [Lac-Hydrin 1 applic TP BID 07/24/19 12% Cream -] Chlorhexidine Gluconate [Hibiclens 10 ml PO DAILY 07/24/19 For Decolonization -] Omeprazole/Sodium Bicarbonate 1 each PO BID 07/24/19 [Omeprazole-Bicarb 40-1,100 Cap] Thiamine HCl [Vitamin B1 -] 100 mg PO BID 07/24/19 Atorvastatin Ca [Lipitor] 20 mg PO HS #30 tablet 07/30/19 Lactulose (Oral Use) [Cephulac -] 30 gm PO QID #3 bottle 07/30/19 Spironolactone [Aldactone -] 75 mg PO DAILY #30 tablet 07/30/19 CT of abd images and report reviewed. US report reviewed. No pancreatitis, no evidence of gall bladder stones or cholecystitis MRI of the brain: Acute cortical infarct measuring 5.7x2.5mm in the left precentral gyrus. ASSESSMENT AND PLAN: Patient is a 54 y/o man with h/o Hep C, liver cirrhosis, pancytopenia, splenomegaly, portal hypertension , who presented with abd pain with change of mental status. 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 likely embolic, echo result: left atrium mildly dilated, mild TR. carotids US of carotid within normal limit. Neuro on the case. continue statins # AMS: with elevated ammonia level of 89, repeat is lower today . will increased the dose of lactulose to 30gm qid for 20gm , Rifaximin and spironolactone # Pancytopenia: Absolute neutrophil is 693. neutropenic isolation. consult hem/ onc and id , improving # Abdominal pain: improved ,no tenderness. continue rifaximin, lactulose, spironolactone, Gi on the case . f/u With Dr. Francis upon discharge. # Thrombocytopenia, INR is 2.0 , s/p vit k 7.5mg , not for IR paracenthesis today , 56K-->48K today. # H/o liver Cirrhosis: possible EGD if needed continue nadolol suggest esophageal varices. cont lactulose and Rifaximin , lasix and spironolactone patient is on transplant list. follow with transplant center # Chronic macrocytic anemia: recent B12 in 06/18 was 800 and folate was NL. # Alcoholic liver cirrhosis: PT/INR and platelets is 56k-->45K today. DVT Px; SCds, cheo't AC due to low platelets
[2019-07-30 14:46] VITALS: TEMP 98
[2019-07-30 15:16] VITALS: BP 102/64; PULSE 76
== END 2019-07-30 16:55 | disposition home health service (06) | DRG 441 ==
LOC: JER 17:16 → JERBED 21:28 → J6S 07-24 13:34 → JICU 07-26 04:53 → J4W 07-27 17:48
PROVIDERS: ADMIT Internal Medicine; ATTEND Internal Medicine
PROC: 30233R1 Transfusion of Nonautologous Platelets into Peripheral Vein, Percutaneous Approach (ICD-10-PCS; principal; 2019-07-25)
DX: K72.90 Hepatic failure, unspecified without coma (principal); I63.9 Cerebral infarction, unspecified; D61.818 Other pancytopenia; B18.1 Chronic viral hepatitis B without delta-agent; E87.1 Hypo-osmolality and hyponatremia; D68.9 Coagulation defect, unspecified; K76.6 Portal hypertension; K70.31 Alcoholic cirrhosis of liver with ascites; B19.20 Unspecified viral hepatitis C without hepatic coma; R06.02 Shortness of breath; R10.9 Unspecified abdominal pain; E80.7 Disorder of bilirubin metabolism, unspecified; E83.51 Hypocalcemia; D73.1 Hypersplenism; R41.82 Altered mental status, unspecified
CPT/HCPCS: 36415; 36430; 36511; 70450-TC; 70551-TC; 71046-TC-FY; 74177-TC; 76705-TC; 80053; 81003; 82140; 82248; 82272; 82607; 82728; 83010; 83540; 83550; 83605; 83615; 83690; 83735; 84100; 84439; 84443; 84484; 85025; 85027; 85044; 85610; 85730; 86850; 86870; 86900; 86901; 86902; 93005; 93010; 93306-TC; 93880-TC; 97116-GP; 97161-GP; 99285-25; J7030; P9034; P9038

== ENCOUNTER 2019-10-03 15:17 | Inpatient (IN) | payer MEDICARE, OTHER ==
[2019-10-03] MEDS ORDERED: ONDANSETRON 4 MG/2 ML VIAL IVPUSH ONE (15:27)
--- NOTE | 2019-10-03 15:27 | PDOC ---
Rapid Medical Evaluation Chief Complaint: Pain Time Seen by Provider: 10/03/19 15:25 Medical Evaluation: Allergies Allergy/AdvReac Type Severity Reaction Status Date / Time No Known Allergies Allergy Verified 10/03/19 15:25 Vital Signs Temp Pulse Resp BP Pulse Ox 98.3 F 76 18 135/63 99 10/03/19 15:20 10/03/19 15:20 10/03/19 15:20 10/03/19 15:20 10/03/19 15:20 10/03/19 15:25 Patient c/o: upper abd pain with nausea since last night, hx cirrhosis, no urinary or bowel complaints Patient on brief exam: vss, abd ditention noted, mild epigastric tenderness Patient ordered for: cbc, comp, lipase, urine, iv, zofran Patient to proceed to the ED Discharge Disposition - Diagnosis Acute metabolic encephalopathy Abdominal pain Qualifiers: Abdominal location: epigastric Qualified Code(s): R10.13 - Epigastric pain - Referrals - Patient Instructions - Post Discharge Activity
[2019-10-03] MEDS ORDERED: ONDANSETRON 4 MG/2 ML VIAL ONE (16:30)
--- NOTE | 2019-10-03 16:32 | PDOC ---
Attending Attestation - Resident Resident Name: SebastianChristine baez - ED Attending Attestation I have performed the following: I have examined & evaluated the patient, The case was reviewed & discussed with the resident, I agree w/resident's findings & plan, Exceptions are as noted - HPI HPI: 10/03/19 16:56 54yo male with hx of cirrhosis and hepatic encephalopathy with epigastric abd pain x 2 days. Pt denies n/v/d. Denies hematemesis, melena, or brbpr. Pt denies f/c. Pt appears sleepy, per the aide, has been sleeping more than normal. Pt follows with GI at [facility] and is pending liver transplant. Pt denies cp/sob. No cough. No hematuria or dysuria. No flank pain. No radiation of the pain. Pt denies all other complaints. No falls. - Physicial Exam PE: 10/03/19 16:59 gen: sleeping, arousable, asterixis heent: icterus, eomi, dry mm neck: supple heart: +s1s2 reg lungs: cta b/l abd: soft, epigastric ttp, no rebound or guarding, RLQ ttp over incision site which is well healed, minimal ascites, no fluid wave, no peritonitic signs, no cva ttp ext: 2+ pitting edema to LE, radial and pedal pulses intact neuro: aaox3 when awake, sleeping, but arousable, asterixis, no focal deficits - Medical Decision Making 10/03/19 17:01 a/p: 54yo male with epigastric abd pain -denies bleeding -no peritonitic signs -low suspicion for sbp -labs sent from [facility], will add trop, ammonia given daytime sleepiness, lipase -will monitor and reassess -will send for ct imaging given epigastric and RLQ ttp 10/03/19 17:52 ammonia 110 trop neg hgb 13 no elevated wbc, chronically low wbc pt with asterixis, sleepiness pt with hepatic encephalopathy will start lactulose call placed to Dr. Leach for admission 10/03/19 17:54 resident discussed the case with Dr. Leach who accepts pt to service 10/03/19 20:[address] HEALTH CARE COORDINATOR called, pt with decreased MS, blood glu was 58 during exam abd still soft D50 ordered and given pt arousable and improved after d50, will repeat finger stick after CT 10/03/19 22:56 glucose low again will give another amp d50 will start d5 will repeat chem Heart Score/ECG Review - ECG Intrepretation Comment:: 10/03/19 17:34 sinus at 67, nl axis, nl interval, no acute st/t wave findings
--- NOTE | 2019-10-03 16:35 | PDOC ---
History of Present Illness - General Chief Complaint: Pain Stated Complaint: ABD. PAIN Time Seen by Provider: 10/03/19 15:25 History Source: Patient Exam Limitations: No Limitations - History of Present Illness Travel History: No Initial Comments: 10/03/19 16:32 Patient is a 54 year old male with PMH hepatitis C, cirrhosis (on liver transplant list, follows up with Dr. Francis at [facility]), EtOH use who presents with epigastric pain since yesterday. Pain is gnawing, localized with epigastric area , no radiation, sensation that "something is stuck", worse with eating. Pt has had poor appetite, tried to eat soup this morning which worsened his symptoms. Feels lethargic. Last bowel movement was this morning was normal (no blood, well formed). Denies any associated vomiting/hematemesis, diarrhea, constipation , fevers, chills, chest pain, SOB. No sick contacts or recent travel. Denies alcohol or drug use. Last saw Dr. Francis 2 months ago. Recent admission at [facility] in 07/2019 for acute metabolic encephalopathy. 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 Francis ([facility]) 10/03/19 16:43 10/03/19 16:56 Past History - Past Medical History Allergies/Adverse Reactions: Allergies Allergy/AdvReac Type Severity Reaction Status Date / Time No Known Allergies Allergy Verified 10/03/19 15:25 Home Medications: Ambulatory Orders Ursodiol [Actigal -] 300 mg PO BID 10/11/17 Sertraline HCl [Zoloft] 25 mg PO DAILY 01/25/18 Furosemide [Lasix -] 40 mg PO DAILY 12/11/18 Gabapentin [Neurontin -] 300 mg PO BID 05/28/19 Rifaximin [Xifaxan] 550 mg PO BID 05/28/19 Tamsulosin HCl [Flomax -] 0.4 mg PO DAILY 05/28/19 Ammonium Lactate Cream [Lac-Hydrin 12% Cream -] 1 applic TP BID 07/24/19 Chlorhexidine Gluconate [Hibiclens For Decolonization -] 10 ml PO DAILY Omeprazole/Sodium Bicarbonate [Omeprazole-Bicarb 40-1,100 Cap] 1 each PO BID Thiamine HCl [Vitamin B1 -] 100 mg PO BID 07/24/19 Atorvastatin Ca [Lipitor] 20 mg PO HS #30 tablet 07/30/19 Lactulose (Oral Use) [Cephulac -] 30 gm PO QID #3 bottle 07/30/19 Spironolactone [Aldactone -] 75 mg PO DAILY #30 tablet 07/30/19 Anemia: Yes Asthma: No Cancer: No Cardiac Disorders: No CVA: No COPD: No CHF: No Dementia: No Diabetes: No GI Disorders: Yes Disorders: No HTN: No Hypercholesterolemia: No Liver Disease: Yes (LIVER Cirrohsis) Seizures: No Thyroid Disease: No - Surgical History Abdominal Surgery: No Appendectomy: Yes Cardiac Surgery: No Cholecystectomy: No Lung Surgery: No Neurologic Surgery: No Orthopedic Surgery: No - Immunization History Td Vaccination: (UTD) Immunization Up to Date: Yes () - Psycho Social/Smoking Cessation Hx Smoking Status: No Smoking History: Never smoked Have you smoked in the past 12 months: No Number of Cigarettes Smoked Daily: 0 Hx Alcohol Use: Yes Drug/Substance Use Hx: No Substance Use Type: None, Alcohol Hx Substance Use Treatment: No Abd/GI Specific PMHX - Complaint Specific PMHX Hepatitis: Yes Review of Systems - Review of Systems Able to Perform ROS?: Yes Constitutional: Yes: Loss of Appetite. No: Symptoms Reported, Chills, Diaphoresis, Fever, Malaise, Night Sweats, Weakness, Weight Stable, Unintentional Wgt. Loss, Unexplained wgt Loss, Other HEENTM: No: Symptoms Reported, Eye Pain, Blurred Vision, Tearing, Recent change in vision, Double Vision, Cataracts, Ear Pain, Ocular Prothesis, Ear Discharge, Nose Pain, Nose Congestion, Tinnitus, Nose Bleeding, Hearing Loss, Throat Pain, Throat Swelling, Mouth Pain, Dental Problems, Difficulty Swallowing, Mouth Swelling, Other Respiratory: No: Symptoms reported, Cough, Orthopnea, Shortness of Breath, SOB with Exertion, SOB at Rest, Stridor, Wheezing, Productive cough, Hemoptysis, Other Cardiac (ROS): No: Symptoms Reported, Chest Pain, Edema, Irregular Heart Rate, Lightheadedness, Palpitations, Syncope, Chest Tightness, Other ABD/GI: Yes: See HPI, Nausea, Poor Appetite, Poor Fluid Intake, Abdominal cramping. No: Vomiting : No: Symptoms Reported, See HPI, Burning, Dysuria, Discharge, Frequency, Flank Pain, Hematuria, Incontinence, Pain, Urgency, Testicular Mass, Testicular Swelling, Lesions, Testicular Pain, Other Musculoskeletal: No: Symptoms Reported, See HPI, Back Pain, Gout, Joint Pain, Joint Swelling, Muscle Pain, Muscle Weakness, Neck Pain, Joint Stiffness, Other Integumentary: No: Symptoms Reported, See HPI, Bruising, Change in Color, Change in Hair/Nails, Dryness, Erythema, Flushing, Lesions, Lumps, Pallor, Pruritus, Rash, Sweating, Other Psychiatric: No: Anxiety, Depression, Frequent Crying, Stressors, Sleep Pattern Change, Emotional Problems, Mood Swings, Change in Appetite, Other *Physical Exam - Vital Signs Last Vital Signs Temp Pulse Resp BP Pulse Ox 98.3 F 76 18 135/63 99 10/03/19 15:20 10/03/19 15:20 10/03/19 15:20 10/03/19 15:20 10/03/19 15:20 - Physical Exam General Appearance: Yes: Other (Lethargic) HEENT: positive: Normal Voice, Pharynx Normal, Scleral Icterus (R), Scleral Icterus (L). negative: EOMI, LAURA, Normal ENT Inspection, Symmetrical, TMs Normal, Pale Conjunctivae, Photophobia, Muffled/Hoarse voice, Pharyngeal Erythema, Tonsillar Exudate, Tonsillar Erythema, Nasal Congestion, Rhinorrhea, Sinus Tenderness, Orbits, Hearing Decreased, Hearing Grossly Normal, TM Bulging , TM Dull, TM Erythema, Lesions, Harris, Excessive drooling, Thrush, Other Neck: positive: Normal Thyroid, Supple Respiratory/Chest: positive: Lungs Clear, Normal Breath Sounds. negative: Respiratory Distress, Crackles, Wheezing Cardiovascular: positive: Regular Rhythm, Regular Rate, S1, S2. negative: Edema , JVD, Murmur Vascular Pulses: Dorsalis-Pedis (R): 2+, Doralis-Pedis (L): 2+ Gastrointestinal/Abdominal: positive: Normal Bowel Sounds, Tender (epigastric), Soft, Tenderness, Spleenomegaly, Other. negative: Decreased BS, Distended, Guarding (No pertionitic signs), Rebound Extremity: positive: Normal Capillary Refill, Normal Inspection, Normal Range of Motion. negative: Tender Neurologic: positive: Motor Strength 5/5, Other (asterixis). negative: Normal Mood/Affect, Normal Response (Confused, history changes) ED Treatment Course - LABORATORY CBC & Chemistry Diagram: 10/03/19 15:56 10/03/19 15:56 Medical Decision Making - Medical Decision Making 10/03/19 17:01 - CBC, CMP, lipase, ammonia, coags - EKG, trop, CXR - CTAP Pt has no peritoneal signs, denies any vomiting/diarrhea, blood 10/03/19 17:39 Ammonia: 110.8 >> Give lactulose, will admit for metabolic encephalopathy Discharge - Discharge Information Problems reviewed: Yes Clinical Impression/Diagnosis: Acute metabolic encephalopathy Abdominal pain Qualifiers: Abdominal location: epigastric Qualified Code(s): R10.13 - Epigastric pain - Admission Yes - Follow up/Referral - Patient Discharge Instructions - Post Discharge Activity
[2019-10-03 16:40] LABS: PH,URINE 6.5 (5.0-8.0); URINE APPEARANCE CLEAR; URINE BILIRUBIN 1+ (NEGATIVE); URINE COLOR DK YELLOW; URINE GLUCOSE (UA) NEGATIVE (NEGATIVE); URINE KETONE NEGATIVE (NEGATIVE); URINE LEUK ESTERASE NEGATIVE (NEGATIVE); URINE NITRITE NEGATIVE (NEGATIVE); URINE PROTEIN NEGATIVE (NEGATIVE); URINE UROBILINOGEN 0.2 mg/dL (0.2-1.0)
[2019-10-03 16:45] LABS: BASO % 0.6 % (0-2.0); EOS % 2.4 % (0-4.5); HEMATOCRIT 40.3 % (35.4-49); HEMOGLOBIN 13.4 GM/dL (11.7-16.9); LYMPH % 28.6 % (8-40); MCH 33.5 pg (25.7-33.7); MCHC 33.2 g/dl (32.0-35.9); MEAN PLT VOLUME 11.6 fl (7.5-11.1); MONO % 8.6 % (3.8-10.2); NEUT % 59.8 % (42.8-82.8); PLATELET COUNT 52 K/MM3 (134-434); RBC 3.99 M/mm3 (4.00-5.60); RDW 16.5 % (11.9-15.9); WHITE BLOOD COUNT 3.2 K/mm3 (4.0-10.0)
[2019-10-03] MEDS ORDERED: METOCLOPRAMIDE HCL INJECTION 10 MG/2 ML VIAL IVPUSH ONE (16:48)
[2019-10-03] MEDS ORDERED: ACETAMINOPHEN 1000 MG/100 ML VIAL (NON FORMULARY) IVPB ONE (16:48)
[2019-10-03] MEDS ORDERED: FAMOTIDINE 20 MG/50 ML IVPB 20 MG/50 ML MG IVPB ONE ×2 (16:48→17:21)
[2019-10-03] MEDS ORDERED: SODIUM CHLORIDE 1,000 ML IV STA (16:55)
[2019-10-03 17:20] LABS: INR 1.64 (0.83-1.09); PROTHROMBIN TIME (PATIENT) 19.5 SEC (9.7-13.0)
[2019-10-03 17:20] LABS: ALBUMIN 2.4 g/dl (3.4-5.0); BILIRUBIN,TOTAL 2.8 mg/dL (0.2-1); BLOOD UREA NITROGEN 8.2 mg/dL (7-18); CALCIUM 8.1 mg/dL (8.5-10.1); CREATININE 0.9 mg/dL (0.55-1.3); POTASSIUM 3.7 mmol/L (3.5-5.1); TOT PROT 7.8 g/dl (6.4-8.2)
[2019-10-03] MEDS ORDERED: METOCLOPRAMIDE HCL INJECTION 10 MG/2 ML VIAL ONE (17:20)
[2019-10-03] MEDS ORDERED: ACETAMINOPHEN INJECTION 100 ML IVPB ONE (17:21)
[2019-10-03] MEDS ORDERED: LACTULOSE 20 GM/30 ML UDC (FOR ORAL USE ONLY) PO ONE (17:39)
[2019-10-03 19:27] LABS: PLATELET ESTIMATE DECREASED
[2019-10-03] MEDS ORDERED: DEXTROSE 50%-WATER 25 GM/50 ML DISP.SYRIN ONE ×2 (20:00→22:54)
[2019-10-03] MEDS ORDERED: DEXTROSE 50%-WATER - 25 GM/50 ML VIAL IVPUSH ONE ×2 (20:05→22:55)
--- NOTE | 2019-10-03 20:06 | HP ---
Admitting History and Physical - Primary Care Physician PCP: Emil Leach - Admission History of Present Illness: 54yo male with hx of cirrhosis and hepatic encephalopathy with epigastric abd pain x 2 days. Pt denies n/v/d. Denies hematemesis, melena, or brbpr. Pt denies f/c. Pt appears sleepy, per the aide, has been sleeping more than normal. Pt follows with GI at [facility] and is pending liver transplant. Pt denies cp/sob. No cough. No hematuria or dysuria. No flank pain. No radiation of the pain. Pt denies all other complaints. No falls. 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) Cardiovascular: Yes: HTN Hepatobiliary: Yes: Cirrhosis (alcoholic), Hepatitis B, Hepatitis C (treated, virus negative) - Past Surgical History Past Surgical History: Yes: Appendectomy (2009 or earlier), Colonoscopy (Most recent: 02/2017) - Smoking History Smoking history: Never smoked Have you smoked in the past 12 months: No Aproximately how many cigarettes per day: 0 - Alcohol/Substance Use Hx Alcohol Use: Yes Home Medications - Allergies Allergies/Adverse Reactions: Allergies Allergy/AdvReac Type Severity Reaction Status Date / Time No Known Allergies Allergy Verified 10/03/19 15:25 - Home Medications Home Medications: Ambulatory Orders Ursodiol [Actigal -] 300 mg PO BID 10/11/17 Sertraline HCl [Zoloft] 25 mg PO DAILY 01/25/18 Furosemide [Lasix -] 40 mg PO DAILY 12/11/18 Gabapentin [Neurontin -] 300 mg PO BID 05/28/19 Rifaximin [Xifaxan] 550 mg PO BID 05/28/19 Tamsulosin HCl [Flomax -] 0.4 mg PO DAILY 05/28/19 Ammonium Lactate Cream [Lac-Hydrin 12% Cream -] 1 applic TP BID 07/24/19 Omeprazole/Sodium Bicarbonate [Omeprazole-Bicarb 40-1,100 Cap] 1 each PO BID Atorvastatin Ca [Lipitor] 20 mg PO HS #30 tablet 07/30/19 Lactulose (Oral Use) [Cephulac -] 30 gm PO QID #3 bottle 07/30/19 Polyethylene Glycol [Polyox Wsr-301] 17 gm MC DAILY 10/03/19 Physical Examination Vital Signs: Vital Signs Temperature 97.1 F L 10/03/19 17:36 Pulse Rate 70 10/03/19 17:36 Respiratory Rate 15 10/03/19 17:36 Blood Pressure 137/73 10/03/19 17:36 O2 Sat by Pulse Oximetry (%) 100 10/03/19 17:36 Constitutional: Yes: No Distress HENT: Yes: Atraumatic Neck: Yes: Supple Cardiovascular: Yes: Regular Rate and Rhythm Respiratory: Yes: CTA Bilaterally Gastrointestinal: Yes: Normal Bowel Sounds Extremities: Yes: WNL Neurological: Yes: Alert, Oriented Labs: CBC, BMP 10/03/19 15:56 10/03/19 15:56 Problem List - Problems (1) Acute metabolic encephalopathy Assessment/Plan: continue lactulose and other meds gi fu npo Code(s): G93.41 - METABOLIC ENCEPHALOPATHY (2) MARYURI (acute kidney injury) Code(s): N17.9 - ACUTE KIDNEY FAILURE, UNSPECIFIED (3) Cirrhosis Code(s): K74.60 - UNSPECIFIED CIRRHOSIS OF LIVER (4) Hepatic encephalopathy Assessment/Plan: more alert now Code(s): K72.90 - HEPATIC FAILURE, UNSPECIFIED WITHOUT COMA Assessment/Plan Laboratory Tests 10/03/19 10/03/19 10/03/19 15:56 15:56 15:56 WBC 3.2 L RBC 3.99 L Hgb 13.4 Hct 40.3 D MCV 101.0 H MCH 33.5 MCHC 33.2 RDW 16.5 H Plt Count 52 L MPV 11.6 H D Absolute Neuts (auto) 1.9 Neutrophils % 59.8 D Lymphocytes % 28.6 D Monocytes % 8.6 Eosinophils % 2.4 Basophils % 0.6 Nucleated RBC % 0 Platelet Estimate Decreased Platelet Comment No clumping noted PT with INR INR Sodium 137 Potassium 3.7 Chloride 107 Carbon Dioxide 23 Anion Gap 8 BUN 8.2 Creatinine 0.9 Est GFR (CKD-EPI)AfAm 111.05 Est GFR (CKD-EPI)NonAf 95.81 POC Glucometer Random Glucose 121 H Calcium 8.1 L Total Bilirubin 2.8 H AST 56 H ALT 39 Alkaline Phosphatase 290 H Ammonia Creatine Kinase Troponin I Total Protein 7.8 Albumin 2.4 L Lipase 293 Urine Color Dk yellow Urine Appearance Clear Urine pH 6.5 Ur Specific [place] 1.018 Urine Protein Negative Urine Glucose (UA) Negative Urine Ketones Negative Urine Blood Negative Urine Nitrite Negative Urine Bilirubin 1+ H Urine Urobilinogen 0.2 Ur Leukocyte Esterase Negative 10/03/19 10/03/19 10/03/19 16:56 16:56 16:56 WBC RBC Hgb Hct MCV MCH MCHC RDW Plt Count MPV Absolute Neuts (auto) Neutrophils % Lymphocytes % Monocytes % Eosinophils % Basophils % Nucleated RBC % Platelet Estimate Platelet Comment PT with INR 19.50 H INR 1.64 H Sodium Potassium Chloride Carbon Dioxide Anion Gap BUN Creatinine Est GFR (CKD-EPI)AfAm Est GFR (CKD-EPI)NonAf POC Glucometer Random Glucose Calcium Total Bilirubin AST ALT Alkaline Phosphatase Ammonia 110.80 H Creatine Kinase 112 Troponin I < 0.02 Total Protein Albumin Lipase Urine Color Urine Appearance Urine pH Ur Specific [place] Urine Protein Urine Glucose (UA) Urine Ketones Urine Blood Urine Nitrite Urine Bilirubin Urine Urobilinogen Ur Leukocyte Esterase 10/03/19 19:57 WBC RBC Hgb Hct MCV MCH MCHC RDW Plt Count MPV Absolute Neuts (auto) Neutrophils % Lymphocytes % Monocytes % Eosinophils % Basophils % Nucleated RBC % Platelet Estimate Platelet Comment PT with INR INR Sodium Potassium Chloride Carbon Dioxide Anion Gap BUN Creatinine Est GFR (CKD-EPI)AfAm Est GFR (CKD-EPI)NonAf POC Glucometer 58 Random Glucose Calcium Total Bilirubin AST ALT Alkaline Phosphatase Ammonia Creatine Kinase Troponin I Total Protein Albumin Lipase Urine Color Urine Appearance Urine pH Ur Specific [place] Urine Protein Urine Glucose (UA) Urine Ketones Urine Blood Urine Nitrite Urine Bilirubin Urine Urobilinogen Ur Leukocyte Esterase Active Medications Generic Name Dose Route Start Last Admin Trade Name Freq PRN Reason Stop Dose Admin Dextrose 25 gm 10/03/19 20:05 D50w (Vial) - IVPUSH 10/03/19 20:06 NOW ONE Active Medications Generic Name Dose Route Start Last Admin Trade Name Freq PRN Reason Stop Dose Admin Atorvastatin Calcium 20 mg 10/03/19 22:00 Lipitor - PO HS SANCHO Furosemide 40 mg 10/04/19 10:00 Lasix - PO DAILY SANCHO Heparin Sodium (Porcine) 5,000 unit 10/03/19 22:00 Heparin - SQ BID SANCHO Sodium Chloride 1,000 mls @ 75 mls/hr 10/03/19 20:15 Normal Saline - IV ASDIR SANCHO Lactulose 20 gm 10/03/19 22:00 Cephulac (Oral Use) PO QID SANCHO Rifaximin 550 mg 10/03/19 22:00 Xifaxan - PO BID SANCHO Sertraline HCl 25 mg 10/04/19 10:00 Zoloft - PO DAILY SANCHO
[2019-10-03] MEDS ORDERED: SODIUM CHLORIDE 1,000 ML IV SCH (20:15)
[2019-10-03] MEDS ORDERED: ATORVASTATIN CA 20 MG TABLET (FP) PO SCH (22:00)
[2019-10-03] MEDS ORDERED: LACTULOSE 20 GM/30 ML UDC (FOR ORAL USE ONLY) ONE (22:21)
[2019-10-03] MEDS ORDERED: HEPARIN NA (PORCINE) 5,000 UNITS/ML 1ML VIAL ONE (22:22)
[2019-10-03] MEDS ORDERED: ATORVASTATIN CA 20 MG TABLET (FP) ONE (22:22)
[2019-10-03] MEDS: HEPARIN NA (PORCINE) 5,000 UNITS/ML 1ML VIAL SQ SCH (22:55)
[2019-10-03] MEDS: RIFAXIMIN 550 MG TABLET (UD) PO SCH (22:55)
[2019-10-03] MEDS ORDERED: DEXTROSE 5%-0.45% SALINE 1,000 ML IV SCH (23:00)
[2019-10-03 23:49] LABS: ALBUMIN 2.3 g/dl (3.4-5.0); BILIRUBIN,TOTAL 3.8 mg/dL (0.2-1); CALCIUM 8.2 mg/dL (8.5-10.1); CREATININE 0.8 mg/dL (0.55-1.3); POTASSIUM 4.2 mmol/L (3.5-5.1); TOT PROT 7.5 g/dl (6.4-8.2)
[2019-10-04 04:03] VITALS: BMI 32.3
[2019-10-04] MEDS ORDERED: SERTRALINE HCL 25 MG TABLET (FP) PO SCH (10:00)
[2019-10-04] MEDS ORDERED: FUROSEMIDE 40 MG TABLET (FP) PO SCH (10:00)
[2019-10-04] MEDS ORDERED: ACETAMINOPHEN 1000 MG/100 ML VIAL (NON FORMULARY) IVPB PRN (10:11)
[2019-10-04] MEDS: LACTULOSE 20 GM/30 ML UDC (FOR ORAL USE ONLY) PO SCH ×3 (10:31→15:02)
[2019-10-04] MEDS: RIFAXIMIN 550 MG TABLET (UD) PO SCH (10:31)
[2019-10-04] MEDS: HEPARIN NA (PORCINE) 5,000 UNITS/ML 1ML VIAL SQ SCH (10:31)
--- NOTE | 2019-10-04 10:42 | EKG ---
Test Reason : Blood Pressure : / mmHG Vent. Rate : 069 BPM Atrial Rate : 069 BPM P-R Int : 166 ms QRS Dur : 082 ms QT Int : 442 ms P-R-T Axes : 037 -21 032 degrees QTc Int : 473 ms SINUS RHYTHM WITH OCCASIONAL PREMATURE VENTRICULAR COMPLEXES OTHERWISE NORMAL ECG WHEN COMPARED WITH ECG OF 23-JUL-2019 23:36, NO SIGNIFICANT CHANGE WAS FOUND Confirmed by GENESIS WILSON, IMANI ([id number]) on 10/04/2019 10:41:50 AM Referred By: Confirmed By:IMANI HURTADO MD
[2019-10-04 14:27] VITALS: BP 129/79; PULSE 76; TEMP 98.8
--- NOTE | 2019-10-04 14:53 | CON.GI ---
Consult Consult Specialty:: GI Referred by:: Hospitalist Service Reason for Consultation:: Abdominal pain - History of Present Illness Chief Complaint: patient denies any focal complaints currently History of Present Illness: 54M admitted through [facility] ER for evaluation of abdominal pain and altered mental status. Patient has had episodes of chronic upper abdominal pain in the past. this was confirmed in the past by his transplant director medical science Dr. Eliana Francis. Per previous discussion with her, Apparently Mr. Fletcher has a history of chronic unexplained upper abdominal pain and has a history of gastroparesis confirmed by SGES. She explained that she has even attempted botox injections to the pylorus to see if this alleviated his pain complaints. She confirmed that on imaging (12/17) he did not have a portal vein thrombus. He has a small caliber portal vein as well as a natural splenorenal shunt likely accounting for the small portal vein diameter and decompressed / small varices noted on EGD at [facility]. Currently, He had a CT scan of the abdomen that revealed changes consistent with cirrhosis, minimmal free fluid and distended gallbladder with ? thickening. He currently denies abdominal pain. he denies rectal bleeding, melena, diarrhea and he believes that he has an appointment with Dr. Francis in 2019. 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 encephalopathy) Cardio/Vascular: Yes: HTN Hepatobiliary: Yes: Cirrhosis (alcoholic), Hepatitis B, Hepatitis C (treated, virus negative) - Past Surgical History Past Surgical History: Yes: Appendectomy (2009 or earlier), Colonoscopy (Most recent: 02/2017) - Alcohol/Substance Use Hx Alcohol Use: Yes - Smoking History Smoking history: Never smoked Have you smoked in the past 12 months: No Aproximately how many cigarettes per day: 0 Home Medications - Allergies Allergies/Adverse Reactions: Allergies Allergy/AdvReac Type Severity Reaction Status Date / Time No Known Allergies Allergy Verified 10/03/19 15:25 - Home Medications Home Medications: Ambulatory Orders Ursodiol [Actigal -] 300 mg PO BID 10/11/17 Sertraline HCl [Zoloft] 25 mg PO DAILY 01/25/18 Furosemide [Lasix -] 40 mg PO DAILY 12/11/18 Gabapentin [Neurontin -] 300 mg PO BID 05/28/19 Rifaximin [Xifaxan] 550 mg PO BID 05/28/19 Tamsulosin HCl [Flomax -] 0.4 mg PO DAILY 05/28/19 Ammonium Lactate Cream [Lac-Hydrin 12% Cream -] 1 applic TP BID 07/24/19 Omeprazole/Sodium Bicarbonate [Omeprazole-Bicarb 40-1,100 Cap] 1 each PO BID Atorvastatin Ca [Lipitor] 20 mg PO HS #30 tablet 07/30/19 Lactulose (Oral Use) [Cephulac -] 30 gm PO QID #3 bottle 07/30/19 Polyethylene Glycol [Polyox Wsr-301] 17 gm MC DAILY 10/03/19 Family Medical History Other Family History: No family history of colorectal cancer Review of Systems - Review of Systems Constitutional: denies: Chills Cardiovascular: denies: Chest Pain Gastrointestinal: denies: Abdominal Pain, Constipation, Diarrhea, Melena, Nausea , Rectal Bleeding, Vomiting, Vomiting Blood Physical Exam-GI Vital Signs: Vital Signs Temperature 98.8 F 10/04/19 14:00 Pulse Rate 76 10/04/19 14:00 Respiratory Rate 20 10/04/19 14:00 Blood Pressure 129/79 10/04/19 14:00 O2 Sat by Pulse Oximetry (%) 97 10/04/19 03:43 Constitutional: Yes: Calm Eyes: No: Sclera Icterus Cardiovascular: Yes: Regular Rate and Rhythm Respiratory: Yes: CTA Bilaterally Gastrointestinal Inspection: Yes: Scars. No: Distention ...Auscultate: Yes: Normoactive Bowel Sounds ...Palpate: Yes: Soft. No: Hepatomegaly, Splenomegaly, Tenderness ...Percussion: No: Tympanitic Edema: No (No LE edema) Neurological: Yes: Alert, Oriented (x 2.). No: Asterixis Labs: CBC, BMP 10/03/19 15:56 10/03/19 23:05 INR, PTT INR 1.64 (0.83-1.09) H 10/03/19 16:56 Hepatic Panel Total Bilirubin 3.8 mg/dL (0.2-1) H 10/03/19 23:05 AST 59 U/L (15-37) H 10/03/19 23:05 ALT 37 U/L (13-61) 10/03/19 23:05 Alkaline Phosphatase 260 U/L (45-117) H 10/03/19 23:05 Albumin 2.3 g/dl (3.4-5.0) L 10/03/19 23:05 Problem List - Problems (1) Abdominal pain Assessment/Plan: No pain currently. Will need follow-up at his transplant center. ? if gallbladder contributing to upper abdominal pain complaints Code(s): R10.9 - UNSPECIFIED ABDOMINAL PAIN Qualifiers: Abdominal location: epigastric Qualified Code(s): R10.13 - Epigastric pain (2) Altered mental status Assessment/Plan: Improved on my exam by description of when he was admitted. Suspect that his natural splenorenal shunt described by his transplant director medical science is contributing to his episodes of hepatic encephalopathy. Continue lactulose 20g TID. titrate to three to four loose BM's per day Continue rifaximin 550mg PO BID Advanced diet Needs follow-up at [facility] with Dr. Eliana Francis. Made her aware that Mr. Chance Craig was admitted. Code(s): R41.82 - ALTERED MENTAL STATUS, UNSPECIFIED
--- NOTE | 2019-10-04 17:02 | DS ---
Physical Examination Vital Signs: Vital Signs Temperature 98.8 F 10/04/19 14:00 Pulse Rate 76 10/04/19 14:00 Respiratory Rate 20 10/04/19 14:00 Blood Pressure 129/79 10/04/19 14:00 O2 Sat by Pulse Oximetry (%) 100 10/04/19 09:00 Constitutional: Yes: No Distress HENT: Yes: Atraumatic Neck: Yes: Supple Cardiovascular: Yes: Regular Rate and Rhythm Respiratory: Yes: CTA Bilaterally Gastrointestinal: Yes: Normal Bowel Sounds Extremities: Yes: WNL Edema: No Neurological: Yes: Alert, Oriented Labs: CBC, BMP 10/03/19 15:56 10/03/19 23:05 Discharge Summary Problems reviewed: Yes Reason For Visit: HEPATIC CIRRHOSIS,ACUYE METAOLIC ENCEPHALOPATHY Current Active Problems Abdominal pain (Acute) Acute metabolic encephalopathy (Acute) - Instructions Diet, Activity, Other Instructions: follow up with his gi team - Home Medications Comprehensive Discharge Medication List: Ambulatory Orders Ursodiol [Actigal -] 300 mg PO BID 10/11/17 Sertraline HCl [Zoloft] 25 mg PO DAILY 01/25/18 Furosemide [Lasix -] 40 mg PO DAILY 12/11/18 Gabapentin [Neurontin -] 300 mg PO BID 05/28/19 Rifaximin [Xifaxan] 550 mg PO BID 05/28/19 Tamsulosin HCl [Flomax -] 0.4 mg PO DAILY 05/28/19 Ammonium Lactate Cream [Lac-Hydrin 12% Cream -] 1 applic TP BID 07/24/19 Omeprazole/Sodium Bicarbonate [Omeprazole-Bicarb 40-1,100 Cap] 1 each PO BID Atorvastatin Ca [Lipitor] 20 mg PO HS #30 tablet 07/30/19 Lactulose (Oral Use) [Cephulac -] 30 gm PO QID #3 bottle 07/30/19 Polyethylene Glycol [Polyox Wsr-301] 17 gm MC DAILY 10/03/19 dc home fu own gi team
[2019-10-04] MEDS ORDERED: LACTULOSE 20 GM/30 ML UDC (FOR ORAL USE ONLY) PO SCH (22:00)
== END 2019-10-04 18:28 | disposition home or self-care (01) | DRG 433 ==
LOC: JER 15:17 → JERBED 17:56 → J4S 10-04 03:00
PROVIDERS: ADMIT Internal Medicine; ATTEND Internal Medicine
DX: K74.60 Unspecified cirrhosis of liver (principal); E72.20 Disorder of urea cycle metabolism, unspecified; R17 Unspecified jaundice; K72.90 Hepatic failure, unspecified without coma; R10.9 Unspecified abdominal pain; R27.8 Other lack of coordination
CPT/HCPCS: 36415; 74177-TC; 80053; 81003; 82140; 82550; 82962; 83690; 84484; 85025; 85610; 87086; 87186; 93005; 93010; 99285-25; J0131; J1644; J7030; Q9967

== ENCOUNTER 2019-11-09 23:08 | Inpatient (IN) | payer MEDICARE, OTHER ==
--- NOTE | 2019-11-09 23:23 | PDOC ---
History of Present Illness - General Chief Complaint: Pain Stated Complaint: STOMACH PAIN Time Seen by Provider: 11/09/19 23:22 History Source: Patient - History of Present Illness Initial Comments: 11/10/19 00:53 Mr. Fletcher is a 54 y/o man w/hx hepC, chronic hepB, on liver transplant list, admission for hepatic encephalopathy in 07/23, recent admission for DVT 10/04 BIBEMS with one day epigastric pain, fatigue, generalized weakness, and somnolence. He reports that starting yesterday he began to feel his hands itch, as well as pain in his belly. He reports feeling increasingly fatigued until he decided to seek evaluation today. He denies any nausea, vomiting, chest pain, or shortness of breath. No recent change in abdominal girth. He reports that since his discharge he has been taking his home medications, including his lactulose, as directed every day. No head injury, falls, trauma, syncope, or near syncope. Past History - Past Medical History Allergies/Adverse Reactions: Allergies Allergy/AdvReac Type Severity Reaction Status Date / Time No Known Allergies Allergy Verified 11/09/19 23:17 Home Medications: Ambulatory Orders Ursodiol [Actigal -] 300 mg PO BID 10/11/17 Sertraline HCl [Zoloft] 25 mg PO DAILY 01/25/18 Furosemide [Lasix -] 40 mg PO DAILY 12/11/18 Gabapentin [Neurontin -] 300 mg PO BID 05/28/19 Rifaximin [Xifaxan] 550 mg PO BID 05/28/19 Tamsulosin HCl [Flomax -] 0.4 mg PO DAILY 05/28/19 Ammonium Lactate Cream [Lac-Hydrin 12% Cream -] 1 applic TP BID 07/24/19 Omeprazole/Sodium Bicarbonate [Omeprazole-Bicarb 40-1,100 Cap] 1 each PO BID Atorvastatin Ca [Lipitor] 20 mg PO HS #30 tablet 07/30/19 Lactulose (Oral Use) [Cephulac -] 30 gm PO QID #3 bottle 07/30/19 Polyethylene Glycol [Polyox Wsr-301] 17 gm MC DAILY 10/03/19 Anemia: Yes Asthma: No Cancer: No Cardiac Disorders: No CVA: No COPD: No CHF: No Dementia: No Diabetes: No GI Disorders: Yes Disorders: No HTN: No Hypercholesterolemia: No Liver Disease: Yes (LIVER Cirrohsis, hepatic encephalopathy) Seizures: No Thyroid Disease: No - Surgical History Abdominal Surgery: Yes Appendectomy: Yes Cardiac Surgery: No Cholecystectomy: No Lung Surgery: No Neurologic Surgery: No Orthopedic Surgery: No - Immunization History Td Vaccination: (UTD) Immunization Up to Date: Yes () - Psycho Social/Smoking Cessation Hx Smoking Status: No Smoking History: Never smoked Have you smoked in the past 12 months: No Number of Cigarettes Smoked Daily: 0 Hx Alcohol Use: Yes Drug/Substance Use Hx: No Substance Use Type: None, Alcohol Hx Substance Use Treatment: No Review of Systems - Review of Systems Able to Perform ROS?: Yes Comments:: 11/10/19 01:00 ROS: GENERAL/CONSTITUTIONAL: Weakness. No fever or chills. HEAD, EYES, EARS, NOSE AND THROAT: No change in vision. No ear pain or discharge. No sore throat. CARDIOVASCULAR: No chest pain or shortness of breath RESPIRATORY: No cough, wheezing, or hemoptysis. GASTROINTESTINAL: Abdominal pain. No nausea, vomiting, diarrhea or constipation. GENITOURINARY: No dysuria, frequency, or change in urination. MUSCULOSKELETAL: No joint or muscle swelling or pain. No neck or back pain. SKIN: No rash NEUROLOGIC: No headache, vertigo, loss of consciousness, or change in strength/ sensation. ENDOCRINE: No increased thirst. No abnormal weight change HEMATOLOGIC/LYMPHATIC: No anemia, easy bleeding, or history of blood clots. ALLERGIC/IMMUNOLOGIC: No hives or skin allergy. *Physical Exam - Vital Signs Last Vital Signs Temp Pulse Resp BP Pulse Ox 84 18 128/72 100 11/09/19 23:14 11/09/19 23:14 11/09/19 23:14 11/09/19 23:14 - Physical Exam 11/10/19 01:02 PE: GENERAL: Alert, somnolent but arousable with speech. HEAD: No signs of trauma, normocephalic, atraumatic EYES: PERRLA, EOMI, sclera anicteric, conjunctiva clear ENT: Auricles normal inspection, hearing grossly normal, nares patent, oropharynx clear without exudates. Moist mucosa NECK: Normal ROM, supple, no lymphadenopathy, JVD, or masses LUNGS: No distress, speaks full sentences, clear to auscultation bilaterally HEART: Regular rate and rhythm, normal S1 and S2, no murmurs, rubs or gallops, peripheral pulses normal and equal bilaterally. ABDOMEN: No fluid wave noted. No ascites. Mild epigastric tenderness to palpation. Soft, normoactive bowel sounds. No guarding, no rebound. No masses EXTREMITIES : Flapping asterixis. Normal inspection, Normal range of motion, no edema. No clubbing or cyanosis NEUROLOGICAL: Cranial nerves II through XII grossly intact. Normal speech, normal gait, no focal sensorimotor deficits SKIN: Warm, Dry, normal turgor, no rashes or lesions noted ED Treatment Course - LABORATORY CBC & Chemistry Diagram: 11/10/19 00:00 11/10/19 00:00 Medical Decision Making - Medical Decision Making 11/10/19 01:05 54M w/hx cirrhosis on liver transplant list, HepC, HepB p/w acute onset somnolence, generalized weakness, abdominal discomfort c/w hepatic encephalopathy. Plan: Ammonia CBC CMP Lipase Lactate EKG CXR Cardiac Profile Lactulose 20mg Dispo: Likely admit pending labs --- Ammonia - 220 Plan for admission pending labs 11/10/19 01:46 Lactate 2.2 1L LR ordered 11/10/19 04:19 Transplant Case discussed with [facility] transplant team. Plan for management at [facility] for this admission, but they will call back tonight to arrange follow up appointment with them for after discharge. --- Patient endorsed to admitting team. Discharge - Discharge Information Problems reviewed: Yes Clinical Impression/Diagnosis: Hepatic encephalopathy Condition: Stable - Admission Yes - Follow up/Referral - Patient Discharge Instructions - Post Discharge Activity
[2019-11-10] MEDS ORDERED: LACTULOSE 20 GM/30 ML UDC (FOR ORAL USE ONLY) PO ONE (01:08)
[2019-11-10 01:18] LABS: BASO % 0.4 % (0-2.0); EOS % 2.8 % (0-4.5); HEMATOCRIT 33.3 % (35.4-49); HEMOGLOBIN 11.1 GM/dL (11.7-16.9); LYMPH % 28.8 % (8-40); MCH 33.3 pg (25.7-33.7); MCHC 33.5 g/dl (32.0-35.9); MEAN CELL VOLUME 99.5 fl (80-96); MEAN PLT VOLUME 12.5 fl (7.5-11.1); MONO % 12.9 % (3.8-10.2); NEUT % 55.1 % (42.8-82.8); PLATELET COUNT 78 K/MM3 (134-434); RBC 3.35 M/mm3 (4.00-5.60); RDW 16.5 % (11.9-15.9); WHITE BLOOD COUNT 2.9 K/mm3 (4.0-10.0)
--- NOTE | 2019-11-10 01:26 | PDOC ---
Documentation entered by Williams Rico SCRIBE, acting as scribe for Watson Choi MD. Watson Choi MD: This documentation has been prepared by the Jacky dang Daniel, SCRIBE, under my direction and personally reviewed by me in its entirety. I confirm that the documentation accurately reflects all work, treatment, procedures, and medical decision making performed by me. Attending Attestation - Resident Resident Name: Dominik Brambila - ED Attending Attestation I have performed the following: I have examined & evaluated the patient, The case was reviewed & discussed with the resident, I agree w/resident's findings & plan, Exceptions are as noted - HPI HPI: 11/10/19 01:10 The patient is a 54 year old male with a past medical history of Hep C, Hep B, ascites, hepatic encephalopathy, and cirrhosis (on liver transplant list) here today for evaluation of epigastric pain and generalized weakness. The patient reports that yesterday he noticed that his hand started to itch and developed somnolence, fatigue, and mild epigastric pain. He states that his symptoms worsened over time, became concerned, and called EMS. Patient denies headache, lightheadedness. Denies fever, chills. Denies chest pain, shortness of breath. Denies nausea, vomiting, diarrhea. Allergies: NKA - Physicial Exam PE: 11/10/19 01:16 GENERAL: The patient is somnolent but easily arousable HEAD: Normocephalic, atraumatic. EYES: extraocular movements intact, sclera anicteric, conjunctiva clear. ENT: Normal voice, Moist mucous membranes. NECK: Normal range of motion, supple LUNGS: Breath sounds equal, clear to auscultation bilaterally. No wheezes, no rhonchi, no rales. HEART: Regular rate and rhythm, normal S1 and S2 without murmur, rub or gallop. ABDOMEN: Soft, nontender, No guarding, no rebound. No CVA tenderness, slightly distended with fluid wave EXTREMITIES: Normal range of motion, trace edema. NEUROLOGICAL: No facial assymetry, Normal speech, moving all 4 extremities spontaneously, +asterixis PSYCH: Normal mood, normal affect. SKIN: Warm, Dry, normal turgor, - Medical Decision Making 01/11/20 01:06 54y F hx of hcv, hepatic encephlapthy prior etoh abusepresents with somlonece, general weakness, mild epigastric pain. Started feeling weaker/tired since yesterday so was brought to the ED for evaluation. Denies any fever/chils, cp, sob, n/v, diaphoresis. Differential includes possible hepatic encephalopathy/metabolic derangements Will obtain blood work, EKG, reassess 11/10/19 01:38 Patient's blood work was noted for significantly elevated ammonia level. We will will admit the patient for further management of hepatic encephalopathy Heart Score/ECG Review - ECG Impressions Comment:: 11/10/19 01:17 Twelve-lead EKG was performed and reviewed by me. There is normal sinus rhythm with a normal rate. Rate of 80 The axis is normal. The intervals are normal. There is normal R wave progression There are no ST or T wave abnormalities. Impression: Normal twelve-lead EKG
[2019-11-10 01:29] LABS: INR 1.86 (0.83-1.09); PROTHROMBIN TIME (PATIENT) 22.1 SEC (9.7-13.0)
[2019-11-10] MEDS ORDERED: LACTULOSE 20 GM/30 ML UDC (FOR ORAL USE ONLY) ONE (01:36)
[2019-11-10 01:44] LABS: ALBUMIN 1.9 g/dl (3.4-5.0); ALK PHOS 261 U/L (45-117); ANION GAP 7 MMOL/L (8-16); BILIRUBIN,TOTAL 2.6 mg/dL (0.2-1); BLOOD UREA NITROGEN 7.8 mg/dL (7-18); CALCIUM 7.9 mg/dL (8.5-10.1); CHLORIDE 104 mmol/L (98-107); CO2 26 mmol/L (21-32); CREATININE 0.7 mg/dL (0.55-1.3); GLUCOSE,RANDOM 69 mg/dL (74-106); LIPASE 194 U/L (73-393); N-TERMINAL BNP 78.1 pg/ml (5-125); POTASSIUM 4.4 mmol/L (3.5-5.1); SGOT/AST 46 U/L (15-37); SGPT/ALT 29 U/L (13-61); SODIUM 136 mmol/L (136-145); TOT PROT 6.8 g/dl (6.4-8.2)
[2019-11-10] MEDS ORDERED: LACTATED RINGERS SOLUTION 1000 ML INFUS.BAG IV ONE (01:45)
[2019-11-10 02:20] LABS: URINE APPEARANCE CLEAR; URINE BILIRUBIN NEGATIVE (NEGATIVE); URINE COLOR DK YELLOW; URINE GLUCOSE (UA) NEGATIVE (NEGATIVE); URINE KETONE NEGATIVE (NEGATIVE); URINE LEUK ESTERASE NEGATIVE (NEGATIVE); URINE NITRITE NEGATIVE (NEGATIVE); URINE PROTEIN NEGATIVE (NEGATIVE)
--- NOTE | 2019-11-10 05:36 | HP ---
CHIEF COMPLAINT: abdominal pain PCP: none HISTORY OF PRESENT ILLNESS: 54 y/o/m with PMHx of Hep B, Hep C, cirrhosis on the liver transplant list here for abd pain that started one day ago. Patient is a poor history, spoke with patient using [employer] interpretor who needed to ask patient to repeat answers multiple times. Denies any inciting events for the pain and denies that it is associated with food. States that its all around his stomach. Claims that he has been taking his medications regularly and denies alcohol use. States he has his hand ironer 3 weeks ago and follows with his hand ironer as well. Complains of constipation for the last few days, no blood seen in stool. Denies headache, chest pain, dysuria, abd pain, N/V/D. Denies any recent injuries. 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 Soraida AGUILAR course was notable for: (1) Lactulose 20 given Recent Travel: none PAST MEDICAL HISTORY: Hep B, Hep C, cirrhosis PAST SURGICAL HISTORY: appendectomy 30 years ago Social History: Smoking: denies use ever Alcohol: states he stopped drinking 10 years ago Drugs: denies use ever Patient states that he lives alone at home by himself Allergies No Known Allergies Allergy (Verified 11/09/19 23:17) HOME MEDICATIONS: Home Medications Medication Instructions Recorded Ursodiol [Actigal -] 300 mg PO BID 10/11/17 Sertraline HCl [Zoloft] 25 mg PO DAILY 01/25/18 Furosemide [Lasix -] 40 mg PO DAILY 12/11/18 Gabapentin [Neurontin -] 300 mg PO BID 05/28/19 Rifaximin [Xifaxan] 550 mg PO BID 05/28/19 Tamsulosin HCl [Flomax -] 0.4 mg PO DAILY 05/28/19 Ammonium Lactate Cream [Lac-Hydrin 1 applic TP BID 07/24/19 12% Cream -] Omeprazole/Sodium Bicarbonate 1 each PO BID 07/24/19 [Omeprazole-Bicarb 40-1,100 Cap] Atorvastatin Ca [Lipitor] 20 mg PO HS #30 tablet 07/30/19 Lactulose (Oral Use) [Cephulac -] 30 gm PO QID #3 bottle 07/30/19 Polyethylene Glycol [Polyox 17 gm MC DAILY 10/03/19 [id number]] REVIEW OF SYSTEMS As per HPI PHYSICAL EXAMINATION Vital Signs - 24 hr 11/09/19 11/09/19 11/10/19 23:14 23:31 02:05 Temperature 97.9 F Pulse Rate 84 Pulse Rate [ 75 Right Radial] Respiratory 18 18 Rate Blood Pressure 128/72 Blood Pressure 111/71 [Left Arm] O2 Sat by Pulse 100 98 Oximetry (%) 11/10/19 05:18 Temperature Pulse Rate Pulse Rate [ 70 Right Radial] Respiratory 18 Rate Blood Pressure Blood Pressure 126/63 [Left Arm] O2 Sat by Pulse 99 Oximetry (%) GENERAL: Awake, alert but slow to respond HEAD: Normal with no signs of trauma. EYES: PERRL, EOMI, no scleral icterus EARS, NOSE, THROAT: dry mucous membranes NECK: Normal range of motion, supple without lymphadenopathy, JVD, or masses. LUNGS: Breath sounds equal, clear to auscultation bilaterally. No wheezes, and no crackles. No accessory muscle use. HEART: Regular rate and rhythm, normal S1 and S2 without murmur, rub or gallop. ABDOMEN: epigastric tenderness to palpation, soft, nondistended, no guarding, no rebound MUSCULOSKELETAL: No bony deformities or tenderness. No CVA tenderness. EXTREMITIES: 2+ pulses, warm, well-perfused. No calf tenderness. No peripheral edema. NEUROLOGICAL: Normal speech. Normal gait. AAOx2 (self and place) PSYCHIATRIC: flat affect and mood SKIN: Warm, dry, normal turgor, no rashes or lesions noted, normal capillary refill. Laboratory Results - last 24 hr 11/10/19 11/10/19 11/10/19 00:00 00:00 00:00 WBC 2.9 L RBC 3.35 L Hgb 11.1 L Hct 33.3 L D MCV 99.5 H MCH 33.3 MCHC 33.5 RDW 16.5 H Plt Count 78 L D MPV 12.5 H Absolute Neuts (auto) 1.6 Neutrophils % 55.1 Lymphocytes % 28.8 Monocytes % 12.9 H Eosinophils % 2.8 Basophils % 0.4 Nucleated RBC % 0 PT with INR INR PTT (Actin FS) 38.7 H Sodium 136 Potassium 4.4 Chloride 104 Carbon Dioxide 26 Anion Gap 7 L BUN 7.8 Creatinine 0.7 Est GFR (CKD-EPI)AfAm 123.13 Est GFR (CKD-EPI)NonAf 106.24 Random Glucose 69 L Lactic Acid Calcium 7.9 L Total Bilirubin 2.6 H AST 46 H ALT 29 Alkaline Phosphatase 261 H Ammonia Creatine Kinase 89 Troponin I < 0.02 B-Natriuretic Peptide 78.1 Total Protein 6.8 Albumin 1.9 L Lipase 194 Urine Color Urine Appearance Urine pH Ur Specific Freer Urine Protein Urine Glucose (UA) Urine Ketones Urine Blood Urine Nitrite Urine Bilirubin Urine Urobilinogen Ur Leukocyte Esterase 11/10/19 11/10/19 11/10/19 00:00 00:00 00:00 WBC RBC Hgb Hct MCV MCH MCHC RDW Plt Count MPV Absolute Neuts (auto) Neutrophils % Lymphocytes % Monocytes % Eosinophils % Basophils % Nucleated RBC % PT with INR 22.10 H INR 1.86 H PTT (Actin FS) Sodium Cancelled Potassium Cancelled Chloride Cancelled Carbon Dioxide Cancelled Anion Gap Cancelled BUN Cancelled Creatinine Cancelled Est GFR (CKD-EPI)AfAm Cancelled Est GFR (CKD-EPI)NonAf Cancelled Random Glucose Cancelled Lactic Acid 2.2 H* Calcium Cancelled Total Bilirubin Cancelled AST Cancelled ALT Cancelled Alkaline Phosphatase Cancelled Ammonia Creatine Kinase Troponin I B-Natriuretic Peptide Cancelled Total Protein Cancelled Albumin Cancelled Lipase Cancelled Urine Color Urine Appearance Urine pH Ur Specific Freer Urine Protein Urine Glucose (UA) Urine Ketones Urine Blood Urine Nitrite Urine Bilirubin Urine Urobilinogen Ur Leukocyte Esterase 11/10/19 11/10/19 11/10/19 00:00 01:15 02:40 WBC RBC Hgb Hct MCV MCH MCHC RDW Plt Count MPV Absolute Neuts (auto) Neutrophils % Lymphocytes % Monocytes % Eosinophils % Basophils % Nucleated RBC % PT with INR INR PTT (Actin FS) Sodium Potassium Chloride Carbon Dioxide Anion Gap BUN Creatinine Est GFR (CKD-EPI)AfAm Est GFR (CKD-EPI)NonAf Random Glucose Lactic Acid 1.7 Calcium Total Bilirubin AST ALT Alkaline Phosphatase Ammonia 220.30 H Creatine Kinase Troponin I B-Natriuretic Peptide Total Protein Albumin Lipase Urine Color Dk yellow Urine Appearance Clear Urine pH 7.0 Ur Specific Freer 1.011 Urine Protein Negative Urine Glucose (UA) Negative Urine Ketones Negative Urine Blood Negative Urine Nitrite Negative Urine Bilirubin Negative Urine Urobilinogen 1.0 Ur Leukocyte Esterase Negative ASSESSMENT/PLAN: 54 y/o/m with PMHx of Hep B, Hep C, cirrhosis on the liver transplant list here for abd pain that started one day ago. Admitted for hepatic encephalopathy. #Altered mental status likely 2/2 Hepatic Encephalopathy - likely 2/2 to history of constipation - Restart home meds of Rifaximin, lactulose, polyethylene glycol - Titrate to 3-4 BMs per day - monitor for signs of improvement in mental status - fall precautions #Coagulopathy - likely 2/2 to poor liver function #Transaminitis - likely 2/2 poor liver function - Abdominal U/S to rule out ascites #Thrombocytopenia - F/U head CT to rule out intracranial hemorrhage due to low low platelet count and coagulopathy to rule out alternate cause of AMS #FEN - NPO except for meds until mental status improves - NS @ 75mls/hr #Prophylaxis - holding chemical AC until CT cleared of intracranial hemorrhage - SCDs #Disposition - admitted to med surg Visit type - Emergency Visit Emergency Visit: Yes ED Registration Date: 11/10/19 Care time: The patient presented to the Emergency Department on the above date and was hospitalized for further evaluation of their emergent condition. - New Patient This patient is new to me today: Yes Date on this admission: 11/10/19 - Critical Care Critical Care patient: No ATTENDING PHYSICIAN STATEMENT I saw and evaluated the patient. I reviewed the resident's note and discussed the case with the resident. I agree with the resident's findings and plan as documented. SUBJECTIVE: OBJECTIVE: ASSESSMENT AND PLAN:
--- NOTE | 2019-11-10 06:05 | PN ---
Teaching Attending Note Name of Resident: Christopher San ATTENDING PHYSICIAN STATEMENT I saw and evaluated the patient. I reviewed the resident's note and discussed the case with the resident. I agree with the resident's findings and plan as documented. SUBJECTIVE: 54 year old male with a past medical history of Hep C, Hep B, ascites, hepatic encephalopathy, and cirrhosis (on liver transplant list) Brought in complaining of epigastric pain and generalized weakness. Patient has been feeling more fatigued and somnolent.Allegedly was constipated for the past several days. Called EMS And brought to hospital. OBJECTIVE: Last Vital Signs Temp Pulse Resp BP Pulse Ox 97.9 F 70 18 126/63 99 11/09/19 23:31 11/10/19 05:18 11/10/19 05:18 11/10/19 05:18 11/10/19 05:18 GENERAL: Well developed, well nourished. Awake and alert.Nontoxic-appearing HEENT: Normocephalic, atraumatic. PERRLA, EOMI. No conjunctival pallor.Icteric sclera. Moist mucous membranes. Oropharynx is clear. NECK: Supple. Full ROM. No JVD. Carotid pulses 2+ and symmetric, without bruits. No thyromegaly. No lymphadenopathy. CARDIOVASCULAR: Regular rate and rhythm. No murmurs, rubs, or gallops. Distal pulses are 2+ and symmetric. PULMONARY: No evidence of respiratory distress. Lungs clear to auscultation bilaterally. No wheezing, rales or rhonchi. ABDOMINAL: Soft. Non-tender. Non-distended. No rebound or guarding. No organomegaly. Normoactive bowel sounds. MUSCULOSKELETAL Normal range of motion at all joints. No bony deformities or tenderness. No CVA tenderness. EXTREMITIES: No cyanosis. No clubbing. No edema. No calf tenderness. SKIN: Warm and dry. Normal capillary refill. No rashes. No jaundice. NEUROLOGICAL: Awake, drowsy, oriented to person and place. No focal neuro deficits appreciated. Slow mentation. Follows commands. PSYCHIATRIC: Drowsy, minimally cooperative Abnormal Lab Results 11/10/19 11/10/19 11/10/19 00:00 00:00 00:00 WBC 2.9 L RBC 3.35 L Hgb 11.1 L Hct 33.3 L D MCV 99.5 H RDW 16.5 H Plt Count 78 L D MPV 12.5 H Monocytes % 12.9 H PT with INR INR PTT (Actin FS) 38.7 H Anion Gap 7 L Random Glucose 69 L Lactic Acid Calcium 7.9 L Total Bilirubin 2.6 H AST 46 H Alkaline Phosphatase 261 H Ammonia Albumin 1.9 L 11/10/19 11/10/19 11/10/19 00:00 00:00 00:00 WBC RBC Hgb Hct MCV RDW Plt Count MPV Monocytes % PT with INR 22.10 H INR 1.86 H PTT (Actin FS) Anion Gap Random Glucose Lactic Acid 2.2 H* Calcium Total Bilirubin AST Alkaline Phosphatase Ammonia 220.30 H Albumin Chest x-ray reviewed ASSESSMENT AND PLAN: 54-year-old male with liver cirrhosis on transplant list, otitis B and C history , presenting with altered mental status, lethargy suspect likely secondary to hepatic encephalopathy his history of constipation. High ammonia level. Noted to be coagulopathic therefore should rule out intracranial hemorrhaging as a cause of his altered mentation. Otherwise should treat for back encephalopathy with lactulose and rifaximin. Patient refuses to take p.o. would place NG tube and administer medications via an NG tube. Chronic pancytopenia Secondary to underlying liver failure. Transaminitis and coagulopathy likely secondary to underlying liver failure. Mild lactic acidosis. Hypoalbuminemia secondary to liver failure. Admit to MedSurg Rifaximin and lactulose p.o. Aim for 3-4 bowel movements a day Bedrest and fall precautions Head CT to rule out intracranial hemorrhage Protein supplements Abdominal ultrasound to rule out ascites If significant ascites would consider to do a diagnostic paracentesis To rule out SBP Consider GI follow-up for medication optimization SCDs for DVT prophylaxis
[2019-11-10] MEDS ORDERED: SODIUM CHLORIDE 1,000 ML IV SCH (06:30)
--- NOTE | 2019-11-10 08:46 | EKG ---
Test Reason : Blood Pressure : / mmHG Vent. Rate : 080 BPM Atrial Rate : 080 BPM P-R Int : 160 ms QRS Dur : 088 ms QT Int : 412 ms P-R-T Axes : 040 -16 039 degrees QTc Int : 475 ms NORMAL SINUS RHYTHM NORMAL ECG WHEN COMPARED WITH ECG OF 03-OCT-2019 17:23, PREMATURE VENTRICULAR COMPLEXES ARE NO LONGER PRESENT Confirmed by JASON SANCHEZ MD ([id number]) on 11/10/2019 8:46:22 AM Referred By: Confirmed By:JASON SANCHEZ MD
[2019-11-10] MEDS: LACTULOSE 20 GM/30 ML UDC (FOR ORAL USE ONLY) PO SCH ×4 (09:55→21:08)
[2019-11-10] MEDS: URSODIOL 300 MG CAPSULE PO SCH ×2 (09:58→21:08)
[2019-11-10] MEDS: TAMSULOSIN HCL 0.4 MG CAP PO SCH (09:58)
[2019-11-10] MEDS: FUROSEMIDE 40 MG TABLET (FP) PO SCH (09:58)
[2019-11-10] MEDS: RIFAXIMIN 550 MG TABLET (UD) PO SCH ×2 (09:58→21:08)
[2019-11-10] MEDS: GABAPENTIN 300 MG CAPSULE PO SCH ×2 (09:58→21:08)
[2019-11-10] MEDS ORDERED: ENOXAPARIN NA (PORCINE) 40 MG/0.4 ML DISP.SYRIN SQ SCH (10:00)
[2019-11-10] MEDS: POLYETHYLENE GLYCOL 3350 119 GM BTL PO SCH (10:02)
[2019-11-10 11:02] LABS: HEMATOCRIT 34.2 % (35.4-49); HEMOGLOBIN 11.4 GM/dL (11.7-16.9); MCH 33.4 pg (25.7-33.7); MCHC 33.4 g/dl (32.0-35.9); MEAN PLT VOLUME 11.4 fl (7.5-11.1); PLATELET COUNT 39 K/MM3 (134-434); RBC 3.42 M/mm3 (4.00-5.60); RDW 15.9 % (11.9-15.9); WHITE BLOOD COUNT 2.4 K/mm3 (4.0-10.0)
[2019-11-10 11:24] LABS: BILIRUBIN,TOTAL 3.8 mg/dL (0.2-1); CALCIUM 8.2 mg/dL (8.5-10.1); CREATININE 0.6 mg/dL (0.55-1.3); MAGNESIUM 1.7 mg/dL (1.8-2.4); POTASSIUM 3.8 mmol/L (3.5-5.1); TOT PROT 6.6 g/dl (6.4-8.2)
--- NOTE | 2019-11-10 12:32 | PN ---
Progress Note, Physician Chief Complaint: abdominal pain History of Present Illness: seen and examined at bedside. hungry, slight pain in epigastric region - Current Medication List Current Medications: Active Medications Atorvastatin Calcium (Lipitor -) 20 mg PO HS [facility] Furosemide (Lasix -) 40 mg PO DAILY [facility] Last Admin: 11/10/19 09:58 Dose: 40 mg Gabapentin (Neurontin -) 300 mg PO BID [facility] Last Admin: 11/10/19 09:58 Dose: 300 mg Sodium Chloride (Normal Saline -) 1,000 mls @ 75 mls/hr IV ASDIR [facility] Last Admin: 11/10/19 09:59 Dose: 75 mls/hr Lactulose (Cephulac (Oral Use)) 30 gm PO QID [facility] Last Admin: 11/10/19 09:55 Dose: 30 gm Polyethylene Glycol (Miralax (For Daily Use) -) 17 gm PO DAILY [facility] Last Admin: 11/10/19 10:02 Dose: 17 gm Rifaximin (Xifaxan -) 550 mg PO BID [facility] Last Admin: 11/10/19 09:58 Dose: 550 mg Tamsulosin HCl (Flomax -) 0.4 mg PO DAILY@0830 [facility] Last Admin: 11/10/19 09:58 Dose: 0.4 mg Ursodiol (Actigal -) 300 mg PO BID [facility] Last Admin: 11/10/19 09:58 Dose: 300 mg - Objective Vital Signs: Vital Signs Temperature 97.9 F 11/09/19 23:31 Pulse Rate 70 11/10/19 05:18 Respiratory Rate 18 11/10/19 05:18 Blood Pressure 126/63 11/10/19 05:18 O2 Sat by Pulse Oximetry (%) 99 11/10/19 05:18 Constitutional: Yes: Well Nourished, No Distress, Calm Cardiovascular: Yes: WNL, Regular Rate and Rhythm Respiratory: Yes: WNL, Regular, CTA Bilaterally Gastrointestinal: Yes: Normal Bowel Sounds, Distention (no ascites, slight epigastric TTP) Musculoskeletal: Yes: WNL Extremities: Yes: WNL Edema: No Labs: CBC, BMP 11/10/19 10:35 11/10/19 06:22 INR, PTT INR 1.86 (0.83-1.09) H 11/10/19 00:00 Problem List - Problems (1) Hepatic encephalopathy Code(s): K72.90 - HEPATIC FAILURE, UNSPECIFIED WITHOUT COMA (2) Abdominal pain Code(s): R10.9 - UNSPECIFIED ABDOMINAL PAIN (3) Cirrhosis Code(s): K74.60 - UNSPECIFIED CIRRHOSIS OF LIVER (4) Hyperammonemia Code(s): E72.20 - DISORDER OF UREA CYCLE METABOLISM, UNSPECIFIED (5) Hyperbilirubinemia Code(s): E80.6 - OTHER DISORDERS OF BILIRUBIN METABOLISM (6) Pancytopenia Code(s): D61.818 - OTHER PANCYTOPENIA Assessment/Plan Assessment: 54-year-old male with liver cirrhosis on transplant list, Hx Hep B/C, coagulopathy, transaminitis, TCP presenting with altered mental status and lethargy Plan: - abdominal us no ascites - CT head no acute pathology - Restarted on Rifaximin, lactulose, polyethylene glycol - Titrate to 3-4 BMs per day - better mental state, able to eat regular diet now - GI consult called
[2019-11-10] MEDS ORDERED: MAGNESIUM SULF 50% (8.12 MEQ/2 ML-1 GM VIAL) IVPB ONE (12:57)
--- NOTE | 2019-11-10 15:52 | PN ---
Progress Note (short form) - Note Progress Note: GI CONSULT DICTATED
[2019-11-10 16:16] VITALS: BMI 31.5
--- NOTE | 2019-11-10 16:49 | CONS ---
DATE OF CONSULTATION: 11/10/2019 GASTROINTESTINAL CONSULTATION HISTORY OF PRESENT ILLNESS: The patient is a 54-year-old man who is known to me from his previous hospitalizations. He has a past medical history of hepatitis C, cirrhosis, on the transplant list. He is admitted now to the hospital with complaints of epigastric abdominal pain which is at times intermittent. He denies any nausea, vomiting, hematemesis, melena or hematochezia. 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 He does complain of some constipation. His last upper endoscopy was done at [facility], at which time he was noted to have varices. PAST MEDICAL AND SURGICAL HISTORY: As listed in the HPI. ALLERGIES: No known drug allergies. SOCIAL HISTORY: He states he stopped drinking ten years ago. He does not smoke or use drugs. He lives at home by himself. FAMILY HISTORY: Unable to obtain; he is a poor historian. HOME MEDICATIONS: Ursodiol, Zoloft, Lasix, Neurontin, rifaximin, Flomax, omeprazole, atorvastatin, lactulose and MiraLAX. REVIEW OF SYSTEMS: As per the HPI. PHYSICAL EXAMINATION: Vital Signs: Temperature 98, pulse 83, blood pressure 120/58, pulse oximetry 99 % on room air, respiratory rate 20. General: The patient is in no acute distress. HEENT: Anicteric sclerae. Cardiovascular: S1, S2. Regular rate and rhythm. Lungs: Bilaterally clear to auscultation. Abdomen: Soft and nontender. Extremities: Without edema. LABS: White blood cell count 2.4, hemoglobin 11, hematocrit 34, MCV 100, platelet count 39, INR 1.86, sodium 137, potassium 3.8, BUN 7, creatinine 0.6, glucose 86. His lactic acid on admission was 2.2; currently, it is 1.7. Total bilirubin 3.8 , AST of 44, ALT 30, alkaline phosphatase 237, ammonia level 220. Urine is negative. The patient had a head CT which was within normal limits. He also had a chest x -ray which was within normal limits. IMPRESSION: Abdominal pain and altered mental status, most likely secondary to hepatic encephalopathy. Would also rule out infectious etiology. PLAN: 1. Abdominal ultrasound. 2. Would continue him on rifaximin 550 mg p.o. b.i.d., Lactulose 30 mL t.i.d., titrate to four bowel movements, and his MiraLAX for relief of constipation encephalopathy. 3. Frequent neurological exams. During my neurological exam today, he did have asterixis. Avoid sedatives. Avoid NSAIDs. 4. Monitor his LFTs while hospitalized. 5. If there is ascites on the ultrasound, he will need a diagnostic paracentesis to exclude SBP. 6. Will follow. DO LAWRENCE LEAHY/[id number] MTDD
[2019-11-10] MEDS: ATORVASTATIN CA 20 MG TABLET (FP) PO SCH (21:08)
[2019-11-11] MEDS ORDERED: MAG HYDROX/AL HYDROX/SIMETH 30 ML UNIT-DOSE CUP PO ONE (03:01)
--- NOTE | 2019-11-11 07:59 | PN.GI ---
GI Progress Note Subjective: no new complaints - states he is feeling much better today - Objective Vital Signs: Vital Signs Temperature 98.6 F 11/11/19 06:00 Pulse Rate 73 11/11/19 06:00 Respiratory Rate 18 11/11/19 06:00 Blood Pressure 121/73 11/11/19 06:00 O2 Sat by Pulse Oximetry (%) 98 11/10/19 21:00 Constitutional: Well Nourished, No Distress Eyes: Yes: WNL HENT: Yes: WNL Neck: Yes: WNL Cardiovascular: Yes: WNL Respiratory: Yes: WNL, Regular, CTA Bilaterally Gastrointestinal Inspection: Yes: WNL ...Auscultate: Yes: Normoactive Bowel Sounds Musculoskeletal: Yes: WNL Extremities: Yes: WNL Edema: No Labs: CBC, BMP 11/10/19 10:35 11/10/19 06:22 INR, PTT INR 1.86 (0.83-1.09) H 11/10/19 00:00 Problem List - Problems (1) Hepatic encephalopathy Assessment/Plan: abdominal ultrasound reviewed - no ascites - c/w rifaximin /lactulose/ ppi - if he continues to improve he should be discharged to f/u with his office support for further management Code(s): K72.90 - HEPATIC FAILURE, UNSPECIFIED WITHOUT COMA (2) Abdominal pain Code(s): R10.9 - UNSPECIFIED ABDOMINAL PAIN
[2019-11-11 09:28] LABS: BASO % 0.6 % (0-2.0); EOS % 4.1 % (0-4.5); HEMATOCRIT 36.3 % (35.4-49); HEMOGLOBIN 12.2 GM/dL (11.7-16.9); LYMPH % 35.3 % (8-40); MCH 33.5 pg (25.7-33.7); MCHC 33.7 g/dl (32.0-35.9); MEAN CELL VOLUME 99.4 fl (80-96); MEAN PLT VOLUME 11.4 fl (7.5-11.1); MONO % 8.3 % (3.8-10.2); NEUT % 51.7 % (42.8-82.8); PLATELET COUNT 41 K/MM3 (134-434); RBC 3.65 M/mm3 (4.00-5.60); RDW 16.5 % (11.9-15.9); WHITE BLOOD COUNT 3.7 K/mm3 (4.0-10.0)
[2019-11-11 09:57] LABS: ALBUMIN 2.2 g/dl (3.4-5.0); BLOOD UREA NITROGEN 6.7 mg/dL (7-18); CALCIUM 8.1 mg/dL (8.5-10.1); CREATININE 0.7 mg/dL (0.55-1.3); POTASSIUM 3.9 mmol/L (3.5-5.1); TOT PROT 7.2 g/dl (6.4-8.2)
[2019-11-11] MEDS: GABAPENTIN 300 MG CAPSULE PO SCH ×2 (10:22→21:02)
[2019-11-11] MEDS: URSODIOL 300 MG CAPSULE PO SCH ×2 (10:22→21:02)
[2019-11-11] MEDS: TAMSULOSIN HCL 0.4 MG CAP PO SCH (10:22)
[2019-11-11] MEDS: FUROSEMIDE 40 MG TABLET (FP) PO SCH (10:22)
[2019-11-11] MEDS: RIFAXIMIN 550 MG TABLET (UD) PO SCH ×2 (10:23→21:02)
[2019-11-11] MEDS: LACTULOSE 20 GM/30 ML UDC (FOR ORAL USE ONLY) PO SCH ×4 (10:23→21:03)
[2019-11-11] MEDS: POLYETHYLENE GLYCOL 3350 119 GM BTL PO SCH (10:26)
--- NOTE | 2019-11-11 14:19 | PN ---
Progress Note, Physician Chief Complaint: confusion History of Present Illness: seen and examined at bedside. Feeling better, wants to go home. Denies abdominal pain. had 3 BMs yesterday. - Current Medication List Current Medications: Active Medications Atorvastatin Calcium (Lipitor -) 20 mg PO HS [facility] Last Admin: 11/10/19 21:08 Dose: 20 mg Furosemide (Lasix -) 40 mg PO DAILY [facility] Last Admin: 11/11/19 10:22 Dose: 40 mg Gabapentin (Neurontin -) 300 mg PO BID [facility] Last Admin: 11/11/19 10:22 Dose: 300 mg Ceftriaxone Sodium 1 gm/ (Dextrose) 50 mls @ 100 mls/hr IVPB DAILY [facility]; Protocol Lactulose (Cephulac (Oral Use)) 30 gm PO QID [facility] Last Admin: 11/11/19 10:23 Dose: 30 gm Polyethylene Glycol (Miralax (For Daily Use) -) 17 gm PO DAILY [facility] Last Admin: 11/11/19 10:26 Dose: Not Given Rifaximin (Xifaxan -) 550 mg PO BID [facility] Last Admin: 11/11/19 10:23 Dose: 550 mg Tamsulosin HCl (Flomax -) 0.4 mg PO DAILY@0830 [facility] Last Admin: 11/11/19 10:22 Dose: 0.4 mg Ursodiol (Actigal -) 300 mg PO BID [facility] Last Admin: 11/11/19 10:22 Dose: 300 mg - Objective Vital Signs: Vital Signs Temperature 98.2 F 11/11/19 10:00 Pulse Rate 73 11/11/19 10:00 Respiratory Rate 18 11/11/19 10:00 Blood Pressure 130/73 11/11/19 10:00 O2 Sat by Pulse Oximetry (%) 98 11/10/19 21:00 Constitutional: Yes: Well Nourished, No Distress, Calm Cardiovascular: Yes: WNL, Regular Rate and Rhythm Respiratory: Yes: WNL, Regular, CTA Bilaterally Gastrointestinal: Yes: Normal Bowel Sounds, Soft, Abdomen, Obese, Distention ( slight) Musculoskeletal: Yes: WNL Extremities: Yes: WNL Edema: Yes Edema: LLE: 1+, RLE: 1+ Labs: CBC, BMP 11/11/19 09:06 11/11/19 09:06 INR, PTT INR 1.86 (0.83-1.09) H 11/10/19 00:00 Problem List - Problems (1) Hepatic encephalopathy Code(s): K72.90 - HEPATIC FAILURE, UNSPECIFIED WITHOUT COMA (2) Abdominal pain Code(s): R10.9 - UNSPECIFIED ABDOMINAL PAIN (3) Cirrhosis Code(s): K74.60 - UNSPECIFIED CIRRHOSIS OF LIVER (4) Hyperammonemia Code(s): E72.20 - DISORDER OF UREA CYCLE METABOLISM, UNSPECIFIED (5) Hyperbilirubinemia Code(s): E80.6 - OTHER DISORDERS OF BILIRUBIN METABOLISM (6) Pancytopenia Code(s): D61.818 - OTHER PANCYTOPENIA Assessment/Plan 54-year-old male with liver cirrhosis on transplant list, Hx Hep B/C, coagulopathy, transaminitis, TCP presenting with altered mental status and lethargy Plan: 1) Hepatic encephalopathy - improving mental state with BMs - abdominal us no ascites - CT head no acute pathology - cw Rifaximin, lactulose, polyethylene glycol - Titrate to 3-4 BMs per day - GI consult appreciated 2) UTI -GNR -started on rocephin pending urine cx sens -blood cultures ordered DC planning in 24-48 hrs
[2019-11-11] MEDS ORDERED: cefTRIAXone SODIUM 1 GM VIAL ONE (14:21)
[2019-11-11] MEDS ORDERED: DEXTROSE 5%-WATER - 50 ML IVPB ONE (14:21)
[2019-11-11] MEDS: CEFTRIAXONE 1 GM in DEXTROSE 5%-WATER - 50 ML IVPB SCH (14:33)
[2019-11-11] MEDS: ATORVASTATIN CA 20 MG TABLET (FP) PO SCH (21:02)
[2019-11-12] MEDS ORDERED: cefTRIAXone SODIUM 1 GM VIAL ONE (09:45)
[2019-11-12] MEDS ORDERED: DEXTROSE 5%-WATER - 50 ML IVPB ONE (09:46)
[2019-11-12] MEDS: LACTULOSE 20 GM/30 ML UDC (FOR ORAL USE ONLY) PO SCH ×3 (09:54→17:03)
[2019-11-12] MEDS: POLYETHYLENE GLYCOL 3350 119 GM BTL PO SCH (09:55)
[2019-11-12] MEDS: RIFAXIMIN 550 MG TABLET (UD) PO SCH (09:59)
[2019-11-12] MEDS: FUROSEMIDE 40 MG TABLET (FP) PO SCH (09:59)
[2019-11-12] MEDS: CEFTRIAXONE 1 GM in DEXTROSE 5%-WATER - 50 ML IVPB SCH (09:59)
[2019-11-12] MEDS: GABAPENTIN 300 MG CAPSULE PO SCH (09:59)
[2019-11-12] MEDS: TAMSULOSIN HCL 0.4 MG CAP PO SCH (09:59)
[2019-11-12] MEDS: URSODIOL 300 MG CAPSULE PO SCH (09:59)
--- NOTE | 2019-11-12 11:24 | PN ---
Physical Exam: SUBJECTIVE: Patient seen and examined. He has no complaints. OBJECTIVE: Vital Signs Period Temp Pulse Resp BP Sys/Mckeon Pulse Ox Last 24 Hr 98.1 F-98.2 F 74-77 18-20 115-135/62-78 100 GENERAL: The patient is awake, alert, and fully oriented, in no acute distress. HEAD: Normal with no signs of trauma. EYES: PERRL, extraocular movements intact, sclera anicteric, conjunctiva clear. No ptosis. ENT: Ears normal, nares patent, oropharynx clear without exudates, moist mucous membranes. NECK: Trachea midline, full range of motion, supple. LUNGS: Breath sounds equal, clear to auscultation bilaterally, no wheezes, no crackles, no accessory muscle use. HEART: Regular rate and rhythm, S1, S2 without murmur, rub or gallop. ABDOMEN: Soft, nontender, nondistended, normoactive bowel sounds, no guarding, no rebound, no hepatosplenomegaly, no masses. EXTREMITIES: 2+ pulses, warm, well-perfused, no edema. NEUROLOGICAL: Cranial nerves II through XII grossly intact. Normal speech, gait not observed. PSYCH: Normal mood, normal affect. SKIN: Warm, dry, normal turgor, no rashes or lesions noted Active Medications Generic Name Dose Route Start Last Admin Trade Name Teraq PRN Reason Stop Dose Admin Atorvastatin Calcium 20 mg 11/10/19 22:00 11/11/19 21:02 Lipitor - PO 20 mg HS [facility] Administration Furosemide 40 mg 11/10/19 10:00 11/12/19 09:59 Lasix - PO 40 mg DAILY [facility] Administration Gabapentin 300 mg 11/10/19 10:00 11/12/19 09:59 Neurontin - PO 300 mg BID [facility] Administration Ceftriaxone Sodium 1 gm/ 50 mls @ 100 mls/hr 11/11/19 12:45 11/12/19 09:59 Dextrose IVPB 100 mls/hr DAILY [facility] Administration Protocol Lactulose 30 gm 11/10/19 10:00 11/12/19 09:54 Cephulac (Oral Use) PO 30 gm QID [facility] Administration Polyethylene Glycol 17 gm 11/10/19 10:00 11/12/19 09:55 Miralax (For Daily Use) - PO 17 gm DAILY [facility] Administration Rifaximin 550 mg 11/10/19 10:00 11/12/19 09:59 Xifaxan - PO 550 mg BID [facility] Administration Tamsulosin HCl 0.4 mg 11/10/19 08:30 11/12/19 09:59 Flomax - PO 0.4 mg DAILY@0830 [facility] Administration Ursodiol 300 mg 11/10/19 10:00 11/12/19 09:59 Actigal - PO 300 mg BID [facility] Administration ASSESSMENT/PLAN:
[2019-11-12 12:41] LABS: BASO % 0.4 % (0-2.0); HEMATOCRIT 36.4 % (35.4-49); HEMOGLOBIN 12.5 GM/dL (11.7-16.9); LYMPH % 30.6 % (8-40); MCH 34.2 pg (25.7-33.7); MCHC 34.3 g/dl (32.0-35.9); MEAN CELL VOLUME 99.7 fl (80-96); MEAN PLT VOLUME 11.7 fl (7.5-11.1); PLATELET COUNT 42 K/MM3 (134-434); RBC 3.66 M/mm3 (4.00-5.60); RDW 15.8 % (11.9-15.9); WHITE BLOOD COUNT 3.9 K/mm3 (4.0-10.0)
[2019-11-12 12:58] LABS: INR 1.72 (0.83-1.09); PROTHROMBIN TIME (PATIENT) 20.4 SEC (9.7-13.0)
[2019-11-12 13:15] LABS: ALBUMIN 2.3 g/dl (3.4-5.0); BILIRUBIN,TOTAL 3.1 mg/dL (0.2-1); BLOOD UREA NITROGEN 7.2 mg/dL (7-18); CREATININE 0.7 mg/dL (0.55-1.3); POTASSIUM 3.6 mmol/L (3.5-5.1); TOT PROT 7.6 g/dl (6.4-8.2)
--- NOTE | 2019-11-12 15:00 | DS ---
Physical Exam: SUBJECTIVE: Patient seen and examined. He has no complaints. OBJECTIVE: Vital Signs Period Temp Pulse Resp BP Sys/Mckeon Pulse Ox Last 24 Hr 98.1 F-98.2 F 74-75 18-20 115-135/62-75 100 PHYSICAL EXAM GENERAL: The patient is awake, alert, and fully oriented, in no acute distress. LUNGS: Breath sounds equal, clear to auscultation bilaterally, no wheezes, no crackles, no accessory muscle use. HEART: Regular rate and rhythm, S1, S2 without murmur, rub or gallop. ABDOMEN: Soft, nontender, nondistended, normoactive bowel sounds, no guarding, no rebound, no hepatosplenomegaly, no masses. EXTREMITIES: 2+ pulses, warm, well-perfused, tracce edema. LABS Laboratory Results - last 24 hr 11/12/19 11/12/19 11/12/19 12:15 12:15 12:15 WBC 3.9 L RBC 3.66 L Hgb 12.5 Hct 36.4 MCV 99.7 H MCH 34.2 H MCHC 34.3 RDW 15.8 Plt Count 42 L MPV 11.7 H Absolute Neuts (auto) 2.1 Neutrophils % 55.0 Lymphocytes % 30.6 Monocytes % 11.0 H Eosinophils % 3.0 Basophils % 0.4 Nucleated RBC % 0 PT with INR 20.40 H INR 1.72 H Sodium 135 L Potassium 3.6 Chloride 102 Carbon Dioxide 27 Anion Gap 5 L BUN 7.2 Creatinine 0.7 Est GFR (CKD-EPI)AfAm 123.13 Est GFR (CKD-EPI)NonAf 106.24 Random Glucose 96 Calcium 8.0 L Total Bilirubin 3.1 H AST 53 H ALT 33 Alkaline Phosphatase 271 H Total Protein 7.6 Albumin 2.3 L HOSPITAL COURSE: Date of Admission:11/10/19 Date of Discharge: 11/12/19 Minutes to complete discharge: 35 Discharge Summary Problems reviewed: Yes Reason For Visit: HEPATIC ENCEPHALOPATHY Current Active Problems Abdominal pain (Acute) Altered mental status (Acute) Hepatic encephalopathy (Acute) Hyperammonemia (Acute) Ascites (Chronic) Blindness (Chronic) Cirrhosis (Chronic) Hyperbilirubinemia (Chronic) Pancytopenia (Chronic) Hospital Course: This is a 54 year old man with a history of hepatitis B, hepatitis C, cirrhosis , awaiting liver transplant who presented to the ED on 1/10/20 complaining of abdominal pain for one day. He reported being constipated for several days. He was noted to be confused and found to have an elevated ammonia level. He was admitted and his home medications of rifaximin, Lactulose, and Miralax were resumed. Once he started having regular bowel movements, his abdominal pain and confused improved. He was seen by Dr. Villeda and it was recommended that he continue on these medications and follow-up with his liver transplant specialist , Dr. Francis. He was started on ceftriaxone when his urine culture was found to be positive. Urinalysis showed no signs of infection and he had no urinary symptoms. Final urine culture grew fewer than 10,000 colonies of gram negative rods and group D Strep/Enterococcus. Ceftriaxone was discontinued. He is being discharged home on 11/12/19. Condition: Stable - Instructions Diet, Activity, Other Instructions: You were seen in the [facility] ER on November 09 for abdominal pain. You were admitted. Your symptoms were thought to be caused by constipation and liver disease. You were treated with your usual medications, rifaximin, lactulose, and Miralax. You were seen by a airline transport pilot, Dr. Villeda. Once you moved your bowels, your symptoms improved. You are being discharged to home on November 12. Please schedule an appointment with your liver specialist, Dr. Francis, this week. Referrals: Eliana Francis [Non Staff, Medical] - 1 Week Disposition: HOME - Home Medications Comprehensive Discharge Medication List: Ambulatory Orders Ursodiol [Actigal -] 300 mg PO BID 10/11/17 Sertraline HCl [Zoloft] 25 mg PO DAILY 01/25/18 Furosemide [Lasix -] 40 mg PO DAILY 12/11/18 Gabapentin [Neurontin -] 300 mg PO BID 05/28/19 Rifaximin [Xifaxan] 550 mg PO BID 05/28/19 Tamsulosin HCl [Flomax -] 0.4 mg PO DAILY 05/28/19 Ammonium Lactate Cream [Lac-Hydrin 12% Cream -] 1 applic TP BID 07/24/19 Omeprazole/Sodium Bicarbonate [Omeprazole-Bicarb 40-1,100 Cap] 1 each PO BID Atorvastatin Ca [Lipitor] 20 mg PO HS #30 tablet 07/30/19 Lactulose (Oral Use) [Cephulac -] 30 gm PO QID #3 bottle 07/30/19 Polyethylene Glycol [Polyox Wsr-301] 17 gm MC DAILY 10/03/19 This patient is new to me today: Yes Date on this admission: 11/12/19 Emergency Visit: Yes ED Registration Date: 11/10/19 Care time: The patient presented to the Emergency Department on the above date and was hospitalized for further evaluation of their emergent condition. Critical Care patient: No - Discharge Referral Referred to [facility] No
[2019-11-12 15:50] VITALS: BP 132/69; PULSE 72; TEMP 98.5
[2019-11-12] MEDS ORDERED: FLU VACCINE QUAD 60 MCG/0.5 ML (MDV 19-20) IM ONE (16:45)
== END 2019-11-12 18:30 | disposition home or self-care (01) | DRG 442 ==
LOC: JER 23:08 → JERBED 11-10 02:21 → J5S 11-10 06:39
PROVIDERS: ADMIT Internal Medicine; ATTEND Internal Medicine
DX: K72.90 Hepatic failure, unspecified without coma (principal); E87.2 Acidosis; D61.818 Other pancytopenia; E72.20 Disorder of urea cycle metabolism, unspecified; R18.8 Other ascites; D68.9 Coagulation defect, unspecified; K74.60 Unspecified cirrhosis of liver; Z86.19 Personal history of other infectious and parasitic diseases; R41.82 Altered mental status, unspecified; D69.6 Thrombocytopenia, unspecified; R10.9 Unspecified abdominal pain
CPT/HCPCS: 36415; 70450-TC; 71045-TC-FY; 76700-TC; 80053; 81003; 82140; 82550; 82962; 83605; 83690; 83735; 83880; 84484; 85025; 85027; 85610; 85730; 87040; 87086; 93005; 93010; 99284-25; G0008; J7030; Q2036